=== PATIENT | female | born 1960 | race Caucasian/White ===

== ENCOUNTER 2019-08-08 16:06 | Outpatient (REF) | payer MEDICARE, MEDICAID, SELFPAY ==
[2019-08-08 21:41] LABS: HCT 39.1 % (36.0-46.0); HGB 12.3 g/dL (12.0-15.5); Mean Corp. HGB Concentration 31.5 g/dL (32.0-36.0); Mean Corpuscular Hemoglobin 29.5 pg (27.0-33.0); Mean Corpuscular Volume 93.8 fL (80-95); Mean Platelet Volume 10.4 fL (8.0-11.0); Platelet Count 353 x1000/uL (130-400); RBC 4.17 m/cumm (4.00-5.20); White Blood Cell Count 11.08 k/cumm (4.4-10.8)
[2019-08-08 21:57] LABS: Anion Gap 7.9 mmol/L (3-11); BUN 20 mg/dL (7-18); CO2 30.1 mmol/L (21.0-32.0); CREATININE 1.35 mg/dL (0.55-1.02); Calcium 8.9 mg/dL (8.5-10.1); Chloride 104 mmol/L (98-107); Estimated GFR 40.28 (mL/min/1.73m2); Glucose 93 mg/dL (70-100); Potassium 3.4 mmol/L (3.5-5.1); Sodium 142 mmol/L (136-145)
[2019-08-08 22:08] LABS: Hemoglobin A1C 5.6 % (4.5-6.2)
== END 2019-08-08 16:26 ==
LOC: NCHCN 16:06
PROVIDERS: PCP Nurse Practitioner; Visit Provider Nurse Practitioner Family
DX: R73.09 Other abnormal glucose (principal); E66.01 Morbid (severe) obesity due to excess calories; Z86.2 Personal history of diseases of the blood and blood-forming organs and certain disorders involving the immune mechanism
CPT/HCPCS: 80048; 85027; 83036

== ENCOUNTER 2019-09-11 10:37 | Outpatient (REF) | payer MEDICARE, MEDICAID, SELFPAY ==
[2019-09-11 21:30] LABS: Anion Gap 7.2 mmol/L (3-11); BUN 20 mg/dL (7-18); CO2 31.8 mmol/L (21.0-32.0); CREATININE 1.12 mg/dL (0.55-1.02); Calcium 8.9 mg/dL (8.5-10.1); Chloride 103 mmol/L (98-107); Estimated GFR 49.97 (mL/min/1.73m2); Glucose 105 mg/dL (70-100); Potassium 3.7 mmol/L (3.5-5.1); Sodium 142 mmol/L (136-145)
== END 2019-09-11 10:57 ==
LOC: NCHCN 10:37
PROVIDERS: PCP Nurse Practitioner; Visit Provider Nurse Practitioner Family
DX: I10 Essential (primary) hypertension (principal); Z86.39 Personal history of other endocrine, nutritional and metabolic disease
CPT/HCPCS: 80048

== ENCOUNTER 2019-11-22 13:01 | Outpatient (REF) | payer MEDICARE, MEDICAID, SELFPAY ==
[2019-11-22 22:32] LABS: Abs Immature Grans 0.09 k/cumm (0.0-0.09); Absolute Basophil Count 0.03 k/cumm (0.0-0.2); Absolute Eosinophil Count 0.24 k/cumm (0.0-0.7); Absolute Lymphocyte Count 1.89 k/cumm (1.2-3.4); Absolute Monocyte Count 0.92 k/cumm (0.11-0.7); Basophils % 0.3; Eosinophils % 2.2; HCT 39.8 % (36.0-46.0); HGB 12.5 g/dL (12.0-15.5); Immature Grans % 0.8 %; Lymphocytes % 17.2; Mean Corp. HGB Concentration 31.4 g/dL (32.0-36.0); Mean Corpuscular Hemoglobin 29.1 pg (27.0-33.0); Mean Corpuscular Volume 92.8 fL (80-95); Mean Platelet Volume 9.6 fL (8.0-11.0); Monocytes % 8.4; Neutrophils % 71.1; Platelet Count 371 x1000/uL (130-400); RBC 4.29 m/cumm (4.00-5.20); RBC Distribution Width 12.9 % (11.7-14.6); White Blood Cell Count 10.97 k/cumm (4.4-10.8)
[2019-11-22 23:16] LABS: Anion Gap 8.2 mmol/L (3-11); BUN 15 mg/dL (7-18); CO2 32.8 mmol/L (21.0-32.0); CREATININE 1.11 mg/dL (0.55-1.02); Calcium 8.9 mg/dL (8.5-10.1); Chloride 101 mmol/L (98-107); Estimated GFR 50.31 (mL/min/1.73m2); Glucose 105 mg/dL (74-106); Potassium 3.3 mmol/L (3.5-5.1); Sodium 142 mmol/L (136-145)
== END 2019-11-22 13:21 ==
LOC: NCHCN 13:01
PROVIDERS: PCP Nurse Practitioner; Visit Provider Registered Nurse
DX: N18.9 Chronic kidney disease, unspecified (principal); Z86.2 Personal history of diseases of the blood and blood-forming organs and certain disorders involving the immune mechanism
CPT/HCPCS: 80048; 85025

== ENCOUNTER 2019-12-29 11:56 | Outpatient (REF) | payer MEDICARE, MEDICAID, SELFPAY ==
[2019-12-29 20:43] LABS: Potassium 3.3 mmol/L (3.5-5.1)
== END 2019-12-29 12:16 ==
LOC: NCHCN 11:56
PROVIDERS: PCP Nurse Practitioner; Visit Provider Registered Nurse
DX: Z86.39 Personal history of other endocrine, nutritional and metabolic disease (principal)
CPT/HCPCS: 84132

== ENCOUNTER 2020-03-19 11:47 | Outpatient (REF) | payer OTHER, MEDICAID, SELFPAY ==
[2020-03-19 22:01] LABS: Anion Gap 5.2 mmol/L (3-11); BUN 15 mg/dL (7-18); CO2 32.8 mmol/L (21.0-32.0); CREATININE 1.28 mg/dL (0.55-1.02); Calcium 9.4 mg/dL (8.5-10.1); Chloride 101 mmol/L (98-107); Estimated GFR 42.68 (mL/min/1.73m2); Glucose 105 mg/dL (74-106); Potassium 4.3 mmol/L (3.5-5.1); Sodium 139 mmol/L (136-145)
[2020-03-19 22:32] LABS: Hemoglobin A1C 5.9 % (3.8-5.6)
== END 2020-03-19 12:07 ==
LOC: NCHCN 11:47
PROVIDERS: PCP Nurse Practitioner; Visit Provider Nurse Practitioner Family
DX: R73.03 Prediabetes (principal); N18.9 Chronic kidney disease, unspecified
CPT/HCPCS: 80048; 83036

== ENCOUNTER 2020-09-19 17:10 | Outpatient (REF) | payer OTHER, MEDICAID, SELFPAY ==
[2020-09-19 21:20] LABS: Abs Immature Grans 0.03 10^3/uL (0.0-0.06); Absolute Basophil Count 0.05 10^3/uL (0.0-0.2); Absolute Lymphocyte Count 2.63 10^3/uL (1.2-3.4); Absolute Monocyte Count 0.73 10^3/uL (0.1-0.8); Absolute Neutrophil Count 3.74 10^3/uL (1.2-6.7); Basophils % 0.7; Eosinophils % 2.7; HCT 41.4 % (36.0-46.0); HGB 12.9 g/dL (11.2-15.7); Immature Grans % 0.4; Lymphocytes % 35.6; MCH 28.7 pg (27.0-33.0); MCHC 31.2 % (32.0-36.0); MCV 92.2 fL (80-95); MPV 9.8 fL (8.0-11.0); Monocytes % 9.9; Neutrophils % 50.7; Nucleated RBC 0 %; Platelet Count 348 10^3/uL (130-400); RBC 4.49 10^6/uL (3.93-5.22); RDW 13.1 % (11.7-14.6); RDW-SD 44.2 fL; WBC 7.38 10^3/uL (4.4-10.8)
[2020-09-19 21:46] LABS: ALT 24 U/L (14-59); AST 14 U/L (15-37); Albumin 3.9 g/dL (3.4-5.0); Alkaline Phosphatase 101 U/L (46-116); BUN 19 mg/dL (7-18); Bilirubin, Total 0.2 mg/dL (0.2-1.0); CREATININE 1.18 mg/dL (0.55-1.02); Calcium 9.3 mg/dL (8.5-10.1); Chloride 102 mmol/L (98-107); Estimated GFR 46.88 (mL/min/1.73m2); Glucose 79 mg/dL (74-106); Potassium 4.2 mmol/L (3.5-5.1); Sodium 140 mmol/L (136-145); Total Protein 6.5 g/dL (6.4-8.2)
[2020-09-25 04:15] LABS: Patient Race White; SARS-CoV-2 RNA Undetected (Undetected); SARS-CoV-2 Specimen Source Nasal
== END 2020-09-19 17:30 ==
LOC: NCHCN 17:10
PROVIDERS: PCP Nurse Practitioner; Visit Provider Nurse Practitioner Family
DX: B34.9 Viral infection, unspecified (principal); Z11.59 Encounter for screening for other viral diseases; M54.89 Other dorsalgia
CPT/HCPCS: 80053; U0003; 85025

== ENCOUNTER 2021-08-25 16:30 | Outpatient (REF) | payer OTHER, MEDICAID, SELFPAY ==
[2021-08-25 22:28] LABS: Hemoglobin A1C 5.7 % (<5.7)
[2021-08-25 22:35] LABS: Microalb ug/mg Crea 4.2 ug/mg Cr
[2021-08-25 23:02] LABS: ALT 25 U/L (14-59); AST 14 U/L (15-37); Albumin 3.7 g/dL (3.4-5.0); Alkaline Phosphatase 115 U/L (46-116); Anion Gap 7.4 mmol/L (3-11); BUN 12 mg/dL (7-18); Bilirubin, Total 0.3 mg/dL (0.2-1.0); CO2 31.6 mmol/L (21.0-32.0); CREATININE 1.1 mg/dL (0.55-1.02); Calcium 9.4 mg/dL (8.5-10.1); Calculated LDL 136 mg/dL (<100); Chloride 104 mmol/L (98-107); Cholesterol 231 mg/dL (<200); Estimated GFR 50.67 (mL/min/1.73m2); Glucose 97 mg/dL (74-106); HDL Cholesterol 54 mg/dL (40-60); Magnesium 1.8 mg/dL (1.8-2.4); Potassium 4.2 mmol/L (3.5-5.1); Sodium 143 mmol/L (136-145); Total Protein 6.6 g/dL (6.4-8.2); Triglyceride 207 mg/dL (<150); Vitamin B12 400 pg/mL (193-986)
== END 2021-08-25 16:31 | disposition home or self-care (01) ==
LOC: NCHCN 16:30
PROVIDERS: PCP Nurse Practitioner; Visit Provider Nurse Practitioner Family
DX: I10 Essential (primary) hypertension (principal); R73.03 Prediabetes; K21.9 Gastro-esophageal reflux disease without esophagitis; M54.59 Other low back pain
CPT/HCPCS: 80053; 80061; 82043; 82570; 82607; 83036; 83735

== ENCOUNTER 2022-03-09 16:12 | Outpatient (REF) | payer MEDICARE, MEDICAID, SELFPAY ==
[2022-03-09 21:45] LABS: Abs Immature Grans 0.04 10^3/uL (0.0-0.06); Absolute Basophil Count 0.05 10^3/uL (0.0-0.2); Absolute Eosinophil Count 0.23 10^3/uL (0.0-0.7); Absolute Lymphocyte Count 2.01 10^3/uL (1.2-3.4); Absolute Monocyte Count 0.73 10^3/uL (0.1-0.8); Absolute Neutrophil Count 5.79 10^3/uL (1.2-6.7); Basophils % 0.6; Eosinophils % 2.6; HCT 41.4 % (36.0-46.0); HGB 12.9 g/dL (11.2-15.7); Immature Grans % 0.5; Lymphocytes % 22.7; MCH 29.3 pg (27.0-33.0); MCHC 31.2 % (32.0-36.0); MCV 94 fL (80-95); MPV 9.6 fL (8.0-11.0); Monocytes % 8.2; Neutrophils % 65.4; Platelet Count 327 10^3/uL (130-400); RBC 4.41 10^6/uL (3.93-5.22); RDW 12.5 % (11.7-14.6); RDW-SD 43.4 fL; WBC 8.85 10^3/uL (4.4-10.8)
== END 2022-03-09 16:13 | disposition home or self-care (01) ==
LOC: NCHCN 16:12
PROVIDERS: PCP Nurse Practitioner; Visit Provider Family Medicine
DX: R05.1 Acute cough (principal); J45.41 Moderate persistent asthma with (acute) exacerbation
CPT/HCPCS: 85025

== ENCOUNTER 2022-07-21 12:41 | Outpatient (REF) | payer MEDICARE, MEDICAID, SELFPAY ==
[2022-07-21 20:56] LABS: Abs Immature Grans 0.01 10^3/uL (0.0-0.06); Absolute Basophil Count 0.05 10^3/uL (0.0-0.2); Absolute Eosinophil Count 0.25 10^3/uL (0.0-0.7); Absolute Lymphocyte Count 2.02 10^3/uL (1.2-3.4); Absolute Monocyte Count 0.43 10^3/uL (0.1-0.8); Absolute Neutrophil Count 2.87 10^3/uL (1.2-6.7); Basophils % 0.9; Eosinophils % 4.4; HCT 41.7 % (36.0-46.0); HGB 13.2 g/dL (11.2-15.7); Immature Grans % 0.2; Lymphocytes % 35.9; MCH 29.6 pg (27.0-33.0); MCHC 31.7 % (32.0-36.0); MCV 94 fL (80-95); MPV 9.8 fL (8.0-11.0); Monocytes % 7.6; Platelet Count 325 10^3/uL (130-400); RBC 4.46 10^6/uL (3.93-5.22); RDW 12.7 % (11.7-14.6); RDW-SD 43.5 fL; WBC 5.63 10^3/uL (4.4-10.8)
[2022-07-21 21:15] LABS: ALT 23 U/L (14-59); AST 16 U/L (15-37); Albumin 3.8 g/dL (3.4-5.0); Alkaline Phosphatase 85 U/L (46-116); Anion Gap 5.9 mmol/L (3-11); BUN 18 mg/dL (7-18); Bilirubin, Total 0.3 mg/dL (0.2-1.0); CO2 32.1 mmol/L (21.0-32.0); CREATININE 1.2 mg/dL (0.55-1.02); Calcium 9.5 mg/dL (8.5-10.1); Chloride 102 mmol/L (98-107); Glucose 111 mg/dL (74-106); Lipase 54 U/L (73-393); Potassium 3.5 mmol/L (3.5-5.1); Sodium 140 mmol/L (136-145); TSH 1.14 uIU/mL (0.36-3.74); Total Protein 7.3 g/dL (6.4-8.2)
[2022-07-23 09:07] LABS: HIV-1/2 Ag & Ab Screen Negative (Negative)
[2022-07-23 09:20] LABS: Hepatitis C Ab w Rflx HCV PCR Negative (Negative)
== END 2022-07-21 12:42 | disposition home or self-care (01) ==
LOC: NCHCN 12:41
PROVIDERS: PCP Nurse Practitioner; Visit Provider Nurse Practitioner Family
DX: R10.9 Unspecified abdominal pain (principal); I12.9 Hypertensive chronic kidney disease with stage 1 through stage 4 chronic kidney disease, or unspecified chronic kidney disease; Z11.4 Encounter for screening for human immunodeficiency virus [HIV]; Z11.59 Encounter for screening for other viral diseases; N18.9 Chronic kidney disease, unspecified
CPT/HCPCS: 80053; 83690; 86803; 87389; 83036; 84443; 85025

== ENCOUNTER 2022-10-02 10:10 | Emergency (ER) | payer MEDICARE, MEDICAID, SELFPAY ==
[2022-10-02] VITALS (45 sets, daily range): BP systolic 98–139; BP diastolic 51–106; PULSE 68–122; RESP 11–25; TEMP 36.5; O2SAT 93–100
--- NOTE | 2022-10-02 10:00 | RT.EKG_ITS ---
APPROVED REPORT Exam: Resting ECG Reason for Exam: Chest pain Patient Location: E HR:68 bpm ECG Measurements Heart Rate 68 AXIS AZ 143 P 44 QRSd 93 QRS 49 QT 453 T 86 QTc 483 Conclusion Sinus rhythm...normal P axis, V-rate 60- 99
--- NOTE | 2022-10-02 10:29 | ED.GENADUL_ITS ---
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 Hydrate yourself well and rest this weekend. Medical Decision Making 61-year-old presents to the emergency room for left hematology oncology office status post atypical chest discomfort after receiving some antiemetics and steroids IV. Arrives with a normal EKG. Pain-free. Serial troponins were negative. Her electrolytes and CBC are baseline. Her chest pain does not appear to be cardiac in etiology. No respiratory symptoms. At this time the patient will discharge from a cardiopulmonary perspective. She is concerned that she has not been able to eat because she gets nauseous when she eats. At this time her electrolytes like acid are normal. I see no reason for admission. I have asked her to follow with her primary care doctor next week. Sign Out No HPI General Date/Time Provider Initiated Documentation: 10/02/22 10:29 . HPI Narrative: 61-year-old lady who developed some substernal chest pressure that lasted approximately 5 minutes and resolved spontaneously after receiving her antiemetic and her dexamethasone at the [facility] in preparation for her first chemotherapy round. The patient is being treated for a cancer of the head of the pancreas. No radiation of the pain. No nausea no vomiting. No back pain. This associated with some shortness of breath that resolved spontaneously. The patient believe that she may have had one of her panic attacks. She is sent from the cancer center to the emergency department for the above- mentioned complaints. She arrives to the emergency department good. Asymptomatic. General Stated Complaint: Chest Pain MARIAM: 2 Review of Systems Narrative: Constitutional is been negative for fever chills, negative for malaise, negative for fatigue. Eyes: No visual changes, no tearing ENT: No sore throat, no pain in the ears, no hearing change, no rhinorrhea Cardiovascular no shortness of breath with exertion, no palpitations, no lightheadedness Respiratory:seehpi,no cough GI: No abdominal pain, no diarrhea, no nausea, no vomiting, no dark stools : No dysuria, no frequency, no hematuria MSK: No myalgias, no arthralgias Skin: No rash Neurological: No headaches, no focal weakness, no paresthesias, no dizziness Psych: pos anxiety, no depression Endo: No weight gain no weight loss Hematology/lymph: No painful nodes, no easy bleeding, not on blood thinners PFSH All Active Problems (Updated 10/02/22 @ 14:47 by Tommy Hamilton MD) Atypical chest pain (Acute) Social History Smoking/Tobacco Use Status: Never Smoking risk assessment performed?: Yes Alcohol Intake: never Drug use: Never Substance use type: does not use Do you feel safe at home: Yes Do you feel safe in your relationship?: Yes Exam Narrative Exam Narrative: General: A,A Ox3, Calm, no apparent distress, well developed, pleasant and cooperative Head Size/Shape: normocephalic, atraumatic Eyes Pupils: PERRLA Extraocular Mobility: intact and symmetrical Conjunctiva: non-injected, anicteric, no discharge Ears, Nose, Throat Nares: patent bilaterally Oral Cavity: moist Neck: supple no jvd Respiratory Respiratory Effort: no dyspnea Auscultation: clear to auscultation bilaterally, normal breath sounds, no wheezing, no rales/crackles Cardiovascular Heart Auscultation: regular rate and rhythm, normal S1, normal S2, no murmurs, no rubs, no gallops, Pulse Quality: +2 equal bilaterally, location(s) radial Abdomen Inspection and Palpation: soft, non-tender, non-distended, no hepatosplenomegaly Musculoskeletal System Joints, Bones, and Muscles: no deformities Extremities: warm and well-perfused, no cyanosis, capillary refill <2 seconds Skin Skin Inspection: no rash, no lesions, no bruising Neurological Motor: normal tone, normal strength, moving all extremities equally Reflexes: deep tendon reflexes 2+ bilaterally, no clonus Psychiatric: good insight, good judgement, normal mood and affect Course Vital Signs Vital signs: Vital Signs Temperature 36.5 C 10/02/22 10:10 Pulse 72 10/02/22 10:10 Respiratory Rate 18 10/02/22 10:10 Blood Pressure 114/84 10/02/22 10:10 Pulse Oximetry 100 10/02/22 10:10 Temperature 36.5 C 10/02/22 10:10 Temperature Source Skin 10/02/22 10:10 Pulse 72 10/02/22 10:10 Respiratory Rate 18 10/02/22 10:10 Blood Pressure 114/84 10/02/22 10:10 Pulse Oximetry 100 10/02/22 10:10 Oxygen Delivery Method Room Air 10/02/22 10:10 Oxygen Flow Rate 0 10/02/22 10:10 Pain Level 0 10/02/22 10:10
[2022-10-02 11:08] LABS: Abs Immature Grans 0.04 10^3/uL (0.0-0.06); Absolute Basophil Count 0.04 10^3/uL (0.0-0.2); Absolute Eosinophil Count 0.15 10^3/uL (0.0-0.7); Absolute Lymphocyte Count 1.16 10^3/uL (1.2-3.4); Absolute Monocyte Count 0.69 10^3/uL (0.1-0.8); Absolute Neutrophil Count 7.68 10^3/uL (1.2-6.7); Basophils % 0.4; Eosinophils % 1.5; HGB 13.3 g/dL (11.2-15.7); Immature Grans % 0.4; Lymphocytes % 11.9; MCH 30.1 pg (27.0-33.0); MCHC 32.4 % (32.0-36.0); MCV 93 fL (80-95); MPV 9.5 fL (8.0-11.0); Monocytes % 7.1; Neutrophils % 78.7; Platelet Count 318 10^3/uL (130-400); RBC 4.42 10^6/uL (3.93-5.22); RDW 12.7 % (11.7-14.6); RDW-SD 43.3 fL; WBC 9.76 10^3/uL (4.4-10.8)
[2022-10-02 11:41] LABS: ALT 12 U/L (14-59); AST 11 U/L (15-37); Albumin 3.5 g/dL (3.4-5.0); Alkaline Phosphatase 95 U/L (46-116); Anion Gap 7.7 mmol/L (3-11); BUN 30 mg/dL (7-18); Bilirubin, Total 0.7 mg/dL (0.2-1.0); CO2 26.3 mmol/L (21.0-32.0); CREATININE 1.7 mg/dL (0.55-1.02); Calcium 9.1 mg/dL (8.5-10.1); Chloride 99 mmol/L (98-107); Estimated GFR 33.91 (mL/min/1.73m2); Glucose 109 mg/dL (74-106); Magnesium 1.8 mg/dL (1.8-2.4); Potassium 3.6 mmol/L (3.5-5.1); Sodium 133 mmol/L (136-145); Total Protein 6.7 g/dL (6.4-8.2); Troponin I < 50 ng/L (<or=60)
[2022-10-02 14:32] LABS: Troponin I < 50 ng/L (<or=60)
--- NOTE | 2022-10-02 14:37 | ED.GENADUL_ITS ---
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 Hydrate yourself well and rest this weekend. Medical Decision Making Patient arrived to the emergency department pain-free. Initial EKG was within normal limits. No signs of ischemia. She has her troponins that were negative. I believe the patient had a reaction to the steroids and antiemetics that she was given as premedication for chemotherapy. Do not believe that this is cardiac in etiology. Patient will be discharged with follow-up next week with her hematology oncologist. I discussion with the patient and her daughter. They were under the impression that she would be admitted over the weekend for hydration and to help her eat. I explained to her that nothing on her blood work wants admission. She states that she is not nauseous but she is unable to keep any of the food down because she gags. She has not lost any weight. At this time I see no reason for admission. Her labs are within her normal range. Sign Out No HPI General Date/Time Provider Initiated Documentation: 10/02/22 10:29 . HPI Narrative: 61-year-old presented to the emergency department for evaluation of chest discomfort. She was at the hematology oncology office getting ready to receive her first round of chemotherapy. She was given dexamethasone as well as an antiemetic. Shortly after receiving the medication she developed some anterior chest discomfort. Like a pressure. Pressure lasted approximately 45 minutes and resolve spontaneously. Associate with some mild shortness of breath. She believes that this was similar to panic attacks yesterday and the past but she was sent to the emergency room for further evaluation. She arrived to the [facility] room essentially symptom-free. No chest pain or shortness of breath. No anxiety. No nausea no vomiting. No headaches. No back pain abdominal pain. There was no radiation of the discomfort. It was described as mild. Transient resolved spontaneously General Stated Complaint: Chest Pain MARIAM: 2 Review of Systems Narrative: Constitutional is been negative for fever chills, negative for malaise, negative for fatigue. Eyes: No visual changes, no tearing ENT: No sore throat, no pain in the ears, no hearing change, no rhinorrhea Cardiovascularno shortness of breath with exertion, no palpitations, no lightheadedness Respiratory: No shortness of breath, no cough, GI: No abdominal pain, no diarrhea, no nausea, no vomiting, no dark stools : No dysuria, no frequency, no hematuria MSK: No myalgias, no arthralgias Skin: No rash Neurological: No headaches, no focal weakness, no paresthesias, no dizziness Psych: No anxiety, no depression Endo: No weight gain no weight loss Hematology/lymph: No painful nodes, no easy bleeding, not on blood thinners PFSH All Active Problems (Updated 10/02/22 @ 14:47 by Tommy Hamilton MD) Atypical chest pain (Acute) Social History Smoking/Tobacco Use Status: Never Smoking risk assessment performed?: Yes Alcohol Intake: never Drug use: Never Substance use type: does not use Do you feel safe at home: Yes Do you feel safe in your relationship?: Yes Exam Narrative Exam Narrative: General: A,A Ox3, Calm, no apparent distress, well developed, pleasant and cooperative Head Size/Shape: normocephalic, atraumatic Eyes Pupils: PERRLA Extraocular Mobility: intact and symmetrical Conjunctiva: non-injected, anicteric, no discharge Ears, Nose, Throat Nares: patent bilaterally Oral Cavity: moist Neck: supple no jvd Respiratory Respiratory Effort: no dyspnea Auscultation: clear to auscultation bilaterally, normal breath sounds, no wheezing, no rales/crackles / port in the left side of her chest Cardiovascular Heart Auscultation: regular rate and rhythm, normal S1, normal S2, no murmurs, no rubs, no gallops, Pulse Quality: +2 equal bilaterally, location(s) radiial Abdomen Inspection and Palpation: soft, non-tender, non-distended, no hepatosplenomegaly Musculoskeletal System Joints, Bones, and Muscles: no deformities Extremities: warm and well-perfused, no cyanosis, capillary refill <2 seconds Skin Skin Inspection: no rash, no lesions, no bruising Neurological Motor: normal tone, normal strength, moving all extremities equally Reflexes:no clonus Psychiatric: good insight, good judgement, normal mood and affect Course Vital Signs Vital signs: Vital Signs Temperature 36.5 C 10/02/22 10:10 Pulse 72 10/02/22 10:10 Respiratory Rate 18 10/02/22 10:10 Blood Pressure 114/84 10/02/22 10:10 Pulse Oximetry 100 10/02/22 10:10 Temperature 36.5 C 10/02/22 10:10 Temperature Source Skin 10/02/22 10:10 Pulse 72 10/02/22 10:10 Respiratory Rate 18 10/02/22 10:10 Respiratory Effort 10/02/22 11:02 Respiratory Depth Normal 10/02/22 11:02 Respiratory Pattern Normal 10/02/22 11:02 Blood Pressure 114/84 10/02/22 10:10 Pulse Oximetry 100 10/02/22 10:10 Oxygen Delivery Method Room Air 10/02/22 10:10 Oxygen Flow Rate 0 10/02/22 10:10 Pain Level 0 10/02/22 10:10 Lab/Test Results Lab/Test Results: Laboratory Tests Range/Units 10/02/22 10/02/22 10/02/22 11:00 11:00 13:30 WBC (4.4-10.8) 10^3/uL 9.76 RBC (3.93-5.22) 10^6/uL 4.42 Hgb (11.2-15.7) g/dL 13.3 Hct (36.0-46.0) % 41.0 MCV (80-95) fL 93 MCH (27.0-33.0) pg 30.1 MCHC (32.0-36.0) % 32.4 RDW (11.7-14.6) % 12.7 Plt Count (130-400) 10^3/uL 318 MPV (8.0-11.0) fL 9.5 Immature Gran % 0.4 Neutrophils % 78.7 Lymphocytes % 11.9 Monocytes % 7.1 Eosinophils % 1.5 Basophils % 0.4 Nucleated RBC % (0.0-0.3) % 0.0 Absolute Neutrophils (1.2-6.7) 10^3/uL 7.68 H Absolute Lymphocytes (1.2-3.4) 10^3/uL 1.16 L Absolute Monocytes (0.1-0.8) 10^3/uL 0.69 Absolute Eosinophils (0.0-0.7) 10^3/uL 0.15 Absolute Basophils (0.0-0.2) 10^3/uL 0.04 Sodium (136-145) mmol/L 133 L Potassium (3.5-5.1) mmol/L 3.6 Chloride (98-107) mmol/L 99 Carbon Dioxide (21.0-32.0) mmol/L 26.3 Anion Gap (3-11) mmol/L 7.7 BUN (7-18) mg/dL 30 H Creatinine (0.55-1.02) mg/dL 1.7 H Est GFR (CKD-EPI 2020) (mL/min/1.73m2) 33.91 Glucose (74-106) mg/dL 109 H Calcium (8.5-10.1) mg/dL 9.1 Magnesium (1.8-2.4) mg/dL 1.8 Total Bilirubin (0.2-1.0) mg/dL 0.7 AST (15-37) U/L 11 L ALT (14-59) U/L 12 L Alkaline Phosphatase (46-116) U/L 95 Troponin I (<or=60) ng/L < 50 < 50 Total Protein (6.4-8.2) g/dL 6.7 Albumin (3.4-5.0) g/dL 3.5
== END 2022-10-02 15:01 | disposition home or self-care (01) ==
PROVIDERS: Emergency Provider Emergency Medicine; PCP Nurse Practitioner
DX: R07.89 Other chest pain (principal); T38.0X5A Adverse effect of glucocorticoids and synthetic analogues, initial encounter
CPT/HCPCS: 80053; 93005; 99283; 83735; 84484; 85025; 93010; 99284

== ENCOUNTER 2022-10-05 02:38 | Outpatient (RCR) | payer MEDICARE, MEDICAID, SELFPAY ==
--- OUTSIDE RECORDS SUMMARY | 2022-09-18 01:06 | XMS_ITS | CCD ---
:1960 Author Care Team Providers Name Role Phone RAMANA HANKS MD Attending Physician Unavailable Vital Signs Unknown or Not Available. Allergies Allergy Code Allergy Type Reaction Status MEPERIDINE 6754 Drug allergy Active ERYTHROMYCIN 4053 Drug allergy Active ASPIRIN 1191 Drug allergy Active LATEX 0 Allergy to substance Active Procedures Procedure Code Procedure Type Date Arthrocentesis Aspir&/In[place]t/[place] [address] CPT 06/12/2021 History of Immunizations Immunization Code Date Influenza, seasonal, injectable, preservative free 140 01/17/2013 Problems Problem Code Start Date Resolved Date Status ACUTE ASTHMA EXACERBATION 52479 Ac tive HTN 58304969 Active Depression 32529321 Active Pancreatic cancer 036947102 Active Results Unknown or Not Available. Active Medications Medication Code Dose Units Frequency Route Modification Start Date/Time Advair Diskus 530203 1 EACH TWICE A DAY INHALATION 500/50 16:14 0.5MG-0.05MG/A ctuati Inhalation Disk Prescription Detail 1 EACH INHALATION TWICE A D AY Montelukast Sodium 10MG 592514 10 MILLIGRAMS DAILY ORAL 05/26/2018 16:14 Oral Tablet Prescription Detail TAKE 10 MILLIGRAMS ORAL DESHAWN Y Medications Administered During Visit Unknown or Not Available. Encounters Encounter Diagnosis Diagnosis Code Start Date Unilateral primary osteoarthritis, right knee M1711 06/12/2021 Social History Smoking Status Code Start Date End Date Never smoker [id number] Patient Decision Aids Unknown or Not Available. Discharge Instructions You were admitted to [facility] on 06/12/2021 08:46 with a principal diagnosis of Unilateral primary osteoart hritis, right knee You had the following procedures done: Arthrocentesis Aspir&/Inj Major Jt/Bursa w/o US You were discharged from [facility] on 06/12/2021 08:46 Should you have any questions prior to d ischarge, please contact a member of your healthcare team. If you have left the spital and have any questions, please contact your primary care physician. Chief Complaint and Reason For Visit Unknown or Not Available. Function Status Unknown or Not Available. Plan of Care Unknown or Not Available. Referral/Transition of Care Unknown or Not Available.
--- OUTSIDE RECORDS SUMMARY | 2022-09-18 01:06 | XMS_ITS | CCD ---
:1960 Author Care Team Providers Name Role Phone DELONTE BEAUCHAMP Attending Physician Unavailable Vital Signs Unknown or Not Available. Allergies Allergy Code Allergy Type Reaction Status MEPERIDINE 6754 Drug allergy Active ERYTHROMYCIN 4053 Drug allergy Active ASPIRIN 1191 Drug allergy Active LATEX 0 Allergy to substance Active Procedures Unknown or Not Available. History of Immunizations Immunization Code Date Influenza, seasonal, injectable, preservative free 140 01/17/2013 Problems Problem Code Start Date Resolved Date Status ACUTE ASTHMA EXACERBATION 11002 Ac tive HTN 50138231 Active Depression 06356465 Active Pancreatic cancer 277723630 Active Results Unknown or Not Available. Active Medications Medication Code Dose Units Frequency Route Modification Start Date/Time Advair Diskus 756514 1 EACH TWICE A DAY INHALATION 500/50 16:14 0.5MG-0.05MG/A ctuati Inhalation Disk Prescription Detail 1 EACH INHALATION TWICE A D AY Montelukast Sodium 10MG 083601 10 MILLIGRAMS DAILY ORAL 05/26/2018 16:14 Oral Tablet Prescription Detail TAKE 10 MILLIGRAMS ORAL DESHAWN Y Medications Administered During Visit Unknown or Not Available. Encounters Encounter Diagnosis Diagnosis Code Start Date Unspecified lump in the left breast, upper outer quadrant N6 321 07/16/2021 Social History Smoking Status Code Start Date End Date Never smoker [id number] Patient Decision Aids Unknown or Not Available. Discharge Instructions You were admitted to [facility] 01 on 07/16/2021 13:12 with a principal diagnosis of Unspecified lump in the lef t breast, upper outer quadrant You were discharged from [facility] on 07/16/2021 13:12 Should you have any questions prior to d ischarge, please contact a member of your healthcare team. If you have left the ho spital and have any questions, please contact your primary care physician. Chief Complaint and Reason For Visit Unknown or Not Available. Function Status Unknown or Not Available. Plan of Care Unknown or Not Available. Referral/Transition of Care Unknown or Not Available.
[2022-09-18] MEDS: Normal Saline Flush 10 ML SYR IVP (08:14)
[2022-09-18 08:51] LABS: Abs Immature Grans 0.04 10^3/uL (0.0-0.06); Absolute Basophil Count 0.05 10^3/uL (0.0-0.2); Absolute Eosinophil Count 0.45 10^3/uL (0.0-0.7); Absolute Lymphocyte Count 2.38 10^3/uL (1.2-3.4); Absolute Monocyte Count 0.77 10^3/uL (0.1-0.8); Absolute Neutrophil Count 4.43 10^3/uL (1.2-6.7); Basophils % 0.6; Eosinophils % 5.5; HCT 41.7 % (36.0-46.0); HGB 13.3 g/dL (11.2-15.7); Immature Grans % 0.5; Lymphocytes % 29.3; MCHC 31.9 % (32.0-36.0); MCV 94 fL (80-95); MPV 9.9 fL (8.0-11.0); Monocytes % 9.5; Neutrophils % 54.6; Platelet Count 309 10^3/uL (130-400); RBC 4.43 10^6/uL (3.93-5.22); RDW 12.7 % (11.7-14.6); RDW-SD 44.1 fL; WBC 8.12 10^3/uL (4.4-10.8)
[2022-09-18 09:08] LABS: ALT 18 U/L (14-59); AST 17 U/L (15-37); Albumin 3.7 g/dL (3.4-5.0); Alkaline Phosphatase 97 U/L (46-116); Anion Gap 7.8 mmol/L (3-11); BUN 22 mg/dL (7-18); Bilirubin, Total 0.3 mg/dL (0.2-1.0); CO2 30.2 mmol/L (21.0-32.0); CREATININE 1.2 mg/dL (0.55-1.02); Calcium 9.2 mg/dL (8.5-10.1); Chloride 101 mmol/L (98-107); Glucose 121 mg/dL (74-106); Potassium 3.3 mmol/L (3.5-5.1); Sodium 139 mmol/L (136-145); Total Protein 7.2 g/dL (6.4-8.2)
[2022-09-21 10:58] LABS: CA 19-9 53 U/mL (<35)
[2022-10-02 08:28] LABS: Abs Immature Grans 0.04 10^3/uL (0.0-0.06); Absolute Basophil Count 0.06 10^3/uL (0.0-0.2); Absolute Eosinophil Count 0.14 10^3/uL (0.0-0.7); Absolute Lymphocyte Count 2.35 10^3/uL (1.2-3.4); Absolute Monocyte Count 0.98 10^3/uL (0.1-0.8); Absolute Neutrophil Count 7.43 10^3/uL (1.2-6.7); Basophils % 0.5; Eosinophils % 1.3; HCT 42.9 % (36.0-46.0); HGB 13.8 g/dL (11.2-15.7); Immature Grans % 0.4; Lymphocytes % 21.4; MCH 30.3 pg (27.0-33.0); MCHC 32.2 % (32.0-36.0); MCV 94 fL (80-95); MPV 9.4 fL (8.0-11.0); Monocytes % 8.9; Neutrophils % 67.5; Platelet Count 368 10^3/uL (130-400); RBC 4.56 10^6/uL (3.93-5.22); RDW 12.5 % (11.7-14.6); RDW-SD 43.5 fL
[2022-10-02] MEDS: Normal Saline Flush 10 ML SYR IVP (08:42)
[2022-10-02 08:49] LABS: ALT 14 U/L (14-59); AST 13 U/L (15-37); Albumin 3.7 g/dL (3.4-5.0); Alkaline Phosphatase 102 U/L (46-116); BUN 27 mg/dL (7-18); Bilirubin, Total 0.5 mg/dL (0.2-1.0); CREATININE 1.7 mg/dL (0.55-1.02); Calcium 9.6 mg/dL (8.5-10.1); Chloride 95 mmol/L (98-107); Estimated GFR 33.91 (mL/min/1.73m2); Glucose 116 mg/dL (74-106); Potassium 3.7 mmol/L (3.5-5.1); Sodium 132 mmol/L (136-145); Total Protein 7.4 g/dL (6.4-8.2)
[2022-10-05] MEDS: Normal Saline Flush 10 ML SYR IVP (10:53)
[2022-10-05 10:59] LABS: CA 19-9 55 U/mL (<35)
[2022-10-05 11:21] LABS: ALT 18 U/L (14-59); AST 13 U/L (15-37); Albumin 3.7 g/dL (3.4-5.0); Alkaline Phosphatase 104 U/L (46-116); Anion Gap 8.1 mmol/L (3-11); BUN 13 mg/dL (7-18); Bilirubin, Total 0.4 mg/dL (0.2-1.0); CO2 32.9 mmol/L (21.0-32.0); Calcium 9.4 mg/dL (8.5-10.1); Chloride 93 mmol/L (98-107); Estimated GFR 64.09 (mL/min/1.73m2); Glucose 132 mg/dL (74-106); Sodium 134 mmol/L (136-145); Total Protein 7.5 g/dL (6.4-8.2)
[2022-10-05 11:32] LABS: Potassium 2.7 mmol/L (3.5-5.1)
== END 2022-10-07 23:59 | disposition home or self-care (01) ==
LOC: INF 02:38
PROVIDERS: PCP Nurse Practitioner; Visit Provider Internal Medicine Hematology & Oncology
DX: C25.0 Malignant neoplasm of head of pancreas (principal); Z45.2 Encounter for adjustment and management of vascular access device
CPT/HCPCS: 36591; 80053; 85025; 86301

== ENCOUNTER 2022-10-07 14:41 | Inpatient (IN) | payer MEDICARE, MEDICAID, SELFPAY ==
[2022-10-07] VITALS (21 sets, daily range): BP systolic 156–180; BP diastolic 97–105; PULSE 79–89; RESP 14–22; TEMP 37.2; O2SAT 100
--- NOTE | 2022-10-07 14:45 | RT.EKG_ITS ---
APPROVED REPORT Exam: Resting ECG Reason for Exam: syncope Patient Location: E HR:88 bpm ECG Measurements Heart Rate 88 AXIS MD 135 P 51 QRSd 95 QRS 30 QT 410 T 93 QTc 496 Conclusion Sinus rhythm.. Probable left atrial enlargement.. Nonspecific T abnrm, anterolateral leads
--- NOTE | 2022-10-07 15:00 | DI.CT_ITS ---
Exam(s) CT ABDOMEN PELVIS W EXAM: CT ABDOMEN PELVIS W CLINICAL HISTORY: pancreatic cancer, epigastric pain, vomiting. TECHNIQUE: Imaging Protocol: Axial computed tomography images with coronal and sagittal reformatted images were created and reviewed CONTRAST MATERIAL: Intravenous: Omnipaque 100cc Oral: None COMPARISON: No exams were available for comparison FINDINGS: VISUALIZED LUNG BASES: No nodules nor pleural effusions evident. ABDOMEN: There is no ascites. Small-moderate size hiatal hernia noted. LIVER: There are no focal hepatic lesions evident. No dilated intrahepatic ducts. GALLBLADDER/BILIARY: Mildly distended. No obvious gallstones nor gallbladder wall edema. No pericho lecystic fluid. CBD is not dilated. PANCREAS: There is a prominent 4 cm ominous hypodense mass in the pancreatic head and uncinate proce ss which is highly suspicious for adenocarcinoma. Mild surrounding streaking. Remainder of the panc reas is unremarkable and the pancreatic duct is not dilated. There are few slightly prominent lymph nodes in this region. There is a prominent lymph node between the abdominal aorta and the pre aortic left renal vein which measures 2 by 1.4 cm which is most probably metastatic. There is significant narrowing of the left renal vein at this level just before enters the subhepatic IVC . The common he patic artery and superior measures enteric artery skirt the external aspect of this mass. Same for t he superior mesenteric vein (which is patent). The portal vein confluence and splenic vein are paten t. This pancreatic mass also is intimately associated with the anterior wall of the distal aspect of the duodenum. SPLEEN: Spleen is not enlarged. No obvious intrasplenic lesions. Splenic and portal veins are paten t. ADRENALS: There are no significant adrenal masses. KIDNEYS:No cysts evident. No solid renal masses. No calculi nor hydronephrosis.. ABDOMINAL AORTA: Abdominal aorta is not enlarged. LYMPH NODES:Retroperitoneal adenopathy as described above. ABDOMINAL WALL: No evidence of significant anterior abdominal wall nor inguinal hernia. GI: There is no evidence of bowel obstruction, free air, nor abscess. PELVIS: GI: No evidence of appendicitis. No evidence of sigmoid diverticulitis. LYMPH NODES: There is no intrapelvic nor inguinal adenopathy. REPRODUCTIVE: Uterus is surgically absent. No abnormal adnexal masses. No free fluid in the pelvis. URINARY BLADDER: No calculi nor obvious masses evident OSSEOUS: L1 compression fracture, age indeterminate. 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 Chronic degenerative disc disease L4-5 and L5-S1. Mild degenerative anterolisthesis L4 upon L5. IMPRESSION: 1. Suspicious hypodense 4 cm mass in the pancreatic head which is concerning for adenocarcinoma. The pancreatic duct is not dilated. There is regional adenopathy, with the largest lymph node measuring 2 cm being portal caval location and with the pre aortic left renal vein splayed over this enlarged pathologic lymph node. The left renal vein does not appear thrombosed at this time. 2. No evidence of metastatic disease nor other findings in the liver. No ascites. 3. CBD is not dilated there is no dilatation of intrahepatic ducts. Gallbladder slightly distended b ut not edematous. 4. Superior endplate compression fracture of L1, difficult to determine acute or chronic. There is a benign intraosseous hemangioma evident in the T12 vertebral body. RADIATION DOSE DELIVERED: 1,587.86mGy.cm Total DLP DATA REPOSITORY: All CT scans at this facility are submitted to the National Radiology Data Registry (NRDR) Dose Index Registry (DIR) with the [employer] (A[employer]). RADIATION OPTIMIZATION: All CT scans at this facility use at least one of these dose optimization te chniques: automated exposure control; mA and/or kV adjustment per patient size (includes targeted exa ms where dose is matched to clinical indication); or iterative reconstruction.
--- NOTE | 2022-10-07 15:24 | ED.GENADUL_ITS ---
Discharge Plan Disposition Patient Disposition: Admit to [facility] Condition: Good Discharge Details Chief Complaint: GenMedical Clinical Impression: Acute hypokalemia, Hypomagnesemia, Vomiting Primary Care Provider: Cely Soni ED Provider: Desmond Murrell Home Meds and New Rx's Prescriptions: No Action losartan 50 mg Tablet 50 mg PO DAILY bupropion HCl 150 mg Tablet Sustained-Release 12 Hr 150 mg PO BID diphenoxylate-atropine 2.5-0.025 mg Tablet 1 - 2 tab PO DAILY PRN ondansetron 8 mg Tablet,Disintegrating 8 mg PO Q8H PRN fluticasone propion-salmeterol [Advair Diskus] 500-50 mcg/dose Blister With Device 1 inh INHALATION BID montelukast 10 mg Tablet 10 mg PO DAILY oxycodone 5 mg Tablet 5 - 10 mg PO Q6H PRN hydrochlorothiazide 12.5 mg Tablet 12.5 mg PO DAILY omeprazole 20 mg Tablet,Delayed Release (Dr/Ec) 20 mg PO BID venlafaxine 150 mg Tablet Extended Release 24hr 150 mg PO DAILY potassium chloride 20 mEq Tablet Extended Release 20 meq PO DAILY Medical Decision Making 61-year-old female with a past medical history of fibromyalgia, PTSD, anxiety, hypertension, reflux, pancreatic mass/cancer, who is currently receiving chemotherapy, who presents today for evaluation of vomiting nausea and inability to tolerate p.o. well. Patient states that over the last 3 to 4 days she has had persistent nausea and vomiting. She has been gagging every time she tries to drink something. She also admits to continued severe epigastric pain. It is achy and gnawing in sensation. She denies any hemoptysis, hematemesis, or bloody diarrhea or diarrhea. She denies any fever or chills. She did have her first attempt at chemotherapy 6 days ago, and at that time she did not tolerate the pretreatment medications of steroids and antiemetics. So she did not have the chemo. She then did get her full dose of chemo 3 days ago on Wednesday, and this was without significant problem aside for her symptoms notably escalating and worsening. She denies any other complaints at this time. No chest pain or shortness of breath. Exam demonstrates dry mucous membranes, notable epigastric tenderness, somewhat uncomfortable appearing female. Vital signs stable aside from mild hypertension. No tachycardia. I do suspect that the patient is having pain secondary to her mass, but differential does include obstruction versus other abdominal surgery. In addition to this she does appear dehydrated. We will rehydrate, treat her pain and nausea, get a CT scan, evaluate for less likely cardiac etiology, monitor closely and reassess. EKG shows inverted T waves in anterior leads, which appears relatively unchanged from prior EKG. No STEMI. 6:55 PM Laboratory work-up has returned, mild white count at 15, left shift is present. It is low 2.9, sodium 133, BUN/creatinine stable. Magnesium low at 1.6. Troponin normal, EKG stable. CT scan shows stability of the mass, no obstruction. Patient still has pain, notable nausea and dry heaving. Patient does not feel comfortable or safe going home. I did receive contact from the patient's primary care provider, and they have expressed that there is concern for potential narcotic medication diversion from family members. This has weighed on the patient's concerns as well. With the patient's dehydration, continued pain, and hypomagnesemia and hypokalemia, I do feel that admission for continued fluids, repletion of electrolytes, and monitoring is indicated for a short observation period. Discussed the case with the hospitalist Dr. Samuels, he agrees with the assessment and plan. I have extensively reviewed the treatment plan with the patient. I have addressed all patient concerns at this time. I have also discussed the plan with the admitting physician and they agree with the current assessment and plan and have agreed to assume responsibility for the patient. All parties demonstrate verbal understanding and agreement with our assessment and plan at this time. The documentation in this chart was dictated using [employer] dictation software. Please excuse any dictation errors. FINDINGS: Diaphragm: A small to moderate hiatal hernia is noted. Liver: Unremarkable liver. No mass identified. Gallbladder and bile ducts: The gallbladder is unremarkable. No calcified stones. No ductal dilation. Pancreas: There is an ill-defined lobulated hypoenhancing mass in the pancreatic head measuring approximately 4.1 x 2.8 x 3.8 cm (image 41, series 6), consistent with known pancreatic malignancy. There is peripancreatic fat stranding noted, suggestive of inflammation. Spleen: The spleen is unremarkable. No splenomegaly. Adrenal glands: The adrenal glands are unremarkable. No defined mass. Kidneys and ureters: A 1.2 cm fat containing lesion is seen in the kidney, which may represent a small angiomyolipoma versus fat interdigitation associated with prominent cortical defect. No hydronephrosis. Stomach and bowel: No obstruction. No mucosal thickening. Appendix: No evidence of appendicitis Intraperitoneal space: No free air. No significant fluid collection. Vasculature: There is no evidence of significant invasion or encasement of the superior mesenteric vein or superior mesenteric artery by the pancreatic lesion. There is narrowing of the distal left renal vein secondary to enlarged lymph node. No abdominal aortic aneurysm. Lymph nodes: An enlarged aortocaval lymph node is noted measuring approximately 1.7 cm in diameter. Urinary bladder: Unremarkable urinary bladder. Reproductive: Unremarkable as visualized. Bones/joints: No acute fracture. There is a superior endplate compression fracture involving the L1 vertebral body with mild retropulsion into the spinal canal. Soft tissues: There is a fat containing umbilical hernia noted. IMPRESSION: 1. 4.1 cm hypoenhancing mass in the pancreatic head, consistent with known malignancy. 2. Enlarged aortocaval lymph node causing narrowing of the left renal vein. This lymph node is also suggestive of metastatic disease. 3. No evidence of bowel obstruction. 4. Superior endplate compression fracture in the L1 vertebral body with mild retropulsion, which may be acute or chronic. Correlate with clinical history and with any point tenderness in this region. 5. Small to moderate hiatal hernia noted. Thank you for allowing us to participate in the care of your patient. Dictated and Authenticated by: Latoina Baker MD 10/07/2022 6:13 PM Eastern Time ([place] & [place]) Sign Out No HPI General Date/Time Provider Initiated Documentation: 10/07/22 14:54 . HPI Narrative: 61-year-old female with a past medical history of fibromyalgia, PTSD, anxiety, hypertension, reflux, pancreatic mass/cancer, who is currently receiving chemotherapy, who presents today for evaluation of vomiting nausea and inability to tolerate p.o. well. Patient states that over the last 3 to 4 days she has had persistent nausea and vomiting. She has been gagging every time she tries to drink something. She also admits to continued severe epigastric pain. It is achy and gnawing in sensation. She denies any hemoptysis, hematemesis, or bloody diarrhea or diarrhea. She denies any fever or chills. She did have her first attempt at chemotherapy 6 days ago, and at that time she did not tolerate the pretreatment medications of steroids and antiemetics. So she did not have the chemo. She then did get her full dose of chemo 3 days ago on Wednesday, and this was without significant problem aside for her symptoms notably escalating and worsening. She denies any other complaints at this time. No chest pain or shortness of breath. Related Data Home Medications Medication Instructions Recorded Confirmed bupropion HCl 150 mg tablet,12 hr 150 mg PO BID 10/07/22 10/07/22 sustained-release diphenoxylate-atropine 2.5 1 - 2 tab PO DAILY PRN 10/07/22 10/07/22 mg-0.025 mg tablet fluticasone 500 mcg-salmeterol 50 1 inh inhalation BID 10/07/22 10/07/22 mcg/dose blistr powdr for inhalation (Advair Diskus) hydrochlorothiazide 12.5 mg tablet 12.5 mg PO DAILY 10/07/22 10/07/22 losartan 50 mg tablet 50 mg PO DAILY 10/07/22 10/07/22 montelukast 10 mg tablet 10 mg PO DAILY 10/07/22 10/07/22 omeprazole 20 mg tablet,delayed 20 mg PO BID 10/07/22 10/07/22 release ondansetron 8 mg disintegrating 8 mg PO Q8H PRN 10/07/22 10/07/22 tablet oxycodone 5 mg tablet 5 - 10 mg PO Q6H PRN 10/07/22 10/07/22 potassium chloride 20 mEq 20 meq PO DAILY 10/07/22 10/07/22 tablet,extended release venlafaxine 150 mg tablet,extended 150 mg PO DAILY 10/07/22 10/07/22 release 24 hr Allergies Allergy/AdvReac Type Severity Reaction Status Date / Time aspirin Allergy Unverified 10/07/22 15:04 erythromycin base Allergy Unverified 10/07/22 15:04 Latex, Natural Rubber Allergy Unverified 10/07/22 15:04 meperidine [From Demerol] Allergy Unverified 10/07/22 15:04 General Stated Complaint: GenMedical MARIAM: 3 Review of Systems All systems reviewed & are unremarkable except as noted in HPI and below PFSH All Active Problems (Updated 10/07/22 @ 19:00 by Desmond Murrell DO) Atypical chest pain (Acute) Acute hypokalemia (Acute) Hypomagnesemia (Acute) Vomiting (Acute) Social History Smoking/Tobacco Use Status: Never Smoking risk assessment performed?: Yes Alcohol Intake: never Drug use: Never Substance use type: does not use Do you feel safe at home: Yes Do you feel safe in your relationship?: Yes Exam Narrative Exam Narrative: 1.Const: Well-nourished, Well-developed, appearing stated age 2.Eyes: PERRL, no conjunctival injection, and symmetrical lids. 3.ENT: Atraumatic external nose and ears. Dry MM. Neck: Symmetric, trachea midline, No thyromegaly. 4.CVS: +S1/S2, No murmurs or gallops. Peripheral pulses 2+ and equal in all extremities. Brisk capillary refill in all extremities. 5.RESP: Unlabored respiratory effort. Clear to auscultation bilaterally. No wheezes rales or rhonchi 6.GI: Soft, notably epigastric tenderness on palpation. Generalized achiness throughout on palpation. 7.MSK: Normocephalic/Atraumatic, Extremities w/o deformity or ttp No cyanosis or clubbing, Normal movement of all extremities 8.Skin: Warm, Dry. No rashes or lesions. 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 Sensation grossly intact, no focal neurologic deficits. 10.Psych: (AAO) x3. Appropriate mood and affect Course Vital Signs Vital signs: Vital Signs Temperature 37.2 C 10/07/22 14:57 Pulse 89 10/07/22 14:57 Respiratory Rate 22 10/07/22 14:57 Blood Pressure 158/105 H 10/07/22 14:57 Pulse Oximetry 100 10/07/22 14:57 Temperature 37.2 C 10/07/22 14:57 Temperature Source Oral 10/07/22 14:57 Pulse 89 10/07/22 14:57 Respiratory Rate 22 10/07/22 14:57 Respiratory Effort Non-Labored 10/07/22 15:01 Blood Pressure 158/105 H 10/07/22 14:57 Blood Pressure Position Sitting 10/07/22 14:57 Pulse Oximetry 100 11/30/22 14:57 Oxygen Delivery Method Room Air 10/07/22 14:57 Oxygen Flow Rate 0 10/07/22 14:57 Pain Level 10 10/07/22 14:57
[2022-10-07] MEDS: Normal Saline 1,000 ML 1000 ML IV (15:34)
[2022-10-07] MEDS: HYDROmorphone 2 MG/ML SYR 1 MG IM (15:36)
[2022-10-07 15:37] LABS: Abs Immature Grans 0.09 10^3/uL (0.0-0.06); Absolute Basophil Count 0.02 10^3/uL (0.0-0.2); Absolute Eosinophil Count 0.02 10^3/uL (0.0-0.7); Absolute Lymphocyte Count 0.68 10^3/uL (1.2-3.4); Absolute Monocyte Count 0.46 10^3/uL (0.1-0.8); Basophils % 0.1; Eosinophils % 0.1; HCT 40.5 % (36.0-46.0); HGB 13.4 g/dL (11.2-15.7); Immature Grans % 0.6; Lymphocytes % 4.3; MCH 30.5 pg (27.0-33.0); MCHC 33.1 % (32.0-36.0); MCV 92 fL (80-95); MPV 9.8 fL (8.0-11.0); Monocytes % 2.9; Platelet Count 309 10^3/uL (130-400); RBC 4.39 10^6/uL (3.93-5.22); RDW 12.2 % (11.7-14.6); RDW-SD 41.9 fL; WBC 15.78 10^3/uL (4.4-10.8)
[2022-10-07 15:39] LABS: Absolute Neutrophil Count 14.52 10^3/uL (1.2-6.7)
[2022-10-07 16:05] LABS: ALT 28 U/L (14-59); AST 19 U/L (15-37); Albumin 3.3 g/dL (3.4-5.0); Alkaline Phosphatase 100 U/L (46-116); Anion Gap 7.4 mmol/L (3-11); BUN 25 mg/dL (7-18); CO2 30.6 mmol/L (21.0-32.0); CREATININE 1.1 mg/dL (0.55-1.02); Calcium 8.9 mg/dL (8.5-10.1); Chloride 95 mmol/L (98-107); Estimated GFR 57.17 (mL/min/1.73m2); Glucose 140 mg/dL (74-106); Lipase 122 U/L (73-393); Sodium 133 mmol/L (136-145); Troponin I < 50 ng/L (<or=60)
[2022-10-07 16:17] LABS: Potassium 2.9 mmol/L (3.5-5.1)
[2022-10-07 16:50] LABS: Magnesium 1.6 mg/dL (1.8-2.4)
[2022-10-07] MEDS: Normal Saline - Diluent 50 ML VIAL IJ (17:03)
[2022-10-07] MEDS: POTASSIUM CHLORIDE 20 MEQ/100 ML BAG 50 MEQ IVPB ×2 (17:04→19:00)
[2022-10-07] MEDS: Omnipaque 350 MG/ML 100 ML BTL IJ (17:04)
[2022-10-07] MEDS: MAGNESIUM SULFATE 2 GM/50 ML BAG IVPB (17:05)
[2022-10-07] MEDS: Normal Saline Flush 10 ML SYR IVP (17:05)
--- NOTE | 2022-10-07 18:00 | RT.EKG_ITS ---
APPROVED REPORT Exam: Resting ECG Reason for Exam: recheck Patient Location: E HR:81 bpm ECG Measurements Heart Rate 81 AXIS IN 136 P 54 QRSd 96 QRS 31 QT 413 T 85 QTc 481 Conclusion Sinus rhythm...normal P axis, V-rate 60- 99 Probable left atrial enlargement...P >50mS, <-0.10mV V1 Physician: inverted t waves in V1-2 unchanged, no stemi, unchanged
--- NOTE | 2022-10-07 18:14 | DI.VRAD_ITS ---
PROCEDURE INFORMATION: Exam: CT Abdomen And Pelvis With Contrast Exam date and time: 10/07/2022 4:44 PM Age: 61 years old Clinical indication: Patient HX: Known pancreatic cancer, epigastric pain, vomitting TECHNIQUE: Imaging protocol: Computed tomography of the abdomen and pelvis with contrast. Radiation optimization: All CT scans at this facility use at least one of these dose optimization techniques: automated exposure control; mA and/or kV adjustment per patient size (includes targeted exams where dose is matched to clinical indication); or iterative reconstruction. Contrast material: OMNIPAQUE 350; Contrast volume: 100 ml; Contrast route: INTRAVENOUS (IV); COMPARISON: No relevant prior studies available. FINDINGS: Diaphragm: A small to moderate hiatal hernia is noted. Liver: Unremarkable liver. No mass identified. Gallbladder and bile ducts: The gallbladder is unremarkable. No calcified stones. No ductal dilation. Pancreas: There is an ill-defined lobulated hypoenhancing mass in the pancreatic head measuring approximately 4.1 x 2.8 x 3.8 cm (image 41, series 6), consistent with known pancreatic malignancy. There is peripancreatic fat stranding noted, suggestive of inflammation. Spleen: The spleen is unremarkable. No splenomegaly. Adrenal glands: The adrenal glands are unremarkable. No defined mass. Kidneys and ureters: A 1.2 cm fat containing lesion is seen in the kidney, which may represent a small angiomyolipoma versus fat interdigitation associated with prominent cortical defect. No hydronephrosis. Stomach and bowel: No obstruction. No mucosal thickening. Appendix: No evidence of appendicitis. Intraperitoneal space: No free air. No significant fluid collection. Vasculature: There is no evidence of significant invasion or encasement of the superior mesenteric vein or superior mesenteric artery by the pancreatic lesion. There is narrowing of the distal left renal vein secondary to enlarged lymph node. No abdominal aortic aneurysm. Lymph nodes: An enlarged aortocaval lymph node is noted measuring approximately 1.7 cm in diameter. Urinary bladder: Unremarkable urinary bladder. Reproductive: Unremarkable as visualized. Bones/joints: No acute fracture. There is a superior endplate compression fracture involving the L1 vertebral body with mild retropulsion into the spinal canal. Soft tissues: There is a fat containing umbilical hernia noted. IMPRESSION: 1. 4.1 cm hypoenhancing mass in the pancreatic head, consistent with known malignancy. 2. Enlarged aortocaval lymph node causing narrowing of the left renal vein. This lymph node is also suggestive of metastatic disease. 3. No evidence of bowel obstruction. 4. Superior endplate compression fracture in the L1 vertebral body with mild retropulsion, which may be acute or chronic. Correlate with clinical history and with any point tenderness in this region. 5. Small to moderate hiatal hernia noted. Dictated and Authenticated by: Latonia Roberts MD. Ordering:QASIM Logan MD
[2022-10-07 18:49] LABS: Troponin I < 50 ng/L (<or=60)
[2022-10-07] MEDS: Normal Saline 1,000 ML 150 ML IV (18:59)
[2022-10-07] MEDS: HYDROmorphone 2 MG/ML SYR 1 MG IVP (18:59)
[2022-10-07] MEDS: Ondansetron 4 MG/2 ML VIAL IVP (18:59)
[2022-10-07 19:03] LABS: Source Nasal/Nares
[2022-10-07 19:34] LABS: COVID-19 PCR Negative (Negative)
--- NOTE | 2022-10-07 19:52 | HPE_ITS ---
Date of service: 10/07/22 Time of Service: 19:53 Assessment and Plan Assessment and plan (1) Acute hypokalemia: Status: Acute Assessment and plan: Potassium has been administered and will be rechecked in the morning (2) Hypomagnesemia: Status: Acute Assessment and plan: she has received 2 gm IV of mag. The level will be rechecked tomorrow (3) Vomiting: Status: Acute Assessment and plan: she is receiving IVF and will be started on clear fluids as tolerated. (4) Pancreas cancer: Status: Acute Assessment and plan: Her pain likely to be from the pancreatic cancer and the fentanyl will be restarted. I tried calling the sister but did not receive an answer on the phone. I left a message for her to call, History of Present Illness History of Present Illness Chief Complaint: Nausea vomiting and abdominal pain Narrative: This 61-year-old female is here because of nausea and vomiting and abdominal pain. She was diagnosed with a pancreatic cancer about 2 months ago. She states that the current plan is to have chemotherapy and if the tumor responds and she may have surgery if it appears resectable at that time. She had her first round of chemotherapy 9 days ago. She says that she has been having nausea and vomiting abdominal pain since then. She was started on fentanyl patch but is not sure of the dose. She says she was put on bedtime but it was not there when she woke up. She states that her daughter is a recovering addict and is concerned that perhaps she may have taken it. She lives with her daughter, son-in-law and grandson. She says she looked all over for the patch but cannot find it. She states that her sister Jennifer Bartlett at [phone] has a rest of her patches and does not know what dose it is. She has a history of asthma, fibromyalgia. She states she has had her COVID vaccinations. No one else at home is ill. She presented to the emergency department and was found to have hypokalemia and hypomagnesemia. She was treated with intravenous fluids, intravenous potassium and magnesium. She still is nauseated and is having abdominal pain. Review of Systems Constitutional Constitutional: Denies chills, Denies fever(s) and Reports weakness Cardiovascular Cardiovascular: Denies chest pain, Denies rapid heart rate, Denies palpitations and Reports dyspnea on exertion (at times when her pain is worse.) Respiratory Respiratory: Denies cough, Reports dyspnea on exertion (at times when her pain is worse.) and Denies wheezing Gastrointestinal Gastrointestinal: Reports abdominal pain, Denies melena, Denies hematochezia, Denies constipation, Denies diarrhea, Reports nausea, Reports vomiting and Denies hematemesis Genitourinary Genitourinary: Denies hematuria, Denies difficulty voiding and Reports dysuria Neurologic Neurologic: Reports weakness Endocrine Endocrine: Denies palpitations Allergic/Immunologic Allergic/Immunologic: Denies wheezing PFSH All Active Problems (Updated 10/07/22 @ 20:07 by Monty Estevez MD) Pancreas cancer (Acute) Atypical chest pain (Acute) Acute hypokalemia (Acute) Hypomagnesemia (Acute) Vomiting (Acute) Social History Smoking/Tobacco Use Status: Never Smoking risk assessment performed?: Yes Alcohol Intake: never Drug use: Never Substance use type: does not use Do you feel safe at home: Yes Do you feel safe in your relationship?: Yes Meds Allergies and Home Medications Allergies Allergy/AdvReac Type Severity Reaction Status Date / Time aspirin Allergy Unverified 10/07/22 15:04 erythromycin base Allergy Unverified 10/07/22 15:04 Latex, Natural Rubber Allergy Unverified 10/07/22 15:04 meperidine [From Demerol] Allergy Unverified 10/07/22 15:04 Home Medications Medication Instructions Recorded Confirmed Type bupropion HCl 150 mg tablet,12 hr 150 mg PO BID 10/07/22 10/07/22 History sustained-release diphenoxylate-atropine 2.5 1 - 2 tab PO DAILY PRN 10/07/22 10/07/22 History mg-0.025 mg tablet fluticasone 500 mcg-salmeterol 50 1 inh inhalation BID 10/07/22 10/07/22 History mcg/dose blistr powdr for inhalation (Advair Diskus) hydrochlorothiazide 12.5 mg tablet 12.5 mg PO DAILY 10/07/22 10/07/22 History losartan 50 mg tablet 50 mg PO DAILY 10/07/22 10/07/22 History montelukast 10 mg tablet 10 mg PO DAILY 10/07/22 10/07/22 History omeprazole 20 mg tablet,delayed 20 mg PO BID 10/07/22 10/07/22 History release ondansetron 8 mg disintegrating 8 mg PO Q8H PRN 10/07/22 10/07/22 History tablet oxycodone 5 mg tablet 5 - 10 mg PO Q6H PRN 10/07/22 10/07/22 History potassium chloride 20 mEq 20 meq PO DAILY 10/07/22 10/07/22 History tablet,extended release venlafaxine 150 mg tablet,extended 150 mg PO DAILY 10/07/22 10/07/22 History release 24 hr Exam Const General: cooperative, no acute distress and disheveled Nutritional Appearance: obese HENMT Head: normal to inspection and normocephalic Throat: posterior oropharynx normal Other: mouth is dry. Eyes Sclera: sclerae normal Neck Neck: normal visual inspection, no lymphadenopathy and no JVD Resp Auscultation: clear to auscultation bilaterally Cardio Rate: regular rate Rhythm: regular rhythm Heart Sounds: S1 normal, S2 normal, no gallops and no murmurs GI Inspection: normal to inspection and non-distended Palpation: soft and no hepatosplenomegaly Other: diffuse abd tenderness but no guarding or rebound tenderness Skin Other: good turgor Extrem General: normal to inspection, no cyanosis and no edema Results Labs Result diagrams: 10/07/22 15:31 10/07/22 15:31 Labs: Laboratory Results - last 24 hr 10/07/22 10/07/22 10/07/22 15:15 15:15 15:31 WBC Cancelled 15.78 H RBC Cancelled 4.39 Hgb Cancelled 13.4 Hct Cancelled 40.5 MCV Cancelled 92 MCH Cancelled 30.5 MCHC Cancelled 33.1 RDW Cancelled 12.2 Plt Count Cancelled 309 MPV Cancelled 9.8 Immature Gran % Cancelled 0.6 Neutrophils % Cancelled 92.0 Band Neutrophils % Cancelled Lymphocytes % Cancelled 4.3 Atypical Lymphs % Cancelled Monocytes % Cancelled 2.9 Eosinophils % Cancelled 0.1 Basophils % Cancelled 0.1 Metamyelocytes % Cancelled Myelocytes % Cancelled Promyelocytes % Cancelled Other Cells % Cancelled Nucleated RBC % Cancelled 0.0 Absolute Neutrophils Cancelled 14.52 H Absolute Lymphocytes Cancelled 0.68 L Absolute Monocytes Cancelled 0.46 Absolute Eosinophils Cancelled 0.02 Absolute Basophils Cancelled 0.02 RBC Morphology Cancelled Polychromasia Cancelled Hypochromasia Cancelled Poikilocytosis Cancelled Basophilic Stippling Cancelled Anisocytosis Cancelled Microcytosis Cancelled Macrocytosis Cancelled Spherocytes Cancelled Tear Drop Cells Cancelled Ovalocytes Cancelled Stomatocytes Cancelled [place] Bodies Cancelled Nathalie Cells/Echinocytes Cancelled Acanthocytes (Sp[place]) Cancelled Schistocytes Cancelled Sodium Cancelled Potassium Cancelled Chloride Cancelled Carbon Dioxide Cancelled Anion Gap Cancelled BUN Cancelled Creatinine Cancelled Est GFR (CKD-EPI 2020) Cancelled Glucose Cancelled Calcium Cancelled Magnesium Total Bilirubin Cancelled AST Cancelled ALT Cancelled Alkaline Phosphatase Cancelled Troponin I Cancelled Total Protein Cancelled Albumin Cancelled Lipase Cancelled COVID-19 Source SARS-CoV-2 (PCR) 10/07/22 10/07/22 10/07/22 15:31 15:31 18:24 WBC RBC Hgb Hct MCV MCH MCHC RDW Plt Count MPV Immature Gran % Neutrophils % Band Neutrophils % Lymphocytes % Atypical Lymphs % Monocytes % Eosinophils % Basophils % Metamyelocytes % Myelocytes % Promyelocytes % Other Cells % Nucleated RBC % Absolute Neutrophils Absolute Lymphocytes Absolute Monocytes Absolute Eosinophils Absolute Basophils RBC Morphology Polychromasia Hypochromasia Poikilocytosis Basophilic Stippling Anisocytosis Microcytosis Macrocytosis Spherocytes Tear Drop Cells Ovalocytes Stomatocytes [place] Bodies [place] Cells/Echinocytes Acanthocytes ([place]ur) Schistocytes Sodium 133 L Potassium 2.9 L Chloride 95 L Carbon Dioxide 30.6 Anion Gap 7.4 BUN 25 H Creatinine 1.1 H Est GFR (CKD-EPI 2020) 57.17 Glucose 140 H Calcium 8.9 Magnesium 1.6 L Total Bilirubin 1.0 AST 19 ALT 28 Alkaline Phosphatase 100 Troponin I < 50 < 50 Total Protein 7.0 Albumin 3.3 L Lipase 122 COVID-19 Source SARS-CoV-2 (PCR) 10/07/22 18:50 WBC RBC Hgb Hct MCV MCH MCHC RDW Plt Count MPV Immature Gran % Neutrophils % Band Neutrophils % Lymphocytes % Atypical Lymphs % Monocytes % Eosinophils % Basophils % Metamyelocytes % Myelocytes % Promyelocytes % Other Cells % Nucleated RBC % Absolute Neutrophils Absolute Lymphocytes Absolute Monocytes Absolute Eosinophils Absolute Basophils RBC Morphology Polychromasia Hypochromasia Poikilocytosis Basophilic Stippling Anisocytosis Microcytosis Macrocytosis Spherocytes Tear Drop Cells Ovalocytes Stomatocytes [place] Bodies [place]ath[place]ie Cells/Echinocytes Acanthocytes (Spur) Schistocytes Sodium Potassium Chloride Carbon Dioxide Anion Gap BUN Creatinine Est GFR (CKD-EPI 2020) Glucose Calcium Magnesium Total Bilirubin AST ALT Alkaline Phosphatase Troponin I Total Protein Albumin Lipase COVID-19 Source Nasal/Nares SARS-CoV-2 (PCR) Negative Last Vital Signs Temp 37.2 C 10/07/22 14:57 Pulse 79 10/07/22 18:01 Resp 14 10/07/22 18:01 BP 160/100 H 10/07/22 18:01 Pulse Ox 100 10/07/22 14:57
[2022-10-07] MEDS: HYDROmorphone 2 MG/ML SYR 0.5 MG IVP (23:54)
[2022-10-08] VITALS (18 sets, daily range): BP systolic 147–205; BP diastolic 76–121; PULSE 69–90; RESP 16–18; TEMP 36.6–37; O2SAT 94–97
[2022-10-08] MEDS: HYDROmorphone 2 MG/ML SYR 0.5 MG IVP (03:17)
[2022-10-08] MEDS: fentaNYL 50 MCG PATCH TD (03:18)
[2022-10-08] MEDS: Ondansetron O.D.T. 4 MG TABEF 8 MG PO (06:02)
[2022-10-08] MEDS: HYDROmorphone 2 MG/ML SYR 1 MG IVP ×4 (06:07→21:06)
[2022-10-08 07:04] LABS: HCT 38.1 % (36.0-46.0); HGB 12.1 g/dL (11.2-15.7); MCH 29.6 pg (27.0-33.0); MCHC 31.8 % (32.0-36.0); MCV 93 fL (80-95); MPV 10.4 fL (8.0-11.0); Platelet Count 300 10^3/uL (130-400); RBC 4.09 10^6/uL (3.93-5.22); RDW 12.3 % (11.7-14.6); RDW-SD 42.5 fL; WBC 15.22 10^3/uL (4.4-10.8)
[2022-10-08 07:19] LABS: Anion Gap 9.6 mmol/L (3-11); BUN 20 mg/dL (7-18); CO2 28.4 mmol/L (21.0-32.0); CREATININE 0.8 mg/dL (0.55-1.02); Calcium 8.8 mg/dL (8.5-10.1); Chloride 96 mmol/L (98-107); Estimated GFR 83.78 (mL/min/1.73m2); Glucose 123 mg/dL (74-106); Magnesium 1.7 mg/dL (1.8-2.4); Sodium 134 mmol/L (136-145)
[2022-10-08 07:24] LABS: Potassium 2.6 mmol/L (3.5-5.1)
[2022-10-08] MEDS: Fluconazole 150 MG TAB PO ×2 (08:00)
[2022-10-08] MEDS: Venlafaxine 150 MG CAPCR PO (08:00)
[2022-10-08] MEDS: Omeprazole 20 MG CAPCR PO ×2 (08:00→21:08)
[2022-10-08] MEDS: Losartan 25 MG TAB 50 MG PO (08:00)
[2022-10-08] MEDS: MAGNESIUM SULFATE 2 GM/50 ML BAG IVPB (08:01)
[2022-10-08] MEDS: POTASSIUM CHLORIDE 20 MEQ/100 ML BAG 50 MEQ IVPB ×2 (08:01→10:35)
[2022-10-08] MEDS: Metoprolol 5 MG/5 ML VIAL 2.5 MG IVP (08:05)
[2022-10-08] MEDS: Normal Saline Flush 10 ML SYR IVP ×4 (08:06→16:28)
[2022-10-08 09:13] LABS: Bilirubin Negative (Negative); Blood Small (Negative); Clarity Clear (Clear); Glucose Negative (Negative); Ketones 15 mg/dL (Negative); Leukocyte Esterase Negative (Negative); Nitrite Negative (Negative); Specific Gravity 1.025 (1.005-1.025)
[2022-10-08 09:22] LABS: Bacteria Rare HPF (Negative); C & S Indicated? C&S Done As Ordered; Casts 0-2 Hyaline LPF (Negative); Crystals Negative HPF (Negative); Epithelial Cells Moderate HPF (Negative); Mucus Trace (Negative); WBC Negative HPF (0-5)
[2022-10-08] MEDS: Budesonide/Formoterol 160/4.5 6 GM 60 PUFF INH IH ×2 (10:07→19:12)
[2022-10-08] MEDS: hydrALAZINE 20 MG/ML VIAL 10 MG IVP ×3 (13:16→21:05)
[2022-10-08] MEDS: fentaNYL 25 MCG PATCH TD (13:16)
[2022-10-08] MEDS: Dexamethasone 4 MG/ML VIAL IVP (13:17)
[2022-10-08] MEDS: POTASSIUM CHLORIDE/D5-0.9%NACL 1,000 ML 125 MEQ IV ×2 (13:20→21:36)
--- NOTE | 2022-10-08 13:47 | PHACLINREV_ITS ---
Pharmacy Admission Review - Admission Clinical Review (Last Reviewed 10/07/22 @ 15:26 by Desmond Murrell DO) Pancreas cancer (Acute) Acute hypokalemia (Acute) Hypomagnesemia (Acute) Vomiting (Acute) aspirin Allergy (Unverified 10/07/22 15:04) erythromycin base Allergy (Unverified 10/07/22 15:04) Latex, Natural Rubber Allergy (Unverified 10/07/22 15:04) meperidine [From Demerol] Allergy (Unverified 10/07/22 15:04) Resuscitation Status Full Code Height 4 ft 11 in Weight 81.3 kg - Renal Dosing Renal Dosing: BUN 20 mg/dL (7-18) H 10/08/22 06:30 Creatinine 0.8 mg/dL (0.55-1.02) 10/08/22 06:30 Medications needing adjustments: Reviewed List of meds needing interventions: eCrCl 51 ml/min, all orders ok - Anticoagulation Anticoagulation: Hgb 12.1 g/dL (11.2-15.7) 10/08/22 06:30 Hct 38.1 % (36.0-46.0) 10/08/22 06:30 Plt Count 300 10^3/uL (130-400) 10/08/22 06:30 Creatinine 0.8 mg/dL (0.55-1.02) 10/08/22 06:30 DVT Prophylaxis: Reviewed Medications: Enoxaparin - Opiate Usage Evaluate Pain Scale/Pains Meds: Reviewed (fentanyl 25mcg patch + hydromorphone IV q4h prn btp) Scheduled Bowel Reg ordered if on Opiates?: No (will notify provider) - Relevant Labs Sodium 134 mmol/L (136-145) L 10/08/22 06:30 Potassium 2.6 mmol/L (3.5-5.1) L* 10/08/22 06:30 Chloride 96 mmol/L (98-107) L 10/08/22 06:30 Magnesium 1.7 mg/dL (1.8-2.4) L 10/08/22 06:30 Electrolytes, C-Reactive P, ESR: Reviewed (potassium and mag repleted this AM, fluids with potassium active) - DM Control DM Control: Glucose 123 mg/dL (74-106) H 10/08/22 06:30 DM Control: N/A - Cardiac Review Cardiac Review: Troponin I < 50 ng/L (<or=60) 10/07/22 18:24 BP, HR, EF%: Reviewed - Qtc Review QTc: Reviewed If Elevated, List meds needing intervention: 496 on admission -- is taking zofran (also a home med), will watch for any additional medications that may prolong QT - IV to PO Switch IV Medications: Reviewed (not tolerating anything PO currently) - Home Meds Home Med List reviewed: Intervened Relevent Home Meds Not ordered & why?: [place] [facility] [place] -- current pain regimen = fentanyl 25mcg patch q72h with hydromorphone 4-8mg q4h prn pain, added daily dexamethasone and notified provider Medication adherence barriers identified?: possible diversion by family member, recommend a medication lock box - Current meds Current Medication Order Review: Reviewed
--- NOTE | 2022-10-08 14:13 | PGE_ITS ---
Date of Service Date of service: 10/08/22 Time of Service: 14:13 Assessment and Plan Assessment and plan (1) Vomiting: Status: Acute Assessment and plan: improved with IV antiemetics continue IVF and clear fluids advanced as tolerated. (2) Pancreas cancer: Status: Acute Assessment and plan: Fentanyl 25 mcg patch as previously started, continue breakthrough dilaudid as needed. follow outpatient by oncology. (3) Acute hypokalemia: Status: Acute Assessment and plan: Potassium replacement and follow. (4) Hypomagnesemia: Status: Acute Assessment and plan: she will receive another 2 gm IV of mag. continue to follow. (5) Hypertension: Status: Chronic Assessment and plan: unable to tolerate her medications and blood pressures have been elevated will use hydralazine IVP qid monitor, treat pain and nausea, resume home medication when able to take po (6) No contraindication to deep vein thrombosis (DVT) prophylaxis: Status: Acute Assessment and plan: enoxaparin (7) Discharge planning issues: Status: Acute Assessment and plan: home with no services once symptoms managed and taking good oral intake discussed with DR Wadsworth Subjective Subjective Patient reports: feels better, pain is less, nausea and afebrile; denies shortness of breath Exam Const General: comfortable, no acute distress and ill appearing chronically Nutritional Appearance: overweight Orientation: alert, awake and oriented x3 [facility] Head: normal to inspection, normocephalic and atraumatic Mouth: moist mucous membranes abnormal (dry, no exudates) Chest Chest: normal inspection of the chest Resp Effort & Inspection: normal respiratory effort Cardio Rate: regular rate Rhythm: regular rhythm GI Inspection: normal to inspection Palpation: soft Auscultation: normal bowel sounds Skin General skin exam: no rashes or lesions noted Neuro General: patient alert, patient awake, patient oriented x3 and no focal motor deficits Cognition: normal cognition Speech: speech normal Motor: muscle tone normal throughout Extrem General: normal to inspection and full ROM Objective Last Vital Signs Temp 36.8 C 10/08/22 07:39 Pulse 76 10/08/22 13:14 Resp 16 10/08/22 07:39 BP 199/115 H 10/08/22 13:14 Pulse Ox 94 10/08/22 07:39 Laboratory Results - last 24 hr 11/30/22 11/30/22 11/30/22 15:15 15:15 15:31 WBC Cancelled 15.78 H RBC Cancelled 4.39 Hgb Cancelled 13.4 Hct Cancelled 40.5 MCV Cancelled 92 MCH Cancelled 30.5 MCHC Cancelled 33.1 RDW Cancelled 12.2 Plt Count Cancelled 309 MPV Cancelled 9.8 Immature Gran % Cancelled 0.6 Neutrophils % Cancelled 92.0 Band Neutrophils % Cancelled Lymphocytes % Cancelled 4.3 Atypical Lymphs % Cancelled Monocytes % Cancelled 2.9 Eosinophils % Cancelled 0.1 Basophils % Cancelled 0.1 Metamyelocytes % Cancelled Myelocytes % Cancelled Promyelocytes % Cancelled Other Cells % Cancelled Nucleated RBC % Cancelled 0.0 Absolute Neutrophils Cancelled 14.52 H Absolute Lymphocytes Cancelled 0.68 L Absolute Monocytes Cancelled 0.46 Absolute Eosinophils Cancelled 0.02 Absolute Basophils Cancelled 0.02 RBC Morphology Cancelled Polychromasia Cancelled Hypochromasia Cancelled Poikilocytosis Cancelled Basophilic Stippling Cancelled Anisocytosis Cancelled Microcytosis Cancelled Macrocytosis Cancelled Spherocytes Cancelled Tear Drop Cells Cancelled Ovalocytes Cancelled Stomatocytes Cancelled Corbin-Devers Bodies Cancelled Nathalie Cells/Echinocytes Cancelled Acanthocytes (Spur) Cancelled Schistocytes Cancelled Sodium Cancelled Potassium Cancelled Chloride Cancelled Carbon Dioxide Cancelled Anion Gap Cancelled BUN Cancelled Creatinine Cancelled Est GFR (CKD-EPI 2020) Cancelled Glucose Cancelled Calcium Cancelled Magnesium Total Bilirubin Cancelled AST Cancelled ALT Cancelled Alkaline Phosphatase Cancelled Troponin I Cancelled Total Protein Cancelled Albumin Cancelled Lipase Cancelled Urine Color Urine Clarity Urine pH Ur Specific [place] Urine Protein Urine Ketones Urine Blood Urine Nitrite Urine Bilirubin Urine Urobilinogen Ur Leukocyte Esterase Urine RBC Urine WBC Ur Epithelial Cells Urine Crystals Urine Bacteria Urine Casts Urine Mucus Ur Culture Indicated? Urine Glucose COVID-19 Source SARS-CoV-2 (PCR) 10/07/22 10/07/22 10/07/22 15:31 15:31 18:24 WBC RBC Hgb Hct MCV MCH MCHC RDW Plt Count MPV Immature Gran % Neutrophils % Band Neutrophils % Lymphocytes % Atypical Lymphs % Monocytes % Eosinophils % Basophils % Metamyelocytes % Myelocytes % Promyelocytes % Other Cells % Nucleated RBC % Absolute Neutrophils Absolute Lymphocytes Absolute Monocytes Absolute Eosinophils Absolute Basophils RBC Morphology Polychromasia Hypochromasia Poikilocytosis Basophilic Stippling Anisocytosis Microcytosis Macrocytosis Spherocytes Tear Drop Cells Ovalocytes Stomatocytes Corbin-Devers Bodies Nathalie Cells/Echinocytes Acanthocytes (Spur) Schistocytes Sodium 133 L Potassium 2.9 L Chloride 95 L Carbon Dioxide 30.6 Anion Gap 7.4 BUN 25 H Creatinine 1.1 H Est GFR (CKD-EPI 2020) 57.17 Glucose 140 H Calcium 8.9 Magnesium 1.6 L Total Bilirubin 1.0 AST 19 ALT 28 Alkaline Phosphatase 100 Troponin I < 50 < 50 Total Protein 7.0 Albumin 3.3 L Lipase 122 Urine Color Urine Clarity Urine pH Ur Specific [place] Urine Protein Urine Ketones Urine Blood Urine Nitrite Urine Bilirubin Urine Urobilinogen Ur Leukocyte Esterase Urine RBC Urine WBC Ur Epithelial Cells Urine Crystals Urine Bacteria Urine Casts Urine Mucus Ur Culture Indicated? Urine Glucose COVID-19 Source SARS-CoV-2 (PCR) 10/07/22 10/08/22 10/08/22 18:50 06:30 06:30 WBC 15.22 H RBC 4.09 Hgb 12.1 Hct 38.1 MCV 93 MCH 29.6 MCHC 31.8 L RDW 12.3 Plt Count 300 MPV 10.4 Immature Gran % Neutrophils % Band Neutrophils % Lymphocytes % Atypical Lymphs % Monocytes % Eosinophils % Basophils % Metamyelocytes % Myelocytes % Promyelocytes % Other Cells % Nucleated RBC % Absolute Neutrophils Absolute Lymphocytes Absolute Monocytes Absolute Eosinophils Absolute Basophils RBC Morphology Polychromasia Hypochromasia Poikilocytosis Basophilic Stippling Anisocytosis Microcytosis Macrocytosis Spherocytes Tear Drop Cells Ovalocytes Stomatocytes Corbin-Devers Bodies Plato Cells/Echinocytes Acanthocytes (Spur) Schistocytes Sodium 134 L Potassium 2.6 L* Chloride 96 L Carbon Dioxide 28.4 Anion Gap 9.6 BUN 20 H Creatinine 0.8 Est GFR (CKD-EPI 2020) 83.78 Glucose 123 H Calcium 8.8 Magnesium 1.7 L Total Bilirubin AST ALT Alkaline Phosphatase Troponin I Total Protein Albumin Lipase Urine Color Urine Clarity Urine pH Ur Specific [place] Urine Protein Urine Ketones Urine Blood Urine Nitrite Urine Bilirubin Urine Urobilinogen Ur Leukocyte Esterase Urine RBC Urine WBC Ur Epithelial Cells Urine Crystals Urine Bacteria Urine Casts Urine Mucus Ur Culture Indicated? Urine Glucose COVID-19 Source Nasal/Nares SARS-CoV-2 (PCR) Negative 10/08/22 08:20 WBC RBC Hgb Hct MCV MCH MCHC RDW Plt Count MPV Immature Gran % Neutrophils % Band Neutrophils % Lymphocytes % Atypical Lymphs % Monocytes % Eosinophils % Basophils % Metamyelocytes % Myelocytes % Promyelocytes % Other Cells % Nucleated RBC % Absolute Neutrophils Absolute Lymphocytes Absolute Monocytes Absolute Eosinophils Absolute Basophils RBC Morphology Polychromasia Hypochromasia Poikilocytosis Basophilic Stippling Anisocytosis Microcytosis Macrocytosis Spherocytes Tear Drop Cells Ovalocytes Stomatocytes Corbin-Devers Bodies Nathalie Cells/Echinocytes Acanthocytes (Spur) Schistocytes Sodium Potassium Chloride Carbon Dioxide Anion Gap BUN Creatinine Est GFR (CKD-EPI 2020) Glucose Calcium Magnesium Total Bilirubin AST ALT Alkaline Phosphatase Troponin I Total Protein Albumin Lipase Urine Color Yellow Urine Clarity Clear Urine pH 7.0 Ur Specific [place] 1.025 Urine Protein 30 H Urine Ketones 15 H Urine Blood Small H Urine Nitrite Negative Urine Bilirubin Negative Urine Urobilinogen 1.0 H Ur Leukocyte Esterase Negative Urine RBC 3-5 H Urine WBC Negative Ur Epithelial Cells Moderate Urine Crystals Negative Urine Bacteria Rare Urine Casts 0-2 Hyaline Urine Mucus Trace Ur Culture Indicated? C&S Done As Ordered Urine Glucose Negative COVID-19 Source SARS-CoV-2 (PCR)
[2022-10-08 16:53] LABS: Anion Gap 5.2 mmol/L (3-11); BUN 18 mg/dL (7-18); CO2 29.8 mmol/L (21.0-32.0); CREATININE 0.8 mg/dL (0.55-1.02); Calcium 8.9 mg/dL (8.5-10.1); Chloride 96 mmol/L (98-107); Estimated GFR 83.78 (mL/min/1.73m2); Glucose 169 mg/dL (74-106); Potassium 3.3 mmol/L (3.5-5.1); Sodium 131 mmol/L (136-145)
[2022-10-08] MEDS: Dexamethasone 4 MG/ML VIAL 2 MG IVP (17:07)
--- NOTE | 2022-10-08 17:25 | INITIAL_ITS ---
- If Service Date Differs Date of service: 10/08/22 Time of Service: 17:25 Care Management Initial Assess REASON FOR HOSPITALIZATION:: Hypokalemia, Vomiting PAST MEDICAL HISTORY/PAST SURGICAL HISTORY:: Pancreas cancer (Acute). Atypical chest pain (Acute). Acute hypokalemia (Acute). Hypomagnesemia (Acute). Vomiting (Acute). This 61-year-old female is here because of nausea and vomiting and abdominal pain. She was diagnosed with a pancreatic cancer about 2 months ago. She states that the current plan is to have chemotherapy and if the tumor responds and she may have surgery if it appears resectable at that time. She had her first round of chemotherapy 9 days ago. She says that she has been having nausea and vomiting abdominal pain since then. PREVIOUS FUNCTIONAL STATUS/SOCIAL/FAMILY SUPPORTS:: Sonali resides with her daughter, son-in-law and grandson. Her sister Jennifer Bartlett ([phone]) is a primary support as well. Jennifer was diagnosed with a pancreatic cancer about 2 months ago and started her first round of chemotherapy 9 days ago. CURRENT FUNCTIONAL STATUS:: Sonali is up independently per production support developer, she is standing and pivoting to commode at this time. She remains on antiemetics, IVF and clear liquids. Has patient been provided with info about the portal/API?: Yes Did the patient sign up for the portal?: No CODE STATUS:: Full Code INSURANCE COVERAGE / FINANCIAL ISSUES:: [facility] CURRENT HOME/COMMUNITY SERVICES/EQUIPMENT:: Chemotherapy PRIMARY CARE PHYSICIAN:: Cely Soni POTENTIAL DISCHARGE NEEDS:: Outpatient follow up. PATIENT/FAMILY EDUCATION NEEDS:: Review discharge instructions, discuss Ask Me Three. ANTICIPATED BARRIERS TO DISCHARGE:: None identified at this time. TRANSPORTATION:: Via private vehicle with family. PLAN:: Sonali continues to be closely monitored and treated. CM continues to follow.
[2022-10-08] MEDS: Enoxaparin 40 MG/0.4 ML SYR SC (21:06)
[2022-10-08] MEDS: Nystatin POWDER 15 GM JAR TP (21:12)
[2022-10-09] VITALS (8 sets, daily range): BP systolic 109–186; BP diastolic 70–89; PULSE 86–95; RESP 17–20; TEMP 35.9–37.1; O2SAT 94–99
[2022-10-09] MEDS: Ondansetron O.D.T. 4 MG TABEF 8 MG PO (00:07)
[2022-10-09] MEDS: HYDROmorphone 2 MG/ML SYR 1 MG IVP ×2 (00:37→04:18)
[2022-10-09] MEDS: Normal Saline Flush 10 ML SYR IVP ×4 (04:18→20:52)
[2022-10-09] MEDS: POTASSIUM CHLORIDE/D5-0.9%NACL 1,000 ML 125 MEQ IV ×3 (05:23→21:55)
[2022-10-09] MEDS: Venlafaxine 150 MG CAPCR PO (07:59)
[2022-10-09] MEDS: HYDROmorphone 2 MG/ML SYR IVP ×2 (07:59→13:29)
[2022-10-09] MEDS: Normal Saline 50 ML 200 ML IV ×2 (08:00→13:29)
[2022-10-09] MEDS: Omeprazole 20 MG CAPCR PO ×2 (08:00→20:51)
[2022-10-09] MEDS: Budesonide/Formoterol 160/4.5 6 GM 60 PUFF INH IH ×2 (08:05→20:51)
[2022-10-09] MEDS: hydrALAZINE 20 MG/ML VIAL 10 MG IVP ×4 (09:51→20:57)
[2022-10-09] MEDS: Dexamethasone 4 MG/ML VIAL IVP (09:52)
[2022-10-09 10:03] LABS: Abs Immature Grans 0.08 10^3/uL (0.0-0.06); Absolute Basophil Count 0.01 10^3/uL (0.0-0.2); Absolute Eosinophil Count 0.03 10^3/uL (0.0-0.7); Absolute Monocyte Count 0.28 10^3/uL (0.1-0.8); Basophils % 0.1; Eosinophils % 0.3; HCT 37.1 % (36.0-46.0); HGB 11.9 g/dL (11.2-15.7); Immature Grans % 0.7; Lymphocytes % 12.3; MCH 30.2 pg (27.0-33.0); MCHC 32.1 % (32.0-36.0); MCV 94 fL (80-95); Monocytes % 2.4; Neutrophils % 84.2; Platelet Count 309 10^3/uL (130-400); RBC 3.94 10^6/uL (3.93-5.22); RDW 12.5 % (11.7-14.6); RDW-SD 44.1 fL; WBC 11.59 10^3/uL (4.4-10.8)
[2022-10-09 10:04] LABS: Absolute Lymphocyte Count 1.43 10^3/uL (1.2-3.4); Absolute Neutrophil Count 9.76 10^3/uL (1.2-6.7)
[2022-10-09 10:15] LABS: Anion Gap 9.1 mmol/L (3-11); BUN 16 mg/dL (7-18); CO2 26.9 mmol/L (21.0-32.0); CREATININE 0.8 mg/dL (0.55-1.02); Calcium 8.7 mg/dL (8.5-10.1); Chloride 102 mmol/L (98-107); Estimated GFR 83.78 (mL/min/1.73m2); Glucose 155 mg/dL (74-106); Magnesium 1.7 mg/dL (1.8-2.4); Potassium 3.5 mmol/L (3.5-5.1); Sodium 138 mmol/L (136-145)
--- NOTE | 2022-10-09 13:40 | CHAPLAIN ---
Sonali was resting in bed when I visited. She had a friend visiting with her. After Sonali simply sat up, she became nauseated. She was damp from being sweaty, and said that's all I do is sweat. Sonali recently started chemo treatments for pancreatic cancer and came to the ED after not being able to eat or drink because of being nauseated from the chemo. I let Sonali know that staff nurse is available 31/05 and gave her a prayer shawl. I'll continue to visit.
[2022-10-09] MEDS: Dexamethasone 4 MG/ML VIAL 2 MG IVP (13:50)
--- NOTE | 2022-10-09 13:58 | CMPROGNOTE_ITS ---
- If Service Date Differs Date of service: 10/09/22 Time of Service: 13:58 Care Management Progress Note S/O: Sonali continues to be closely monitored and treated, she was unable to eat breakfast or lunch today and continues to have breakthrough pain 10/10 this afternoon, anticipate she will transition to full admission as her pain has not resolved and her diet has not advanced due to persistent nausea. 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 CM continues to follow. A: 61 year old female admitted to [facility] 10/07/22 for Hypokalemia, Vomiting P: Sonali continues to be closely monitored and treated, her pain and nausea have yet to resolve. Anticipate Palliative consult when Palliative becomes available. Code Status updated to DNR/DNI today per patient wishes. Anticipate she will return home with family support when ready and follow up with community providers.
[2022-10-09] MEDS: MAGNESIUM SULFATE 2 GM/50 ML BAG IVPB (14:21)
--- NOTE | 2022-10-09 17:46 | PGE_ITS ---
Date of Service Date of service: 10/09/22 Time of Service: 17:46 Assessment and Plan Assessment and plan (1) Pancreas cancer: Status: Acute Assessment and plan: Pain not controlled by boluses Dilaudid drip started follow outpatient by oncology. (2) Candidal skin infection: Status: Acute Assessment and plan: Candidal skin infection noted under her pannus - left greater than right - excoriated - wound care consult ordered (3) Vomiting: Status: Acute Assessment and plan: improved with IV antiemetics continue IVF and clear fluids advanced as tolerated. (4) Acute hypokalemia: Status: Acute Assessment and plan: Potassium replacement and follow. (5) Hypomagnesemia: Status: Acute Assessment and plan: she will receive another 2 gm IV of mag. continue to follow. (6) Hypertension: Status: Chronic Assessment and plan: unable to tolerate her medications and blood pressures have been elevated will use hydralazine IVP qid monitor, treat pain and nausea, resume home medication when able to take po (7) No contraindication to deep vein thrombosis (DVT) prophylaxis: Status: Acute Assessment and plan: enoxaparin (8) Discharge planning issues: Status: Acute Assessment and plan: home with no services once symptoms managed and taking good oral intake discussed with Dr Wadsworth Subjective Subjective Patient reports: still having pain (Pain is excruciating, requesting more medication), nausea (She continues to have nausea) and afebrile; denies tolerating liquids well, tolerating a regular diet, flatus, diarrhea, vomiting or shortness of breath Exam Narrative Exam Narrative: Sonali is laying flat in bed, moaning saying her abdomen hurts. She is sweating her vital signs are stable she has blood pressures in the 150s over 90s; heart rates in the 80s and has not fever this admission. Const General: ill appearing chronically Nutritional Appearance: overweight Orientation: alert, awake and oriented x3 [facility] Head: normal to inspection, normocephalic and atraumatic Mouth: moist mucous membranes abnormal (dry, no exudates) Chest Chest: normal inspection of the chest Resp Effort & Inspection: normal respiratory effort Cardio Rate: regular rate Rhythm: regular rhythm GI Inspection: normal to inspection Palpation: soft Auscultation: normal bowel sounds Skin General skin exam: no rashes or lesions noted Neuro General: patient alert, patient awake, patient oriented x3 and no focal motor deficits Cognition: normal cognition Speech: speech normal Motor: muscle tone normal throughout Extrem General: normal to inspection and full ROM Objective Last Vital Signs Temp 37.1 C 10/09/22 16:30 Pulse 92 H 10/09/22 17:21 Resp 17 10/09/22 16:30 BP 126/89 10/09/22 16:30 Pulse Ox 94 10/09/22 16:30 Laboratory Results - last 24 hr 10/09/22 10/09/22 09:45 09:45 WBC 11.59 H RBC 3.94 Hgb 11.9 Hct 37.1 MCV 94 MCH 30.2 MCHC 32.1 RDW 12.5 Plt Count 309 MPV 10.0 Immature Gran % 0.7 Neutrophils % 84.2 Lymphocytes % 12.3 Monocytes % 2.4 Eosinophils % 0.3 Basophils % 0.1 Nucleated RBC % 0.0 Absolute Neutrophils 9.76 H Absolute Lymphocytes 1.43 Absolute Monocytes 0.28 Absolute Eosinophils 0.03 Absolute Basophils 0.01 Sodium 138 Potassium 3.5 Chloride 102 Carbon Dioxide 26.9 Anion Gap 9.1 BUN 16 Creatinine 0.8 Est GFR (CKD-EPI 2020) 83.78 Glucose 155 H Calcium 8.7 Magnesium 1.7 L
--- NOTE | 2022-10-09 19:42 | WOUNDCONS_ITS ---
- If Service Date Differs Date of service: 10/09/22 Time of Service: 19:43 Wound Initial Evaluation Narrative: Patient is a 61 year old female who presents to this facility with hypokalemia and hypomagnesemia. Patient has a past medical history of pancreatic cancer. The patient was found to have a red rash under the pannus from mid pubis extending to the left lateral side. The area was malodorous, partially opened and oozing blood with clots present. The patient is a poor historian and is receiving pain medication via a pump hence the information was retrieved from the medical record. Reviewing the patient's laboratory values the WBC was 11.59 and the Mag was 1.7 and the potassium was WNLs. The patient's allergies were reviewed and noted. The patient had difficulty signing the consent form and verbal consent was given and witnessed by this ad copy writer and Ben Damon RN [facility] Body Four View: 1 - red rash with oozing and open areas - Wound Left abdominal fold Wound Type: Partial Thickness (Fungal rash), Other Wound General Appearance: Draining, Bleeding, Denuded Wound Bed Greatest Portion: Pale [place], Dusky Red Wound Surrounding Tissue Appearance: [place], Dark Red Percent of Wound Bed Granulated/Red: 0 Percent of Wound Bed Slough/Yellow: 0 Percent of Wound Bed Eschar/Black: 0 Wound Length: 16.5 cm Wound Width: 25 cm Wound Depth: 0.1 cm Wound Drainage Amount: Moderate Wound Drainage Odor: Foul Odor Wound Drainage Description: Bloody Wound Topical Solution/Irrigant: Other (soap and water) Wound Debridement Amount of Tissue Removed: None - Circulation, Sensation, Motion Skin Temperature: Warm Skin Color: Jaundiced - Pain Pain Level: 10 Pain Scale Used: Linares-De Souza Faces Pain Duration/Frequency: With Movement Additional Other Comments: Pain during treatment when lifting and rolling the pannus Patient possibly experiencing self-care deficits has developed a serious fungal rash of the abdominal folds treatment will involve BID cleaning of the area with soap and water, applying a topical medication and moisture management. - Photo Photo: - Treatment/Dressing Change Topicals/Ointments: Other (Ananth cream) Cleanse With: Other (Soap and water (ph balanced baby shampoo preferred)) Dressing Types: Other (Inter-Dry) - Nutrition Education Note: Patient education will be continuing and ongoing regarding nutrition. At this time patient was unable to participate in education. - Recomendation Recomendation:: Left Abdominal Fold. Wash with soap and water (preferably ph balanced baby shampoo) and soft wipes. Pat dry. Apply Ananth cream to the wound bed. Insert Inter-Dry between abdominal fold with 2 extending beyond pannus. Perform twice daily. Physcian/Nurse Practioner Notified: Yes (Sunshine Morelos NP) Referrals: Dietary Treatment Time - Time Total Time Spent with Patient: 35 minutes - Patient Will be Seen Weekly Treatment: bid
[2022-10-09] MEDS: Enoxaparin 40 MG/0.4 ML SYR SC (20:51)
[2022-10-10] VITALS (15 sets, daily range): BP systolic 97–170; BP diastolic 65–83; PULSE 80–100; RESP 14–20; TEMP 35.9–37.2; O2SAT 90–95
[2022-10-10] MEDS: POTASSIUM CHLORIDE/D5-0.9%NACL 1,000 ML 125 MEQ IV (06:10)
[2022-10-10 06:25] LABS: Abs Immature Grans 0.04 10^3/uL (0.0-0.06); Absolute Eosinophil Count 0.01 10^3/uL (0.0-0.7); Absolute Lymphocyte Count 1.76 10^3/uL (1.2-3.4); Absolute Neutrophil Count 6.68 10^3/uL (1.2-6.7); Eosinophils % 0.1; HCT 37.2 % (36.0-46.0); HGB 11.4 g/dL (11.2-15.7); Immature Grans % 0.5; MCH 30.6 pg (27.0-33.0); MCHC 30.6 % (32.0-36.0); MCV 100 fL (80-95); MPV 10.4 fL (8.0-11.0); Monocytes % 3.4; Platelet Count 336 10^3/uL (130-400); RBC 3.72 10^6/uL (3.93-5.22); RDW 13.2 % (11.7-14.6); RDW-SD 48.9 fL; WBC 8.79 10^3/uL (4.4-10.8)
[2022-10-10 06:44] LABS: Anion Gap 7.2 mmol/L (3-11); BUN 26 mg/dL (7-18); CO2 26.8 mmol/L (21.0-32.0); CREATININE 1.3 mg/dL (0.55-1.02); Calcium 8.8 mg/dL (8.5-10.1); Chloride 112 mmol/L (98-107); Estimated GFR 46.78 (mL/min/1.73m2); Glucose 127 mg/dL (74-106); Magnesium 2.2 mg/dL (1.8-2.4); Sodium 146 mmol/L (136-145)
[2022-10-10] MEDS: HYDROmorphone 2 MG/ML SYR IVP (06:44)
[2022-10-10 06:51] LABS: Potassium 5.3 mmol/L (3.5-5.1)
[2022-10-10] MEDS: SODIUM CHLORIDE 0.45% 1,000 ML 125 ML IV ×2 (07:44→21:52)
--- NOTE | 2022-10-10 09:33 | W.PM.PROGNOT ---
Date of Service Date of service: 10/10/22 Time of Service: 09:33 Assessment and Plan Assessment and plan (1) Pancreas cancer: Status: Acute Assessment and plan: Continue dilaudid drip, will lighten her up to wakefullness, but keep pain controlled. Lorazepam prn for anxiety. We will put a 50 mcg fentanyl patch on at 0300 and turn the drip off at 0800 follow outpatient by oncology. (2) Candidal skin infection: Status: Acute Assessment and plan: Candidal skin infection noted under her pannus - left greater than right - excoriated - wound care consult - recommend Ananth cream, this has been ordered. (3) Vomiting: Status: Acute Assessment and plan: improved with IV antiemetics continue IVF and clear fluids advanced as tolerated. (4) Acute hypokalemia: Status: Acute Assessment and plan: Potassium is 5.3 - monitor (5) Hypomagnesemia: Status: Acute Assessment and plan: Mag 2.2 - monitor (6) Hypertension: Status: Chronic Assessment and plan: unable to tolerate her medications and blood pressures have been elevated will use hydralazine IVP qid monitor, treat pain and nausea, resume home medication when able to take po (7) No contraindication to deep vein thrombosis (DVT) prophylaxis: Status: Acute Assessment and plan: enoxaparin (8) Discharge planning issues: Status: Acute Assessment and plan: home with no services once symptoms managed and taking good oral intake I had a discussion today with Sonali and asked her wishes to go home, go to rehab, go home on hospice - she responded she wanted to stay here. We will return to that conversation tomorrow when she is more alert. Discussed with Dr Crocker. Subjective Subjective Patient reports: no new complaints, still having pain, pain is less, tolerating liquids well, voiding w/o difficulty, no bowel movement and afebrile; denies tolerating a regular diet, diarrhea, nausea, vomiting or shortness of breath Interval history since last seen: Sonali is feeling less pain however is quite somnolent unable to answer questions. Her vital signs are stable. Exam Narrative Exam Narrative: oSnali is side lying, sleeping deeply, hard to arouse. Vital signs are stable. She is sweating. Blood pressures in the 150s over 90s; heart rates in the 80s and has not fever this admission. Const General: ill appearing chronically Nutritional Appearance: overweight Orientation: alert, awake and oriented x3 HENMT Head: normal to inspection, normocephalic and atraumatic Mouth: moist mucous membranes abnormal (dry, no exudates) Chest Chest: normal inspection of the chest Resp Effort & Inspection: normal respiratory effort Cardio Rate: regular rate Rhythm: regular rhythm GI Inspection: normal to inspection Palpation: soft Auscultation: normal bowel sounds Skin General skin exam: no rashes or lesions noted Neuro General: patient alert, patient awake, patient oriented x3 and no focal motor deficits Cognition: normal cognition Speech: speech normal Motor: muscle tone normal throughout Extrem General: normal to inspection and full ROM Objective Last Vital Signs Temp 36.5 C 10/10/22 07:34 Pulse 92 H 10/10/22 07:47 Resp 18 10/10/22 07:34 BP 97/65 L 10/10/22 07:34 Pulse Ox 95 10/10/22 08:10 Laboratory Results - last 24 hr 10/09/22 10/09/22 10/10/22 09:45 09:45 05:30 WBC 11.59 H RBC 3.94 Hgb 11.9 Hct 37.1 MCV 94 MCH 30.2 MCHC 32.1 RDW 12.5 Plt Count 309 MPV 10.0 Immature Gran % 0.7 Neutrophils % 84.2 Lymphocytes % 12.3 Monocytes % 2.4 Eosinophils % 0.3 Basophils % 0.1 Nucleated RBC % 0.0 Absolute Neutrophils 9.76 H Absolute Lymphocytes 1.43 Absolute Monocytes 0.28 Absolute Eosinophils 0.03 Absolute Basophils 0.01 Sodium 138 146 H Potassium 3.5 5.3 H D Chloride 102 112 H Carbon Dioxide 26.9 26.8 Anion Gap 9.1 7.2 BUN 16 26 H Creatinine 0.8 1.3 H Est GFR (CKD-EPI 2020) 83.78 46.78 Glucose 155 H 127 H Calcium 8.7 8.8 Magnesium 1.7 L 2.2 10/10/22 05:30 WBC 8.79 RBC 3.72 L Hgb 11.4 Hct 37.2 MCV 100 H D MCH 30.6 MCHC 30.6 L RDW 13.2 Plt Count 336 MPV 10.4 Immature Gran % 0.5 Neutrophils % 76.0 Lymphocytes % 20.0 Monocytes % 3.4 Eosinophils % 0.1 Basophils % 0.0 Nucleated RBC % 0.0 Absolute Neutrophils 6.68 Absolute Lymphocytes 1.76 Absolute Monocytes 0.30 Absolute Eosinophils 0.01 Absolute Basophils 0.00 Sodium Potassium Chloride Carbon Dioxide Anion Gap BUN Creatinine Est GFR (CKD-EPI 2020) Glucose Calcium Magnesium
[2022-10-10] MEDS: Dexamethasone 4 MG/ML VIAL IVP (09:48)
[2022-10-10] MEDS: Normal Saline Flush 10 ML SYR IVP ×3 (09:51→22:40)
[2022-10-10] MEDS: Dexamethasone 4 MG/ML VIAL 2 MG IVP (13:55)
[2022-10-10] MEDS: Lactated Ringers 500 ML IV (15:03)
[2022-10-10] MEDS: LORazepam 2 MG/ML VIAL 0.5 MG IVP ×2 (16:36→22:39)
[2022-10-10] MEDS: hydrALAZINE 20 MG/ML VIAL 10 MG IVP ×2 (16:37→20:28)
[2022-10-10] MEDS: diphenhydrAMINE 50 MG/ML VIAL IVP (20:15)
[2022-10-10] MEDS: Enoxaparin 40 MG/0.4 ML SYR SC (20:27)
[2022-10-10] MEDS: Budesonide/Formoterol 160/4.5 6 GM 60 PUFF INH IH (20:54)
[2022-10-11] VITALS (18 sets, daily range): BP systolic 124–171; BP diastolic 74–129; PULSE 53–97; RESP 8–20; TEMP 36.3–36.5; O2SAT 93–959
[2022-10-11] MEDS: fentaNYL 50 MCG PATCH TD (03:07)
[2022-10-11] MEDS: Normal Saline Flush 10 ML SYR IVP ×3 (05:35→13:44)
[2022-10-11 06:13] LABS: Abs Immature Grans 0.04 10^3/uL (0.0-0.06); Absolute Basophil Count 0.01 10^3/uL (0.0-0.2); Absolute Eosinophil Count 0.05 10^3/uL (0.0-0.7); Absolute Lymphocyte Count 2.27 10^3/uL (1.2-3.4); Absolute Monocyte Count 0.48 10^3/uL (0.1-0.8); Basophils % 0.1; Eosinophils % 0.6; Immature Grans % 0.5; Lymphocytes % 27.2; MCH 30.2 pg (27.0-33.0); MCHC 29.4 % (32.0-36.0); MCV 103 fL (80-95); MPV 10.1 fL (8.0-11.0); Monocytes % 5.7; Neutrophils % 65.9; Platelet Count 217 10^3/uL (130-400); RBC 3.31 10^6/uL (3.93-5.22); RDW 13.2 % (11.7-14.6); RDW-SD 49.1 fL; WBC 8.35 10^3/uL (4.4-10.8)
[2022-10-11 06:40] LABS: Magnesium 1.8 mg/dL (1.8-2.4)
[2022-10-11] MEDS: SODIUM CHLORIDE 0.45% 1,000 ML 125 ML IV ×3 (06:40→22:41)
[2022-10-11 06:44] LABS: ALT 64 U/L (14-59); AST 59 U/L (15-37); Albumin 2.9 g/dL (3.4-5.0); Alkaline Phosphatase 82 U/L (46-116); Anion Gap 6.6 mmol/L (3-11); BUN 37 mg/dL (7-18); Bilirubin, Total 0.9 mg/dL (0.2-1.0); CO2 25.4 mmol/L (21.0-32.0); CREATININE 1.3 mg/dL (0.55-1.02); Calcium 8.9 mg/dL (8.5-10.1); Chloride 109 mmol/L (98-107); Estimated GFR 46.78 (mL/min/1.73m2); Glucose 71 mg/dL (74-106); Potassium 4.5 mmol/L (3.5-5.1); Sodium 141 mmol/L (136-145); Total Protein 5.8 g/dL (6.4-8.2)
[2022-10-11] MEDS: Budesonide/Formoterol 160/4.5 6 GM 60 PUFF INH IH ×2 (09:05→19:17)
[2022-10-11] MEDS: Dexamethasone 4 MG/ML VIAL IVP (10:24)
[2022-10-11] MEDS: Normal Saline 500 ML 600 ML IV (10:31)
[2022-10-11] MEDS: levETIRAcetam 500 MG in Normal Saline 100 ML 400 MG IVPB ×2 (11:06→22:22)
[2022-10-11] MEDS: Dexamethasone 4 MG/ML VIAL 2 MG IVP (13:45)
[2022-10-11] MEDS: LORazepam 2 MG/ML VIAL 0.5 MG IVP (17:50)
[2022-10-11] MEDS: Normal Saline 500 ML IV ×2 (18:35→18:52)
[2022-10-11] MEDS: fentaNYL 100 MCG/2 ML VIAL 25 MCG IVP (19:11)
[2022-10-11] MEDS: hydrALAZINE 20 MG/ML VIAL 10 MG IVP (21:08)
[2022-10-11] MEDS: Enoxaparin 40 MG/0.4 ML SYR SC (21:08)
--- NOTE | 2022-10-11 22:11 | W.PM.PROGNOT ---
Date of Service Date of service: 10/11/22 Time of Service: 15:00 Assessment and Plan Assessment and plan (1) Pancreas cancer: Status: Acute Assessment and plan: Discontinued dilaudid drip. Lorazepam prn for anxiety. 50 mcg fentanyl patch follow outpatient by oncology. (2) Candidal skin infection: Status: Acute Assessment and plan: Candidal skin infection noted under her pannus - left greater than right - excoriated - wound care consult - recommend Ananth cream, this has been ordered. (3) Myoclonic jerking: Status: Acute Assessment and plan: Sonali began having myoclionic jerking today - after discussion with Dr Crocker, pharmacy and referenced uptodate - Keppra started. (4) Vomiting: Status: Resolved Assessment and plan: improved with IV antiemetics continue IVF and clear fluids advanced as tolerated. (5) Acute hypokalemia: Status: Acute Assessment and plan: Potassium normal - monitor (6) Hypomagnesemia: Status: Acute Assessment and plan: Mag normal - monitor (7) Hypertension: Status: Chronic Assessment and plan: unable to tolerate her medications and blood pressures have been elevated will use hydralazine IVP qid monitor, treat pain and nausea, resume home medication when able to take po (8) No contraindication to deep vein thrombosis (DVT) prophylaxis: Status: Acute Assessment and plan: enoxaparin (9) Discharge planning issues: Status: Acute Assessment and plan: home with services once symptoms managed and taking good oral intake Discussed with Dr Crocker. Subjective Subjective Patient reports: no new complaints, pain is less, tolerating liquids well, no bowel movement and afebrile; denies diarrhea, vomiting or shortness of breath Interval history since last seen: The dilaudid drip was turned off this morning. She has a 50 meq fentanyl patch on. She is asking to go home, however is still quite confused and does not get out of bed. Her sister visited. Her sister is willing to take her home and be her caregiver. She reported pain, however better than it was at admission. Exam Narrative Exam Narrative: Sonali is supine, sleeping deeply, hard to arouse. As the day progressed she woke up and was asking to go home. Vital signs are stable. She is sweating. Blood pressures in the 150s over 90s; heart rates in the 80s and has not fever this admission. Const General: ill appearing chronically Nutritional Appearance: overweight Orientation: alert, awake and oriented x3 HENMT Head: normal to inspection, normocephalic and atraumatic Mouth: moist mucous membranes abnormal (dry, no exudates) Chest Chest: normal inspection of the chest Resp Effort & Inspection: normal respiratory effort Cardio Rate: regular rate Rhythm: regular rhythm GI Inspection: normal to inspection Palpation: soft Auscultation: normal bowel sounds Skin General skin exam: no rashes or lesions noted Neuro General: patient alert, patient awake, patient oriented x3 and no focal motor deficits Cognition: normal cognition Speech: speech normal Motor: muscle tone normal throughout Other: She is having some myoclonic twitches Extrem General: normal to inspection and full ROM Objective Last Vital Signs Temp 36.3 C L 10/11/22 15:08 Pulse 86 10/11/22 15:08 Resp 8 L 10/11/22 15:08 BP 166/93 H 10/11/22 15:12 Pulse Ox 95 10/11/22 15:08 Laboratory Results - last 24 hr 10/11/22 10/11/22 10/11/22 05:35 05:35 05:35 WBC 8.35 RBC 3.31 L Hgb 10.0 L Hct 34.0 L MCV 103 H MCH 30.2 MCHC 29.4 L RDW 13.2 Plt Count 217 MPV 10.1 Immature Gran % 0.5 Neutrophils % 65.9 Lymphocytes % 27.2 Monocytes % 5.7 Eosinophils % 0.6 Basophils % 0.1 Nucleated RBC % 0.0 Absolute Neutrophils 5.50 Absolute Lymphocytes 2.27 Absolute Monocytes 0.48 Absolute Eosinophils 0.05 Absolute Basophils 0.01 Sodium Cancelled 141 Potassium Cancelled 4.5 Chloride Cancelled 109 H Carbon Dioxide Cancelled 25.4 Anion Gap Cancelled 6.6 BUN Cancelled 37 H Creatinine Cancelled 1.3 H Est GFR (CKD-EPI 2020) Cancelled 46.78 Glucose Cancelled 71 L Calcium Cancelled 8.9 Magnesium 1.8 Total Bilirubin 0.9 AST 59 H ALT 64 H Alkaline Phosphatase 82 Total Protein 5.8 L Albumin 2.9 L
[2022-10-12] VITALS (20 sets, daily range): BP systolic 112–178; BP diastolic 50–121; PULSE 63–103; RESP 11–28; TEMP 35.8–37.8; O2SAT 95–97
--- NOTE | 2022-10-12 | DI.CT_ITS ---
Exam(s) CT HEAD WO/W EXAM: CT HEAD WO/W CLINICAL HISTORY: Altered Mental Status. TECHNIQUE: Imaging Protocol: Axial computed tomography images with coronal and sagittal reformatted images were created and reviewed. CONTRAST MATERIAL: Intravenous: Omnipaque 350 Contrast volume:100 ml Contrast route:IV - COMPARISON: No exams were available for comparison FINDINGS: Exam is mildly limited by patient motion. Ventricles and Extra axial spaces: Normal in size and morphology for the patient's age. Hemorrhage: None. Cerebral parenchyma: Mild frontal atrophy. Enhancement: No suspicious enhancement. Midline shift: None. Brainstem/Cerebellum: Normal. Calvarium: Normal. Visualized Paranasal sinuses/Mastoids: Clear. IMPRESSION: No acute abnormality. RADIATION DOSE DELIVERED: 1,481.78mGy.cm Total DLP DATA REPOSITORY: All CT scans at this facility are submitted to the National Radiology Data Registry (NRDR) Dose Index Registry (DIR) with the [employer] ([employer]). RADIATION OPTIMIZATION: All CT scans at this facility use at least one of these dose optimization te chniques: automated exposure control; mA and/or kV adjustment per patient size (includes targeted exa ms where dose is matched to clinical indication); or iterative reconstruction.
[2022-10-12] MEDS: fentaNYL 100 MCG/2 ML VIAL 25 MCG IVP ×5 (00:08→12:24)
[2022-10-12] MEDS: LORazepam 2 MG/ML VIAL 0.5 MG IVP (01:07)
[2022-10-12] MEDS: Normal Saline Flush 10 ML SYR IVP ×4 (01:09→20:08)
[2022-10-12] MEDS: DEXTROSE 5%-0.45% SALINE 1,000 ML 125 ML IV ×2 (03:59→13:58)
[2022-10-12] MEDS: Haloperidol 5 MG/ML VIAL 4 MG IM (04:03)
[2022-10-12 08:58] LABS: Abs Immature Grans 0.05 10^3/uL (0.0-0.06); Absolute Basophil Count 0.01 10^3/uL (0.0-0.2); Absolute Eosinophil Count 0.08 10^3/uL (0.0-0.7); Absolute Lymphocyte Count 1.72 10^3/uL (1.2-3.4); Absolute Monocyte Count 0.42 10^3/uL (0.1-0.8); Absolute Neutrophil Count 6.48 10^3/uL (1.2-6.7); Basophils % 0.1; Eosinophils % 0.9; HCT 32.2 % (36.0-46.0); HGB 10.4 g/dL (11.2-15.7); Immature Grans % 0.6; Lymphocytes % 19.6; MCH 30.5 pg (27.0-33.0); MCHC 32.3 % (32.0-36.0); MCV 94 fL (80-95); MPV 9.8 fL (8.0-11.0); Monocytes % 4.8; Platelet Count 170 10^3/uL (130-400); RBC 3.41 10^6/uL (3.93-5.22); RDW 11.9 % (11.7-14.6); RDW-SD 41.1 fL; WBC 8.76 10^3/uL (4.4-10.8)
[2022-10-12 09:11] LABS: Anion Gap 10.2 mmol/L (3-11); BUN 19 mg/dL (7-18); CO2 26.8 mmol/L (21.0-32.0); CREATININE 0.8 mg/dL (0.55-1.02); Chloride 97 mmol/L (98-107); Estimated GFR 83.78 (mL/min/1.73m2); Glucose 128 mg/dL (74-106); Potassium 3.2 mmol/L (3.5-5.1); Sodium 134 mmol/L (136-145)
[2022-10-12] MEDS: Dexamethasone 4 MG/ML VIAL IVP (09:14)
--- NOTE | 2022-10-12 09:18 | PDOC.CMPRO ---
- If Service Date Differs Date of service: 10/12/22 Time of Service: 09:18 Care Management Progress Note S/O: Sonali continues to be closely monitored and treated, she was transferred to the ICU for closer monitoring, per MD medications continue to be adjusted. CM continues to follow. A: 61 year old female admitted to [facility] 10/07/22 for Hypokalemia, Vomiting P: Sonali continues to be closely monitored and treated, her pain and nausea have yet to resolve. Anticipate Palliative consult when Palliative becomes available. Code Status updated to DNR/DNI today per patient wishes. Anticipate she will return home with family support when ready and follow up with community providers.
[2022-10-12] MEDS: hydrALAZINE 20 MG/ML VIAL 10 MG IVP ×3 (09:57→20:21)
[2022-10-12] MEDS: LORazepam 2 MG/ML VIAL 1 MG IVP (09:59)
[2022-10-12] MEDS: Omnipaque 350 MG/ML 100 ML BTL IJ (10:34)
[2022-10-12] MEDS: levETIRAcetam 500 MG in Normal Saline 100 ML 400 MG IVPB ×2 (11:31→21:29)
[2022-10-12] MEDS: Normal Saline 500 ML 30 ML IV (11:56)
[2022-10-12] MEDS: MAGNESIUM SULFATE 4 GM/100 ML BAG IVPB (11:57)
[2022-10-12] MEDS: Dexamethasone 4 MG/ML VIAL 2 MG IVP (12:35)
[2022-10-12] MEDS: Pantoprazole 40 MG VIAL IVP ×2 (12:59→20:08)
[2022-10-12] MEDS: POTASSIUM CHLORIDE 20 MEQ/100 ML BAG 50 MEQ IVPB ×2 (16:49→18:28)
--- NOTE | 2022-10-12 18:24 | W.PM.PROGNOT ---
Date of Service Date of service: 10/12/22 Time of Service: 11:00 Assessment and Plan Assessment and plan (1) Pancreas cancer: Status: Acute Assessment and plan: Lorazepam prn for anxiety. 50 mcg fentanyl patch still on with available IV PRN doses follow outpatient by oncology. (2) Candidal skin infection: Status: Acute Assessment and plan: Candidal skin infection noted under her pannus - left greater than right - excoriated - wound care consult - recommend Ananth cream, this has been ordered and is minimally helping, will continue to assess and change treatment as needed (3) Myoclonic jerking: Status: Acute Assessment and plan: Improved since starting Keppra; will continue (4) Vomiting: Status: Resolved Assessment and plan: improved with IV antiemetics continue IVF and clear fluids advanced as tolerated. - not taking oral fluids s/t drowsiness, stomatitis, anorexia - consult paint tester (5) Acute hypokalemia: Status: Acute Assessment and plan: Potassium 3.2 repleted - monitor (6) Hypomagnesemia: Status: Acute Assessment and plan: Mag 1.0 - repleted - monitor (7) Hypertension: Status: Chronic Assessment and plan: unable to tolerate her medications and blood pressures have been elevated will use hydralazine IVP qid monitor, treat pain and nausea, resume home medication when able to take po (8) No contraindication to deep vein thrombosis (DVT) prophylaxis: Status: Acute Assessment and plan: enoxaparin (9) Discharge planning issues: Status: Acute Assessment and plan: home with services once symptoms managed and taking good oral intake; plan for pain mgt fentanyl patch. Discussed with Dr Crocker. (10) Stomatitis: Status: Acute Subjective Subjective Patient reports: no new complaints, pain is less, no bowel movement and afebrile; denies diarrhea, nausea, vomiting or shortness of breath Interval history since last seen: Sonali is hard to arouse and is not taking any nourishment orally. She continues to have on and off restlessness. Her sister was here to visit her. Exam Narrative Exam Narrative: Sonali is supine, sleeping deeply, continues to be hard to arouse. Blood pressures in the 150s over 90s; heart rates in the 80s and has not fever this admission. Const General: ill appearing chronically Nutritional Appearance: overweight Orientation: alert, awake and oriented x3 HENMT Head: normal to inspection, normocephalic and atraumatic Mouth: moist mucous membranes abnormal (dry, no exudates) Chest Chest: normal inspection of the chest Resp Effort & Inspection: normal respiratory effort Cardio Rate: regular rate Rhythm: regular rhythm GI Inspection: normal to inspection Palpation: soft Auscultation: normal bowel sounds Skin General skin exam: no rashes or lesions noted Neuro General: patient alert, patient awake, patient oriented x3 and no focal motor deficits Cognition: normal cognition Speech: speech normal Motor: muscle tone normal throughout Other: She is having some myoclonic twitches Extrem General: normal to inspection and full ROM Objective Last Vital Signs Temp 35.8 C L 10/12/22 16:16 Pulse 82 10/12/22 16:16 Resp 24 10/12/22 16:16 BP 133/77 10/12/22 16:16 Pulse Ox 95 10/12/22 16:16 Laboratory Results - last 24 hr 10/12/22 10/12/22 08:50 08:50 WBC 8.76 RBC 3.41 L Hgb 10.4 L Hct 32.2 L MCV 94 D MCH 30.5 MCHC 32.3 D RDW 11.9 Plt Count 170 MPV 9.8 Immature Gran % 0.6 Neutrophils % 74.0 Lymphocytes % 19.6 Monocytes % 4.8 Eosinophils % 0.9 Basophils % 0.1 Nucleated RBC % 0.0 Absolute Neutrophils 6.48 Absolute Lymphocytes 1.72 Absolute Monocytes 0.42 Absolute Eosinophils 0.08 Absolute Basophils 0.01 Sodium 134 L Potassium 3.2 L D Chloride 97 L Carbon Dioxide 26.8 Anion Gap 10.2 BUN 19 H Creatinine 0.8 Est GFR (CKD-EPI 2020) 83.78 Glucose 128 H Calcium 8.0 L Magnesium 1.0 L
[2022-10-12] MEDS: Methylnaltrexone 12 MG/0.6 ML VIAL 6 MG SC (18:26)
[2022-10-12] MEDS: Bisacodyl 10 MG SUPP PR (18:29)
--- NOTE | 2022-10-12 18:50 | PCNE_ITS ---
Date of service: 10/12/22 Time of Service: 15:45 History of Present Illness Narrative: Ms. Lyon is a 61 y/o F currently inpatient at [facility] / uncontrolled pain, N/V w/pancreatic cancer; PMHx sig for fibromyalgia, PTSD, anxiety, HTN, GERD; Hospital course: Sonali presented to the emergency department at [facility] on 10/07 with a chief complaint of nausea vomiting and decreased oral intake, and uncontrolled pain, epigastric. Work-up showed dehydration, labs with low potassium and magnesium. CT ruled out any obstruction, mass consistent with pancreatic cancer. Transition to inpatient for pain management, fluids and electrolyte replacement. She was transitioned to the ICU for increased monitoring, transition back to [facility] today. Based on report from hospital staff she presented with [address] patch in place, this was removed. Was started on Dilaudid drip on Wednesday PM (10/09), has been mostly somnolent or sleeping since that time; her current pain regimen is fentanyl transdermal patch 50 mcg, fentanyl 25 mcg IV push q1h PRN, the transition from Dilaudid to fentanyl occurred yesterday. Last IV push at 1224 today. Patient has remained asleep, unable to participate in visit. When is in pain we will cry out, grimace and curl up into a ball. full time staff interpreter report pain with repositioning and wound care. Cancer History: Sonali was diagnosed with pancreatic cancer around 2 months ago, per review of [facility] note pancreas is borderline resectable , no evidence of metastasis, plan to do neoadjuvant therapy with chemotherapy every 4 month followed by radiation therapy followed by potential surgery based on treatment. Based on chart review reported that Sonali was scheduled to start chemotherapy 6 days prior to ED presentation, however this was not started due to unable to tolerate pre-meds; first and only chemotherapy occurred 3 days prior to ED presentation; next infusion scheduled for 10/16/22 okay Prior to starting of Dilaudid drip patient was able to participate in conversation with hospitalist regarding CODE STATUS, per hospitalist this was reviewed and completed with verbal consent, it was not signed. Patient is DNR/I. There has been no identified healthcare agent, it is unclear at this time. HIPAA form completed by patient includes daughter Francisca and Sister Jennifer. Staff report that Jennifer has been engaged and responsible for distributing Sonali's pain medications prior to ED presentation. Family not available at time of visit. she has stated that her plan is to continue with plan of care with chemotherapy earlier in hospitalization, and would like to return home Found to have fungal infection under pannus of abdomen, wound care consulted and following; last BM unknown. Remains n.p.o.; had images this morning rule out concerns of metastasis to brain. Comment lives with daughter, son-in-law and grandson, reported that was previo usly independent with ADLs. Some concerns have been raised related to controlled substance diversion, unclear at this time. Assessment and Plan Assessment and plan (1) Pancreas cancer: Status: Acute Assessment and plan: f/b [facility], received 1st scheduled chemo therapy; next infusion scheduled 10/16/22 last communicated plan w/Sonali included continuing chemotherapy to align w/POC of chemo q4w f/b RT f/b surgery IF cancer responds to prior therapies (2) Uncontrolled pain: Status: Acute Assessment and plan: continue current pain regimen fentanyl 50mcg TD patch q72h fentanyl 25mcg IV push q1h PRN recommend trial of spacing intervals of fentanyl IV to q4h to q8h as tolerated for improved alertness consider reduction of fentanyl patch to 25mcg if no response w/in 24 hours of above continue to hold all other opioid therapies consider lorazepam 0.5-1mg PRN for acute agitation w/reduced opioid dosing (3) DNR (do not resuscitate): Status: Acute Assessment and plan: per hospitalist report Sonali completed [facility]ST form w/verbal consent DNR/I (4) Advance care planning: Status: Acute Assessment and plan: no family available today based on Sonali's latest spoken word preference to continue chemotherapy and oncology POC, to return home need to continue assessing, plan to f/u with family and Sonali tomorrow (5) Decreased oral intake: Status: Acute Assessment and plan: remains NPO unclear of N status (6) Myoclonic jerking: Status: Acute (7) Candidal skin infection: Status: Acute Assessment and plan: wound care consulted; continue POC and monitoring (8) Discharge planning issues: Status: Acute Assessment and plan: unclear at this time (9) Palliative care encounter: Status: Acute Assessment and plan: PC to continue to follow through hospitalization to f/u tomorrow, goal of family meeting w/patient as able, around 1pm Review of Systems Narrative: Lm not able to participate in visit today, remain sleeping with physical and audible stimuli PFSH All Active Problems (Updated 10/12/22 @ 19:34 by Danna Lopez NP) Palliative care encounter (Acute) Decreased oral intake (Acute) Advance care planning (Acute) DNR (do not resuscitate) (Acute) Uncontrolled pain (Acute) Stomatitis (Acute) Myoclonic jerking (Acute) Candidal skin infection (Acute) Discharge planning issues (Acute) No contraindication to deep vein thrombosis (DVT) prophylaxis (Acute) Hypertension (Chronic) Pancreas cancer (Acute) Atypical chest pain (Acute) Acute hypokalemia (Acute) Hypomagnesemia (Acute) Social History Smoking/Tobacco Use Status: Never Smoking risk assessment performed?: Yes Alcohol Intake: never Drug use: Never Substance use type: does not use Do you feel safe at home: Yes Do you feel safe in your relationship?: Yes Exam Narrative Exam Narrative: asleep, unarousable w/physical and audible stimuli, intermittent snores; no grimace/groan w/wound care inspection Const General: ill appearing and lethargic Nutritional Appearance: obese (large pannus) HENMT Mouth: mucous membranes dry Resp Effort & Inspection: normal respiratory effort (intermittent snore) Skin Other: abdomen under pannus w/large area consistent w/fungal infection L worse than R, no bleeding Neuro Other: intermittent myoclonic twitches Results Last Vital Signs Temp 96.4 F L 10/12/22 16:16 Pulse 82 10/12/22 16:16 Resp 24 10/12/22 16:16 BP 133/77 10/12/22 16:16 Pulse Ox 95 10/12/22 16:16 Labs Result diagrams: 10/12/22 08:50 10/12/22 08:50 Labs: Laboratory Results - last 24 hr 10/12/22 10/12/22 08:50 08:50 WBC 8.76 RBC 3.41 L Hgb 10.4 L Hct 32.2 L MCV 94 D MCH 30.5 MCHC 32.3 D RDW 11.9 Plt Count 170 MPV 9.8 Immature Gran % 0.6 Neutrophils % 74.0 Lymphocytes % 19.6 Monocytes % 4.8 Eosinophils % 0.9 Basophils % 0.1 Nucleated RBC % 0.0 Absolute Neutrophils 6.48 Absolute Lymphocytes 1.72 Absolute Monocytes 0.42 Absolute Eosinophils 0.08 Absolute Basophils 0.01 Sodium 134 L Potassium 3.2 L D Chloride 97 L Carbon Dioxide 26.8 Anion Gap 10.2 BUN 19 H Creatinine 0.8 Est GFR (CKD-EPI 2020) 83.78 Glucose 128 H Calcium 8.0 L Magnesium 1.0 L
[2022-10-12] MEDS: DEXTROSE 5%-0.9% SALINE 1,000 ML 125 ML IV (19:04)
[2022-10-12] MEDS: Budesonide/Formoterol 160/4.5 6 GM 60 PUFF INH IH (19:18)
[2022-10-12] MEDS: Enoxaparin 40 MG/0.4 ML SYR SC (21:30)
[2022-10-13] VITALS (10 sets, daily range): BP systolic 120–152; BP diastolic 72–100; PULSE 72–121; RESP 16–22; TEMP 36.3–37.6; O2SAT 95–100
[2022-10-13] MEDS: fentaNYL 100 MCG/2 ML VIAL 25 MCG IVP ×3 (01:02→09:20)
[2022-10-13] MEDS: DEXTROSE 5%-0.9% SALINE 1,000 ML 125 ML IV ×2 (02:55→11:51)
[2022-10-13] MEDS: LORazepam 2 MG/ML VIAL 0.5 MG IVP ×2 (03:18→09:20)
[2022-10-13] MEDS: Normal Saline Flush 10 ML SYR IVP ×6 (03:18→21:01)
[2022-10-13 06:44] LABS: Abs Immature Grans 0.06 10^3/uL (0.0-0.06); Absolute Basophil Count 0.02 10^3/uL (0.0-0.2); Absolute Monocyte Count 0.66 10^3/uL (0.1-0.8); Basophils % 0.2; Eosinophils % 0.5; HCT 34.9 % (36.0-46.0); HGB 11.3 g/dL (11.2-15.7); Immature Grans % 0.5; Lymphocytes % 18.8; MCH 30.4 pg (27.0-33.0); MCHC 32.4 % (32.0-36.0); MCV 94 fL (80-95); MPV 10.5 fL (8.0-11.0); Platelet Count 236 10^3/uL (130-400); RBC 3.72 10^6/uL (3.93-5.22); RDW 12.1 % (11.7-14.6); RDW-SD 41.8 fL; WBC 10.93 10^3/uL (4.4-10.8)
[2022-10-13 06:54] LABS: Absolute Eosinophil Count 0.05 10^3/uL (0.0-0.7); Absolute Lymphocyte Count 2.05 10^3/uL (1.2-3.4); Absolute Neutrophil Count 8.09 10^3/uL (1.2-6.7)
[2022-10-13 07:00] LABS: Anion Gap 8.5 mmol/L (3-11); BUN 9 mg/dL (7-18); CO2 26.5 mmol/L (21.0-32.0); CREATININE 0.8 mg/dL (0.55-1.02); Chloride 101 mmol/L (98-107); Estimated GFR 83.78 (mL/min/1.73m2); Glucose 160 mg/dL (74-106); Magnesium 1.7 mg/dL (1.8-2.4); Sodium 136 mmol/L (136-145)
[2022-10-13 07:03] LABS: Potassium 2.8 mmol/L (3.5-5.1)
[2022-10-13] MEDS: Budesonide/Formoterol 160/4.5 6 GM 60 PUFF INH IH ×2 (07:54→19:24)
[2022-10-13] MEDS: Pantoprazole 40 MG VIAL IVP ×2 (08:56→21:00)
[2022-10-13] MEDS: Dexamethasone 4 MG/ML VIAL IVP (08:59)
[2022-10-13] MEDS: Magic Mouthwash 119 ML BTL 10 ML PO ×2 (09:00→21:21)
[2022-10-13] MEDS: POTASSIUM CHLORIDE 20 MEQ/100 ML BAG 50 MEQ IVPB ×2 (09:49→11:52)
[2022-10-13] MEDS: Normal Saline 500 ML 30 ML IV (09:49)
[2022-10-13] MEDS: levETIRAcetam 500 MG in Normal Saline 100 ML 400 MG IVPB ×2 (10:14→21:20)
--- NOTE | 2022-10-13 11:14 | PDOC.CMPRO ---
- If Service Date Differs Date of service: 10/13/22 Time of Service: 11:14 Care Management Progress Note S/O: Sonali continues to be closely monitored and treated, she was sitting up in her chair for a few hours this morning and more alert. She is hoping to return home soon, per MD maybe as soon as tomorrow. Palliative consult initiated yesterday. CM continues to follow. A: 61 year old female admitted to [facility] 10/07/22 for Hypokalemia, Vomiting P: At this time, plan remains for Sonali will return home with new orders for VNA RN and family support when ready and follow up with community providers including PCP and Palliative Care. She will transport via private vehicle with family.
--- NOTE | 2022-10-13 11:39 | W.NUTCONSULT ---
Date of service: 10/13/22 Time of Service: 11:40 Nutritional Consult ASSESSMENT: Sonali admitted with n/v and pain. History of poor intake at home. PMH: pancreatic cancer- to start chemo/radiation, possible resection. BMI indicates class 2 obesity. Ordered clear liquid diet with very little intake. Receiving IV fluids. Attempted to meet today, asleep. At high nutritional risk in view of cancer dx and and poor nutritional status prior to admission Estimated Needs: [id number] kcal (based on adjusted weight of 54 kg), 64-70 g protein NUTRITIONAL DIAGNOSIS: Inadequate intake of macronutrients INTERVENTION: Clear Liquid diet ensure clears TID MONITORING AND EVALUATION: weight, po intake, labs Time Spent in Nutritional Counseling and Treatment: 0
[2022-10-13] MEDS: hydrALAZINE 20 MG/ML VIAL 10 MG IVP ×2 (11:51→21:00)
[2022-10-13] MEDS: Dexamethasone 4 MG/ML VIAL 2 MG IVP (14:33)
--- NOTE | 2022-10-13 14:56 | W.PALLCONSUL ---
Date of service: 10/13/22 Time of Service: 13:00 History of Present Illness Narrative: Ms. Lyon is a 61 y/o F currently inpatient at [facility] 2/2 uncontrolled pain, N/V w/pancreatic cancer; PMHx sig for fibromyalgia, PTSD, anxiety, HTN, GERD; staff report: Sonali was out of bed and awake for 3 hours this morning, she was able to tolerate sipping clear liquids, trial of pudding she did not like. She received BM prophylaxis last night and has had 1 medium and 1 large bowel movement today, the first w/mixed incontinence and was continent for the second. She remains a total care assist, with 2 person max assist. Remains confused, not oriented. Reported to RNs that she did not know why she was hospitalized. received fentanyl 75mcg overnight, last dose 25mcg administered at 9:45, Ativan 0.5mg. plan for discharge home w/new services; COLST which was previous completed w/verbal consent report states that Sonali was under the impression that the COLST would be started at time of terminal illness, not at this time. spoke to sister Jennifer: Sonali called her this morning and wanted to know why she was in the hospital. Sonali has had significant decline since 09/28/22 w/sign decreased oral intake, pain, unable to tolerate liquids d/t dysphasia, weight loss of 50 lbs since that time. Sonali lives w/her daughter Kaylin and son IGNACIO Palomo, grandson, cat and dog; she has lived in this apartment for 30 years. Jennifer lives 30 minutes away. Dewey has been good and assisting w/all instrumental ADLs. Kaylin has been stepping up her role as a caregiver and Jennifer feels she will be able to participate in ADLs on discharge. Sonali tends to be a worry wart, is scared, and likes to be organized. Reports that they lost their sister in 2012 to lung cancer and bc of this feels that Sonali has been hesitant to engage in palliative care, but would be interested now. Jennifer monitors/manages her opioids d/t some concerns over Sonali taking medications not as prescribed, there has been issues w/fentanyl patches staying on. Has all other opioids from previous Rx's of opioids, will safely dispose of them. Jennifer states a preference for no more Diluadid. would be interested in family meeting, to include neighbor Emely involved as the patient trusts her. Of note Emely is on HIPPA form. Jennifer believes that Sonali completed an Advanced Directive a long time ago, the copy would be at PCP, Cely Soni. Jennifer feels that if chemo were to continue would want to delay for a few days to help the Sonali, has spoke to oncologist Dr. Harrington who is aware patient is in hospital. Spoke to PCP office: no AD on file, no HCA on file; PCP aware of Sonali's current condition [facility] chart review: first chemo cycle 10/02, chemo on , oncology on for deactivation, was sent to ED Assessment and Plan Assessment and plan (1) Palliative care encounter: Status: Acute Assessment and plan: recommend when patient is awake repeat COLST form to update patient's current wishes, even if only the first page recommend when patient is awake complete Health Care Agent form coordinate w/[facility] for appropriate POC palliative to continue to follow during inpatient stay, plan for tomorrow morning visit w/sister Jennifer present (2) Pancreas cancer: Status: Acute Assessment and plan: scheduled for chemo infusion on 10/16/22, Jennifer in communication w/Dr. Harrington last communicated plan w/Sonali included continuing chemotherapy to align w/POC of chemo q4w f/b RT f/b surgery IF cancer responds to prior therapies (3) DNR (do not resuscitate): Status: Acute (4) Decreased oral intake: Status: Acute Assessment and plan: continue to encourage intake consider BOILER PLANT OPERATOR consult if dysphagia presents w/increased oral intake (5) Advance care planning: Status: Acute Assessment and plan: continue to address family meeting to review care plan, to include Jennifer Lyon Tonya, Andy, Jen as possible (6) Uncontrolled pain: Status: Acute Assessment and plan: recommend transition to from IV fentanyl to IV morphine with goals of transition to liquid morphine PO for discharge continue fentanyl 50mcg patch continue lorazepam 0.5-1mg PRN for acute agitation w/reduced opioid dosing (7) Myoclonic jerking: Status: Acute Assessment and plan: continue Keppra (8) Candidal skin infection: Status: Acute Assessment and plan: continue wound care per consult (9) Discharge planning issues: Status: Acute Assessment and plan: recommend not discharged until pain appropriately controlled w/PO and TD formularies and can tolerate oral intake appropriately need for PT eval need for HH PT, RN on discharge Review of Systems Narrative: Sonali was not able to participate in visit today PFSH All Active Problems Palliative care encounter (Acute) Decreased oral intake (Acute) Advance care planning (Acute) DNR (do not resuscitate) (Acute) Uncontrolled pain (Acute) Stomatitis (Acute) Myoclonic jerking (Acute) Candidal skin infection (Acute) Discharge planning issues (Acute) No contraindication to deep vein thrombosis (DVT) prophylaxis (Acute) Hypertension (Chronic) Pancreas cancer (Acute) Atypical chest pain (Acute) Acute hypokalemia (Acute) Hypomagnesemia (Acute) Social History Smoking/Tobacco Use Status: Never Smoking risk assessment performed?: Yes Alcohol Intake: never Drug use: Never Substance use type: does not use Do you feel safe at home: Yes Do you feel safe in your relationship?: Yes Exam Narrative Exam Narrative: asleep, wakes intermittently in beginning of visit, one word answers, sleeps w/ intermittent snores; no grimace/groaning noted Const General: ill appearing and lethargic Nutritional Appearance: obese (large pannus) HENMT Mouth: mucous membranes dry Resp Effort & Inspection: normal respiratory effort (intermittent snore) Neuro Other: intermittent myoclonic twitches Extrem General: no pedal edema (no calf tenderness w/light palpation) Results Last Vital Signs Temp 99.0 F 10/13/22 12:01 Pulse 72 10/13/22 12:01 Resp 16 10/13/22 12:01 BP 152/89 H 10/13/22 12:01 Pulse Ox 98 10/13/22 12:01 Labs Result diagrams: 10/13/22 06:00 10/13/22 06:00 Labs: Laboratory Results - last 24 hr 10/13/22 10/13/22 06:00 06:00 WBC 10.93 H RBC 3.72 L Hgb 11.3 Hct 34.9 L MCV 94 MCH 30.4 MCHC 32.4 RDW 12.1 Plt Count 236 MPV 10.5 Immature Gran % 0.5 Neutrophils % 74.0 Lymphocytes % 18.8 Monocytes % 6.0 Eosinophils % 0.5 Basophils % 0.2 Nucleated RBC % 0.0 Absolute Neutrophils 8.09 H Absolute Lymphocytes 2.05 Absolute Monocytes 0.66 Absolute Eosinophils 0.05 Absolute Basophils 0.02 Sodium 136 Potassium 2.8 L* Chloride 101 Carbon Dioxide 26.5 Anion Gap 8.5 BUN 9 Creatinine 0.8 Est GFR (CKD-EPI 2020) 83.78 Glucose 160 H Calcium 8.0 L Magnesium 1.7 L
--- NOTE | 2022-10-13 14:57 | PGE_ITS ---
Date of Service Date of service: 10/13/22 Time of Service: 14:57 Assessment and Plan Assessment and plan (1) Pancreas cancer: Status: Acute Assessment and plan: Lorazepam prn for anxiety. 50 mcg fentanyl patch still on with available Morphine IV PRN doses - changed from fentanyl IV per recommendation of Palliative Care in anticipation of transitioning to oral meds for discharge followed by out pt oncology - Palliative care spoke with onc provider and her chemo for this Wednesday is cancelled. (2) Candidal skin infection: Status: Acute Assessment and plan: Candidal skin infection noted under her pannus - left greater than right - excoriated - wound care consult - recommend Ananth cream, this has been ordered and is beginning to help, the wound does look better (3) Myoclonic jerking: Status: Acute Assessment and plan: No Myoclonic jerking for >24h - will hold (4) Vomiting: Status: Resolved Assessment and plan: improved with IV antiemetics continue IVF and clear fluids advanced as tolerated. - anorexia - consult yarn conditioner (5) Acute hypokalemia: Status: Acute Assessment and plan: Potassium 2.8 repleted - monitor (6) Hypomagnesemia: Status: Acute Assessment and plan: Mag 1.7 - repleted - monitor (7) Hypertension: Status: Chronic Assessment and plan: unable to tolerate her medications and blood pressures have been elevated monitor, treat pain and nausea (8) No contraindication to deep vein thrombosis (DVT) prophylaxis: Status: Acute Assessment and plan: enoxaparin (9) Discharge planning issues: Status: Acute Assessment and plan: home with services once symptoms managed and taking good oral intake; plan for pain mgt fentanyl patch and liquid morphine Discussed with Dr Crocker. (10) Stomatitis: Status: Acute Subjective Subjective Patient reports: no new complaints, feels better, pain is less, tolerating liquids well and bowel movement (x2); denies diarrhea, vomiting or shortness of breath Interval history since last seen: Sonali is still drowsy, wakes to loud voice. She voices she wants to go home when she is awake. She knows where she is and that it is winter. Discussion with her sister, patients relationship with daughter has significantly improved and Sonali will go home to her daughters home where she has been living and her son-in-law is the primary caregiver. Exam Narrative Exam Narrative: asleep, wakes intermittently to listen/answer questions Const General: ill appearing and lethargic Nutritional Appearance: obese (large pannus) HENMT Mouth: mucous membranes dry Resp Effort & Inspection: normal respiratory effort (intermittent snore) Neuro Other: intermittent myoclonic twitches Extrem General: no pedal edema (no calf tenderness w/light palpation) Objective Last Vital Signs Temp 37.2 C 10/13/22 12:01 Pulse 72 10/13/22 12:01 Resp 16 10/13/22 12:01 BP 152/89 H 10/13/22 12:01 Pulse Ox 98 10/13/22 12:01 Laboratory Results - last 24 hr 10/13/22 10/13/22 06:00 06:00 WBC 10.93 H RBC 3.72 L Hgb 11.3 Hct 34.9 L MCV 94 MCH 30.4 MCHC 32.4 RDW 12.1 Plt Count 236 MPV 10.5 Immature Gran % 0.5 Neutrophils % 74.0 Lymphocytes % 18.8 Monocytes % 6.0 Eosinophils % 0.5 Basophils % 0.2 Nucleated RBC % 0.0 Absolute Neutrophils 8.09 H Absolute Lymphocytes 2.05 Absolute Monocytes 0.66 Absolute Eosinophils 0.05 Absolute Basophils 0.02 Sodium 136 Potassium 2.8 L* Chloride 101 Carbon Dioxide 26.5 Anion Gap 8.5 BUN 9 Creatinine 0.8 Est GFR (CKD-EPI 2020) 83.78 Glucose 160 H Calcium 8.0 L Magnesium 1.7 L
[2022-10-13] MEDS: Ondansetron O.D.T. 4 MG TABEF 8 MG PO (19:35)
[2022-10-13] MEDS: Enoxaparin 40 MG/0.4 ML SYR SC (20:31)
[2022-10-14] VITALS (44 sets, daily range): BP systolic 118–160; BP diastolic 72–102; PULSE 71–105; RESP 16–22; TEMP 36.3–39.5; O2SAT 85–99
[2022-10-14] MEDS: Normal Saline Flush 10 ML SYR IVP ×6 (00:23→20:17)
[2022-10-14] MEDS: MORPHine 2 MG/ML SYR IVP ×6 (00:23→16:42)
[2022-10-14] MEDS: DEXTROSE 5%-0.9% SALINE 1,000 ML 125 ML IV ×2 (00:40→16:45)
[2022-10-14] MEDS: LORazepam 2 MG/ML VIAL IVP (02:10)
[2022-10-14 07:07] LABS: Abs Immature Grans 0.03 10^3/uL (0.0-0.06); Absolute Basophil Count 0.01 10^3/uL (0.0-0.2); Absolute Eosinophil Count 0.06 10^3/uL (0.0-0.7); Absolute Lymphocyte Count 2.38 10^3/uL (1.2-3.4); Absolute Monocyte Count 0.75 10^3/uL (0.1-0.8); Absolute Neutrophil Count 4.51 10^3/uL (1.2-6.7); Basophils % 0.1; Eosinophils % 0.8; HGB 10.4 g/dL (11.2-15.7); Immature Grans % 0.4; Lymphocytes % 30.7; MCH 30.1 pg (27.0-33.0); MCHC 31.5 % (32.0-36.0); MCV 95 fL (80-95); Monocytes % 9.7; Neutrophils % 58.3; Platelet Count 231 10^3/uL (130-400); RBC 3.46 10^6/uL (3.93-5.22); RDW 12.4 % (11.7-14.6); RDW-SD 43.7 fL; WBC 7.74 10^3/uL (4.4-10.8)
[2022-10-14 07:17] LABS: Anion Gap 8.6 mmol/L (3-11); BUN 9 mg/dL (7-18); CO2 27.4 mmol/L (21.0-32.0); CREATININE 0.8 mg/dL (0.55-1.02); Calcium 7.9 mg/dL (8.5-10.1); Chloride 104 mmol/L (98-107); Estimated GFR 83.78 (mL/min/1.73m2); Glucose 106 mg/dL (74-106); Magnesium 1.4 mg/dL (1.8-2.4); Sodium 140 mmol/L (136-145)
[2022-10-14] MEDS: Budesonide/Formoterol 160/4.5 6 GM 60 PUFF INH IH ×2 (07:44→20:13)
[2022-10-14] MEDS: Pantoprazole 40 MG VIAL IVP (07:49)
[2022-10-14] MEDS: Dexamethasone 4 MG/ML VIAL IVP (07:50)
[2022-10-14] MEDS: hydrALAZINE 20 MG/ML VIAL 10 MG IVP ×2 (07:50→12:39)
[2022-10-14] MEDS: Magic Mouthwash 119 ML BTL 10 ML PO (08:24)
[2022-10-14] MEDS: levETIRAcetam 500 MG in Normal Saline 100 ML 400 MG IVPB (09:28)
[2022-10-14] MEDS: MAGNESIUM SULFATE 2 GM/50 ML BAG IVPB (10:05)
--- NOTE | 2022-10-14 10:07 | PT.INIE ---
Date of service: 10/14/22 Time of Service: 10:07 PT Notes Visit Reasons: Hypokalemia,Vomiting,Pancreatic Cancer Physical Therapy Inpatient Initial Evaluation Date: 10/14/2022 Referring Doctor: Sunshine Morelos PT Orders: PT CONSULT: D/C Non-PT Dependent Precautions: Fall. Standard. Activity as tolerated. Patient Profile/Admitting Diagnosis: Sonali is a 61-year-old female who presented to the ED on 10/07/2022 due to nausea, vomiting, and inability to tolerate oral intake with report of severe abdominal pain. Patient is diagnosed with pancreatic cancer, candidal skin infection, myoclonic jerking, acute hypokalemia, hypomagnesemia, hypertension, and stomatitis. PMHX: All Active Problems?(Updated 10/07/22 @ 20:07 by Monty Estevez MD) Pancreas cancer (Acute) Atypical chest pain (Acute) Acute hypokalemia (Acute) Hypomagnesemia (Acute) Vomiting (Acute) Social History/Home Situation: Lives with son and son's family in a private home with 13 step to enter. Unknown at this time if patient will return to her home or her sister's home. Independent with all mobility ADls prior to admission. Sister Jennifer who lives half an hour away has been a good support. Equipment Owned/DME: None Subjective: Reports being so sleepy, needed constant reminder to keep eyes open throughout session. Reports 4/10 pain in abdominal area with weight bearing. Patient verbalized wanting to continue with chemotherapy. Per Nurse Cronin, jack has been given a dose of Morphine about two hours ago. Objective: General Observation: Seated on chair. Has trouble keeping eyes open, able to open them on command. No myoclonic movements observed. Sister Jennifer present throughout session and has been helpful with encouraging participation in patient. Telemtry monitoring in place. Blackmon catheter on. Mental Status: Alert and oriented as to person, place, time, and purpose. Able to pay attention, focus, and respond appropriately. Pain: 4/10 in abdominal area with WB Vital Signs: WNL as cloelsy mnitored via tele ROM: Right Upper Extremity: Shoulder Flexion WFL. Shoulder abduction WFL. Elbow flexion WFL. Wrist flexion WFL. Functional opening and closing of hand WFL. Left Upper Extremity: Shoulder Flexion WFL. Shoulder abduction WFL. Elbow flexion WFL. Wrist flexion WFL. Functional opening and closing of hand WFL. Right Lower Extremity: Hip flexion WFL. Hip abduction WFL. Knee flexion WFL. Ankle dorsiflexion WFL. Ankle plantarflexion WFL. Left Lower Extremity: Hip flexion WFL. Hip abduction WFL. Knee flexion WFL. Ankle dorsiflexion WFL. Ankle plantarflexion WFL. Strength: Right Upper Extremity: Grossly 4-/5 Left Upper Extremity: Grossly 4-/5 Right Lower Extremity: Grossly 4-/5 Left Lower Extremity: Grossly 4-/5 Bed Mobility/Transfers: Sit to stand with contact guard assist, use of B hands needed for increased independence Stand to sit with contact guard assist, use of B hands needed for increased independence Reclining chair to bed contact guard assist, use of B hands needed for increased independence Gait: Instructed patient with level surface ambulation of 40 feet requiring contact guard assist and IV pole amangement of Pt, sister Jennifer providing wheelchair follow for safet. Elke decreased. Step height decreased. Step length decreased. Balance: Static Sitting: Normal Dynamic Sitting: Good Static Standing: Fair Dynamic Standing: Fair Special Tests: Mobility Limitations Standardized Measure [facility] AM-PAC 6 clicks Basic Mobility Inpatient Short Form: Raw Score: 18 CMS Score: 47% deficit Informed Consent/Education: Patient was instructed in purpose of PT consult and plan of care. Agreeable to proceed with established PT POC to achieve personal goals. Assessment: Patient presents with clinical signs and symptoms consistent with current/admitting diagnoses that have resulted to mobility limitations, gait instability, generalized weakness, and overall ADL decline as demonstrated by the following impairment level findings: 1. Decreased strength to B UE/LE major muscle groups 2. Impaired sitting/standing balance 3. Impaired activity tolerance 4. Lethargic Impairments are contributing to the following functional limitations: 1. Decline in bed mobility skills 2. Decline in transfer skills 3. Difficulty with ambulation without assistive device and physical assistance 4. Increased completion time for mobility ADL performance 5. Increased risk for falls 6. Difficulty with managing steps alone safely Patient is assessed as a 79211 moderate complexity based on the following: History: 61-year-old female with past medical history as indicated above Examination: Demonstrable impairment in strength, balance, and mobility level with underlying impairments and functional limitations as exhibited above as well as deficit score of 47% utilizing the [facility] Mobility Inpatient Short Form Presentation: Evolving Decision Makin moderate complexity Goals: Goals X1 week 1. Supine-Sit independent 2. Sit-Supine independent 3. Sit-Stand independent 4. Stand-Sit independent with no AD 5. Bed-Chair independent with no AD 6. Chair-Bed independent with no AD 7. Independent gait on level surface with use of SPC for at least 300 feet without report of pain nor dyspnea 8. Independent stair negotiation while holding onto B rails for at least 13 steps without report of pain nor dyspnea 9. Independent with home exercise program 10. Good static and dynamic standing balance/tolerance Plan of Care/Treatment Plan: 1-2x/day, 7 days/week x 1 week. Plan of care has been reviewed with the DATABASE MANAGEMENT SPECIALIST providing the service under Physical Therapy direction. Initiate Physical Therapy intervention for pain management as needed, strengthening, bed mobility, transfers, gait, stairs, balance training, and use of assistive device. DISCHARGE RECOMMENDATIONS: [] Home with no services [] [X] Home with services. Home when medically cleared by hospitalist. Patient will benefit from home health PT services in order to progress mobility level using least restrictive assistive ambulatory device, assess home safety, identify additional equipment needs, and establish a functional maintenance program that will increase ability of patient to remain at home. [] Home with outpatient PT [] [] SNF for continued rehabilitation [] [] Area Representative Care [] [] SNF versus LTC based on ability to participate and progress [] TREATMENT CODE/TIME: 44499 x 20 minutes, 21315 x 13 minutes beginning at 10:07 AM. Thank you for the opportunity to participate in the care of this patient. Chica Phipps PT, DPT, CLT [facility] [place], [place]
--- NOTE | 2022-10-14 10:07 | W.PM.PROGNOT ---
Date of Service Date of service: 10/14/22 Time of Service: 10:07 Assessment and Plan Assessment and plan (1) Pancreas cancer: Status: Acute Assessment and plan: Dr. Harrington aware of pt's hospitalization cancel the 10/16 appointment - Has an appt on the 10/30, Dr Harrington will see if sooner apt on 10/23 can be scheduled POC chemo x4 mos, f/b RT, f/b potential resection (2) Uncontrolled pain: Status: Acute Assessment and plan: improved continue fentanyl TD 50mcg Q72H continue morphine IV PRN we will monitor 24H MME and increase fentanyl patch as appropriate at next change reviewed goals w/sister Jennifer to titrate LA opioid therapies to cover most of Sonali's pain Palliative Care following (3) Decreased oral intake: Status: Acute Assessment and plan: improved today, progressed to Jello nutrition following resumed PO meds (4) Advance care planning: Status: Acute Assessment and plan: need for ongoing discussions regarding Sonali's goals of care (5) DNR (do not resuscitate): Status: Acute (6) Candidal skin infection: Status: Acute Assessment and plan: continue wound care recommend pre-medicate w/morphine IV 2mg (7) Discharge planning issues: Status: Acute Assessment and plan: continue to follow, CM to work w/Jennifer and Sonali to determine location of discharge for appropriate referrals for HH Discussed with Dr Crocker Subjective Subjective Patient reports: no new complaints, pain is less, tolerating liquids well and bowel movement; denies diarrhea, vomiting, shortness of breath or fever Interval history since last seen: Sonali has been up and walking with PT and doing well. She continues to have pain, but states it is less that it has been, she is eating small amounts and doing well with liquids. Exam Narrative Exam Narrative: Sonali is supine, sleeping deeply, hard to arouse. As the day progressed she woke up and was asking to go home. Vital signs are stable. She is sweating. Blood pressures in the 150s over 90s; heart rates in the 80s and has not fever this admission. Const General: ill appearing chronically Nutritional Appearance: overweight Orientation: alert, awake and oriented x3 HENMT Head: normal to inspection, normocephalic and atraumatic Mouth: moist mucous membranes abnormal (dry, no exudates) Chest Chest: normal inspection of the chest Resp Effort & Inspection: normal respiratory effort Cardio Rate: regular rate Rhythm: regular rhythm GI Inspection: normal to inspection Palpation: soft Auscultation: normal bowel sounds Skin General skin exam: no rashes or lesions noted Neuro General: patient alert, patient awake, patient oriented x3 and no focal motor deficits Cognition: normal cognition Speech: speech normal Motor: muscle tone normal throughout Other: She is having some myoclonic twitches Extrem General: normal to inspection and full ROM Objective Last Vital Signs Temp 36.6 C 10/14/22 09:39 Pulse 74 10/14/22 09:39 Resp 16 10/14/22 09:39 BP 145/84 H 10/14/22 09:39 Pulse Ox 98 10/14/22 09:39 Laboratory Results - last 24 hr 10/14/22 10/14/22 06:35 06:35 WBC 7.74 RBC 3.46 L Hgb 10.4 L Hct 33.0 L MCV 95 MCH 30.1 MCHC 31.5 L RDW 12.4 Plt Count 231 MPV 10.0 Immature Gran % 0.4 Neutrophils % 58.3 Lymphocytes % 30.7 Monocytes % 9.7 Eosinophils % 0.8 Basophils % 0.1 Nucleated RBC % 0.0 Absolute Neutrophils 4.51 Absolute Lymphocytes 2.38 Absolute Monocytes 0.75 Absolute Eosinophils 0.06 Absolute Basophils 0.01 Sodium 140 Potassium 3.0 L Chloride 104 Carbon Dioxide 27.4 Anion Gap 8.6 BUN 9 Creatinine 0.8 Est GFR (CKD-EPI 2020) 83.78 Glucose 106 Calcium 7.9 L Magnesium 1.4 L
[2022-10-14] MEDS: POTASSIUM CHLORIDE 20 MEQ/100 ML BAG 50 MEQ IVPB ×2 (12:43→13:57)
[2022-10-14] MEDS: Dexamethasone 4 MG/ML VIAL 2 MG IVP (12:57)
--- NOTE | 2022-10-14 12:57 | W.PALLCONSUL ---
Date of service: 10/14/22 Time of Service: 11:00 History of Present Illness Narrative: Ms. Lyon is a 61 y/o F currently inpatient at [facility] 2/2 uncontrolled pain, N/V w/pancreatic cancer; PMHx sig for fibromyalgia, PTSD, anxiety, HTN, GERD; staff report: Sonali has been out of bed 2 times today, has been more awake and more verbal, has participated in physical therapy, recommendations that she is able to be discharged home with PT. she has increased her sips of clear liquids, drink 240 mL of Pepsi. Continues to complain of pain, worse with wound care, also complaining of pain in upper abdomen, pain appropriately treated with morphine 2 mg IV. Last dose of morphine 810 this morning. last dose of Ativan at 130 this morning. Has remained a two-person max assist. Magnesium and potassium levels dropped again, will replace today spoke to sister Jennifre: Sonali's apartment requires 13 stairs to get into home, Jennifer's home with 4 stairs and Sonali would have her own bedroom and bathroom. Jennifer feels it is safer for Sonali to be discharged home to Jennifer's house compared to at home, and believes that Sonali would feel this way as well. Today Jennifer states that the patient's weight loss of 50 pounds started in July 2022, with a 20 pound weight loss from September 28 to now. The rapid decrease from September is related to a significant decrease in oral intake, patient was unable to tolerate sips or food related to dysphagia, coughing, nausea, vomiting and pain. States that today is the best oral intake she has seen in weeks. Jennifer is aware that patient will need significant caregiver assistance, and feels with home health and herself this will be possible as long as she continues to improve. Reports her normal bowel patterns are every other to every third day. Jennifer states that Sonali told her today she does plan on continuing chemotherapy at this time. Her favorite foods are watermelon, pancakes, scrambled eggs, Jell-O and smoothies. Concerns with discharge home, would like to see plans for 1. Pain control 2. Increase in oral intake 3. Increased ambulatory abilities, including stairs and walking 50 feet. 4. Ensure she can urinate appropriately once Blackmon removed 5. an appropriate bowel regimen spoke to [facility]/Dr. Harrington: Confirmed patient's first chemotherapy was 10/05-, they recommended she present to the emergency room on the . She was scheduled for chemotherapy on Wednesday, agree to postpone this, will already was scheduled for the , Dr. Hoang will work with his team to see if they can schedule her an appointment for October 23. Sonali reports: Her pain is slightly improved, reports a 7 out of 10 pain currently. Is happy she has been out of bed, is tolerating Jell-O, water and Pepsi appropriately. Would want Jennifer to be listed as her healthcare agent. Continues to feel fatigued, was tired after walking with PT however this felt good. She would like a repair popsicle Sonali's goals are to get out of the hospital and get walking more Assessment and Plan Assessment and plan (1) Palliative care encounter: Status: Acute Assessment and plan: PC to continue to follow priority 1:repeat COLST form, previously completed form indicates DNR/I; need to address ORACLE TECHNICAL DEVELOPER vs cancer treatments, artificial hydration/nutrition as priorities 2: discharge location home vs Jennifer's home 3: exploring desires for oncology treatments vs ORACLE TECHNICAL DEVELOPER (2) Pancreas cancer: Status: Acute Assessment and plan: Dr. Harrington aware of pt's current state, will consider reduced dosing pending f/u plan cancel the 10/16 appointment - communicated w/Jennifer and Dr. Harrington has an appt on the , Dr Harrington will see if sooner apt on 10/23 can be scheduled POC chemo x4 mos, f/b RT, f/b potential resection (3) Uncontrolled pain: Status: Acute Assessment and plan: improved continue fentanyl TD 50mcg Q72H continue morphine IV PRN recommend monitor 24H MME and increase fentanyl patch as appropriate at next change reviewed goals w/Jennifer to titrate LA opioid therapies to cover most of Sonali's pain, will need a breathru, short acting medication, d/t swallowing concerns will consider liquid morphine on discharge need to ensure pt is able to tolerate all PO meds, including liquid morphine prior to discharge (4) Decreased oral intake: Status: Acute Assessment and plan: improved today, progressed to Jello nutrition following favorite foods: jello, watermelon, rootbeer Popsicle, scrambled eggs, smoothies, pancakes, coulter to re-start PO meds (5) Advance care planning: Status: Acute Assessment and plan: need for ongoing discussions regarding Sonali's goals of care (6) DNR (do not resuscitate): Status: Acute (7) Candidal skin infection: Status: Acute Assessment and plan: continue wound care recommend pre-medicate w/morphine IV 2mg (8) Discharge planning issues: Status: Acute Assessment and plan: continue to follow, to work w/Jennifer and Sonali to determine location of discharge for appropriate referrals for HH Review of Systems Narrative: as per HPI PFSH All Active Problems Palliative care encounter (Acute) Decreased oral intake (Acute) Advance care planning (Acute) DNR (do not resuscitate) (Acute) Uncontrolled pain (Acute) Stomatitis (Acute) Myoclonic jerking (Acute) Candidal skin infection (Acute) Discharge planning issues (Acute) No contraindication to deep vein thrombosis (DVT) prophylaxis (Acute) Hypertension (Chronic) Pancreas cancer (Acute) Atypical chest pain (Acute) Acute hypokalemia (Acute) Hypomagnesemia (Acute) Social History Smoking/Tobacco Use Status: Never Smoking risk assessment performed?: Yes Alcohol Intake: never Drug use: Never Substance use type: does not use Do you feel safe at home: Yes Do you feel safe in your relationship?: Yes Exam Narrative Exam Narrative: 1st visit: pt sleeping in bed, normal resp effort, NAD 2nd visit: pt sitting upright, awake and alert, eating jello, requests need for transfer to toilet for BM, fatigue 3rd visit: pt sitting w/HOB elevated, awake and alert, eyes intermittently close, NAD; lethargic no grimace or groaning Const General: cooperative, no acute distress, ill appearing and lethargic Nutritional Appearance: obese Orientation: alert and awake [facility] Head: normal to inspection, atraumatic and no acral cyanosis Ears: hearing grossly normal bilaterally Resp Effort & Inspection: normal respiratory effort Cardio Pulses: radial pulses present on the left 2+ Skin Other: LUE bruise did not conduct full skin exam Neuro Other: intermittent myoclonic twitches Extrem General: no pedal edema (no calf tenderness w/light palpation) Results Last Vital Signs Temp 98.8 F 10/14/22 11:21 Pulse 94 H 10/14/22 11:21 Resp 16 10/14/22 11:21 BP 131/77 10/14/22 11:21 Pulse Ox 96 10/14/22 11:21 Labs Result diagrams: 10/14/22 06:35 10/14/22 06:35 Labs: Laboratory Results - last 24 hr 10/14/22 10/14/22 06:35 06:35 WBC 7.74 RBC 3.46 L Hgb 10.4 L Hct 33.0 L MCV 95 MCH 30.1 MCHC 31.5 L RDW 12.4 Plt Count 231 MPV 10.0 Immature Gran % 0.4 Neutrophils % 58.3 Lymphocytes % 30.7 Monocytes % 9.7 Eosinophils % 0.8 Basophils % 0.1 Nucleated RBC % 0.0 Absolute Neutrophils 4.51 Absolute Lymphocytes 2.38 Absolute Monocytes 0.75 Absolute Eosinophils 0.06 Absolute Basophils 0.01 Sodium 140 Potassium 3.0 L Chloride 104 Carbon Dioxide 27.4 Anion Gap 8.6 BUN 9 Creatinine 0.8 Est GFR (CKD-EPI 2020) 83.78 Glucose 106 Calcium 7.9 L Magnesium 1.4 L
[2022-10-14] MEDS: Docusate Sodium 100 MG/10 ML CUP PO ×2 (13:59→20:13)
[2022-10-14] MEDS: fentaNYL 50 MCG PATCH TD (14:08)
[2022-10-14] MEDS: Ondansetron O.D.T. 4 MG TABEF 8 MG PO (14:10)
[2022-10-14] MEDS: Patch Removal 1 EACH TP (14:14)
--- NOTE | 2022-10-14 14:52 | PT.INTREAT ---
Date of service: 10/14/22 Time of Service: 14:34 PT Notes Visit Reasons: Hypokalemia,Vomiting,Pancreatic Cancer Inpatient Physical Therapy Treatment Note [facility] Date: 10/14/2022 PRECAUTIONS: Fall, Activity as tolerated SUBJECTIVE: Sonali is pleasant and agreeable to participating in PT. She reports that she is very cold and that she feels nauseous. She is apologetic that she cannot participate more this afternoon, but is not feeling well. OBJECTIVE: Complaints relayed to nursing, they are aware. Nursing advises not to attempt too much, as patient was recently medicated with Morphine for pain, which has caused decreased alertness. PAIN: Patient c/o pain in B LE with [id number] transfer BED MOBILITY/TRANSFERS Supine-sit: Min A Sit-supine: Mod A Sit-stand: CGA Stand-sit: CGA GAIT Assistive Device: FWW Weight bearing: Full Assist: CGA Distance: 5' x2 Deviation: Unable to keep eyes open, requested to hold further gait training due to not feeling well THEREX: Held due to decreased alertness and nausea ASSESSMENT: Patient tolerated session with complaint of increased fatigue and reports of not feeling well. PLAN: Continue with transfer training and gait training for improved mobility, as appropriate and tolerated. TREATMENT CODE/TIME: 16 minutes; 80876 (14:34)
--- NOTE | 2022-10-14 14:52 | PDOC.CMPRO ---
- If Service Date Differs Date of service: 10/14/22 Time of Service: 14:52 Care Management Progress Note S/O: Sonali continues to be closely monitored and treated, she continues to make gains with pain management and alertness, per provider. Palliative met with Sonali again today; completing health care agent form. CM continues to follow. A: 61 year old female admitted to [facility] 10/07/22 for Hypokalemia, Vomiting P: At this time, plan remains for Sonali will return home with new orders for VNA RN/PT/OT/PAPER AND PULP MILL WORKER and family support when ready and follow up with community providers including PCP and Palliative Care. She will transport via private vehicle with family. Undetermined if she will return to [place] with her family or to her sister's in [facility] where there are only four steps to enter.
[2022-10-14] MEDS: Dexamethasone 1 MG TAB 2 MG PO (16:07)
--- NOTE | 2022-10-14 17:07 | CHAPLAIN ---
Sonali was sitting on the edge of her bed crying when I visited this evening. (This morning she was eating jello and broth when I visited.) She was repeating don't take the babies, don't take the babies. Her nurse and I tried to reassure her that she was in the hospital and safe, and any babies here were safe. I rubbed her back for a while to calm her. She agreed to a sip of Pepsi and stopped crying to drink that. She alternately said, don't take the babies why is this happening to me I hurt, I hurt (then said her tummy hurt) I want to go home I want my mother. After her nurse gave a some pain medication she calmed down some, and seemed to be sleeping when I left. Nothing the nurse or I said seemed to calm her. She appeared to be tired, but continued to talk and shake nonstop.
[2022-10-14] MEDS: Pantoprazole 40 MG TABCR PO (20:13)
[2022-10-14] MEDS: Polyethylene Glycol 3350 17 GM PACKET PO (20:14)
[2022-10-14] MEDS: Enoxaparin 40 MG/0.4 ML SYR SC (20:14)
[2022-10-14] MEDS: Acetaminophen 325 MG TAB 650 MG PO (20:15)
[2022-10-15] VITALS (74 sets, daily range): BP systolic 107–147; BP diastolic 65–86; PULSE 69–99; RESP 9–21; TEMP 36.4–39.7; O2SAT 93–100
--- NOTE | 2022-10-15 | DI.RAD_ITS ---
Exam(s) XR PORTABLE CHEST AP EXAM: XR PORTABLE CHEST AP CLINICAL HISTORY: Fever TECHNIQUE: 2D digital imaging was performed of the chest. One image was obtained. An AP view was ob tained. COMPARISON: No exams were available for comparison FINDINGS: MEDIASTINUM: Normal. HEART: Normal. PULMONARY VASCULATURE: Normal. LUNGS: Clear. PLEURAL SPACE: No pleural effusion or pneumothorax. BONE:Within normal limits for the patient's age. OTHER FINDINGS:There is elevation of the right hemidiaphragm. There is a an indwelling central venou s catheter. The tip is in good position near the junction of the superior vena cava and right atrium . IMPRESSION: No acute pulmonary findings. DATA REPOSITORY: RADIATION DOSE DELIVERED:
--- NOTE | 2022-10-15 | DI.CT_ITS ---
Exam(s) CT ABDOMEN PELVIS W EXAM: CT ABDOMEN PELVIS W CLINICAL HISTORY: abdominal pain, pancreatic mass, fever TECHNIQUE: Imaging Protocol: Axial computed tomography images with coronal and sagittal reformatted images were created and reviewed CONTRAST MATERIAL: Intravenous: Omnipaque 350 Contrast volume:100 mL COMPARISON: CT CT ABDOMEN PELVIS W from 10/07/2022 FINDINGS: ABDOMEN: Lung Bases: Coronary artery calcifications are present. Liver: Normal density. No measurable mass. Portal, Superior Mesenteric, and Splenic Veins: Unremarkable. Gallbladder and Biliary Tract: No radiodense calculus or dilation. Pancreas: There is again seen a hypodense area in the head of the pancreas most suspicious for neopla sm. There is infiltration in the surrounding soft tissues. No focal fluid collection is seen. The body and tail of the pancreas are unremarkable. Spleen: Normal. Adrenals: No masses seen. Kidneys: Normal size, contour and axis. No radiodense stones or obstructive uropathy. No suspicious m asses are present. Nonspecific edema is seen around the kidneys. Abdominal Aorta: Abdominal portion non-dilated. There is atherosclerosis present. Bowel: No obstruction or bowel wall thickening. No evidence of appendicitis. Peritoneal Cavity: No ascites, collection or mesenteric inflammatory response. No free air. Lymph Nodes: Within normal limits. Bones: Within normal limits for the patient's age. The L1 compression fracture deformity is stable. Hemangiomas are seen in the T8 and T12 vertebral bodies. Soft Tissues: There is a fat containing umbilical hernia. PELVIS: Bladder: There is a Blackmon catheter is seen in a nondistended urinary bladder. Reproductive Organs: The patient is status post hysterectomy. Lymph Nodes: Within normal limits. Bones: Within normal limits for the patient's age. IMPRESSION: 1. No acute abdominal pelvic process. 2. Stable pancreatic head mass. No biliary ductal dilatation. 3. Nonspecific inflammation around the kidneys bilaterally. This can be seen with infection. Please correlate clinically. RADIATION DOSE DELIVERED: 1,413.15mGy.cm Total DLP DATA REPOSITORY: All CT scans at this facility are submitted to the National Radiology Data Registry (NRDR) Dose Index Registry (DIR) with the [employer] (ACR). RADIATION OPTIMIZATION: All CT scans at this facility use at least one of these dose optimization te chniques: automated exposure control; mA and/or kV adjustment per patient size (includes targeted exa ms where dose is matched to clinical indication); or iterative reconstruction.
[2022-10-15] MEDS: LORazepam 0.5 MG TAB PO ×2 (00:36→10:23)
[2022-10-15] MEDS: DEXTROSE 5%-0.9% SALINE 1,000 ML 125 ML IV ×2 (00:49→09:06)
[2022-10-15] MEDS: Acetaminophen 325 MG TAB 650 MG PO (01:19)
[2022-10-15] MEDS: Ketorolac 15 MG/ML VIAL IVP (03:49)
[2022-10-15] MEDS: Normal Saline 500 ML IV (03:54)
[2022-10-15] MEDS: Normal Saline Flush 10 ML SYR IVP ×4 (06:45→16:42)
[2022-10-15 07:08] LABS: Abs Immature Grans 0.04 10^3/uL (0.0-0.06); Absolute Basophil Count 0.01 10^3/uL (0.0-0.2); Absolute Eosinophil Count 0.02 10^3/uL (0.0-0.7); Absolute Lymphocyte Count 0.23 10^3/uL (1.2-3.4); Absolute Monocyte Count 0.31 10^3/uL (0.1-0.8); Basophils % 0.1; Eosinophils % 0.2; HCT 28.5 % (36.0-46.0); Immature Grans % 0.5; Lymphocytes % 2.7; MCH 30.7 pg (27.0-33.0); MCHC 31.6 % (32.0-36.0); MCV 97 fL (80-95); MPV 9.6 fL (8.0-11.0); Monocytes % 3.6; Neutrophils % 92.9; Platelet Count 125 10^3/uL (130-400); RBC 2.93 10^6/uL (3.93-5.22); RDW 12.7 % (11.7-14.6); RDW-SD 45.4 fL; WBC 8.61 10^3/uL (4.4-10.8)
[2022-10-15 07:23] LABS: Anion Gap 8.6 mmol/L (3-11); BUN 14 mg/dL (7-18); CO2 24.4 mmol/L (21.0-32.0); Calcium 7.5 mg/dL (8.5-10.1); Chloride 105 mmol/L (98-107); Estimated GFR 64.09 (mL/min/1.73m2); Glucose 137 mg/dL (74-106); Magnesium 1.6 mg/dL (1.8-2.4); Potassium 3.3 mmol/L (3.5-5.1); Sodium 138 mmol/L (136-145)
[2022-10-15] MEDS: Budesonide/Formoterol 160/4.5 6 GM 60 PUFF INH IH ×2 (07:34→19:26)
[2022-10-15] MEDS: Polyethylene Glycol 3350 17 GM PACKET PO ×2 (09:07→19:26)
[2022-10-15] MEDS: Losartan 25 MG TAB 50 MG PO (09:07)
[2022-10-15] MEDS: Dexamethasone 4 MG TAB PO (09:07)
[2022-10-15] MEDS: Pantoprazole 40 MG TABCR PO ×2 (09:07→19:25)
[2022-10-15] MEDS: Potassium Chloride 10 MEQ CAPCR 40 MEQ PO (09:07)
[2022-10-15] MEDS: Venlafaxine 150 MG CAPCR PO (09:07)
[2022-10-15] MEDS: Magnesium Oxide 400 MG TAB 800 MG PO ×2 (09:07→19:26)
[2022-10-15] MEDS: MAGNESIUM SULFATE 4 GM/100 ML BAG IVPB (09:08)
[2022-10-15] MEDS: MORPHine 2 MG/ML SYR IVP ×2 (10:20→12:42)
[2022-10-15] MEDS: Docusate Sodium 100 MG CAP PO ×3 (10:23→19:25)
[2022-10-15] MEDS: POTASSIUM CHLORIDE 20 MEQ/100 ML BAG 50 MEQ IVPB ×2 (10:23→14:13)
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
--- NOTE | 2022-10-15 10:43 | PT.INTREAT ---
Date of service: 10/15/22 Time of Service: 10:43 PT Notes Visit Reasons: Hypokalemia,Vomiting,Pancreatic Cancer Inpatient Physical Therapy Treatment Note [facility] Date: 10/15/2022 PRECAUTIONS: Fall. Standard. Activity as tolerated. ? SUBJECTIVE: Sonali appears mildly delirious but is able to follow simple commands and to respond appropriately. She requested assistance with transferring from bed to the commode to void urine even though this provider has explained to her several times already that she may go at anytime and need not hold her urine as she has a catheter on. Reported pain in the upper belly portion at 10/10 even at rest. Nurse Olga was updated and said that patient has just been given Morphine 20 minutes earlier prior to PT visit. Wanted so much to see her sister and started crying but was able to be pacified and redirected by this PT. OBJECTIVE: Mildly delirious but is redirectible. Febrile per PARK Restrepo's temp measurement. ? PAIN: Epigastric pain that limits patient's concentration to task on hand. ? BED MOBILITY/TRANSFERS? Supine-sit: minimal assist? Sit-supine: minimla assist ? Sit-stand: minimla assist? Stand-sit: contact guard assist ? GAIT? Assistive Device: FWW ? Weight bearing: Full Assist: minimal assist ? Distance:? 3 small steps and 3 sidesteps + 3 small steps and 3 sidesteps to transfer to and from bedside commode ? Deviation: Unable to manage FWW well ASSESSMENT:? Mental status change and febrile status increasing risk for falls at this time. Today's treatment focused on ensuring safety of transfer as well as positioning to and from bedside commode to void urine and to defecate. Stayed with patient to prevent falling off from sitting on bedside commode as her pain level remains high. Deferred any further intervention due to safety issues. PLAN: Progress sterngth, balance, and mobility level once pain is better managed. Pre-medicate for pain. TREATMENT CODE/TIME: 31487 x 40 minutes beginning at 10:43 AM.
--- NOTE | 2022-10-15 11:08 | PDOC.CMPRO ---
- If Service Date Differs Date of service: 10/15/22 Time of Service: 11:09 Care Management Progress Note S/O: Sonali continues to be closely monitored and treated, Palliative met with Sonali again yesterday; completing health care agent form, former COLST was comfort treatment only; Sonali has advocated for further treatment; currently on IV ABX, IVF, per provider. She has not had consistent periods of alertness to engage fully to determine consise goals of treatment; though has verbalized wanting to get better and continue chemo treatments managed by her oncologist; Dr. Harrington. CM continues to follow. A: 61 year old female admitted to [facility] 10/07/22 for Hypokalemia, Vomiting P: At this time, plan remains for Sonali will return home with new orders for VNA RN/PT/OT/MEDICAL ASSISTANT OB GYN and family support when ready and follow up with community providers including PCP and Palliative Care. She will transport via private vehicle with family. Undetermined if she will return to [place] with her family or to her sister's in [facility] where there are only four steps to enter. Sonali has not been alert for long enough periods to engage in comprehensive discharge planning. CM continues to follow.
[2022-10-15 11:28] LABS: Lab Add On Test DONE
[2022-10-15 11:40] LABS: Creatine Kinase 52 U/L (26-192)
[2022-10-15] MEDS: Normal Saline 500 ML 1000 ML IV (12:05)
--- NOTE | 2022-10-15 12:15 | DI.RAD_ITS ---
Exam(s) XR ABDOMEN FLAT UPRIGHT EXAM: 2D digital imaging was performed. CLINICAL HISTORY: abdominal pain. COMPARISON: No exams were available for comparison TECHNIQUE: Supine and upright views of the abdomen was performed. Three images were obtained. FINDINGS: LUNG BASES: Clear. BOWEL GAS PATTERN: Nondistended. FREE AIR: None. CALCIFICATIONS: No radiopaque calcifications. OSSEOUS STRUCTURES: Normal for age. OTHER FINDINGS: None. IMPRESSION: No evidence of an acute abdomen. DATA REPOSITORY: RADIATION DOSE DELIVERED:
[2022-10-15] MEDS: ACETAMINOPHEN 1,000 MG/100 ML BTL 400 MG IVPB ×2 (12:18→19:25)
[2022-10-15] MEDS: Dexamethasone 1 MG TAB 2 MG PO (12:18)
--- NOTE | 2022-10-15 12:32 | W.PALPGNOTE ---
Date of service: 10/15/22 Time of Service: 11:00 Objective Last Vital Signs Temp 39.7 C H 10/15/22 11:22 Pulse 99 H 10/15/22 11:22 Resp 18 10/15/22 11:22 BP 130/84 10/15/22 11:22 Pulse Ox 100 10/15/22 11:22 Laboratory Results - last 24 hr 10/15/22 10/15/22 10/15/22 06:50 06:50 06:50 WBC 8.61 RBC 2.93 L Hgb 9.0 L Hct 28.5 L MCV 97 H MCH 30.7 MCHC 31.6 L RDW 12.7 Plt Count 125 L MPV 9.6 Immature Gran % 0.5 Neutrophils % 92.9 Lymphocytes % 2.7 Monocytes % 3.6 Eosinophils % 0.2 Basophils % 0.1 Nucleated RBC % 0.0 Absolute Neutrophils 8.00 H Absolute Lymphocytes 0.23 L Absolute Monocytes 0.31 Absolute Eosinophils 0.02 Absolute Basophils 0.01 Sodium 138 Potassium 3.3 L Chloride 105 Carbon Dioxide 24.4 Anion Gap 8.6 BUN 14 Creatinine 1.0 Est GFR (CKD-EPI 2020) 64.09 Glucose 137 H Calcium 7.5 L Magnesium 1.6 L Creatine Kinase Add-On Test Request DONE 10/15/22 06:50 WBC RBC Hgb Hct MCV MCH MCHC RDW Plt Count MPV Immature Gran % Neutrophils % Lymphocytes % Monocytes % Eosinophils % Basophils % Nucleated RBC % Absolute Neutrophils Absolute Lymphocytes Absolute Monocytes Absolute Eosinophils Absolute Basophils Sodium Potassium Chloride Carbon Dioxide Anion Gap BUN Creatinine Est GFR (CKD-EPI 2020) Glucose Calcium Magnesium Creatine Kinase 52 Add-On Test Request
[2022-10-15] MEDS: Normal Saline 1,000 ML 1000 ML IV (12:46)
[2022-10-15 12:53] LABS: Lab Add On Test DONE
--- NOTE | 2022-10-15 13:29 | DI.US_ITS ---
Exam(s) US ABDOMEN EXAM: US ABDOMEN CLINICAL HISTORY: abdominal pain, fever, pancreatic mass TECHNIQUE: Ultrasound abdomen performed using standard protocol. COMPARISON: CT CT ABDOMEN PELVIS W from 10/07/2022 FINDINGS: ABDOMINAL AORTA AND IVC: Visualized portions normal caliber. PANCREAS: There is a 4.1 x 4.2 x 4.3 cm hypoechoic mass in the head of the pancreas corresponding to the mass seen on the CT scan from 10/07/2022. The findings are suspicious for pancreatic carcinoma. LIVER: There is increased echogenicity of the liver suggesting fatty infiltration. The liver measure s 14.5 cm in length. Hepatopedal flow in the Portal Vein. GALLBLADDER:No evidence of cholelithiasis. No evidence of wall thickening. No pericholecystic fluid i dentified. BILIARY SYSTEM: Common bile duct measures < 7 mm. No intrahepatic biliary ductal dilation. BARRETT'S SIGN: Negative. KIDNEYS: Kidneys are symmetric in size. No evidence of renal calculi. No evidence of hydronephrosis. No renal mass or cyst identified. SPLEEN: Not enlarged. ASCITES: None seen. IMPRESSION: 1. Persistent 4.3 cm hypoechoic solid lesion in the pancreatic head suspicious for pancreatic neoplas m. 2. No biliary ductal dilatation. 3. Hepatic steatosis. DATA REPOSITORY:
[2022-10-15 14:27] LABS: Lab Add On Test DONE
[2022-10-15 14:39] LABS: ALT 59 U/L (14-59); AST 29 U/L (15-37); Alkaline Phosphatase 70 U/L (46-116); Bilirubin, Direct 0.3 mg/dL (0.0-0.2); Bilirubin, Total 0.4 mg/dL (0.2-1.0); Total Protein 4.6 g/dL (6.4-8.2)
--- NOTE | 2022-10-15 14:47 | CHAPLAIN ---
Sonali was in bed, with her eyes closed, but continuing moan some, when I visited this morning. She was resting more compared to last evening when she was very distraught and anxious. She distraught and worried today, but is less verbal. I will continue to visit.
--- NOTE | 2022-10-15 15:25 | NUR.NOTE ---
Nursing Note: pt to be transfered to ICU, report given to Martha Holder RN.
--- NOTE | 2022-10-15 15:29 | PT.INNT ---
Date of service: 10/15/22 Time of Service: 13:00 PT Notes Visit Reasons: Hypokalemia,Vomiting,Pancreatic Cancer 10/15/2022 Nursing requested to hold PT today, patient febrile with delirium. Not appropriate at this time.
--- NOTE | 2022-10-15 15:29 | W.SURGCON ---
Date of service: 10/15/22 Time of Service: 15:29 Assessment and Plan Assessment and plan (1) Abdominal pain: Status: Acute Assessment and plan: I don't see and pathology that would be amenable to surgery at this point. It may be that her pain is a result of her large pancreatic head mass. Although pancreatic ancer is not typcially painful, certainly the location and nature of her pain seem consistent with pancreatic discomfort. This is an unfortunate situation, but prioritizing the treatment of pain and anxiety might be most aligned with her apparent goals of therapy. History of Present Illness History of Present Illness Chief Complaint: Abdominal pain Narrative: Sonali is a 61-year-old woman who carries a diagnosis of pancreatic cancer. She was recently started on chemotherapy. She came to the emergency department several days ago with ongoing abdominal pain, nausea, and vomiting. She underwent a CAT scan of the abdomen and pelvis at that time that demonstrated pancreatic head mass. Otherwise, the CAT scan was unremarkable. Over the past 24 hours, she has become increasingly oliguric. She is febrile today, and by report has increasing abdominal pain. At the time that I saw her, she was sleeping, but easily arousable. She tells me that she has pain in the midepigastrium and her back. She thinks it is a little worse today, but she notes that it has been present for several days. She is nauseous at this time, but she does not recall any vomiting this afternoon. Consults Consult date: 10/15/22 Requesting physician: Sunhsine Morelos Review of Systems Narrative: The review of systems is limited a little bit by her attention to detail. However, she does answer most questions appropriately. Constitutional Constitutional: Reports body ache(s), Reports fatigue, Reports fever(s), Reports lethargy, Reports poor appetite, Reports weakness and Denies weight loss Eyes Eyes: Reports system reviewed and no additional complaints, except as documented ENT Ears, Nose, Mouth, and Throat: Reports system reviewed and no additional complaints, except as documented and Denies odynophagia Cardiovascular Cardiovascular: Denies chest pain and Reports dyspnea on exertion Respiratory Respiratory: Denies chest congestion, Denies cough and Reports dyspnea on exertion Gastrointestinal Gastrointestinal: Reports abdominal pain, Denies melena, Reports bloating, Denies hematochezia, Denies diarrhea, Reports nausea, Denies odynophagia and Reports vomiting Genitourinary Genitourinary: Reports system reviewed and no additional complaints, except as documented Musculoskeletal Musculoskeletal: Reports muscle weakness Neurologic Neurologic: Reports radicular pain, Reports restless legs and Reports weakness Psychiatric Psychiatric: Reports anhedonia Endocrine Endocrine: Reports fatigue Hematologic/Lymphatic Hematologic/Lymphatic: Denies easy bleeding and Denies easy bruising PFSH All Active Problems (Updated 10/15/22 @ 20:20 by Bora Bartlett MD) Abdominal pain (Acute) Type of kidney inflammation (Acute) Delirium (Acute) Palliative care encounter (Acute) Decreased oral intake (Acute) Advance care planning (Acute) DNR (do not resuscitate) (Acute) Uncontrolled pain (Acute) Stomatitis (Acute) Myoclonic jerking (Acute) Candidal skin infection (Acute) Discharge planning issues (Acute) No contraindication to deep vein thrombosis (DVT) prophylaxis (Acute) Hypertension (Chronic) Pancreas cancer (Acute) Atypical chest pain (Acute) Acute hypokalemia (Acute) Hypomagnesemia (Acute) Social History Smoking/Tobacco Use Status: Never Smoking risk assessment performed?: Yes Alcohol Intake: never Drug use: Never Substance use type: does not use Do you feel safe at home: Yes Do you feel safe in your relationship?: Yes Exam Const General: cooperative and ill appearing Nutritional Appearance: obese Orientation: alert and awake Eyes General: appearance normal, both eyes and all related structures Conjunctivae: conjunctivae normal Sclera: sclerae normal Neck Neck: normal visual inspection Other: Her thyroid feels a little enlarged to me. Chest Chest: normal inspection of the chest Resp Effort & Inspection: normal respiratory effort and able to speak in complete sentences Cardio Jugular venous pressure: no JVD Rate: regular rate Rhythm: regular rhythm Heart Sounds: S1 normal and S2 normal GI Inspection: non-distended Palpation: soft, guarding (Midepigastrium), no hernias and tender Percussion: other (Body habitus prevents percussion) Auscultation: normal bowel sounds Skin General skin exam: normal turgor Neuro General: patient alert, patient awake and patient oriented x3 Cognition: normal cognition Extrem Right lower extremity: no edema Left lower extremity: no edema Results Last Vital Signs Temp 101.5 F H 10/15/22 12:34 Pulse 87 10/15/22 12:34 Resp 16 10/15/22 12:34 BP 147/85 H 10/15/22 12:34 Pulse Ox 94 10/15/22 12:34 Labs Result diagrams: 10/15/22 16:38 10/15/22 16:19 Labs: Laboratory Results - last 24 hr 10/15/22 10/15/22 10/15/22 06:50 06:50 06:50 WBC 8.61 RBC 2.93 L Hgb 9.0 L Hct 28.5 L MCV 97 H MCH 30.7 MCHC 31.6 L RDW 12.7 Plt Count 125 L MPV 9.6 Immature Gran % 0.5 Neutrophils % 92.9 Lymphocytes % 2.7 Monocytes % 3.6 Eosinophils % 0.2 Basophils % 0.1 Nucleated RBC % 0.0 Absolute Neutrophils 8.00 H Absolute Lymphocytes 0.23 L Absolute Monocytes 0.31 Absolute Eosinophils 0.02 Absolute Basophils 0.01 Sodium 138 Potassium 3.3 L Chloride 105 Carbon Dioxide 24.4 Anion Gap 8.6 BUN 14 Creatinine 1.0 Est GFR (CKD-EPI 2020) 64.09 Glucose 137 H Calcium 7.5 L Magnesium 1.6 L Total Bilirubin Conjugated Bilirubin AST ALT Alkaline Phosphatase Creatine Kinase Total Protein Albumin Procalcitonin Add-On Test Request DONE 10/15/22 10/15/22 10/15/22 06:50 06:50 06:50 WBC RBC Hgb Hct MCV MCH MCHC RDW Plt Count MPV Immature Gran % Neutrophils % Lymphocytes % Monocytes % Eosinophils % Basophils % Nucleated RBC % Absolute Neutrophils Absolute Lymphocytes Absolute Monocytes Absolute Eosinophils Absolute Basophils Sodium Potassium Chloride Carbon Dioxide Anion Gap BUN Creatinine Est GFR (CKD-EPI 2020) Glucose Calcium Magnesium Total Bilirubin Conjugated Bilirubin AST ALT Alkaline Phosphatase Creatine Kinase 52 Total Protein Albumin Procalcitonin 19.0 Add-On Test Request DONE 10/15/22 10/15/22 06:50 06:50 WBC RBC Hgb Hct MCV MCH MCHC RDW Plt Count MPV Immature Gran % Neutrophils % Lymphocytes % Monocytes % Eosinophils % Basophils % Nucleated RBC % Absolute Neutrophils Absolute Lymphocytes Absolute Monocytes Absolute Eosinophils Absolute Basophils Sodium Potassium Chloride Carbon Dioxide Anion Gap BUN Creatinine Est GFR (CKD-EPI 2020) Glucose Calcium Magnesium Total Bilirubin 0.4 Conjugated Bilirubin 0.3 H AST 29 ALT 59 Alkaline Phosphatase 70 Creatine Kinase Total Protein 4.6 L Albumin 2.0 L Procalcitonin Add-On Test Request DONE Imaging Chest x-ray: report reviewed and image reviewed Abdominal x-ray: report reviewed CT scan - pelvis: report reviewed and image reviewed Abdominal ultrasound report/results: report reviewed and image reviewed
[2022-10-15] MEDS: Omnipaque 350 MG/ML 100 ML BTL IJ (15:33)
[2022-10-15] MEDS: Normal Saline - Diluent 50 ML VIAL IJ (15:34)
[2022-10-15 15:38] LABS: Bilirubin Small (Negative); Blood Large (Negative); Clarity Cloudy (Clear); Glucose Negative (Negative); Ketones Negative (Negative); Leukocyte Esterase Trace (Negative); Nitrite Positive (Negative); Specific Gravity >= 1.030 (1.005-1.025)
[2022-10-15 15:46] LABS: RBC >50 HPF (0-2); WBC >50 HPF (0-5)
[2022-10-15 15:47] LABS: Bacteria Many HPF (Negative); C & S Indicated? Yes; Casts 0-2 Fine Granular LPF (Negative); Crystals Negative HPF (Negative); Epithelial Cells Negative HPF (Negative); Mucus Negative (Negative)
[2022-10-15 16:35] LABS: Lactate 1.2 mmol/L (0.9-1.7)
[2022-10-15 16:46] LABS: Abs Immature Grans 0.04 10^3/uL (0.0-0.06); Absolute Lymphocyte Count 0.08 10^3/uL (1.2-3.4); Absolute Monocyte Count 0.24 10^3/uL (0.1-0.8); Absolute Neutrophil Count 6.18 10^3/uL (1.2-6.7); HCT 29.5 % (36.0-46.0); HGB 9.2 g/dL (11.2-15.7); Immature Grans % 0.6; Lymphocytes % 1.2; MCHC 31.2 % (32.0-36.0); MCV 99 fL (80-95); MPV 9.8 fL (8.0-11.0); Monocytes % 3.7; Neutrophils % 94.5; Platelet Count 128 10^3/uL (130-400); RBC 2.97 10^6/uL (3.93-5.22); RDW 12.8 % (11.7-14.6); RDW-SD 46.2 fL; WBC 6.54 10^3/uL (4.4-10.8)
[2022-10-15 16:48] LABS: Anion Gap 7.4 mmol/L (3-11); BUN 15 mg/dL (7-18); CO2 22.6 mmol/L (21.0-32.0); CREATININE 0.9 mg/dL (0.55-1.02); Calcium 7.4 mg/dL (8.5-10.1); Chloride 105 mmol/L (98-107); Estimated GFR 72.73 (mL/min/1.73m2); Glucose 157 mg/dL (74-106); Potassium 4.2 mmol/L (3.5-5.1); Sodium 135 mmol/L (136-145)
[2022-10-15] MEDS: PIPERACILLIN/TAZO 4.5 GM in Normal Saline 100 ML IVPB (17:24)
--- NOTE | 2022-10-15 17:44 | CHAPLAIN ---
I visited with Sonali this evening after she was transferred to the ICU. She was more relaxed and didn't seem as anxious or distraught as she was this morning on Med/Surg. Sonali kept her eyes closed most of the time, but would open them a bit to respond to questions. She slowly took sips of chicken broth and joked that maybe she could have rice in the broth tomorrow. Sonali said she spoke with her sister on the phone a couple of times today. Her sister, Jennifer, lives in [place].
--- NOTE | 2022-10-15 17:51 | W.PM.PROGNOT ---
Date of Service Date of service: 10/15/22 Time of Service: 17:52 Assessment and Plan Assessment and plan (1) Pancreas cancer: Status: Acute Assessment and plan: Extremely tender abdomen, yells and withdraws with a light touch. She dev a fever today 39.5, Lactate 1.2, Procal 19, Potassium up from 3.3 to 4.2; glucose 157 ; wbc 6.54; H&H 9.2/29.5; urine collected + Leukocyte esterase, urine RBC, urine WBC, urine bacteria many; - u-cx pending - zosyn 4.5 gmevery 6h IV; normal saline 125/h - she did receive 2 l of normal saline today in addition to the 125/h. Monitor labs Surgery consulted - nothing to do at this time, Palliative following (2) Type of kidney inflammation: Status: Acute Assessment and plan: Bilat kidney inflammation per CT read Febrile today, decreased urine output - 2l Normal Saline bolused, continued 125ml/h Ct/US/ urine and BC pending Tylenol for fever Lactate 1.2 and procalcitonin 19 - monitor (3) Vomiting: Status: Resolved Assessment and plan: Seems to have resolved at this time. (4) Delirium: Status: Acute (5) Uncontrolled pain: Status: Acute Assessment and plan: improved continue fentanyl TD 50mcg Q72H continue morphine IV PRN (6) Decreased oral intake: Status: Acute Assessment and plan: nutrition following resumed PO meds yesterday, not much intake today s/t somnolence and fever (7) Advance care planning: Status: Acute Assessment and plan: need for ongoing discussions regarding Sonali's goals of care (8) DNR (do not resuscitate): Status: Acute (9) Candidal skin infection: Status: Acute Assessment and plan: continue wound care recommend pre-medicate w/morphine IV 2mg (10) Discharge planning issues: Status: Acute Assessment and plan: continue to follow, JOÃO to work w/Iqra (sister) to determine location of discharge for appropriate referrals for HH Discussed with Dr Urban Subjective Subjective Patient reports: fever (Tmax - 39.5 ); denies shortness of breath Exam Narrative Exam Narrative: Febrile, dark urine, confused - somnolent Const General: cooperative, diaphoretic, ill appearing and lethargic Nutritional Appearance: obese Limitations: altered mental status Eyes General: appearance normal, both eyes and all related structures Conjunctivae: conjunctivae normal Sclera: sclerae normal Neck Neck: normal visual inspection Other: Her thyroid feels a little enlarged to me. Chest Chest: normal inspection of the chest Other: med port right side (accessed) Resp Effort & Inspection: normal respiratory effort Cardio Jugular venous pressure: no JVD Rate: tachycardic Rhythm: regular rhythm Heart Sounds: S1 normal and S2 normal GI Inspection: non-distended Palpation: soft, guarding (Midepigastrium), no hernias and tender (very tender) Percussion: other (Body habitus prevents percussion) Auscultation: hypoactive bowel sounds Other: Dark urine, scant amount Indwelling urinary catheter Skin General skin exam: normal turgor Other: Continues to have excoriation under her panus, although it has improved. Neuro General: moves all extremities Extrem General: normal to inspection, capillary refill normal, no clubbing, cyanosis or edema and no pedal edema Right lower extremity: no edema Left lower extremity: no edema Objective Last Vital Signs Temp 36.4 C L 10/15/22 16:31 Pulse 73 10/15/22 16:31 Resp 14 10/15/22 16:33 BP 121/72 10/15/22 16:31 Pulse Ox 97 10/15/22 16:33 Laboratory Results - last 24 hr 10/15/22 10/15/22 10/15/22 06:50 06:50 06:50 WBC 8.61 RBC 2.93 L Hgb 9.0 L Hct 28.5 L MCV 97 H MCH 30.7 MCHC 31.6 L RDW 12.7 Plt Count 125 L MPV 9.6 Immature Gran % 0.5 Neutrophils % 92.9 Band Neutrophils % Lymphocytes % 2.7 Atypical Lymphs % Monocytes % 3.6 Eosinophils % 0.2 Basophils % 0.1 Metamyelocytes % Myelocytes % Promyelocytes % Other Cells % Nucleated RBC % 0.0 Absolute Neutrophils 8.00 H Absolute Lymphocytes 0.23 L Absolute Monocytes 0.31 Absolute Eosinophils 0.02 Absolute Basophils 0.01 RBC Morphology Polychromasia Hypochromasia Poikilocytosis Basophilic Stippling Anisocytosis Microcytosis Macrocytosis Spherocytes Tear Drop Cells Ovalocytes Stomatocytes [place] Bodies Fall Branch Cells/Echinocytes Acanthocytes (Spur) Schistocytes VBG Lactate Sodium 138 Potassium 3.3 L Chloride 105 Carbon Dioxide 24.4 Anion Gap 8.6 BUN 14 Creatinine 1.0 Est GFR (CKD-EPI 2020) 64.09 Glucose 137 H Calcium 7.5 L Magnesium 1.6 L Total Bilirubin Conjugated Bilirubin AST ALT Alkaline Phosphatase Creatine Kinase Total Protein Albumin Procalcitonin Urine Color Urine Clarity Urine pH Ur Specific [place] Urine Protein Urine Ketones Urine Blood Urine Nitrite Urine Bilirubin Urine Urobilinogen Ur Leukocyte Esterase Urine RBC Urine WBC Ur Epithelial Cells Urine Crystals Urine Bacteria Urine Casts Urine Mucus Ur Culture Indicated? Urine Glucose Add-On Test Request DONE 10/15/22 10/15/22 10/15/22 06:50 06:50 06:50 WBC RBC Hgb Hct MCV MCH MCHC RDW Plt Count MPV Immature Gran % Neutrophils % Band Neutrophils % Lymphocytes % Atypical Lymphs % Monocytes % Eosinophils % Basophils % Metamyelocytes % Myelocytes % Promyelocytes % Other Cells % Nucleated RBC % Absolute Neutrophils Absolute Lymphocytes Absolute Monocytes Absolute Eosinophils Absolute Basophils RBC Morphology Polychromasia Hypochromasia Poikilocytosis Basophilic Stippling Anisocytosis Microcytosis Macrocytosis Spherocytes Tear Drop Cells Ovalocytes Stomatocytes [place] Bodies Fall Branch Cells/Echinocytes Acanthocytes (Spur) Schistocytes VBG Lactate Sodium Potassium Chloride Carbon Dioxide Anion Gap BUN Creatinine Est GFR (CKD-EPI 2020) Glucose Calcium Magnesium Total Bilirubin Conjugated Bilirubin AST ALT Alkaline Phosphatase Creatine Kinase 52 Total Protein Albumin Procalcitonin 19.0 Urine Color Urine Clarity Urine pH Ur Specific [place] Urine Protein Urine Ketones Urine Blood Urine Nitrite Urine Bilirubin Urine Urobilinogen Ur Leukocyte Esterase Urine RBC Urine WBC Ur Epithelial Cells Urine Crystals Urine Bacteria Urine Casts Urine Mucus Ur Culture Indicated? Urine Glucose Add-On Test Request DONE 10/15/22 10/15/22 10/15/22 06:50 06:50 15:10 WBC RBC Hgb Hct MCV MCH MCHC RDW Plt Count MPV Immature Gran % Neutrophils % Band Neutrophils % Lymphocytes % Atypical Lymphs % Monocytes % Eosinophils % Basophils % Metamyelocytes % Myelocytes % Promyelocytes % Other Cells % Nucleated RBC % Absolute Neutrophils Absolute Lymphocytes Absolute Monocytes Absolute Eosinophils Absolute Basophils RBC Morphology Polychromasia Hypochromasia Poikilocytosis Basophilic Stippling Anisocytosis Microcytosis Macrocytosis Spherocytes Tear Drop Cells Ovalocytes Stomatocytes [place] Bodies Fall Branch Cells/Echinocytes Acanthocytes (Spur) Schistocytes VBG Lactate Sodium Potassium Chloride Carbon Dioxide Anion Gap BUN Creatinine Est GFR (CKD-EPI 2020) Glucose Calcium Magnesium Total Bilirubin 0.4 Conjugated Bilirubin 0.3 H AST 29 ALT 59 Alkaline Phosphatase 70 Creatine Kinase Total Protein 4.6 L Albumin 2.0 L Procalcitonin Urine Color Brown Urine Clarity Cloudy Urine pH 6.0 Ur Specific [place] >= 1.030 H Urine Protein 100 H Urine Ketones Negative Urine Blood Large H Urine Nitrite Positive H Urine Bilirubin Small H Urine Urobilinogen 2.0 H Ur Leukocyte Esterase Trace H Urine RBC >50 H Urine WBC >50 H Ur Epithelial Cells Negative Urine Crystals Negative Urine Bacteria Many Urine Casts 0-2 Fine Granular Urine Mucus Negative Ur Culture Indicated? Yes Urine Glucose Negative Add-On Test Request DONE 10/15/22 10/15/22 10/15/22 16:19 16:19 16:19 WBC Cancelled RBC Cancelled Hgb Cancelled Hct Cancelled MCV Cancelled MCH Cancelled MCHC Cancelled RDW Cancelled Plt Count Cancelled MPV Cancelled Immature Gran % Cancelled Neutrophils % Cancelled Band Neutrophils % Cancelled Lymphocytes % Cancelled Atypical Lymphs % Cancelled Monocytes % Cancelled Eosinophils % Cancelled Basophils % Cancelled Metamyelocytes % Cancelled Myelocytes % Cancelled Promyelocytes % Cancelled Other Cells % Cancelled Nucleated RBC % Cancelled Absolute Neutrophils Cancelled Absolute Lymphocytes Cancelled Absolute Monocytes Cancelled Absolute Eosinophils Cancelled Absolute Basophils Cancelled RBC Morphology Cancelled Polychromasia Cancelled Hypochromasia Cancelled Poikilocytosis Cancelled Basophilic Stippling Cancelled Anisocytosis Cancelled Microcytosis Cancelled Macrocytosis Cancelled Spherocytes Cancelled Tear Drop Cells Cancelled Ovalocytes Cancelled Stomatocytes Cancelled [place] Bodies Cancelled [place] Cells/Echinocytes Cancelled Acanthocytes (Spur) Cancelled Schistocytes Cancelled VBG Lactate 1.2 Sodium 135 L Potassium 4.2 Chloride 105 Carbon Dioxide 22.6 Anion Gap 7.4 BUN 15 Creatinine 0.9 Est GFR (CKD-EPI 2020) 72.73 Glucose 157 H Calcium 7.4 L Magnesium Total Bilirubin Conjugated Bilirubin AST ALT Alkaline Phosphatase Creatine Kinase Total Protein Albumin Procalcitonin Urine Color Urine Clarity Urine pH Ur Specific [place] Urine Protein Urine Ketones Urine Blood Urine Nitrite Urine Bilirubin Urine Urobilinogen Ur Leukocyte Esterase Urine RBC Urine WBC Ur Epithelial Cells Urine Crystals Urine Bacteria Urine Casts Urine Mucus Ur Culture Indicated? Urine Glucose Add-On Test Request 10/15/22 16:38 WBC 6.54 RBC 2.97 L Hgb 9.2 L Hct 29.5 L MCV 99 H MCH 31.0 MCHC 31.2 L RDW 12.8 Plt Count 128 L MPV 9.8 Immature Gran % 0.6 Neutrophils % 94.5 Band Neutrophils % Lymphocytes % 1.2 Atypical Lymphs % Monocytes % 3.7 Eosinophils % 0.0 Basophils % 0.0 Metamyelocytes % Myelocytes % Promyelocytes % Other Cells % Nucleated RBC % 0.0 Absolute Neutrophils 6.18 Absolute Lymphocytes 0.08 L Absolute Monocytes 0.24 Absolute Eosinophils 0.00 Absolute Basophils 0.00 RBC Morphology Polychromasia Hypochromasia Poikilocytosis Basophilic Stippling Anisocytosis Microcytosis Macrocytosis Spherocytes Tear Drop Cells Ovalocytes Stomatocytes [place] Bodies [place] Cells/Echinocytes Acanthocytes (Spur) Schistocytes VBG Lactate Sodium Potassium Chloride Carbon Dioxide Anion Gap BUN Creatinine Est GFR (CKD-EPI 2020) Glucose Calcium Magnesium Total Bilirubin Conjugated Bilirubin AST ALT Alkaline Phosphatase Creatine Kinase Total Protein Albumin Procalcitonin Urine Color Urine Clarity Urine pH Ur Specific [place] Urine Protein Urine Ketones Urine Blood Urine Nitrite Urine Bilirubin Urine Urobilinogen Ur Leukocyte Esterase Urine RBC Urine WBC Ur Epithelial Cells Urine Crystals Urine Bacteria Urine Casts Urine Mucus Ur Culture Indicated? Urine Glucose Add-On Test Request Reviewed Pertinent PMH: Yes Objective Narrative Objective Narrative: Abd US 1. Persistent 4.3 cm hypoechoic solid lesion in the pancreatic head suspicious for pancreatic neoplasm. 2. No biliary ductal dilatation. 3. Hepatic steatosis. Abd pelvic CT 1. No acute abdominal pelvic process. 2. Stable pancreatic head mass.? No biliary ductal dilatation. 3. Nonspecific inflammation around the kidneys bilaterally.? This can be seen with infection.? Please correlate clinically.? ?
[2022-10-15] MEDS: Enoxaparin 40 MG/0.4 ML SYR SC (19:26)
[2022-10-16] VITALS (24 sets, daily range): BP systolic 121–161; BP diastolic 68–103; PULSE 60–76; RESP 11–23; TEMP 36.2–36.8; O2SAT 95–99; BMI 40.1
[2022-10-16] MEDS: PIPERACILLIN/TAZO 4.5 GM in Normal Saline 100 ML IVPB ×4 (00:09→17:36)
[2022-10-16] MEDS: DEXTROSE 5%-0.9% SALINE 1,000 ML 125 ML IV (01:34)
[2022-10-16] MEDS: ACETAMINOPHEN 1,000 MG/100 ML BTL 400 MG IVPB ×3 (03:29→21:40)
[2022-10-16 06:24] LABS: Abs Immature Grans 0.04 10^3/uL (0.0-0.06); Absolute Eosinophil Count 0.01 10^3/uL (0.0-0.7); Absolute Lymphocyte Count 0.18 10^3/uL (1.2-3.4); Absolute Neutrophil Count 4.21 10^3/uL (1.2-6.7); Eosinophils % 0.2; HCT 26.6 % (36.0-46.0); HGB 8.1 g/dL (11.2-15.7); Immature Grans % 0.8; Lymphocytes % 3.8; MCH 29.8 pg (27.0-33.0); MCHC 30.5 % (32.0-36.0); MCV 98 fL (80-95); MPV 10.2 fL (8.0-11.0); Monocytes % 6.3; Neutrophils % 88.9; Platelet Count 111 10^3/uL (130-400); RBC 2.72 10^6/uL (3.93-5.22); RDW 12.8 % (11.7-14.6); RDW-SD 45.4 fL; WBC 4.74 10^3/uL (4.4-10.8)
[2022-10-16 06:41] LABS: BUN 13 mg/dL (7-18); C-Reactive Protein 14.81 mg/dL (0.0-0.3); CREATININE 0.9 mg/dL (0.55-1.02); Calcium 7.7 mg/dL (8.5-10.1); Chloride 104 mmol/L (98-107); Estimated GFR 72.73 (mL/min/1.73m2); Glucose 133 mg/dL (74-106); Potassium 3.7 mmol/L (3.5-5.1); Sodium 134 mmol/L (136-145)
[2022-10-16] MEDS: Budesonide/Formoterol 160/4.5 6 GM 60 PUFF INH IH ×2 (07:33→20:36)
[2022-10-16] MEDS: Normal Saline Flush 10 ML SYR IVP ×3 (07:41→22:19)
[2022-10-16] MEDS: LORazepam 0.5 MG TAB PO (07:41)
[2022-10-16] MEDS: Dexamethasone 4 MG TAB PO (07:42)
[2022-10-16] MEDS: Docusate Sodium 100 MG CAP PO ×3 (07:42→21:37)
[2022-10-16] MEDS: Venlafaxine 150 MG CAPCR PO (07:42)
[2022-10-16] MEDS: Pantoprazole 40 MG TABCR PO ×2 (07:43→21:37)
[2022-10-16] MEDS: Polyethylene Glycol 3350 17 GM PACKET PO ×2 (07:43→21:40)
[2022-10-16] MEDS: Magnesium Oxide 400 MG TAB 800 MG PO ×2 (07:44→21:37)
[2022-10-16] MEDS: Losartan 25 MG TAB 50 MG PO (07:52)
--- NOTE | 2022-10-16 08:28 | W.PM.PROGNOT ---
Date of Service Date of service: 10/16/22 Time of Service: 08:29 Assessment and Plan Assessment and plan (1) Gram-positive bacteremia: Status: Acute Assessment and plan: unclear source. She has no open wounds. Her mediport does not appear to be inflammed. However, her mediport will have to be removed in the setting of probable Staph bacteremia. The final id and sensitivity is pending. I have started her on vancomycin Professional time spent interviewing and examining patient, discussion of goals of care with hospital team (care management, nursing and consulting professionals) was 30 minutes. (2) Pancreas cancer: Status: Acute Assessment and plan: CT of her abdomen did not show source of infection. No abscess and no evidence for acute biliary obstruction. Her blood culture is positive for GPC. I have spoken w/ her oncologist, Dr. Harrington about this. Her mediport will have to be removed and she will need midline for iv infusions. As for her pain control she still has the fentanyl patch and prn iv morphine. I will order prn oral morphine IR. Some of her abdominal pains was probably d/t constipation. She had a good BM this mornig of light brown stool. She is on stool softener and laxatives to prevent obstipation. (3) Type of kidney inflammation: Status: Acute Assessment and plan: Her CT demonstrated nonspecific inflammation/edema around her kidneys w/ no hydronephrosis or stones. She has E. coli in her urine culture. She is currently on Zosyn and responding to this, sensitivities is pending. (4) E. coli UTI: Status: Acute Assessment and plan: as above (5) Vomiting: Status: Resolved Assessment and plan: Seems to have resolved at this time. patient now tolerating po; I will stop iv fluids (6) Delirium: Status: Resolved Assessment and plan: probably metabolic encephalopathy secondary to her bacteremia. this seems to have cleared and she is back to her baseline cognitive function (7) Uncontrolled pain: Status: Acute Assessment and plan: improved continue fentanyl TD 50mcg Q72H continue morphine IV PRN I have added oral morphine prn for breakthrough pain control. but some of her abdominal pain probably was d/t her obstipation. (8) Advance care planning: Status: Acute Assessment and plan: Palliative care has been consulted and is following and having ongoing discussions regarding goals of care (9) DNR (do not resuscitate): Status: Acute (10) Candidal skin infection: Status: Acute Assessment and plan: continue wound care recommend pre-medicate w/morphine IV 2mg (11) Discharge planning issues: Status: Acute Assessment and plan: continue to follow, CM to work w/Sonali and Jennifer (sister) to determine location of discharge for appropriate referrals for HH. Subjective Subjective Interval history since last seen: Patient states that she is feeling better this morning. She had a good bowel movement. Abdominal pain is improved. Her blood cultures positive for GPC and urine culture has E. coli. Sensitivities are pending on each. She is afebrile, Tmax was 38.6 yesterday at noon. She is currently on Zosyn and I have added Vancomycin. I will check echocardiogram. She was moved to the ICU per nursing request. She has been hemodynamically stable. She does not require ICU care. Exam Narrative Exam Narrative: alert and oriented x 3, in no acute distress Lungs: clear Heart: RRR, no murmur or rub or gallops Chest wall: she has mediport in the right infraclavicular space; no induration or redness. Abdomen: normal bowel sounds, soft, no guarding; mild tenderness w/ deep palpation Extremities: some bruising over her arms but no sites of redness or induration; legs/feet no open sores, edema or cyanosis Objective Last Vital Signs Temp 36.3 C L 10/16/22 05:45 Pulse 66 10/16/22 01:01 Resp 12 10/16/22 01:01 BP 126/86 10/16/22 01:01 Pulse Ox 97 10/16/22 01:01 Laboratory Results - last 24 hr 10/15/22 10/15/22 10/15/22 06:50 06:50 06:50 WBC RBC Hgb Hct MCV MCH MCHC RDW Plt Count MPV Immature Gran % Neutrophils % Band Neutrophils % Lymphocytes % Atypical Lymphs % Monocytes % Eosinophils % Basophils % Metamyelocytes % Myelocytes % Promyelocytes % Other Cells % Nucleated RBC % Absolute Neutrophils Absolute Lymphocytes Absolute Monocytes Absolute Eosinophils Absolute Basophils RBC Morphology Polychromasia Hypochromasia Poikilocytosis Basophilic Stippling Anisocytosis Microcytosis Macrocytosis Spherocytes Tear Drop Cells Ovalocytes Stomatocytes [place] Bodies [place] Cells/Echinocytes Acanthocytes (Spur) Schistocytes VBG Lactate Sodium Potassium Chloride Carbon Dioxide Anion Gap BUN Creatinine Est GFR (CKD-EPI 2020) Glucose Calcium Magnesium Total Bilirubin Conjugated Bilirubin AST ALT Alkaline Phosphatase Creatine Kinase 52 C-Reactive Protein Total Protein Albumin Procalcitonin Urine Color Urine Clarity Urine pH Ur Specific [place] Urine Protein Urine Ketones Urine Blood Urine Nitrite Urine Bilirubin Urine Urobilinogen Ur Leukocyte Esterase Urine RBC Urine WBC Ur Epithelial Cells Urine Crystals Urine Bacteria Urine Casts Urine Mucus Ur Culture Indicated? Urine Glucose Add-On Test Request DONE DONE 10/15/22 10/15/22 10/15/22 06:50 06:50 06:50 WBC RBC Hgb Hct MCV MCH MCHC RDW Plt Count MPV Immature Gran % Neutrophils % Band Neutrophils % Lymphocytes % Atypical Lymphs % Monocytes % Eosinophils % Basophils % Metamyelocytes % Myelocytes % Promyelocytes % Other Cells % Nucleated RBC % Absolute Neutrophils Absolute Lymphocytes Absolute Monocytes Absolute Eosinophils Absolute Basophils RBC Morphology Polychromasia Hypochromasia Poikilocytosis Basophilic Stippling Anisocytosis Microcytosis Macrocytosis Spherocytes Tear Drop Cells Ovalocytes Stomatocytes [place] Bodies [place] Cells/Echinocytes Acanthocytes (Spur) Schistocytes VBG Lactate Sodium Potassium Chloride Carbon Dioxide Anion Gap BUN Creatinine Est GFR (CKD-EPI 2020) Glucose Calcium Magnesium Total Bilirubin 0.4 Conjugated Bilirubin 0.3 H AST 29 ALT 59 Alkaline Phosphatase 70 Creatine Kinase C-Reactive Protein Total Protein 4.6 L Albumin 2.0 L Procalcitonin 19.0 Urine Color Urine Clarity Urine pH Ur Specific [place] Urine Protein Urine Ketones Urine Blood Urine Nitrite Urine Bilirubin Urine Urobilinogen Ur Leukocyte Esterase Urine RBC Urine WBC Ur Epithelial Cells Urine Crystals Urine Bacteria Urine Casts Urine Mucus Ur Culture Indicated? Urine Glucose Add-On Test Request DONE 10/15/22 10/15/22 10/15/22 15:10 16:19 16:19 WBC Cancelled RBC Cancelled Hgb Cancelled Hct Cancelled MCV Cancelled MCH Cancelled MCHC Cancelled RDW Cancelled Plt Count Cancelled MPV Cancelled Immature Gran % Cancelled Neutrophils % Cancelled Band Neutrophils % Cancelled Lymphocytes % Cancelled Atypical Lymphs % Cancelled Monocytes % Cancelled Eosinophils % Cancelled Basophils % Cancelled Metamyelocytes % Cancelled Myelocytes % Cancelled Promyelocytes % Cancelled Other Cells % Cancelled Nucleated RBC % Cancelled Absolute Neutrophils Cancelled Absolute Lymphocytes Cancelled Absolute Monocytes Cancelled Absolute Eosinophils Cancelled Absolute Basophils Cancelled RBC Morphology Cancelled Polychromasia Cancelled Hypochromasia Cancelled Poikilocytosis Cancelled Basophilic Stippling Cancelled Anisocytosis Cancelled Microcytosis Cancelled Macrocytosis Cancelled Spherocytes Cancelled Tear Drop Cells Cancelled Ovalocytes Cancelled Stomatocytes Cancelled [place] Bodies Cancelled [place] Cells/Echinocytes Cancelled Acanthocytes (Spur) Cancelled Schistocytes Cancelled VBG Lactate 1.2 Sodium Potassium Chloride Carbon Dioxide Anion Gap BUN Creatinine Est GFR (CKD-EPI 2020) Glucose Calcium Magnesium Total Bilirubin Conjugated Bilirubin AST ALT Alkaline Phosphatase Creatine Kinase C-Reactive Protein Total Protein Albumin Procalcitonin Urine Color Brown Urine Clarity Cloudy Urine pH 6.0 Ur Specific [place] >= 1.030 H Urine Protein 100 H Urine Ketones Negative Urine Blood Large H Urine Nitrite Positive H Urine Bilirubin Small H Urine Urobilinogen 2.0 H Ur Leukocyte Esterase Trace H Urine RBC >50 H Urine WBC >50 H Ur Epithelial Cells Negative Urine Crystals Negative Urine Bacteria Many Urine Casts 0-2 Fine Granular Urine Mucus Negative Ur Culture Indicated? Yes Urine Glucose Negative Add-On Test Request 10/15/22 10/15/22 10/16/22 16:19 16:38 05:57 WBC 6.54 RBC 2.97 L Hgb 9.2 L Hct 29.5 L MCV 99 H MCH 31.0 MCHC 31.2 L RDW 12.8 Plt Count 128 L MPV 9.8 Immature Gran % 0.6 Neutrophils % 94.5 Band Neutrophils % Lymphocytes % 1.2 Atypical Lymphs % Monocytes % 3.7 Eosinophils % 0.0 Basophils % 0.0 Metamyelocytes % Myelocytes % Promyelocytes % Other Cells % Nucleated RBC % 0.0 Absolute Neutrophils 6.18 Absolute Lymphocytes 0.08 L Absolute Monocytes 0.24 Absolute Eosinophils 0.00 Absolute Basophils 0.00 RBC Morphology Polychromasia Hypochromasia Poikilocytosis Basophilic Stippling Anisocytosis Microcytosis Macrocytosis Spherocytes Tear Drop Cells Ovalocytes Stomatocytes [place] Bodies [place] Cells/Echinocytes Acanthocytes (Spur) Schistocytes VBG Lactate Sodium 135 L 134 L Potassium 4.2 3.7 Chloride 105 104 Carbon Dioxide 22.6 24.0 Anion Gap 7.4 6.0 BUN 15 13 Creatinine 0.9 0.9 Est GFR (CKD-EPI 2020) 72.73 72.73 Glucose 157 H 133 H Calcium 7.4 L 7.7 L Magnesium 2.0 Total Bilirubin Conjugated Bilirubin AST ALT Alkaline Phosphatase Creatine Kinase C-Reactive Protein 14.81 H Total Protein Albumin Procalcitonin Urine Color Urine Clarity Urine pH Ur Specific [place] Urine Protein Urine Ketones Urine Blood Urine Nitrite Urine Bilirubin Urine Urobilinogen Ur Leukocyte Esterase Urine RBC Urine WBC Ur Epithelial Cells Urine Crystals Urine Bacteria Urine Casts Urine Mucus Ur Culture Indicated? Urine Glucose Add-On Test Request 10/16/22 05:57 WBC 4.74 RBC 2.72 L Hgb 8.1 L Hct 26.6 L MCV 98 H MCH 29.8 MCHC 30.5 L RDW 12.8 Plt Count 111 L MPV 10.2 Immature Gran % 0.8 Neutrophils % 88.9 Band Neutrophils % Lymphocytes % 3.8 Atypical Lymphs % Monocytes % 6.3 Eosinophils % 0.2 Basophils % 0.0 Metamyelocytes % Myelocytes % Promyelocytes % Other Cells % Nucleated RBC % 0.0 Absolute Neutrophils 4.21 Absolute Lymphocytes 0.18 L Absolute Monocytes 0.30 Absolute Eosinophils 0.01 Absolute Basophils 0.00 RBC Morphology Polychromasia Hypochromasia Poikilocytosis Basophilic Stippling Anisocytosis Microcytosis Macrocytosis Spherocytes Tear Drop Cells Ovalocytes Stomatocytes [place] Bodies [place] Cells/Echinocytes Acanthocytes (Spur) Schistocytes VBG Lactate Sodium Potassium Chloride Carbon Dioxide Anion Gap BUN Creatinine Est GFR (CKD-EPI 2020) Glucose Calcium Magnesium Total Bilirubin Conjugated Bilirubin AST ALT Alkaline Phosphatase Creatine Kinase C-Reactive Protein Total Protein Albumin Procalcitonin Urine Color Urine Clarity Urine pH Ur Specific [place] Urine Protein Urine Ketones Urine Blood Urine Nitrite Urine Bilirubin Urine Urobilinogen Ur Leukocyte Esterase Urine RBC Urine WBC Ur Epithelial Cells Urine Crystals Urine Bacteria Urine Casts Urine Mucus Ur Culture Indicated? Urine Glucose Add-On Test Request
[2022-10-16] MEDS: Bisacodyl 10 MG SUPP PR (09:05)
[2022-10-16] MEDS: VANCOMYCIN/WATER (PEG) 1.5 GM/300 ML BAG IVPB (10:09)
--- NOTE | 2022-10-16 10:28 | PDOC.CMPRO ---
- If Service Date Differs Date of service: 10/16/22 Time of Service: 10:28 Care Management Progress Note S/O: Sonali continues to be closely monitored and treated, Palliative following closely. She has not had consistent periods of alertness to engage fully; has verbalized wanting to get better and continue chemo treatments managed by her oncologist; Dr. Harrington. CM continues to follow. A: 61 year old female admitted to [facility] 10/07/22 for Hypokalemia, Vomiting P: At this time, plan remains for Sonali will return home with new orders for [facility] RN/PT/OT/[employer] and family support when ready and follow up with community providers including PCP and Palliative Care. She will transport via private vehicle with family. Undetermined if she will return to [place] with her family or to her sister's in [facility] where there are only four steps to enter. Sonali has not been alert for long enough periods to engage in comprehensive discharge planning. CM continues to follow.
--- NOTE | 2022-10-16 12:47 | PGE_ITS ---
Date of Service Date of service: 10/16/22 Time of Service: 12:47 Assessment and Plan Assessment and plan (1) Gram-positive bacteremia: Status: Acute Assessment and plan: I agree that it is reasonable to remove the Port-A-Cath given the presence of gram-positive bacteremia. We will make arrangements for this emergently today. Subjective Subjective Interval history since last seen: Blood cultures are positive for gram-positive cocci. Given the presence of her subcutaneous port, I was asked to give consideration for excision and removal of the port Exam Skin Other: The port site is clean, and not very erythematous. Is not particularly tender. Objective Last Vital Signs Temp 97.3 F L 10/16/22 07:40 Pulse 61 10/16/22 07:48 Resp 12 10/16/22 12:00 BP 129/68 10/16/22 07:48 Pulse Ox 98 10/16/22 12:00 Laboratory Results - last 24 hr 10/15/22 10/15/22 10/15/22 06:50 06:50 06:50 WBC RBC Hgb Hct MCV MCH MCHC RDW Plt Count MPV Immature Gran % Neutrophils % Band Neutrophils % Lymphocytes % Atypical Lymphs % Monocytes % Eosinophils % Basophils % Metamyelocytes % Myelocytes % Promyelocytes % Other Cells % Nucleated RBC % Absolute Neutrophils Absolute Lymphocytes Absolute Monocytes Absolute Eosinophils Absolute Basophils RBC Morphology Polychromasia Hypochromasia Poikilocytosis Basophilic Stippling Anisocytosis Microcytosis Macrocytosis Spherocytes Tear Drop Cells Ovalocytes Stomatocytes [place] Bodies [place] Cells/Echinocytes Acanthocytes (Spur) Schistocytes VBG Lactate Sodium Potassium Chloride Carbon Dioxide Anion Gap BUN Creatinine Est GFR (CKD-EPI 2020) Glucose Calcium Magnesium Total Bilirubin Conjugated Bilirubin AST ALT Alkaline Phosphatase C-Reactive Protein Total Protein Albumin Procalcitonin 19.0 Urine Color Urine Clarity Urine pH Ur Specific [place] Urine Protein Urine Ketones Urine Blood Urine Nitrite Urine Bilirubin Urine Urobilinogen Ur Leukocyte Esterase Urine RBC Urine WBC Ur Epithelial Cells Urine Crystals Urine Bacteria Urine Casts Urine Mucus Ur Culture Indicated? Urine Glucose Add-On Test Request DONE DONE 10/15/22 10/15/22 10/15/22 06:50 15:10 16:19 WBC Cancelled RBC Cancelled Hgb Cancelled Hct Cancelled MCV Cancelled MCH Cancelled MCHC Cancelled RDW Cancelled Plt Count Cancelled MPV Cancelled Immature Gran % Cancelled Neutrophils % Cancelled Band Neutrophils % Cancelled Lymphocytes % Cancelled Atypical Lymphs % Cancelled Monocytes % Cancelled Eosinophils % Cancelled Basophils % Cancelled Metamyelocytes % Cancelled Myelocytes % Cancelled Promyelocytes % Cancelled Other Cells % Cancelled Nucleated RBC % Cancelled Absolute Neutrophils Cancelled Absolute Lymphocytes Cancelled Absolute Monocytes Cancelled Absolute Eosinophils Cancelled Absolute Basophils Cancelled RBC Morphology Cancelled Polychromasia Cancelled Hypochromasia Cancelled Poikilocytosis Cancelled Basophilic Stippling Cancelled Anisocytosis Cancelled Microcytosis Cancelled Macrocytosis Cancelled Spherocytes Cancelled Tear Drop Cells Cancelled Ovalocytes Cancelled Stomatocytes Cancelled [place] Bodies Cancelled [place] Cells/Echinocytes Cancelled Acanthocytes (Spur) Cancelled Schistocytes Cancelled VBG Lactate Sodium Potassium Chloride Carbon Dioxide Anion Gap BUN Creatinine Est GFR (CKD-EPI 2020) Glucose Calcium Magnesium Total Bilirubin 0.4 Conjugated Bilirubin 0.3 H AST 29 ALT 59 Alkaline Phosphatase 70 C-Reactive Protein Total Protein 4.6 L Albumin 2.0 L Procalcitonin Urine Color Brown Urine Clarity Cloudy Urine pH 6.0 Ur Specific [place] >= 1.030 H Urine Protein 100 H Urine Ketones Negative Urine Blood Large H Urine Nitrite Positive H Urine Bilirubin Small H Urine Urobilinogen 2.0 H Ur Leukocyte Esterase Trace H Urine RBC >50 H Urine WBC >50 H Ur Epithelial Cells Negative Urine Crystals Negative Urine Bacteria Many Urine Casts 0-2 Fine Granular Urine Mucus Negative Ur Culture Indicated? Yes Urine Glucose Negative Add-On Test Request 10/15/22 10/15/22 10/15/22 16:19 16:19 16:38 WBC 6.54 RBC 2.97 L Hgb 9.2 L Hct 29.5 L MCV 99 H MCH 31.0 MCHC 31.2 L RDW 12.8 Plt Count 128 L MPV 9.8 Immature Gran % 0.6 Neutrophils % 94.5 Band Neutrophils % Lymphocytes % 1.2 Atypical Lymphs % Monocytes % 3.7 Eosinophils % 0.0 Basophils % 0.0 Metamyelocytes % Myelocytes % Promyelocytes % Other Cells % Nucleated RBC % 0.0 Absolute Neutrophils 6.18 Absolute Lymphocytes 0.08 L Absolute Monocytes 0.24 Absolute Eosinophils 0.00 Absolute Basophils 0.00 RBC Morphology Polychromasia Hypochromasia Poikilocytosis Basophilic Stippling Anisocytosis Microcytosis Macrocytosis Spherocytes Tear Drop Cells Ovalocytes Stomatocytes [place] Bodies [place] Cells/Echinocytes Acanthocytes (Spur) Schistocytes VBG Lactate 1.2 Sodium 135 L Potassium 4.2 Chloride 105 Carbon Dioxide 22.6 Anion Gap 7.4 BUN 15 Creatinine 0.9 Est GFR (CKD-EPI 2020) 72.73 Glucose 157 H Calcium 7.4 L Magnesium Total Bilirubin Conjugated Bilirubin AST ALT Alkaline Phosphatase C-Reactive Protein Total Protein Albumin Procalcitonin Urine Color Urine Clarity Urine pH Ur Specific [place] Urine Protein Urine Ketones Urine Blood Urine Nitrite Urine Bilirubin Urine Urobilinogen Ur Leukocyte Esterase Urine RBC Urine WBC Ur Epithelial Cells Urine Crystals Urine Bacteria Urine Casts Urine Mucus Ur Culture Indicated? Urine Glucose Add-On Test Request 10/16/22 10/16/22 05:57 05:57 WBC 4.74 RBC 2.72 L Hgb 8.1 L Hct 26.6 L MCV 98 H MCH 29.8 MCHC 30.5 L RDW 12.8 Plt Count 111 L MPV 10.2 Immature Gran % 0.8 Neutrophils % 88.9 Band Neutrophils % Lymphocytes % 3.8 Atypical Lymphs % Monocytes % 6.3 Eosinophils % 0.2 Basophils % 0.0 Metamyelocytes % Myelocytes % Promyelocytes % Other Cells % Nucleated RBC % 0.0 Absolute Neutrophils 4.21 Absolute Lymphocytes 0.18 L Absolute Monocytes 0.30 Absolute Eosinophils 0.01 Absolute Basophils 0.00 RBC Morphology Polychromasia Hypochromasia Poikilocytosis Basophilic Stippling Anisocytosis Microcytosis Macrocytosis Spherocytes Tear Drop Cells Ovalocytes Stomatocytes [place] Bodies [place] Cells/Echinocytes Acanthocytes (Spur) Schistocytes VBG Lactate Sodium 134 L Potassium 3.7 Chloride 104 Carbon Dioxide 24.0 Anion Gap 6.0 BUN 13 Creatinine 0.9 Est GFR (CKD-EPI 2020) 72.73 Glucose 133 H Calcium 7.7 L Magnesium 2.0 Total Bilirubin Conjugated Bilirubin AST ALT Alkaline Phosphatase C-Reactive Protein 14.81 H Total Protein Albumin Procalcitonin Urine Color Urine Clarity Urine pH Ur Specific [place] Urine Protein Urine Ketones Urine Blood Urine Nitrite Urine Bilirubin Urine Urobilinogen Ur Leukocyte Esterase Urine RBC Urine WBC Ur Epithelial Cells Urine Crystals Urine Bacteria Urine Casts Urine Mucus Ur Culture Indicated? Urine Glucose Add-On Test Request
[2022-10-16] MEDS: Dexamethasone 1 MG TAB 2 MG PO (12:57)
[2022-10-16] MEDS: Methylnaltrexone 12 MG/0.6 ML VIAL 8 MG SC (13:23)
--- NOTE | 2022-10-16 13:59 | ANES.PREOP_ITS ---
General Info Date of Service Date Performed: 10/16/22 Height: 4 ft 11 in Weight: 90.1 kg Body Mass Index (BMI): 40.1 Surgical Procedure: Operation Date: 10/16/22 13:10 Proposed Procedure Side Surgeon p Mediport Removal Right Bora Bartlett MD Meds Allergies and Home Medications Allergies Allergy/AdvReac Type Severity Reaction Status Date / Time aspirin Allergy Unverified 10/07/22 15:04 erythromycin base Allergy Unverified 10/07/22 15:04 Latex, Natural Rubber Allergy Unverified 10/07/22 15:04 meperidine [From Demerol] Allergy Unverified 10/07/22 15:04 Home Medication Medication Instructions Recorded bupropion HCl 150 mg tablet,12 hr 150 mg PO BID 10/07/22 sustained-release diphenoxylate-atropine 2.5 1 - 2 tab PO DAILY PRN 10/07/22 mg-0.025 mg tablet fluticasone 500 mcg-salmeterol 50 1 inh inhalation BID 10/07/22 mcg/dose blistr powdr for inhalation (Advair Diskus) hydrochlorothiazide 12.5 mg tablet 12.5 mg PO DAILY 10/07/22 losartan 50 mg tablet 50 mg PO DAILY 10/07/22 montelukast 10 mg tablet 10 mg PO DAILY 10/07/22 omeprazole 20 mg tablet,delayed 20 mg PO BID 10/07/22 release ondansetron 8 mg disintegrating 8 mg PO Q8H PRN 10/07/22 tablet potassium chloride 20 mEq 20 meq PO BID 10/07/22 tablet,extended release venlafaxine 150 mg tablet,extended 150 mg PO DAILY 10/07/22 release 24 hr calcium carbonate 500 mg calcium 500 mg PO DAILY 10/08/22 (1,250 mg) chewable tablet dexamethasone 2 mg tablet See Rx Instructions .Route .COMPLEX 10/08/22 fentanyl 25 mcg/hr transdermal 25 mcg topical Q72H 10/08/22 patch hydromorphone 4 mg tablet 4 - 8 mg PO Q4H PRN PRN Pain 10/08/22 nystatin 100,000 unit/gram topical 2 pwd topical TID PRN PRN 10/08/22 powder Current Visit Medications: Current Medications Generic Name Dose Route Start Last Admin Trade Name Freq PRN Reason Stop Dose Admin Acetaminophen 650 mg 10/14/22 18:48 10/15/22 01:19 Acetaminophen 325 Mg Tab PO 650 mg Q6H PRN PRN Administration Bisacodyl 10 mg 10/16/22 08:29 Bisacodyl 10 Mg Supp MT DAILY PRN PRN Budesonide/Formoterol Fumarate 0 puff 10/08/22 08:30 10/16/22 07:33 Budesonide/Formoterol 160/4.5 6 Gm 60 Puff Inh IH 2 puff BID ALONSO Administration Clotrimazole 40 gm/ Zinc Oxide 0 gm 10/10/22 12:00 10/16/22 12:35 40 gm/ Vitamin A/Vitamin D 40 TP 1 applicatio gm QID ALONSO Administration Dexamethasone 4 mg 10/15/22 08:30 10/16/22 07:42 Dexamethasone 4 Mg Tab PO 4 mg DAILY ALONSO Administration Dexamethasone 2 mg 10/14/22 16:00 10/16/22 12:57 Dexamethasone 1 Mg Tab PO 2 mg DAILY@1300 ALONSO Administration Dimethicone/Zinc Oxide 0 gm 10/07/22 19:42 Velvet Protect Cream 142 Gm Tube TP PRN PRN Docusate Sodium 100 mg 10/15/22 10:00 10/16/22 13:23 Docusate Sodium 100 Mg Cap PO 100 mg TID ALONSO Administration Enoxaparin Sodium 40 mg 10/07/22 20:00 10/15/22 19:26 Enoxaparin 40 Mg/0.4 Ml Syr SC 40 mg Q24H ALONSO Administration Fentanyl 50 mcg 10/14/22 15:00 10/14/22 14:08 Fentanyl 50 Mcg Patch TD 50 mcg Q72H ALONSO Administration Sodium Chloride 500 mls @ 0 mls/hr 10/07/22 18:45 10/15/22 03:50 Saline 500ml Bag IV Infused PRN PRN Infusion As Directed Sodium Chloride 50 mls @ 0 mls/hr 10/08/22 07:54 10/09/22 13:45 Saline 50ml Bag IV Infused PRN PRN Infusion As Directed Acetaminophen 1,000 mg in 100 mls @ 400 mls/hr 10/15/22 20:00 10/16/22 12:30 Ofirmev IVPB 400 mls/hr Q8H ALONSO Administration Piperacillin Sod/Tazobactam 100 mls @ 200 mls/hr 10/15/22 18:00 10/16/22 12:30 Sod 4.5 gm/ Sodium Chloride IVPB 200 mls/hr Q6H ALONSO Administration Protocol Vancomycin/PEG/NADA/Lysine/Water 1 gm in 200 mls @ 200 mls/hr 10/16/22 22:00 Vancocin Injection IVPB Q12H ALONSO Protocol Per Protocol IV Miscellaneous Supplies 1 each 10/07/22 18:45 Iv Access IV DIRECTED ALONSO Iohexol 100 ml 10/15/22 15:45 10/15/22 15:33 Omnipaque 350 Mg/Ml 100 Ml Btl IJ 11/14/22 23:59 100 ml DIRECTED ALONSO Administration Lorazepam 0.5 mg 10/14/22 12:54 10/16/22 07:41 Lorazepam 0.5 Mg Tab PO 0.5 mg QID PRN PRN Administration Losartan Potassium 50 mg 10/15/22 08:30 10/16/22 07:52 Losartan 25 Mg Tab PO 50 mg DAILY ALONSO Administration Magnesium Oxide 800 mg 10/15/22 20:00 10/16/22 07:44 Magnesium Oxide 400 Mg Tab PO 800 mg BID ALONSO Administration Metoprolol Tartrate 2.5 mg 10/08/22 07:45 10/08/22 08:05 Metoprolol 5 Mg/5 Ml Vial IVP 2.5 mg Q6H PRN PRN Administration Miconazole Nitrate 0 gm 10/08/22 22:00 10/15/22 19:26 Miconazole 2% Vag 45 Gm Tube VG 1 applic HS ALONSO Administration Miscellaneous 1 each 10/14/22 15:00 10/14/22 14:14 Patch Removal TP 1 each Q72H ALONSO Administration Morphine Sulfate 2 - 4 mg 10/13/22 18:28 10/15/22 12:42 Morphine 2 Mg/Ml Syr IVP 4 mg Q2H PRN PRN Administration Morphine Sulfate 15 mg 10/16/22 12:03 Morphine 15 Mg Tab PO Q4H PRN PRN Ondansetron HCl 8 mg 10/08/22 01:54 10/14/22 14:10 Ondansetron O.D.T. 4 Mg Tabef PO 8 mg Q8H PRN PRN Administration Pantoprazole Sodium 40 mg 10/14/22 20:00 10/16/22 07:43 Pantoprazole 40 Mg Tabcr PO 40 mg BID@0730,1999 ALONSO Administration Polyethylene Glycol 17 gm 10/14/22 20:00 10/16/22 07:43 Polyethylene Glycol 3350 17 Gm Packet PO 17 gm BID ALONSO Administration Sennosides 1 tab 10/16/22 22:00 Senna Tab PO HS ALONSO Sodium Chloride 0 ml 10/07/22 18:45 10/16/22 07:41 Normal Saline Flush 10 Ml Syr IVP 10 ml PRN PRN Administration Sodium Chloride 50 ml 10/15/22 15:45 10/15/22 15:34 Normal Saline - Diluent 50 Ml Vial IJ 50 ml .FOR DI USE ALONSO Administration Venlafaxine HCl 150 mg 10/08/22 08:30 10/16/22 07:42 Venlafaxine 150 Mg Capcr PO 150 mg DAILY ALONSO Administration PFSH Active Problems Active Problems: Problem Status Onset Code E. coli UTI N39.0, B96.20 Gram-positive bacteremia R78.81 Abdominal pain R10.9 Type of kidney inflammation N05.9 Palliative care encounter Z51.5 Decreased oral intake R63.8 Advance care planning Z71.89 DNR (do not resuscitate) Z66 Uncontrolled pain R52 Stomatitis K12.1 Myoclonic jerking G25.3 Candidal skin infection B37.2 Discharge planning issues Z02.9 No contraindication to deep vein thrombosis (DVT) prophylaxis Z78.9 Hypertension I10 Pancreas cancer C25.9 Atypical chest pain R07.89 Acute hypokalemia E87.6 Hypomagnesemia E83.42 Vomiting R11.10 Tobacco Smoking/Tobacco Use Status: Never Alcohol Alcohol Intake: never Substance Use Substance use: Never Substance use type: does not use Vital Signs and Lab Results Vital Signs Most Recent Vital Signs in EMR: Most Recent Vital Signs Temp Pulse Resp BP Pulse Ox 36.5 C 62 18 147/77 H 98 10/16/22 13:17 10/16/22 13:17 10/16/22 13:17 10/16/22 13:17 10/16/22 13:17 Point of Care Results Point of Care Results: Finger Stick Blood Glucose 111 10/15/22 00:34 Lab Results Result Diagrams: 10/16/22 05:57 10/16/22 05:57 Blood Type / Crossmatch: No Data to Display Complete Blood Count: White Blood Count 4.74 10^3/uL (4.4-10.8) 10/16/22 05:57 Red Blood Count 2.72 10^6/uL (3.93-5.22) L 10/16/22 05:57 Hemoglobin 8.1 g/dL (11.2-15.7) L 10/16/22 05:57 Hematocrit 26.6 % (36.0-46.0) L 10/16/22 05:57 Platelet Count 111 10^3/uL (130-400) L 10/16/22 05:57 Venous Blood Lactate 1.2 mmol/L (0.9-1.7) 10/15/22 16:19 Complete Metabolic Panel: Sodium 134 mmol/L (136-145) L 10/16/22 05:57 Potassium 3.7 mmol/L (3.5-5.1) 10/16/22 05:57 Chloride 104 mmol/L (98-107) 10/16/22 05:57 Carbon Dioxide 24.0 mmol/L (21.0-32.0) 10/16/22 05:57 BUN 13 mg/dL (7-18) 10/16/22 05:57 Creatinine 0.9 mg/dL (0.55-1.02) 10/16/22 05:57 Est GFR (CKD-EPI 2020) 72.73 (mL/min/1.73m2) 10/16/22 05:57 Magnesium 2.0 mg/dL (1.8-2.4) 10/16/22 05:57 Calcium 7.7 mg/dL (8.5-10.1) L 10/16/22 05:57 Albumin 2.0 g/dL (3.4-5.0) L 10/15/22 06:50 Glucose 133 mg/dL (74-106) H 10/16/22 05:57 C-Reactive Protein 14.81 mg/dL (0.0-0.3) H 10/16/22 05:57 Liver Function Panel: Alanine Aminotransferase (ALT/SGPT) 59 U/L (14-59) 10/15/22 06: 50 Aspartate Amino Transf (AST/SGOT) 29 U/L (15-37) 10/15/22 06:50 Coagulation Panel: No Data to Display Cardiac Panel: Troponin I < 50 ng/L (<or=60) 10/07/22 Creatine Kinase 52 U/L (26-192) 10/15/22 Arterial Blood Gas: No Data to Display Venous Blood Gas: No Data to Display Pancreas Panel: Lipase 122 U/L (73-393) 10/07/22 15:31 Thyroid Panel: No Data to Display Infectious Disease: Coronavirus (COVID-19)(PCR) Negative (Negative) 10/07/22 18:50 Coronavirus 2019 Source Nasal/Nares 10/07/22 18:50 Blood Cultures: No Data to Display Toxicology Panel: No Data to Display Imaging and Studies Imaging and Studies Study information below may be from another EMR and interpreted by another provider. Please see original notes in EMR for more complete details. EKG Summary: 09/29: Sinus rhythm. Anesthesia Assessment and Plan Anesthesia History Personal History: No History of Anesthesia Complications Family History: No Family History of Anesthesia Complications Exercise Tolerance Exercise Tolerance: Metabolic Equivalents<4 Cardiac & Pulmonary Exam Cardiac Exam: Normal S1/S2 Heart Sounds Pulmonary Exam: Clear Bilateral Breath Sounds Implantable Cardiac Device Does patient have a Pacemaker or an ICD?: No Airway Exam Known Difficult Airway: No Mallampati Class: 3 Mouth Opening: Narrow (< 3cm) Thyromental Distance: Less than 3 cm Neck Range of Motion: Limited ROM Neck Circumference: Normal Teeth Condition: Generalized Poor Dentition and Removable Dentures/Plates Upper ASA Classification ASA Score: ASA 4 Emergency Case?: Yes NPO Status NPO Status: NPO Clears >2 hours, Solids >8 hours Anesthesia Plan Resuscitation Status: Full Code Anesthesia Technique: MAC Anesthesia Airway Planned: Natural Airway Monitors Used: Standard Monitors Preoperative Comments:: 61 yo female with pancreatic CA and positive blood cultures to OR for removal of mediport (? source of infection). Sig PMHx: PTSD, HTN, anxiety, GERD, HTN, vomiting (resolved, tolerating PO). Discussed with Sonali the plan of light to moderate sedation. she is in agreement. DNR will be supended for the procedural period. She is in agreement with this.
[2022-10-16] MEDS: Lactated Ringers 1,000 ML 30 ML IV (14:33)
[2022-10-16] MEDS: Lidocaine 1% Pres-Free W/EPI 1/200,000 10 ML VIAL (14:43)
--- NOTE | 2022-10-16 15:07 | W.ANESPOSTOP ---
Postoperative Evaluation Date, Time and Location Date Performed: 10/16/22 Time Performed: 15:07 Patient Location: Med/Surg Vital Signs Most Recent Imported Vital Signs: Most Recent Vital Signs Temp Pulse Resp BP Pulse Ox 36.5 C 62 18 147/77 H 98 10/16/22 13:17 10/16/22 13:17 10/16/22 13:17 10/16/22 13:17 10/16/22 13:17 Pain Score Most Recent Pain Score: Most Recent Pain Score Pain Level [Abdomen] 8 10/15/22 16:30 Pain Level 6 10/16/22 13:17 Assessment Mental Status: Awake (Alert & Oriented to Patient Baseline) Airway and Respiratory Function: Patent airway with normal (patient baseline) respiratory exam Cardiovascular Function: Hemodynamically Stable Hydration Status: Adequately Hydrated Nausea & Vomiting: No Nausea or Vomiting Pain: Pain is tolerable per patient Peripheral Nerve Block: Patient did not receive a nerve block Postoperative Comments:: Tolerated procedure very well, VSS, report to RN.
--- NOTE | 2022-10-16 15:12 | ROE_ITS ---
Date of service: 10/16/22 Time of Service: 15:13 Operative Note Operative Note DATE OF PROCEDURE: 10/16/22 PRE-OP DIAGNOSIS: Bacteremia POST-OP DIAGNOSIS: same PROCEDURE: Removal of Port-A-Cath SURGEON: Bora Bartlett ENTRY LEVEL RECEPTIONIST: Kalpana Lugo Refer to Anesthesia Record ESTIMATED BLOOD LOSS: 10 PATHOLOGY: none sent COMPLICATIONS: None Patient was transported to: floor Patient's condition: stable Indications: Sonali is a 61-year-old woman with a Port-A-Cath for chemotherapy because of advanced pancreatic Malignancy. Unfortunately, she is developed signs of sepsis, and has positive blood cultures with gram-positive cocci. We talked about the risks and benefits of Port-A-Cath removal, and she provided informed consent. Procedure Description: After the initiation of monitored anesthetic care, I prepped and draped the right anterior chest wall in the usual fashion. I made an incision over the underlying Port-A-Cath. I dissected down to the catheter and dissected the capsule free. I cut the affixing sutures, and pulled out the catheter. I held pressure on the subclavian area for approximately 7 minutes. I irrigated the Port-A-Cath site. Using interrupted Vicryl stitches to close the pocket, and I approximated the skin with interrupted Monocryl sutures. Bandages were applied, the patient was brought back up to the intensive care unit bed.
--- NOTE | 2022-10-16 16:26 | CHAPLAIN ---
Sonali was moved out of the ICU to Med/Surg today. She seemed much more alert and clear today and was talking with her sister, Jennifer, when I visited. Sonali explained that she's going to the OR at 5 p.m. today to have her port removed. She had the port for her chemo treatments for pancreatic cancer, but she has an infection now that might be caused by the port, she said, so the port will be removed. She said she's not looking forward to the procedure but knows it needs to be done. Jennifer is very supportive Sonali.
[2022-10-16] MEDS: MORPHine 2 MG/ML SYR IVP ×2 (17:36→22:17)
[2022-10-16] MEDS: Senna TAB 1 TAB PO (21:36)
[2022-10-16] MEDS: Enoxaparin 40 MG/0.4 ML SYR SC (22:21)
[2022-10-16] MEDS: VANCOMYCIN/WATER (PEG) 1 GM/200 ML BAG IVPB (22:26)
[2022-10-17] VITALS (7 sets, daily range): BP systolic 153–200; BP diastolic 84–110; PULSE 63–74; RESP 17–19; TEMP 36–37.1; O2SAT 95–98
[2022-10-17] MEDS: PIPERACILLIN/TAZO 4.5 GM in Normal Saline 100 ML IVPB ×4 (00:18→17:28)
[2022-10-17] MEDS: MORPHine 2 MG/ML SYR IVP ×3 (05:00→22:50)
[2022-10-17] MEDS: ACETAMINOPHEN 1,000 MG/100 ML BTL 400 MG IVPB ×2 (05:03→14:22)
[2022-10-17 07:13] LABS: Abs Immature Grans 0.02 10^3/uL (0.0-0.06); Absolute Eosinophil Count 0.04 10^3/uL (0.0-0.7); Absolute Lymphocyte Count 0.68 10^3/uL (1.2-3.4); Absolute Monocyte Count 0.24 10^3/uL (0.1-0.8); Absolute Neutrophil Count 2.32 10^3/uL (1.2-6.7); Eosinophils % 1.2; HCT 29.3 % (36.0-46.0); HGB 9.3 g/dL (11.2-15.7); Immature Grans % 0.6; Lymphocytes % 20.6; MCH 30.5 pg (27.0-33.0); MCHC 31.7 % (32.0-36.0); MCV 96 fL (80-95); MPV 11.3 fL (8.0-11.0); Monocytes % 7.3; Neutrophils % 70.3; Platelet Count 114 10^3/uL (130-400); RBC 3.05 10^6/uL (3.93-5.22); RDW 12.7 % (11.7-14.6); RDW-SD 44.1 fL
[2022-10-17 07:49] LABS: ALT 52 U/L (14-59); AST 18 U/L (15-37); Albumin 2.2 g/dL (3.4-5.0); Alkaline Phosphatase 72 U/L (46-116); BUN 13 mg/dL (7-18); Bilirubin, Total 0.4 mg/dL (0.2-1.0); C-Reactive Protein 8.33 mg/dL (0.0-0.3); Calcium 8.3 mg/dL (8.5-10.1); Chloride 103 mmol/L (98-107); Estimated GFR 64.09 (mL/min/1.73m2); Glucose 103 mg/dL (74-106); Magnesium 1.8 mg/dL (1.8-2.4); Potassium 3.2 mmol/L (3.5-5.1); Sodium 135 mmol/L (136-145); Total Protein 5.3 g/dL (6.4-8.2)
[2022-10-17] MEDS: Pantoprazole 40 MG TABCR PO ×2 (08:59→21:08)
[2022-10-17] MEDS: Dexamethasone 4 MG TAB PO (08:59)
[2022-10-17] MEDS: Potassium Chloride 10 MEQ CAPCR 40 MEQ PO (08:59)
[2022-10-17] MEDS: Docusate Sodium 100 MG CAP PO ×2 (09:00→14:22)
[2022-10-17] MEDS: Losartan 25 MG TAB 50 MG PO (09:00)
[2022-10-17] MEDS: Magnesium Oxide 400 MG TAB 800 MG PO ×2 (09:00→21:08)
[2022-10-17] MEDS: Venlafaxine 150 MG CAPCR PO (09:00)
[2022-10-17] MEDS: Budesonide/Formoterol 160/4.5 6 GM 60 PUFF INH IH ×2 (10:18→21:20)
--- NOTE | 2022-10-17 10:35 | W.PM.PROGNOT ---
Date of Service Date of service: 10/17/22 Time of Service: 10:40 Assessment and Plan Assessment and plan (1) Gram-positive bacteremia: Status: Acute Assessment and plan: 61 yo woman with infected port that was removed yesterday. No issues since removal. Dressing can be removed tomorrow and left open to air. She can have a new port put in early this upcoming week. Subjective Subjective Interval history since last seen: No issues. No complaints. No fevers. Exam Narrative Exam Narrative: Gen: Nontoxic and interactive Neuro: AxOx3 Psych: Appropriate mood and affect, good insight R Chest wall: Dressing CDI, nontender. No obvious erythema Objective Last Vital Signs Temp 96.8 F L 10/17/22 06:28 Pulse 70 10/17/22 06:28 Resp 18 10/17/22 06:28 BP 153/88 H 10/17/22 06:28 Pulse Ox 97 10/17/22 06:28 Laboratory Results - last 24 hr 10/17/22 10/17/22 10/17/22 06:45 06:45 06:45 WBC 3.30 L RBC 3.05 L Hgb 9.3 L Hct 29.3 L MCV 96 H MCH 30.5 MCHC 31.7 L RDW 12.7 Plt Count 114 L MPV 11.3 H Immature Gran % 0.6 Neutrophils % 70.3 Lymphocytes % 20.6 Monocytes % 7.3 Eosinophils % 1.2 Basophils % 0.0 Nucleated RBC % 0.0 Absolute Neutrophils 2.32 Absolute Lymphocytes 0.68 L Absolute Monocytes 0.24 Absolute Eosinophils 0.04 Absolute Basophils 0.00 Sodium 135 L Potassium 3.2 L Chloride 103 Carbon Dioxide 22.0 Anion Gap 10.0 BUN 13 Creatinine 1.0 Est GFR (CKD-EPI 2020) 64.09 Glucose 103 Calcium 8.3 L Magnesium Cancelled 1.8 Total Bilirubin 0.4 AST 18 ALT 52 Alkaline Phosphatase 72 C-Reactive Protein Cancelled 8.33 H Total Protein 5.3 L Albumin 2.2 L
--- NOTE | 2022-10-17 10:39 | WOUNDCONS ---
- If Service Date Differs Date of service: 10/17/22 Time of Service: 10:39 Wound Initial Evaluation Narrative: Follow up to the wound consult that was performed last Wednesday. is still painful to direct palpation Overall , patient 's condition has improved. The area of the wound is still painful to direct palpation. However, is not as painful as it was prior to the start of the treatment. The treatment has been performed as ordered, and the patient feels overall as it is improving. She allows for the follow up work to be performed. Body Four View: 1 - fungal rash - Wound left lower abdomen Wound Type: Other Wound General Appearance: Well Approximated, Open to air, Reddened, Bleeding, Healing Well Wound Bed Greatest Portion: Red (Granulation) Wound Surrounding Tissue Appearance: [place] Percent of Wound Bed Granulated/Red: 100 Wound Length: 12.5 cm Wound Width: 23.5 cm Wound Depth: 0.1 cm (less than) Wound Drainage Amount: Minimal Wound Drainage Odor: Other (present but diminishing) Wound Drainage Description: Bloody Wound Topical Solution/Irrigant: Other (soap and water) Wound Debridement Method: Gauze Wound Debridement Result: Healthy Tissue Revealed Wound Debridement Amount of Tissue Removed: Minimal - Circulation, Sensation, Motion Skin Temperature: Warm Skin Color: Normal - Pain Pain Level: 7 Pain Scale Used: Visual Analog Scale 0-10 Pain Duration/Frequency: With Palpation Wound has shown improvement. Most open areas have closed over. The area that is certainly sensitive to touch, has improved during the course of treatment. Patient is both feeling better and relieved with the course of treatment. - Photo Photo: - Treatment/Dressing Change Topicals/Ointments: None Cleanse With: Other (soap and water) Dressing Types: Other Dressing Comment: none - Nutrition Education Reviewed Nutrition Education: Yes Note: Patient was reminded to decrease her sugar intake and increase her protein intake to help heal and maintain a healed environment - Recomendation Recomendation:: Continue cleaning and Ananth cream twice daily as previously ordered Physcian/Nurse Practioner Notified: Yes (Dr. Urban) Treatment Time - Time Total Time Spent with Patient: 30 minutes - Patient Will be Seen Weekly Treatment: bid - For: For:: 1 week
[2022-10-17] MEDS: VANCOMYCIN/WATER (PEG) 1 GM/200 ML BAG IVPB ×2 (10:45→22:54)
[2022-10-17] MEDS: Normal Saline Flush 10 ML SYR IVP ×2 (10:45→12:40)
[2022-10-17] MEDS: fentaNYL 50 MCG PATCH TD (14:22)
[2022-10-17] MEDS: Dexamethasone 1 MG TAB 2 MG PO (14:22)
[2022-10-17] MEDS: Patch Removal 1 EACH TP (14:42)
--- NOTE | 2022-10-17 15:38 | W.PM.PROGNOT ---
Date of Service Date of service: 10/17/22 Time of Service: 15:38 Assessment and Plan Assessment and plan (1) Gram-positive bacteremia: Status: Acute Assessment and plan: blood cultures grew Staphylococcus aureus in two sets of cultures from 10/15. Her mediport was removed yesterday by Dr. Bartlett. She is now on Vancomycin. I have repeated her blood cultures today. Once her blood cultures have cleared then she can have a PICC line that can be placed both for her chemotherapy as well as her 6 weeks of Vancomycin she will need. I will check echocardiogram on Wednesday to rule out vegetations. Professional time spent interviewing and examining patient, discussion of goals of care with hospital team (care management, nursing and consulting professionals) was 15 minutes. (2) Pancreas cancer: Status: Acute Assessment and plan: I told that patient that she will have to defer her next chemotherapy until her bacteremia has cleared. Once her bacteremia has cleared then she can have a PICC line for chemo treatments and her antibiotics (3) Type of kidney inflammation: Status: Acute Assessment and plan: Her CT demonstrated nonspecific inflammation/edema around her kidneys w/ no hydronephrosis or stones. She has E. coli in her urine culture. She is currently on Zosyn and responding to this, sensitivities is pending. (4) E. coli UTI: Status: Acute Assessment and plan: as above (5) Uncontrolled pain: Status: Acute Assessment and plan: improved continue fentanyl TD 50mcg Q72H continue morphine IV PRN I have added oral morphine prn for breakthrough pain control. but some of her abdominal pain probably was d/t her obstipation. (6) Advance care planning: Status: Acute Assessment and plan: Palliative care has been consulted and is following and having ongoing discussions regarding goals of care (7) DNR (do not resuscitate): Status: Acute (8) Candidal skin infection: Status: Acute Assessment and plan: continue wound care recommend pre-medicate w/morphine IV 2mg (9) Discharge planning issues: Status: Acute Assessment and plan: continue to follow, CM to work w/Sonali and Jennifer (sister) to determine location of discharge for appropriate referrals for HH. Subjective Subjective Interval history since last seen: Sonali feels better today. Eating well. No pain. No dyspnea. BP is running higher today. She currently is on losartan 50 mg daily along w/ HCTZ. Her HCTZ was stopped during this admission d/t azotemia and she was not eating and drinking well. I will give her a dose of norvasc now to acutely bring down her BP then increase her daily dose of losartan. Exam Narrative Exam Narrative: Adrian is lying in bed. She was napping when I walked into her room this afternoon. She awakens easily and denies any acute complaints. Lungs are clear Heart is regular, no ectopic beats and no murmur Abdomen: soft, nontender, normal bowel sounds Chest wall: right infraclavicular space w/out redness or induration. She is s/p removal of her mediport d/t Staph bacteremia Objective Last Vital Signs Temp 36.0 C L 10/17/22 06:28 Pulse 70 10/17/22 06:28 Resp 18 10/17/22 06:28 BP 153/88 H 10/17/22 06:28 Pulse Ox 97 10/17/22 06:28 Laboratory Results - last 24 hr 10/17/22 10/17/22 10/17/22 06:45 06:45 06:45 WBC 3.30 L RBC 3.05 L Hgb 9.3 L Hct 29.3 L MCV 96 H MCH 30.5 MCHC 31.7 L RDW 12.7 Plt Count 114 L MPV 11.3 H Immature Gran % 0.6 Neutrophils % 70.3 Lymphocytes % 20.6 Monocytes % 7.3 Eosinophils % 1.2 Basophils % 0.0 Nucleated RBC % 0.0 Absolute Neutrophils 2.32 Absolute Lymphocytes 0.68 L Absolute Monocytes 0.24 Absolute Eosinophils 0.04 Absolute Basophils 0.00 Sodium 135 L Potassium 3.2 L Chloride 103 Carbon Dioxide 22.0 Anion Gap 10.0 BUN 13 Creatinine 1.0 Est GFR (CKD-EPI 2020) 64.09 Glucose 103 Calcium 8.3 L Magnesium Cancelled 1.8 Total Bilirubin 0.4 AST 18 ALT 52 Alkaline Phosphatase 72 C-Reactive Protein Cancelled 8.33 H Total Protein 5.3 L Albumin 2.2 L
[2022-10-17] MEDS: Potassium Chloride 10 MEQ CAPCR 20 MEQ PO ×2 (17:28→21:06)
[2022-10-17] MEDS: amLODIPine 5 MG TAB PO (18:37)
[2022-10-17] MEDS: Enoxaparin 40 MG/0.4 ML SYR SC (21:09)
[2022-10-18] VITALS (12 sets, daily range): BP systolic 112–193; BP diastolic 72–124; PULSE 68–97; RESP 16–18; TEMP 36–37.1; O2SAT 96–98
[2022-10-18] MEDS: Ondansetron O.D.T. 4 MG TABEF 8 MG PO ×2 (00:05→21:50)
[2022-10-18] MEDS: Metoprolol 5 MG/5 ML VIAL 2.5 MG IVP (00:42)
[2022-10-18] MEDS: PIPERACILLIN/TAZO 4.5 GM in Normal Saline 100 ML IVPB ×2 (00:52→06:00)
[2022-10-18] MEDS: MORPHine 2 MG/ML SYR IVP (02:03)
[2022-10-18] MEDS: Normal Saline Flush 10 ML SYR IVP ×2 (02:05→10:32)
[2022-10-18] MEDS: ACETAMINOPHEN 1,000 MG/100 ML BTL 400 MG IVPB ×2 (03:32→12:14)
[2022-10-18 06:50] LABS: Abs Immature Grans 0.04 10^3/uL (0.0-0.06); Absolute Basophil Count 0.01 10^3/uL (0.0-0.2); Absolute Eosinophil Count 0.04 10^3/uL (0.0-0.7); Absolute Lymphocyte Count 1.07 10^3/uL (1.2-3.4); Absolute Neutrophil Count 1.94 10^3/uL (1.2-6.7); Basophils % 0.3; Eosinophils % 1.1; HCT 30.3 % (36.0-46.0); HGB 9.4 g/dL (11.2-15.7); Immature Grans % 1.1; Lymphocytes % 28.9; MCH 29.7 pg (27.0-33.0); MCV 96 fL (80-95); MPV 10.7 fL (8.0-11.0); Monocytes % 16.2; Neutrophils % 52.4; Platelet Count 159 10^3/uL (130-400); RBC 3.17 10^6/uL (3.93-5.22); RDW 12.3 % (11.7-14.6); RDW-SD 43.6 fL
[2022-10-18 07:08] LABS: BUN 9 mg/dL (7-18); C-Reactive Protein 5.09 mg/dL (0.0-0.3); CREATININE 0.7 mg/dL (0.55-1.02); Calcium 8.3 mg/dL (8.5-10.1); Chloride 101 mmol/L (98-107); Estimated GFR 98.34 (mL/min/1.73m2); Glucose 93 mg/dL (74-106); Potassium 3.8 mmol/L (3.5-5.1); Sodium 134 mmol/L (136-145)
[2022-10-18] MEDS: Budesonide/Formoterol 160/4.5 6 GM 60 PUFF INH IH ×2 (07:29→21:51)
[2022-10-18 07:38] LABS: Procalcitonin 2.3 ng/mL
[2022-10-18] MEDS: Dexamethasone 4 MG TAB PO (07:41)
[2022-10-18] MEDS: Magnesium Oxide 400 MG TAB 800 MG PO ×2 (07:41→21:49)
[2022-10-18] MEDS: Losartan 25 MG TAB 100 MG PO (07:41)
[2022-10-18] MEDS: Pantoprazole 40 MG TABCR PO ×2 (07:41→21:49)
[2022-10-18] MEDS: Venlafaxine 150 MG CAPCR PO (07:42)
[2022-10-18] MEDS: Fosfomycin Tromethamine 3 GM PACKET PO (08:38)
[2022-10-18 09:34] LABS: Vancomycin, Trough 16.1 ug/mL (10.0-20.0)
[2022-10-18] MEDS: VANCOMYCIN/WATER (PEG) 1 GM/200 ML BAG IVPB ×2 (10:32→21:51)
--- NOTE | 2022-10-18 10:50 | W.PM.PROGNOT ---
Date of Service Date of service: 10/18/22 Time of Service: 10:50 Assessment and Plan Assessment and plan (1) Gram-positive bacteremia: Status: Acute Assessment and plan: 61 yo woman who had medi-port removal for positive blood cultures. HD stable. No issues at extraction site. Wound does NOT need to be covered. Needs planning for a replacement port. Please coordinated with her oncology team to find out when she is due for her next round of therapy. A new port can probably be placed the day before that to maximize duration of time on Abx to clear the bloodstream. Surgery signing off for now. Call us back either inpatient or outpatient to coordinate when she is medically cleared and her followup infusion therapy plan is in place so we can schedule her new port placement. Thanks! Subjective Subjective Interval history since last seen: No issues overnight. No complaints about surgical site. Exam Narrative Exam Narrative: I removed the dressing. Wound is clean and dry. No erythema. No discharge. Not tender. Objective Last Vital Signs Temp 98.1 F 10/18/22 06:47 Pulse 71 10/18/22 06:47 Resp 18 10/18/22 06:47 BP 163/90 H 10/18/22 06:47 Pulse Ox 97 10/18/22 06:47 Laboratory Results - last 24 hr 10/18/22 10/18/22 10/18/22 05:52 05:52 05:52 WBC 3.70 L RBC 3.17 L Hgb 9.4 L Hct 30.3 L MCV 96 H MCH 29.7 MCHC 31.0 L RDW 12.3 Plt Count 159 MPV 10.7 Immature Gran % 1.1 Neutrophils % 52.4 Lymphocytes % 28.9 Monocytes % 16.2 Eosinophils % 1.1 Basophils % 0.3 Nucleated RBC % 0.0 Absolute Neutrophils 1.94 Absolute Lymphocytes 1.07 L Absolute Monocytes 0.60 Absolute Eosinophils 0.04 Absolute Basophils 0.01 Sodium 134 L Potassium 3.8 Chloride 101 Carbon Dioxide 26.0 Anion Gap 7.0 BUN 9 Creatinine 0.7 Est GFR (CKD-EPI 2020) 98.34 Glucose 93 Calcium 8.3 L C-Reactive Protein 5.09 H Procalcitonin 2.3 Vancomycin Trough 10/18/22 09:03 WBC RBC Hgb Hct MCV MCH MCHC RDW Plt Count MPV Immature Gran % Neutrophils % Lymphocytes % Monocytes % Eosinophils % Basophils % Nucleated RBC % Absolute Neutrophils Absolute Lymphocytes Absolute Monocytes Absolute Eosinophils Absolute Basophils Sodium Potassium Chloride Carbon Dioxide Anion Gap BUN Creatinine Est GFR (CKD-EPI 2020) Glucose Calcium C-Reactive Protein Procalcitonin Vancomycin Trough 16.1
[2022-10-18] MEDS: Dexamethasone 1 MG TAB 2 MG PO (12:14)
--- NOTE | 2022-10-18 14:18 | W.PM.PROGNOT ---
Date of Service Date of service: 10/18/22 Time of Service: 14:18 Assessment and Plan Assessment and plan (1) Methicillin susceptible Staphylococcus aureus infection: Status: Acute Assessment and plan: patient is on Vancomycin for GPC bacteremia, her mediport was removed on Wednesday. Repeat cultures are pending. I think that her antibiotics can be changed to Rocephin 2 gm daily; however, I will consult w/ I.D. to discuss her case. She had an identifiable source, i.e. the mediport although I am not sure that the surgeon sent the mediport for culture. If her bacteremia has cleared then she could have a PICC line placed for both antibiotics and chemotherapy. Professional time spent interviewing and examining patient, discussion of goals of care with hospital team (care management, nursing and consulting professionals) was 20 minutes. (2) Pancreas cancer: Status: Acute Assessment and plan: I told that patient that she will have to defer her next chemotherapy until her bacteremia has cleared. Once her bacteremia has cleared then she can have a PICC line for chemo treatments and her antibiotics (3) E. coli UTI: Status: Acute Assessment and plan: patient was on Zosyn which I have stopped and gave her one time dose of Fosfomycin which should have cleared her E. coli. UTI, she did not have any obstruction on her CT scan (4) Advance care planning: Status: Acute Assessment and plan: Palliative care has been consulted and is following and having ongoing discussions regarding goals of care (5) DNR (do not resuscitate): Status: Acute (6) Discharge planning issues: Status: Acute Assessment and plan: If she can get home health and be put on Ceftriaxone then this could be given at home via a PICC line. She will need probably at least 4 weeks of antibiotics but I will confer w/ I.D.. Subjective Subjective Interval history since last seen: Patient continues w/ diarrhea, watery. No abdominal pain or nausea or vomiting. she is eating well. Exam Narrative Exam Narrative: Alert and oriented x 3 Lungs: clear Heart: RRR Chest wall s/p mediport removal Abdomen: obese, soft, nontender, normal bowel sounds Objective Last Vital Signs Temp 36.0 C L 10/18/22 12:13 Pulse 73 10/18/22 12:13 Resp 16 10/18/22 12:13 BP 152/99 H 10/18/22 12:13 Pulse Ox 98 10/18/22 12:13 Laboratory Results - last 24 hr 10/18/22 10/18/22 10/18/22 05:52 05:52 05:52 WBC 3.70 L RBC 3.17 L Hgb 9.4 L Hct 30.3 L MCV 96 H MCH 29.7 MCHC 31.0 L RDW 12.3 Plt Count 159 MPV 10.7 Immature Gran % 1.1 Neutrophils % 52.4 Lymphocytes % 28.9 Monocytes % 16.2 Eosinophils % 1.1 Basophils % 0.3 Nucleated RBC % 0.0 Absolute Neutrophils 1.94 Absolute Lymphocytes 1.07 L Absolute Monocytes 0.60 Absolute Eosinophils 0.04 Absolute Basophils 0.01 Sodium 134 L Potassium 3.8 Chloride 101 Carbon Dioxide 26.0 Anion Gap 7.0 BUN 9 Creatinine 0.7 Est GFR (CKD-EPI 2020) 98.34 Glucose 93 Calcium 8.3 L C-Reactive Protein 5.09 H Procalcitonin 2.3 Vancomycin Trough 10/18/22 09:03 WBC RBC Hgb Hct MCV MCH MCHC RDW Plt Count MPV Immature Gran % Neutrophils % Lymphocytes % Monocytes % Eosinophils % Basophils % Nucleated RBC % Absolute Neutrophils Absolute Lymphocytes Absolute Monocytes Absolute Eosinophils Absolute Basophils Sodium Potassium Chloride Carbon Dioxide Anion Gap BUN Creatinine Est GFR (CKD-EPI 2020) Glucose Calcium C-Reactive Protein Procalcitonin Vancomycin Trough 16.1
[2022-10-18] MEDS: Acetaminophen 325 MG TAB 650 MG PO (17:42)
[2022-10-18] MEDS: Enoxaparin 40 MG/0.4 ML SYR SC (21:48)
[2022-10-18 23:08] LABS: C Diff PCR Negative (Negative)
[2022-10-19] MEDS: MORPHine 2 MG/ML SYR IVP ×3 (02:43→10:56)
[2022-10-19] MEDS: Normal Saline Flush 10 ML SYR IVP ×2 (02:43→19:58)
[2022-10-19] MEDS: ACETAMINOPHEN 1,000 MG/100 ML BTL 400 MG IVPB ×3 (04:31→19:47)
[2022-10-19 07:42] VITALS: BP 131/89; PULSE 90; RESP 16; TEMP 36.7; O2SAT 97
[2022-10-19] MEDS: Budesonide/Formoterol 160/4.5 6 GM 60 PUFF INH IH ×2 (07:50→20:05)
--- NOTE | 2022-10-19 08:45 | DI.US_ITS ---
APPROVED REPORT EXAM: Comprehensive 2D, Doppler, and color-flow Echocardiogram Patient Location: In-Patient Room/Bed: [address] Tour Guide: Allie Salinas RDCS (AE) Indications: GPC bacteremia, r/o endocarditis Other Information Study Quality: Adequate Conclusion Normal left ventricular wall thickness and chamber size. Estimated ejection fraction is 60%. Wall m otion is normal Normal right ventricular size and systolic function Both atria are normal in size There is no structural or hemodynamically significant valvular disease No valvular vegetations were noted Mildly dilated ascending aorta Wall motion Left Ventricle The left ventricle is normal size. The left ventricular systolic function is normal. The left ventric ular ejection fraction is within the normal range. There is normal left ventricular wall thickness. T here is normal LV segmental wall motion.. There is no ventricular septal defect visualized. LVEF is 6 0%. Right Ventricle Right ventricle is grossly normal in size. Right ventricular systolic function is grossly normal. Atria The left atrium size is normal. The right atrium size is normal. The interatrial septum is intact wit h no evidence for an atrial septal defect. Aortic Valve The aortic valve is normal in structure. Aortic valve is trileaflet. There is no aortic valvular sten osis. No aortic regurgitation is present. Mitral Valve The mitral valve is normal in structure. No evidence of mitral valve stenosis. Trace mitral regurgita tion. Tricuspid Valve The tricuspid valve is normal in structure. There is no tricuspid valve stenosis. Trace tricuspid reg urgitation. Unable to assess PA pressure. Pulmonic Valve The pulmonary valve is normal in structure. There is no pulmonic valvular stenosis. Trace pulmonic re gurgitation. Great Vessels The aortic root is normal in size. The ascending aorta is mildly dilated. Aortic arch is normal in c aliber. IVC is normal in size and collapses >50% with inspiration. Pericardium There is no pericardial effusion. 2D Dimensions IVSD d PLAX 1.04 cm F: 0.6-1.0 LV Vol A2C d MOD 89.2 mL LVPW d PLAX 1.05 cm F: 0.6 - 1.0 LV Vol A4C d MOD 100.5 mL LVID d PLAX 3.99 cm F: 3.8 - 5.2 LA Area A4C s MOD 13.86 cm2 LVDs 2.95 cm F: 2.2 - 3.5 LA Area A2C s MOD 14.72 cm2 Ao Root d 3.02 cm F: 2.7 - 3.3 LV EF A4C MOD 50.5 % RA Area A4C 9.99 cm2 LV EF A2C MOD 50.7 % Ao Asc Diam d 3.22 cm F: 2.3 - 3.1 LV EF Biplane MOD 49.1 % LV EF Teichholz 50.5 % SV 46.83 mL LVEF (Chen's) 49.14 % F: 54 - 74 LV Volume 95.31 mL F: 46 - 106 LV Volume Index 50.96 mL/m2 F: 29 - 61 LV Vol Biplane MOD 95.3 mL FS 25.25 % M-Mode TAPSE 1.98 cm (M/F) >1.7 LV Diastology MV E' medial 0.077 (>0.07 m/s) E/A Ratio 0.7 LV E/e MED 8.55 (<14) MV E Vmax 0.66 (0.4-1.3 m/s) MV E' lateral 0.088 (>0.1 m/s) MV A Vmax 0.90 (0.4-1.3 m/s) LV E/e LAT 7.45 (<14) MV E/A Ratio 0.71 MV E/E' medial 8.56 MV E/E' lateral 7.45 Aortic Valve LVOT Area 3.03 cm2 AoV Area Vmax 2.11 cm2 LVOT Vmax 1.03 m/s LESLIE Mean Neel. 2.04 cm2 LVOT Mean Neel. 0.68 m/s LVOT Peak Grad 4.2 mmHg LVOT Mean Grad 2.1 mmHg LVOT VTI 0.199 m LVOT Diam s 1.95 cm AoV Vmax 1.48 m/s Velocity Ratio 0.70 AoV Mean Neel. 1.01 m/s AoV Peak Grad 8.8 mmHg LVOT SV 60.45 mL AoV Mean Grad 4.7 mmHg AoV VTI 0.254 m AoV Area VTI 2.38 cm2 Mitral Valve MV DT 251 (160-240 msec) MV PHT 73 msec MV Area PHT 3.02 cm2 MV VTI 0.255 m MV Area VTI 2.37 (4.0-6.0 cm2) Pulmonary Valve PV Vmax 1.30 (0.5-1.5 m/s) RVOT Peak Gr. 4.43 mmHg PV Peak Grad 6.8 mmHg RVOT Mean Gr. 1.70 mmHg PV Mean Grad 2.9 mmHg RVOT VTI 0.187 m PV VTI 0.203 m RVOT Vmax 1.05 m/s
[2022-10-19] MEDS: Losartan 25 MG TAB 100 MG PO (09:37)
[2022-10-19] MEDS: Pantoprazole 40 MG TABCR PO ×2 (09:38→19:48)
[2022-10-19] MEDS: Docusate Sodium 100 MG CAP PO ×2 (09:38→19:48)
[2022-10-19] MEDS: Venlafaxine 150 MG CAPCR PO (09:38)
[2022-10-19] MEDS: Magnesium Oxide 400 MG TAB 800 MG PO ×2 (09:38→19:48)
[2022-10-19] MEDS: Dexamethasone 4 MG TAB PO (09:39)
[2022-10-19] MEDS: Polyethylene Glycol 3350 17 GM PACKET PO ×2 (09:41→19:45)
--- NOTE | 2022-10-19 10:57 | W.PALLCONSUL ---
Date of service: 10/19/22 Time of Service: 09:00 History of Present Illness Narrative: Ms. Lyon is a 61 y/o F currently inpatient at [facility] 2/2 uncontrolled pain, N/V w/pancreatic cancer; PMHx sig for fibromyalgia, PTSD, anxiety, HTN, GERD; Sonali has continued to improved. She states she is feeling better, however yesterday was a bad day, r/t uncontrolled pain. She states she did receive some morphine which worked well, but did not always get it when asked. She feels her pain is the best it has been controlled now compared to the previous month. Her current pain is 4/10 in the upper abdomen wrapping to back, consistent w/previous pain complaints. She is tolerating fluids well w/no issues. She has been trying all foods presented to her, continues to have food aversion related to smell and not wanting food in mouth, denies nausea or dysphagia. So far no foods have been appetizing, but she will continue to try. Her mehta was removed and she has no issues w/urinating. Yesterday she had some diarrheal episodes, denies today. She is walking more and feeling stronger, she is looking forward to getting cleaned up this morning Sonali agrees w/previous history provided from sister Jennifer: decline starting in Jul, severe decline around a week prior to chemo w/increased pain, N/V, decreased oral intake, w/chemotherapy occurring after and potentially contributing to exacerbation of pain and weakness. Sonali reports she is scared about not knowing if the oncology treatment plan is going to work. She would like her next chemo to occur [facility], on 10/23 if able, she does not want a lot of time to pass before she receives chemo again. She is aware she currently has an infection requiring abx and that she will not be eligible for chemo until this has cleared, she is aware her Mediport was removed and will need a PICC placed prior to resumption of chemo. She would like this done as soon as possible. Her biggest goal is to be discharge ready from hospital. She would love to return to her home, however agrees that Jennifer's house may be the safer option for now while she gets her feet underneath her again. Staff report she has had increased alertness and periods of being awake over the weekend. Has been up and walking more. Tolerating d/c of mehta appropriately. C. Diff was r/o'd. From 10/18 at 2am to now she has received a total of morphine IV 8mg and morphine PO 15mg. Assessment and Plan Assessment and plan (1) Methicillin susceptible Staphylococcus aureus infection: Status: Acute Assessment and plan: on vancomycin, cultures pending; hospitalist to consult I.D. to consider transition to Rocephin mediport removed wednesday; continue w/plan for PICC placement s/p bacteremia cleared (2) Pancreas cancer: Status: Acute Assessment and plan: f/b [facility], Dr. Harrington reviewed w/Sonali that most likely scenario will be deferred chemo until 10/30/22 given current infection and no PICC line Sonali would like to continue current treatment plan, w/hopes for full eradication of pancreatic cancer; suspect some of most recent decline worsened w/chemo however confirmed w/pt and sister that most symptoms pre-dated first chemo (3) Abdominal pain: Status: Acute Assessment and plan: improved w/current pain, persistent (4) Uncontrolled pain: Status: Acute Assessment and plan: continue fentanyl 50mcg TD patch continue morphine 2-4mg IV PRN and morphine 15mg PO w/goal of transition to morphine PO for appropriate discharge plan last 24h (10/18/22 at 9am to 10/19/22 at 9a): fentanyl 50mcg (120MME), morphine IV 6mg and PO 15mg (21MME) = total MME 141 per pt report pain not fully controlled, encouraged patient to report pain to staff weapons officer for appropriate management; continue to track daily usage, if total MME exceeds 180 consider increase in fentanyl to 75mcg/hr TD for appropriate titration (5) Palliative care encounter: Status: Acute Assessment and plan: PC to continue to follow as needed during this hospitalization, continue to follow through discharge (6) Decreased oral intake: Status: Acute Assessment and plan: improving denies nausea (7) Advance care planning: Status: Acute Assessment and plan: reviewed GOC, pt preference to continue all oncology treatments at this time plan for discharge home to [place] for safer environment, consider transition home pending how she does there need for referral to [facility] (8) DNR (do not resuscitate): Status: Acute Assessment and plan: reviewed and updated COLST DNR/I, no FT, trial IVF and abx (9) Candidal skin infection: Status: Acute Assessment and plan: continue wound care, wound care following (10) Discharge planning issues: Status: Acute Review of Systems Narrative: see HPI PFSH All Active Problems Methicillin susceptible Staphylococcus aureus infection (Acute) E. coli UTI (Acute) Gram-positive bacteremia (Acute) Abdominal pain (Acute) Type of kidney inflammation (Acute) Palliative care encounter (Acute) Decreased oral intake (Acute) Advance care planning (Acute) DNR (do not resuscitate) (Acute) Uncontrolled pain (Acute) Stomatitis (Acute) Myoclonic jerking (Acute) Candidal skin infection (Acute) Discharge planning issues (Acute) No contraindication to deep vein thrombosis (DVT) prophylaxis (Acute) Hypertension (Chronic) Pancreas cancer (Acute) Atypical chest pain (Acute) Acute hypokalemia (Acute) Hypomagnesemia (Acute) Social History Smoking/Tobacco Use Status: Never Smoking risk assessment performed?: Yes Alcohol Intake: never Drug use: Never Substance use type: does not use Do you feel safe at home: Yes Do you feel safe in your relationship?: Yes Exam Narrative Exam Narrative: Sonali is sitting upright in bed throughout visit several fluids at bedside, crackers/cookies at bedside Const General: cooperative, comfortable, no acute distress and ill appearing Nutritional Appearance: overweight Orientation: alert, awake and oriented x3 HENMT Head: normal to inspection, normocephalic and atraumatic Ears: hearing grossly normal bilaterally Resp Effort & Inspection: normal respiratory effort, able to speak in complete sentences, no audible wheezes and no cough Skin Other: scattered bruising BUE Psych Appearance: grossly normal Mental Status: mental status grossly normal Speech and Movement: speech clear Mood: congruent mood Affect: normal affect Attitude: cooperative Thought Process: loose association (symptoms cause and timeline) Insight: fair Judgment: fair Results Last Vital Signs Temp 98.1 F 10/19/22 07:42 Pulse 90 10/19/22 07:42 Resp 16 10/19/22 07:42 BP 131/89 10/19/22 07:42 Pulse Ox 97 10/19/22 07:42 Labs Result diagrams: 10/18/22 05:52 10/18/22 05:52 Labs: Laboratory Results - last 24 hr 10/18/22 22:12 Stl C.difficile Tox PCR Negative
[2022-10-19] MEDS: VANCOMYCIN/WATER (PEG) 1 GM/200 ML BAG IVPB (11:00)
[2022-10-19] MEDS: Dexamethasone 1 MG TAB 2 MG PO (12:54)
--- NOTE | 2022-10-19 14:44 | W.PM.PROGNOT ---
Date of Service Date of service: 10/19/22 Time of Service: 14:45 Assessment and Plan Assessment and plan (1) Methicillin susceptible Staphylococcus aureus infection: Status: Acute Assessment and plan: awaiting phone consult from I.D. at [facility]. However, I think that her vancomycin can be discontinued and she can go on Rocephin 2 gm daily. The main question is for how long to treat, i.e. two weeks of parenteral antibiotics or full 4 to 6 wks. As her blood cultures cleared quickly w/ removal of her mediport and her echo does not show any vegetations or valvular abnormalites, I think that 2 weeks would be sufficient but I will defer to I.D. recommendations Professional time spent interviewing and examining patient, discussion of goals of care with hospital team (care management, nursing and consulting professionals) was 20 minutes. (2) Pancreas cancer: Status: Acute Assessment and plan: pain seems to be controlled w/ her fentanyl patch along w/ prn oral morphine IR for breakthrough pain although patient has had total of 6 mg IV morphine and 15 mg oral. Palliative care recommends that if her total MME exceeds 180 mg then her fentanyl should be raised to 75 mcg from her current dose of 50 mcg. (3) Advance care planning: Status: Acute Assessment and plan: Palliative care has been consulted and is following and having ongoing discussions regarding goals of care. (4) DNR (do not resuscitate): Status: Acute (5) Discharge planning issues: Status: Acute Assessment and plan: If she can get home health and be put on Ceftriaxone then this could be given at home via a PICC line. Length of antibiotic treatment will be determined after consultation w/ I.D. Subjective Subjective Interval history since last seen: Patient has no new complaints. No fevers. Her pain is controlled. Her repeat blood cultures have shown no growth for 48hr. I will consult anesthesia for placement of midline. Unfortunately we have no one to place PICC line. Exam Narrative Exam Narrative: Adrian is alert and oriented x 3, no discomfort Chest wall healing well at site of former mediport in the infraclavicular space Abdomen: soft, nontender Objective Last Vital Signs Temp 36.7 C 10/19/22 07:42 Pulse 90 10/19/22 07:42 Resp 16 10/19/22 07:42 BP 131/89 10/19/22 07:42 Pulse Ox 97 10/19/22 07:42 Laboratory Results - last 24 hr 10/18/22 22:12 Stl C.difficile Tox PCR Negative
[2022-10-19] MEDS: cefTRIAXone 2 GM/50 ML BAG IV (15:24)
[2022-10-19 15:38] VITALS: BP 145/88; PULSE 74; RESP 16; TEMP 36.4; O2SAT 97
--- NOTE | 2022-10-19 17:39 | PDOC.CMPRO ---
- If Service Date Differs Date of service: 10/19/22 Time of Service: 17:40 Care Management Progress Note S/O: Sonali was sitting up in her chair, alert and oriented. She identified wanting to discharge to her sister, Jennifer's home in [place] with home health services. She shared that her and Jennifer are looking at additional options for oncology follow up due to transportation concerns; CM reviewed role and offered support. CM continues to follow. A: 61 year old female admitted to [facility] 10/07/22 for Hypokalemia, Vomiting P: Sonali will return home with new orders for VNA RN/PT/OT/MACHINING MANAGER and family support when ready and follow up with community providers including Oncology, PCP and Palliative Care. She will transport via private vehicle with family to her sister's in [facility] where there are only four steps to enter. CM continues to follow.
[2022-10-19] MEDS: Enoxaparin 40 MG/0.4 ML SYR SC (20:01)
[2022-10-19 22:35] VITALS: BP 138/89; PULSE 87; RESP 14; TEMP 36.8; O2SAT 95
[2022-10-20] MEDS: LORazepam 0.5 MG TAB PO ×2 (00:14→23:07)
[2022-10-20] MEDS: ACETAMINOPHEN 1,000 MG/100 ML BTL 400 MG IVPB ×3 (03:42→21:12)
[2022-10-20] MEDS: MORPHine 2 MG/ML SYR IVP (03:59)
[2022-10-20 07:26] VITALS: BP 151/90; PULSE 79; RESP 18; TEMP 36.9; O2SAT 93
[2022-10-20] MEDS: Venlafaxine 150 MG CAPCR PO (07:50)
[2022-10-20] MEDS: Losartan 25 MG TAB 100 MG PO (07:51)
[2022-10-20] MEDS: Dexamethasone 4 MG TAB PO (07:51)
[2022-10-20] MEDS: Magnesium Oxide 400 MG TAB 800 MG PO ×2 (07:51→21:11)
[2022-10-20] MEDS: Pantoprazole 40 MG TABCR PO ×2 (07:51→21:11)
[2022-10-20 08:58] LABS: Bilirubin Negative (Negative); Blood Small (Negative); Clarity Clear (Clear); Glucose Negative (Negative); Ketones Negative (Negative); Leukocyte Esterase Negative (Negative); Nitrite Negative (Negative); Urobilinogen 0.2 EU/dL (Up TO 0.2); pH 7.5 (5-8)
[2022-10-20 09:08] LABS: Bacteria Rare HPF (Negative); C & S Indicated? No/Sq. Contamination; Casts Negative LPF (Negative); Crystals Negative HPF (Negative); Epithelial Cells Many HPF (Negative); Mucus Negative (Negative)
[2022-10-20] MEDS: Normal Saline Flush 10 ML SYR IVP ×2 (09:32→15:15)
[2022-10-20] MEDS: ceFAZolin 2 GM/50 ML BAG IV ×2 (09:32→15:16)
[2022-10-20 09:44] LABS: C Diff PCR Negative (Negative)
[2022-10-20 10:11] LABS: Abs Immature Grans 0.25 10^3/uL (0.0-0.06); Absolute Basophil Count 0.02 10^3/uL (0.0-0.2); Absolute Eosinophil Count 0.03 10^3/uL (0.0-0.7); Absolute Lymphocyte Count 1.65 10^3/uL (1.2-3.4); Absolute Monocyte Count 0.69 10^3/uL (0.1-0.8); Absolute Neutrophil Count 1.85 10^3/uL (1.2-6.7); Basophils % 0.4; Eosinophils % 0.7; HCT 33.3 % (36.0-46.0); HGB 10.7 g/dL (11.2-15.7); Immature Grans % 5.6; Lymphocytes % 36.7; MCH 30.2 pg (27.0-33.0); MCHC 32.1 % (32.0-36.0); MCV 94 fL (80-95); MPV 9.4 fL (8.0-11.0); Monocytes % 15.4; Neutrophils % 41.2; Platelet Count 212 10^3/uL (130-400); RBC 3.54 10^6/uL (3.93-5.22); RDW 12.7 % (11.7-14.6); RDW-SD 43.4 fL; WBC 4.49 10^3/uL (4.4-10.8)
[2022-10-20 10:30] LABS: Anion Gap 5.3 mmol/L (3-11); BUN 8 mg/dL (7-18); C-Reactive Protein 3.38 mg/dL (0.0-0.3); CO2 32.7 mmol/L (21.0-32.0); CREATININE 0.6 mg/dL (0.55-1.02); Calcium 8.3 mg/dL (8.5-10.1); Chloride 97 mmol/L (98-107); Estimated GFR 102.06 (mL/min/1.73m2); Glucose 124 mg/dL (74-106); Magnesium 1.8 mg/dL (1.8-2.4); Sodium 135 mmol/L (136-145)
[2022-10-20 10:34] LABS: Potassium 2.8 mmol/L (3.5-5.1)
[2022-10-20 10:37] LABS: Diff Comment Agrees w/ Instrument; RBC Morphology Normal
[2022-10-20] MEDS: Potassium Chloride 20 MEQ TABCR 40 MEQ PO (11:03)
--- NOTE | 2022-10-20 11:10 | NUR.NOTE ---
Nursing Note: RN TO RN REPORT GIVEN TO DOROTHY MCNEIL FROM IR AT [facility]
[2022-10-20] MEDS: POTASSIUM CHLORIDE 20 MEQ/100 ML BAG 50 MEQ IVPB ×2 (11:17→13:16)
--- NOTE | 2022-10-20 12:27 | W.PM.PROGNOT ---
Date of Service Date of service: 10/20/22 Time of Service: 12:28 Assessment and Plan Assessment and plan (1) Methicillin susceptible Staphylococcus aureus infection: Status: Acute Assessment and plan: Repeat blood cultures negative x 48 hrs. Post infusaport removal on 10/16/22. Discussed with Dr Urban who spoke with ID at [facility] yesterday. Recommended antibiotics (cefazolin vs oxacillin) x 4 weeks. I have discussed the need for a midline and the fact that the infusaport would not be getting inserted while still on antibiotics for bacteremia. The patient is calling her sister. Anesthesia participated in this discussion. (2) Pancreas cancer: Status: Acute Assessment and plan: Continue fentanyl patch, morphine IR prn. I added IS. Followed by palliative care. S/p removal of infusaport. Chemotherapy on hold in light of acute infection. (3) Hypokalemia: Status: Acute Assessment and plan: replete, recheck in am (4) Epigastric pain: Status: Acute Assessment and plan: As above, Additionally, continue protonix BID. (5) Advance care planning: Status: Acute Assessment and plan: Palliative care has been consulted and is following and having ongoing discussions regarding goals of care. (6) Discharge planning issues: Status: Acute Assessment and plan: DNR/DNI Anticipate 4 week so fo IV cefazolin. Will discuss with care managers. (7) DVT prophylaxis: Status: Acute Assessment and plan: SC enoxaparin Subjective Subjective Interval history since last seen: Ms Trinidad reports epigastric pain which makes inspiration painful. She is anxious about getting a midline and would like to talk to her sister and for her to be present for emotional support. No other complaints this am other than needing to use the restroom right then. Exam Narrative Exam Narrative: General: Anxious middle-aged female, A&Ox3, NAD HEENT: EOMI, MMM Heart: RRR, no m/r/g Lungs: CTAB Abdomen: soft, exquisitely tender in epigastrium Extremities: trace edema BLEs Objective Last Vital Signs Temp 36.9 C 10/20/22 07:26 Pulse 79 10/20/22 07:26 Resp 18 10/20/22 07:26 BP 151/90 H 10/20/22 07:26 Pulse Ox 93 10/20/22 07:26 Laboratory Results - last 24 hr 10/20/22 10/20/22 10/20/22 08:33 08:33 10:00 WBC RBC Hgb Hct MCV MCH MCHC RDW Plt Count MPV Immature Gran % Neutrophils % Lymphocytes % Monocytes % Eosinophils % Basophils % Nucleated RBC % Absolute Neutrophils Absolute Lymphocytes Absolute Monocytes Absolute Eosinophils Absolute Basophils RBC Morphology Sodium 135 L Potassium 2.8 L* D Chloride 97 L Carbon Dioxide 32.7 H Anion Gap 5.3 BUN 8 Creatinine 0.6 Est GFR (CKD-EPI 2020) 102.06 Glucose 124 H Calcium 8.3 L Magnesium 1.8 C-Reactive Protein 3.38 H Urine Color Yellow Urine Clarity Clear Urine pH 7.5 Ur Specific Villalba 1.020 Urine Protein Negative Urine Ketones Negative Urine Blood Small H Urine Nitrite Negative Urine Bilirubin Negative Urine Urobilinogen 0.2 Ur Leukocyte Esterase Negative Urine RBC 3-5 H Urine WBC 3-5 Ur Epithelial Cells Many Urine Crystals Negative Urine Bacteria Rare Urine Casts Negative Urine Mucus Negative Ur Culture Indicated? No/Sq. Contamination Urine Glucose Negative Stl C.difficile Tox PCR Negative 10/20/22 10:00 WBC 4.49 RBC 3.54 L Hgb 10.7 L Hct 33.3 L MCV 94 MCH 30.2 MCHC 32.1 RDW 12.7 Plt Count 212 MPV 9.4 Immature Gran % 5.6 Neutrophils % 41.2 Lymphocytes % 36.7 Monocytes % 15.4 Eosinophils % 0.7 Basophils % 0.4 Nucleated RBC % 0.0 Absolute Neutrophils 1.85 Absolute Lymphocytes 1.65 Absolute Monocytes 0.69 Absolute Eosinophils 0.03 Absolute Basophils 0.02 RBC Morphology Normal Sodium Potassium Chloride Carbon Dioxide Anion Gap BUN Creatinine Est GFR (CKD-EPI 2020) Glucose Calcium Magnesium C-Reactive Protein Urine Color Urine Clarity Urine pH Ur Specific Villalba Urine Protein Urine Ketones Urine Blood Urine Nitrite Urine Bilirubin Urine Urobilinogen Ur Leukocyte Esterase Urine RBC Urine WBC Ur Epithelial Cells Urine Crystals Urine Bacteria Urine Casts Urine Mucus Ur Culture Indicated? Urine Glucose Stl C.difficile Tox PCR
--- NOTE | 2022-10-20 13:12 | W.ANESVAS ---
Midline Placement Date Performed: 10/20/22 Procedure Time: 12:45 Requesting Provider: Pj Urban Requesting Provider (not listed above): Also discussed and reaffirmed with Dr. Alverto Wadsworth Procedure Location: Med/Surg (229) Sedation Given (Indicate Dose Given): Versed IV Dose:: 2 mg Patient Mental Status: Sedate with meaningful communication Sterility: Hand Hygiene, Surgical Cap, Surgical Mask, Sterile Gloves, Sterile Drape/Sheet and Chlorhexidine Laterality: Left Insertion Site: Basilic Midline Device: PowerGlide Pro 20G Catheter Length: 8 cm Midline Procedure Procedure: 1% Lidocaine to skin and subcutaneous tissue with 25g needle, Vessel accessed with catheter over needle, Guidewire placed with ease, Catheter placed without resistance and Guidewire removed Dressing: Tegaderm Applied, Chlorhexidine Dressing and Statlock Applied Blood Return: Absent Flushes: Easily (Observed flush under Ultrasound, no extravasion from the vessel, no palpable mass at catheter tip, not painful at catheter tip) Ultrasound: Sterile probe cover and gel used Ultrasound Image Saved?: Yes Number of Attempts (See previous attempts in note section): 1 Procedure Tolerated: No Complications and Patient tolerated well Procedure Outcome: Successful Procedure Comment:: Patient unaware of midline placement plan, brought Dr. Wadsworth to bedside and had long conversation related to reasoning behind midline versus port placement. Patient questions answered and patient agreed to placement of midline today, but only with sedation. Midline placed easily, slight extravasion at site of entry of needle into vessel, appreciated placement of needle and guidewire beyond extravasion and midline in lumen. Catheter placed easily and visualized flush within lumen.. Performed By: Jimmy Auguste
[2022-10-20] MEDS: Dexamethasone 1 MG TAB 2 MG PO (13:17)
[2022-10-20] MEDS: Loperamide 2 MG CAP PO ×2 (15:15→17:11)
[2022-10-20] MEDS: fentaNYL 50 MCG PATCH TD (15:15)
[2022-10-20] MEDS: Patch Removal 1 EACH TP (15:16)
[2022-10-20 15:41] VITALS: BP 161/91; PULSE 66; RESP 19; TEMP 36.3; O2SAT 99
[2022-10-20] MEDS: Budesonide/Formoterol 160/4.5 6 GM 60 PUFF INH IH (20:56)
[2022-10-20] MEDS: Enoxaparin 40 MG/0.4 ML SYR SC (21:11)
[2022-10-20 22:54] VITALS: BP 190/90; PULSE 74; RESP 19; TEMP 36.4; O2SAT 96
[2022-10-21] MEDS: ceFAZolin 2 GM/50 ML BAG IV ×4 (00:03→23:39)
[2022-10-21] MEDS: Normal Saline Flush 10 ML SYR IVP ×3 (00:03→08:38)
[2022-10-21] MEDS: ACETAMINOPHEN 1,000 MG/100 ML BTL 400 MG IVPB ×3 (04:09→20:17)
[2022-10-21 06:44] VITALS: BP 139/88; PULSE 79; RESP 16; TEMP 36.4; O2SAT 95
[2022-10-21 07:04] LABS: Absolute Basophil Count 0.02 10^3/uL (0.0-0.2); Absolute Eosinophil Count 0.03 10^3/uL (0.0-0.7); Absolute Lymphocyte Count 2.26 10^3/uL (1.2-3.4); Absolute Monocyte Count 0.97 10^3/uL (0.1-0.8); Absolute Neutrophil Count 2.41 10^3/uL (1.2-6.7); Basophils % 0.3; Eosinophils % 0.5; HCT 33.8 % (36.0-46.0); HGB 10.4 g/dL (11.2-15.7); Lymphocytes % 37.7; MCH 29.5 pg (27.0-33.0); MCHC 30.8 % (32.0-36.0); MCV 96 fL (80-95); MPV 9.5 fL (8.0-11.0); Monocytes % 16.2; Neutrophils % 40.3; Platelet Count 237 10^3/uL (130-400); RBC 3.53 10^6/uL (3.93-5.22); RDW 12.8 % (11.7-14.6); RDW-SD 43.5 fL; WBC 5.99 10^3/uL (4.4-10.8)
[2022-10-21 07:16] LABS: Anion Gap 3.2 mmol/L (3-11); BUN 9 mg/dL (7-18); CO2 33.8 mmol/L (21.0-32.0); CREATININE 0.6 mg/dL (0.55-1.02); Calcium 8.4 mg/dL (8.5-10.1); Chloride 98 mmol/L (98-107); Estimated GFR 102.06 (mL/min/1.73m2); Glucose 110 mg/dL (74-106); Magnesium 1.7 mg/dL (1.8-2.4); Potassium 3.3 mmol/L (3.5-5.1); Sodium 135 mmol/L (136-145)
[2022-10-21 07:26] LABS: C-Reactive Protein 2.65 mg/dL (0.0-0.3)
[2022-10-21 07:42] VITALS: BP 128/86; PULSE 84; RESP 17; TEMP 36.1; O2SAT 97
[2022-10-21] MEDS: Budesonide/Formoterol 160/4.5 6 GM 60 PUFF INH IH ×2 (07:48→19:53)
[2022-10-21] MEDS: Losartan 25 MG TAB 100 MG PO (07:48)
[2022-10-21] MEDS: Pantoprazole 40 MG TABCR PO ×2 (07:49→20:19)
[2022-10-21] MEDS: Magnesium Oxide 400 MG TAB 800 MG PO ×2 (07:49→20:18)
[2022-10-21] MEDS: Dexamethasone 4 MG TAB PO (07:50)
[2022-10-21] MEDS: Venlafaxine 150 MG CAPCR PO (07:50)
[2022-10-21] MEDS: MAGNESIUM SULFATE 2 GM/50 ML BAG IVPB (08:38)
[2022-10-21] MEDS: POTASSIUM CHLORIDE 20 MEQ/100 ML BAG 50 MEQ IVPB ×2 (08:38→11:10)
--- NOTE | 2022-10-21 09:38 | PDOC.CMPRO ---
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 She will transport via private vehicle with family to her sister's in [facility] where there are only four steps to enter. CM continues to follow.
[2022-10-21] MEDS: Dexamethasone 1 MG TAB 2 MG PO (12:37)
[2022-10-21 15:32] VITALS: BP 144/88; PULSE 68; RESP 17; TEMP 36; O2SAT 97
--- NOTE | 2022-10-21 16:24 | CMPROGNOTE_ITS ---
- If Service Date Differs Date of service: 10/21/22 Time of Service: 16:24 Care Management Progress Note S/O: Sonali remains inpatient, per MD midline placed and SWB1 being considered, undetermined if home orders will be completed or if Sonali will transition to SWB1. CM continues to follow. A: 61 year old female admitted to [facility] 10/07/22 for Hypokalemia, Vomiting P: SWB1 for 4 weeks (Last dose 11/13/22)-vs-Home IV ABX; undetermined plan at this time. Sonali will return home with new orders for VNA RN/PT/OT/MAGNETOMETER OPERATOR and family support when ready and follow up with community providers including Oncology, PCP and Palliative Care. She will transport via private vehicle with family to her [facility] in [facility] where there are only four steps to enter. CM continues to follow.
--- NOTE | 2022-10-21 16:38 | CHAPLAIN ---
Sonali was sitting up in bed when I visited. She was more interactive and lively than I've seen her. She told me about her plans for chemo and radiation, once her current infections is cleared up. We talked about what's giving her the inner strength to deal the these hurdles that are coming on early in all this. We also talked about the boy, Sanjiv, from [place] whose suicide led the community to hang a large daigle in the town for people to ring to celebrate special occasions. Sonali knew Sanjiv, and the story behind the daigle.
--- NOTE | 2022-10-21 17:56 | W.PM.PROGNOT ---
Date of Service Date of service: 10/21/22 Time of Service: 17:56 Assessment and Plan Assessment and plan (1) Methicillin susceptible Staphylococcus aureus infection: Status: Acute Assessment and plan: Bacteremia with source felt to be the infusaport, removed on 10/16/22. Repeat blood cultures negative x 72 hrs. Continue cefazolin. End date for abx is planned to be 11/13/21 (4 weeks from 1st negative blood culture). Has a midline. The patient is deciding whether she would like to complete her abx in the hospital (swing bed) or go home with home health. She will talk to her sister about it. (2) Pancreas cancer: Status: Acute Assessment and plan: Continue fentanyl patch, morphine IR prn. I added IS. Followed by palliative care. S/p removal of infusaport. Chemotherapy on hold in light of acute infection. (3) Hypokalemia: Status: Acute Assessment and plan: replete, recheck in am replete magnesium. (4) Epigastric pain: Status: Acute Assessment and plan: As above, Additionally, continue protonix BID. (5) Advance care planning: Status: Acute Assessment and plan: Palliative care has been consulted and is following and having ongoing discussions regarding goals of care. (6) Discharge planning issues: Status: Acute Assessment and plan: DNR/DNI Anticipate 4 week so fo IV cefazolin. End date 11/13/21. Will discuss with care managers. (7) DVT prophylaxis: Status: Acute Assessment and plan: SC enoxaparin Subjective Subjective Interval history since last seen: Complains of several bouts of light brown diarrhea. Denies dizziness, chest pain, states sometimes taking a deep breath hurts, denies n/v. Does report epigastric abdominal pain radiating around her L side to the back. Exam Narrative Exam Narrative: General: middle-aged female, A&Ox3, NAD HEENT: EOMI, MMM Heart: RRR, no m/r/g Lungs: CTAB Abdomen: soft, exquisitely tender in epigastrium Extremities: trace edema BLEs Objective Last Vital Signs Temp 36.0 C L 10/21/22 15:32 Pulse 68 10/21/22 15:32 Resp 17 10/21/22 15:32 BP 144/88 H 10/21/22 15:32 Pulse Ox 97 10/21/22 15:32 Laboratory Results - last 24 hr 10/21/22 10/21/22 06:45 06:45 WBC 5.99 RBC 3.53 L Hgb 10.4 L Hct 33.8 L MCV 96 H MCH 29.5 MCHC 30.8 L RDW 12.8 Plt Count 237 MPV 9.5 Immature Gran % 5.0 Neutrophils % 40.3 Lymphocytes % 37.7 Monocytes % 16.2 Eosinophils % 0.5 Basophils % 0.3 Nucleated RBC % 0.0 Absolute Neutrophils 2.41 Absolute Lymphocytes 2.26 Absolute Monocytes 0.97 H Absolute Eosinophils 0.03 Absolute Basophils 0.02 Sodium 135 L Potassium 3.3 L Chloride 98 Carbon Dioxide 33.8 H Anion Gap 3.2 BUN 9 Creatinine 0.6 Est GFR (CKD-EPI 2020) 102.06 Glucose 110 H Calcium 8.4 L Magnesium 1.7 L C-Reactive Protein 2.65 H
[2022-10-21] MEDS: Cholestyramine/Aspartame PKT 1 EACH PO (18:10)
[2022-10-21] MEDS: Enoxaparin 40 MG/0.4 ML SYR SC (20:18)
[2022-10-21] MEDS: MORPHine 2 MG/ML SYR IVP (20:19)
[2022-10-21 23:25] VITALS: BP 161/100; PULSE 79; RESP 18; TEMP 36.5; O2SAT 96
[2022-10-22] MEDS: MORPHine 2 MG/ML SYR IVP ×3 (01:10→18:00)
[2022-10-22] MEDS: Normal Saline Flush 10 ML SYR IVP ×6 (01:11→19:52)
[2022-10-22] MEDS: ACETAMINOPHEN 1,000 MG/100 ML BTL 400 MG IVPB ×3 (04:02→19:51)
[2022-10-22 06:00] VITALS: BP 170/100; PULSE 84; RESP 18; TEMP 36.8; O2SAT 99
[2022-10-22 07:06] LABS: Abs Immature Grans 0.22 10^3/uL (0.0-0.06); Absolute Basophil Count 0.03 10^3/uL (0.0-0.2); Absolute Eosinophil Count 0.02 10^3/uL (0.0-0.7); Absolute Lymphocyte Count 1.86 10^3/uL (1.2-3.4); Absolute Monocyte Count 0.71 10^3/uL (0.1-0.8); Absolute Neutrophil Count 3.36 10^3/uL (1.2-6.7); Basophils % 0.5; Eosinophils % 0.3; HCT 34.6 % (36.0-46.0); Immature Grans % 3.5; MCH 30.3 pg (27.0-33.0); MCHC 31.8 % (32.0-36.0); MCV 95 fL (80-95); MPV 9.5 fL (8.0-11.0); Monocytes % 11.5; Neutrophils % 54.2; Platelet Count 280 10^3/uL (130-400); RBC 3.63 10^6/uL (3.93-5.22); RDW 13.2 % (11.7-14.6); RDW-SD 44.7 fL
[2022-10-22 07:29] LABS: BUN 9 mg/dL (7-18); C-Reactive Protein 2.58 mg/dL (0.0-0.3); CREATININE 0.7 mg/dL (0.55-1.02); Calcium 8.5 mg/dL (8.5-10.1); Chloride 96 mmol/L (98-107); Estimated GFR 98.34 (mL/min/1.73m2); Glucose 105 mg/dL (74-106); Magnesium 1.9 mg/dL (1.8-2.4); Potassium 3.5 mmol/L (3.5-5.1); Sodium 133 mmol/L (136-145)
[2022-10-22] MEDS: Budesonide/Formoterol 160/4.5 6 GM 60 PUFF INH IH ×2 (07:33→19:44)
[2022-10-22] MEDS: ceFAZolin 2 GM/50 ML BAG IV ×2 (08:58→16:24)
[2022-10-22] MEDS: Pantoprazole 40 MG TABCR PO ×2 (08:59→19:52)
[2022-10-22] MEDS: Dexamethasone 4 MG TAB PO (08:59)
[2022-10-22] MEDS: Docusate Sodium 100 MG CAP PO (08:59)
[2022-10-22] MEDS: Losartan 25 MG TAB 100 MG PO (08:59)
[2022-10-22] MEDS: Magnesium Oxide 400 MG TAB 800 MG PO ×2 (08:59→19:51)
[2022-10-22] MEDS: Venlafaxine 150 MG CAPCR PO (09:00)
[2022-10-22] MEDS: Cholestyramine/Aspartame PKT 1 EACH PO ×2 (10:36→18:20)
[2022-10-22] MEDS: Dexamethasone 1 MG TAB 2 MG PO (13:47)
[2022-10-22 15:29] VITALS: BP 124/85; PULSE 84; RESP 19; TEMP 36.2; O2SAT 100
--- NOTE | 2022-10-22 17:20 | CMPROGNOTE_ITS ---
- If Service Date Differs Date of service: 10/22/22 Time of Service: 17:20 Care Management Progress Note SWB1 for 4 weeks (Last dose 11/13/22) Anticipate Sonali will return home with new orders for VNA RN/PT/OT/SOAPING DEPARTMENT SUPERVISOR and family support when ready and follow up with community providers including O ncology, PCP and Palliative Care. She will transport via private vehicle with family to her sister's in [facility] where there are only four steps to enter. CM continues to follow. For now, Sonali will enter SWB1 for PT and IV ABX course, CM will continue to follow.
--- NOTE | 2022-10-22 17:34 | W.PM.PROGNOT ---
Date of Service Date of service: 10/22/22 Time of Service: 17:34 Assessment and Plan Assessment and plan (1) Methicillin susceptible Staphylococcus aureus infection: Status: Acute Assessment and plan: Bacteremia with source felt to be the infusaport, removed on 10/16/22. Repeat blood cultures negative x 72 hrs. Continue cefazolin. End date for abx is planned to be 11/13/21 (4 weeks from 1st negative blood culture). Has a midline. The patient would like to complete her abx in the hospital (swing bed); care mgt is working on pre-auth (2) Pancreas cancer: Status: Acute Assessment and plan: Continue fentanyl patch, morphine IR prn. IS. Followed by palliative care. S/p removal of infusaport s/t bacteremia Chemotherapy on hold in light of acute infection. (3) Hypokalemia: Status: Acute Assessment and plan: Potassium 3.5 replete, recheck in am magnesium 1.9. (4) Epigastric pain: Status: Acute Assessment and plan: As above, Additionally, continue protonix BID. (5) Advance care planning: Status: Acute Assessment and plan: Palliative care has been consulted and is following and having ongoing discussions regarding goals of care. (6) Discharge planning issues: Status: Acute Assessment and plan: DNR/DNI Anticipate 4 week so fo IV cefazolin. End date 11/13/21. care managers working on preauth. (7) DVT prophylaxis: Status: Acute Assessment and plan: SC enoxaparin Discussed with Dr Wadsworth Subjective Subjective Patient reports: no new complaints, feels better, tolerating a regular diet, voiding w/o difficulty, bowel movement and afebrile; denies flatus, diarrhea, nausea or vomiting Exam Narrative Exam Narrative: Caremen is alert and oriented x 3, no discomfort Chest wall healing well at site of former mediport in the infraclavicular space Abdomen: soft, nontender Objective Last Vital Signs Temp 36.2 C L 10/22/22 15:29 Pulse 84 10/22/22 15:29 Resp 19 10/22/22 15:29 BP 124/85 10/22/22 15:29 Pulse Ox 100 10/22/22 15:29 Laboratory Results - last 24 hr 10/22/22 10/22/22 06:35 06:35 WBC 6.20 RBC 3.63 L Hgb 11.0 L Hct 34.6 L MCV 95 MCH 30.3 MCHC 31.8 L RDW 13.2 Plt Count 280 MPV 9.5 Immature Gran % 3.5 Neutrophils % 54.2 Lymphocytes % 30.0 Monocytes % 11.5 Eosinophils % 0.3 Basophils % 0.5 Nucleated RBC % 0.0 Absolute Neutrophils 3.36 Absolute Lymphocytes 1.86 Absolute Monocytes 0.71 Absolute Eosinophils 0.02 Absolute Basophils 0.03 Sodium 133 L Potassium 3.5 Chloride 96 L Carbon Dioxide 31.0 Anion Gap 6.0 BUN 9 Creatinine 0.7 Est GFR (CKD-EPI 2020) 98.34 Glucose 105 Calcium 8.5 Magnesium 1.9 C-Reactive Protein 2.58 H
[2022-10-22] MEDS: Enoxaparin 40 MG/0.4 ML SYR SC (19:51)
[2022-10-22] MEDS: Normal Saline 500 ML 30 ML IV (19:52)
[2022-10-23] MEDS: ceFAZolin 2 GM/50 ML BAG IV ×2 (00:44→09:32)
[2022-10-23] MEDS: Normal Saline Flush 10 ML SYR IVP ×3 (01:03→09:29)
[2022-10-23] MEDS: MORPHine 2 MG/ML SYR IVP ×3 (01:03→09:31)
[2022-10-23 02:16] VITALS: BP 150/84; PULSE 81; RESP 18; TEMP 36.6; O2SAT 96
[2022-10-23] MEDS: ACETAMINOPHEN 1,000 MG/100 ML BTL 400 MG IVPB ×2 (03:34→11:57)
[2022-10-23 06:33] LABS: Absolute Basophil Count 0.04 10^3/uL (0.0-0.2); Absolute Eosinophil Count 0.01 10^3/uL (0.0-0.7); Absolute Lymphocyte Count 2.25 10^3/uL (1.2-3.4); Absolute Monocyte Count 0.81 10^3/uL (0.1-0.8); Absolute Neutrophil Count 6.69 10^3/uL (1.2-6.7); Basophils % 0.4; Eosinophils % 0.1; HCT 36.4 % (36.0-46.0); HGB 11.6 g/dL (11.2-15.7); Lymphocytes % 22.5; MCH 30.4 pg (27.0-33.0); MCHC 31.9 % (32.0-36.0); MCV 95 fL (80-95); MPV 9.1 fL (8.0-11.0); Monocytes % 8.1; Neutrophils % 66.9; Platelet Count 286 10^3/uL (130-400); RBC 3.82 10^6/uL (3.93-5.22); RDW 13.2 % (11.7-14.6); RDW-SD 44.4 fL
[2022-10-23 06:48] LABS: Anion Gap 5.1 mmol/L (3-11); BUN 9 mg/dL (7-18); C-Reactive Protein 2.36 mg/dL (0.0-0.3); CO2 29.9 mmol/L (21.0-32.0); CREATININE 0.6 mg/dL (0.55-1.02); Calcium 8.7 mg/dL (8.5-10.1); Chloride 97 mmol/L (98-107); Estimated GFR 102.06 (mL/min/1.73m2); Glucose 114 mg/dL (74-106); Magnesium 1.8 mg/dL (1.8-2.4); Sodium 132 mmol/L (136-145)
[2022-10-23 06:53] LABS: Potassium 2.9 mmol/L (3.5-5.1)
[2022-10-23 07:20] VITALS: BP 163/95; PULSE 82; RESP 16; TEMP 36.8; O2SAT 96
[2022-10-23] MEDS: Budesonide/Formoterol 160/4.5 6 GM 60 PUFF INH IH (07:58)
[2022-10-23] MEDS: Losartan 25 MG TAB 100 MG PO (09:31)
[2022-10-23] MEDS: Magnesium Oxide 400 MG TAB 800 MG PO (09:31)
[2022-10-23] MEDS: Venlafaxine 150 MG CAPCR PO (09:31)
[2022-10-23] MEDS: Potassium Chloride 20 MEQ TABCR 40 MEQ PO (09:32)
[2022-10-23] MEDS: Pantoprazole 40 MG TABCR PO (09:32)
[2022-10-23] MEDS: Dexamethasone 4 MG TAB PO (09:32)
[2022-10-23] MEDS: POTASSIUM CHLORIDE 20 MEQ/100 ML BAG 50 MEQ IVPB ×2 (09:33→11:57)
[2022-10-23] MEDS: Cholestyramine/Aspartame PKT 1 EACH PO (09:33)
[2022-10-23] MEDS: Normal Saline 500 ML 50 ML IV (09:34)
--- NOTE | 2022-10-23 12:48 | WOUNDCONS ---
- If Service Date Differs Date of service: 10/23/22 Time of Service: 12:48 Wound Initial Evaluation Narrative: Patient is quite uncomfortable today, and was not willing to have pictures taken this afternoon. Wound has continued to resolve, with jus a very small area left that is open, and odor has decreased. Recommend to continue current treatment for 1 more week.
[2022-10-23] MEDS: Dexamethasone 1 MG TAB 2 MG PO (13:07)
--- NOTE | 2022-10-23 13:37 | W.PM.DS.N ---
Date of service: 10/23/22 Time of Service: 13:37 DS: Diagnosis Discharge Diagnosis (1) Methicillin susceptible Staphylococcus aureus infection: Status: Acute (2) Pancreas cancer: Status: Acute (3) Hypokalemia: Status: Acute (4) Epigastric pain: Status: Acute (5) Advance care planning: Status: Deleted Discharge Plan Disposition Patient Disposition: Care Home Facility(SNF) Condition: Stable Discharge Details Reason For Visit: Hypokalemia,Vomiting,Pancreatic Cancer Admit Date/Time: 10/09/22 11:40 Admit Provider: Monty Estevez Attending Provider: Monty Estevez Primary Care Provider: Cely Soni Hospital Course Hospital Course: This is a 62-year-old female patient with a history of pancreatic cancer under the care of [facility] oncology who did develop MSSA bacteremia. Her Mediport has been removed. She is scheduled to receive cefazolin to complete a 4-week course. Plan will be for her to remain here under [facility] level care to receive her IV antibiotics. She will be discharged with a midline in place on November 13 to attend a chemo appointment. Her oncologist Dr. Harrington has been following her case closely and is planning on her receiving her chemo on November [address] Mediport outpatient. She has been eating and drinking afebrile pain managed with current regimen. She is being discharged to swing bed 1 for IV therapy. discharge is discussed with Dr. Wadsworth Thompson Meds and New Rx's Prescriptions: No Action losartan 50 mg Tablet 50 mg PO DAILY bupropion HCl 150 mg Tablet Sustained-Release 12 Hr 150 mg PO BID diphenoxylate-atropine 2.5-0.025 mg Tablet 1 - 2 tab PO DAILY PRN ondansetron 8 mg Tablet,Disintegrating 8 mg PO Q8H PRN fluticasone propion-salmeterol [Advair Diskus] 500-50 mcg/dose Blister With Device 1 inh INHALATION BID montelukast [Singulair] 10 mg Tablet 10 mg PO DAILY hydrochlorothiazide 12.5 mg Tablet 12.5 mg PO DAILY omeprazole 20 mg Tablet,Delayed Release (Dr/Ec) 20 mg PO BID venlafaxine 150 mg Tablet Extended Release 24hr 150 mg PO DAILY potassium chloride 20 mEq Tablet Extended Release 20 meq PO BID hydromorphone 4 mg tablet 4 - 8 mg PO Q4H PRN PRN (Reason: Pain) fentanyl 25 mcg/hr patch 72 hour 100 patch transdermal Q3-4D Label Comments: Apply 1 patch to skin every three days apply to area of upper arm, change every 3 days, use dilauded for breakthru pain dexamethasone 2 mg tablet See Rx Instructions .ROUTE .COMPLEX Label Comments: TAKE 2 TABLETS BY MOUTH EVERY MORNING AND 1 TAB IN EARLY AFTERNOON, TAKE WITH FOOD Rx Instructions: TAKE 2 TABLETS (4mg) BY MOUTH EVERY MORNING AND 1 TAB (2mg) IN EARLY AFTERNOON, TAKE WITH FOOD nystatin 100,000 unit/gram powder 2 pwd TOPICAL TID PRN PRN calcium carbonate [Tums 500] 500 mg calcium (1,250 mg) Tablet,Chewable 500 mg PO DAILY Discharge Instructions Activity:: Activity as Tolerated Equipment/Supplies:: No Equipment Needed Diet:: As Tolerated Discharge Orders Discharge Orders: Discharge Order (Routine); Ordered 10/23/22 Ordered By: Yvonne Condon Discharge Data Discharge Date/Time-TO BE ENTERED AT DEPARTURE: 10/23/22 14:45 DS: Summary Time Spent with Patient providing and/or coordinating discharge services: Less than 30 minutes Status at Discharge Functional status at discharge: independent ambulation Overall status at discharge: patient is not back to baseline Mental Status: mental status grossly normal Speech and Movement: speech clear Mood: congruent mood Affect: normal affect Exam Const General: cooperative Orientation: alert, oriented to person and oriented to place Eyes General: appearance normal, both eyes and all related structures Sclera: sclerae normal Resp Effort & Inspection: normal respiratory effort Auscultation: clear to auscultation bilaterally Cardio Rate: regular rate Rhythm: regular rhythm GI Inspection: non-distended Palpation: soft and nontender Neuro General: no focal motor deficits Cranial Nerves: facial strength normal Speech: speech normal Extrem General: no calf tenderness Psych Mental Status: mental status grossly normal Speech and Movement: speech clear Mood: congruent mood Affect: normal affect Attitude: cooperative DS: Data Vitals/I&O Vitals and I&O: Vital Signs Temperature 36.8 C 10/23/22 07:20 Temperature Source Tympanic 10/23/22 07:20 Pulse 82 10/23/22 07:20 Pulse Rhythm Regular 10/23/22 03:46 Pulse 74 10/16/22 12:48 Respiratory Rate 16 10/23/22 07:20 Respiratory Effort Non-Labored 10/23/22 10:51 Respiratory Depth Normal 10/23/22 10:51 Respiratory Pattern Normal 10/23/22 10:51 Blood Pressure 163/95 H 10/23/22 07:20 Blood Pressure Mean 89 10/16/22 12:48 Blood Pressure Position Sitting 10/16/22 07:40 Pulse Oximetry 96 10/23/22 07:20 Oxygen Delivery Method Room Air 10/23/22 07:20 Oxygen Flow Rate 0 10/23/22 07:20 Pain Level 10 10/23/22 09:31 Comment 10/17/22 23:13 Intake & Output 10/22/22 10/23/22 10/23/22 23:59 11:59 23:59 Intake Total 250 / 710 546.5 / 546.5 Output Total 800 / 1600 550 / 550 Balance -550 / -890 -3.5 / -3.5 Weight 79.6 kg Intake: IV 250 / 470 546.5 / 546.5 Output: Urine 400 / 1200 550 / 550 Stool 400 / 400 Other: Urine Color Yellow Yellow Urine Appearance Clear Clear Urine Odor None Comment Patient up standby with walker to bathroom. voided in the toilet Stool Size Large Small Stool Characteristics Soft Soft Liquid Brown Voiding Methods Toilet Toilet Data Completed and Pending Labs on day of discharge: Labs from last 24 hours 10/23/22 10/23/22 06:10 06:10 WBC 10.00 RBC 3.82 L Hgb 11.6 Hct 36.4 MCV 95 MCH 30.4 MCHC 31.9 L RDW 13.2 Plt Count 286 MPV 9.1 Immature Gran % 2.0 Neutrophils % 66.9 Lymphocytes % 22.5 Monocytes % 8.1 Eosinophils % 0.1 Basophils % 0.4 Nucleated RBC % 0.0 Absolute Neutrophils 6.69 Absolute Lymphocytes 2.25 Absolute Monocytes 0.81 H Absolute Eosinophils 0.01 Absolute Basophils 0.04 Sodium 132 L Potassium 2.9 L Chloride 97 L Carbon Dioxide 29.9 Anion Gap 5.1 BUN 9 Creatinine 0.6 Est GFR (CKD-EPI 2020) 102.06 Glucose 114 H Calcium 8.7 Magnesium 1.8 C-Reactive Protein 2.36 H PFSH All Active Problems (Updated 11/02/22 @ 19:19 by Sunshine Morelos NP) Yeast UTI (Acute) Epigastric pain (Acute) Hypokalemia (Acute) Methicillin susceptible Staphylococcus aureus infection (Acute) E. coli UTI (Acute) Gram-positive bacteremia (Acute) Abdominal pain (Acute) Type of kidney inflammation (Acute) Palliative care encounter (Acute) Decreased oral intake (Acute) DNR (do not resuscitate) (Acute) Uncontrolled pain (Acute) Stomatitis (Acute) Candidal skin infection (Acute) No contraindication to deep vein thrombosis (DVT) prophylaxis (Acute) Hypertension (Chronic) Pancreas cancer (Acute) Acute hypokalemia (Acute) Hypomagnesemia (Acute) Social History Smoking/Tobacco Use Status: Never Smoking risk assessment performed?: Yes Alcohol Intake: never Drug use: Never Substance use type: does not use Do you feel safe at home: Yes Do you feel safe in your relationship?: Yes
[2022-10-23] MEDS: MAGNESIUM SULFATE 2 GM/50 ML BAG IVPB (14:21)
[2022-10-23] MEDS: fentaNYL 50 MCG PATCH TD (14:21)
[2022-10-23] MEDS: Patch Removal 1 EACH TP (14:22)
== END 2022-10-23 14:45 | disposition skilled nursing facility (03) | DRG 948 ==
LOC: ER 10-08 00:45 → MS 10-08 01:50 → ICU 10-11 20:02 → MS 10-12 16:04 → ICU 10-15 15:46 → MS 10-16 13:04
PROVIDERS: Family Medicine; Internal Medicine; Nurse Practitioner Family; Surgery; Admitting Provider Family Medicine; Emergency Provider Student in an Organized Health Care Education/Training Program; PCP Nurse Practitioner Family; Visit Provider Family Medicine
PROC: 0JPT0WZ Removal of Totally Implantable Vascular Access Device from Trunk Subcutaneous Tissue and Fascia, Open Approach (ICD-10-PCS; CPT 36590; principal; 2022-10-16 13:00)
DX: G89.3 Neoplasm related pain (acute) (chronic) (principal); N39.0 Urinary tract infection, site not specified; F05 Delirium due to known physiological condition; C25.0 Malignant neoplasm of head of pancreas; T82.7XXA Infection and inflammatory reaction due to other cardiac and vascular devices, implants and grafts, initial encounter; E83.42 Hypomagnesemia; R78.81 Bacteremia; E87.6 Hypokalemia; I10 Essential (primary) hypertension; B37.2 Candidiasis of skin and nail; Z66 Do not resuscitate; G25.3 Myoclonus; R11.2 Nausea with vomiting, unspecified; J45.909 Unspecified asthma, uncomplicated; N05.9 Unspecified nephritic syndrome with unspecified morphologic changes; B96.20 Unspecified Escherichia coli [E. coli] as the cause of diseases classified elsewhere; B95.61 Methicillin susceptible Staphylococcus aureus infection as the cause of diseases classified elsewhere; E86.0 Dehydration
CPT/HCPCS: 36590; 36410; 36415; 76942; 80048; 80053; 80076; 82550; 83690; 84145; 85027; 87040; 87077; 87081; 87493; 87635; 93005; 93306; 94640; 96361; 96365; 96366; 96368; 96375; 96376; 97162; 97530; 99284; 99285; J1650; 70470; 71045; 74019; 74177; 76700; 80202; 81003; 81015; 83605; 83735; 84484; 85025; 86140; 87086; 87186; 93010; 99219; 99225; 99231; 99232; 99238; G0378; J0131; J0360; J0690; J1100; J1170; J1200; J1630; J1885; J1953; J2060; J2270; J2405; J2543; J2704; J3010; J3475; J3480; J3490; J7042; J8540

== ENCOUNTER 2022-10-23 13:31 | Inpatient (IN) | payer MEDICARE, MEDICAID, SELFPAY ==
--- NOTE | 2022-10-23 14:02 | IN_ITS ---
PT Notes Physical Therapy Inpatient Initial Evaluation Date: 10/23/2022 Referring Doctor: Sunshine Morelos PT Orders: PT CONSULT: limited ability to ambulate Precautions: Fall. Standard. Activity as tolerated. Patient Profile/Admitting Diagnosis: Sonali is a 61-year-old female who presented to the ED on 10/07/2022 due to nausea, vomiting, and inability to tolerate oral intake with report of severe abdominal pain. Patient is diagnosed with pancreatic cancer, candidal skin infection, myoclonic jerking, acute hypokalemia, hypomagnesemia, hypertension, and stomatitis. Participated in skilled PT intervention during acute care stay, but was unable to continue due to pain levels. Now transitioning to Swing Bed level of care, with new orders received. PMHX: All Active Problems?(Updated 10/07/22 @ 20:07 by Monty Estevez MD) Pancreas cancer (Acute) Atypical chest pain (Acute) Acute hypokalemia (Acute) Hypomagnesemia (Acute) Vomiting (Acute) Social History/Home Situation: Lives with son and son's family in a private home with 13 step to enter. Plans to return home with some limited family support once medically stable. Independent with all mobility ADls prior to admission. Sister Jennifer who lives half an hour away has been a good support. Equipment Owned/DME: None Subjective: Sonali states that her pain has been very poorly managed. She is feeling down. She states that she's been walking as far as the bathroom and back, but has increased pain resulting. Objective: General Observation: Resting in bed with IV in RUE. Eyes closed initially, but easily arousable. Mental Status: Alert and oriented as to person, place, time, and purpose. Able to pay attention, focus, and respond appropriately. Pain: fluctuating pain in abdominal area with WB ROM: Right Upper Extremity: Shoulder Flexion WFL. Shoulder abduction WFL. Elbow flexion WFL. Wrist flexion WFL. Functional opening and closing of hand WFL. Left Upper Extremity: Shoulder Flexion WFL. Shoulder abduction WFL. Elbow flexion WFL. Wrist flexion WFL. Functional opening and closing of hand WFL. Right Lower Extremity: Hip flexion WFL. Hip abduction WFL. Knee flexion WFL. Ankle dorsiflexion WFL. Ankle plantarflexion WFL. Left Lower Extremity: Hip flexion WFL. Hip abduction WFL. Knee flexion WFL. Ankle dorsiflexion WFL. Ankle plantarflexion WFL. Strength: Right Upper Extremity: Grossly 4-/5 Left Upper Extremity: Grossly 4-/5 Right Lower Extremity: 4/5 hip flexion; 4+/5 knee extension Left Lower Extremity: 4/5 hip flexion; 4+/5 knee extension Bed Mobility/Transfers: supine - sit: independent sit-stand: supervision stand-sit: supervision Gait: Ambulate 35' with FWW and CGA to supervision. Requires intermittent rest periods due to pain. No losses of balance or safety deficits. Balance: Static Sitting: Normal Dynamic Sitting: Good Static Standing: Fair Dynamic Standing: Fair Special Tests: Mobility Limitations Standardized Measure [employer] AM-PAC 6 clicks Basic Mobility Inpatient Short Form: Raw Score: 20 CMS Score: 36% deficit Informed Consent/Education: Patient was instructed in purpose of PT consult and plan of care. Agreeable to proceed with established PT POC to achieve personal goals. Assessment: Patient presents with clinical signs and symptoms consistent with current/admitting diagnoses that have resulted to mobility limitations, gait instability, generalized weakness, and overall ADL decline as demonstrated by the following impairment level findings: 1. Decreased strength to B UE/LE major muscle groups 2. Impaired sitting/standing balance 3. Impaired activity tolerance 4. poorly managed pain Impairments are contributing to the following functional limitations: 1. unable to ambulate community distances 2. Decline in transfer skills 3. Difficulty with ambulation without assistive device and physical assistance 4. Increased completion time for mobility ADL performance 5. Increased risk for falls 6. Difficulty with managing steps alone safely She requires skilled PT intervention to maximize mobility and activity tolerance to allow for safe transition to community living once she's completed Swing Bed stay for prolonged course of antibiotics. Patient is assessed as a 97760 moderate complexity based on the following: History: 61-year-old female with past medical history as indicated above Examination: Demonstrable impairment in strength, balance, and mobility level with underlying impairments and functional limitations as exhibited above as well as deficit score of 36% utilizing the [facility] Mobility Inpatient Short Form Presentation: Evolving Decision Makin moderate complexity Goals: Goals X1 week 1. Supine-Sit independent 2. Sit-Supine independent 3. Sit-Stand independent 4. Stand-Sit independent with no AD 5. Bed-Chair independent with no AD 6. Chair-Bed independent with no AD 7. Independent gait on level surface with use of SPC for at least 300 feet without report of pain nor dyspnea 8. Independent stair negotiation while holding onto B rails for at least 13 steps without report of pain nor dyspnea 9. Independent with home exercise program 10. Good static and dynamic standing balance/tolerance Plan of Care/Treatment Plan: 1-2x/day, 7 days/week x 1 week. Plan of care has been reviewed with the PRODUCTION TEAM MANAGER providing the service under Physical Therapy direction. Initiate Physical Therapy intervention for pain management as needed, strengthening, bed mobility, transfers, gait, stairs, balance training, and use of assistive device. DISCHARGE RECOMMENDATIONS: [] Home with no services [] [X] Home with services. Home when medically cleared by hospitalist. Patient will benefit from home health PT services in order to progress mobility level using least restrictive assistive ambulatory device, assess home safety, identify additional equipment needs, and establish a functional maintenance program that will increase ability of patient to remain at home. [] Home with outpatient PT [] [] SNF for continued rehabilitation [] [] Penitentiary Care [] [] SNF versus LTC based on ability to participate and progress [] TREATMENT CODE/TIME: 69997 x 30 minutes 1:30 - 2:00 Thank you for the opportunity to participate in the care of this patient. Misty Stack, PT, DPT [facility]
--- NOTE | 2022-10-23 16:25 | INITIAL_ITS ---
- If Service Date Differs Date of service: 10/23/22 Time of Service: 16:51 Care Management Initial Assess REASON FOR HOSPITALIZATION:: Infection, pain managment, progress mobility PAST MEDICAL HISTORY/PAST SURGICAL HISTORY:: Pancreas cancer (Acute). Atypical chest pain (Acute). Acute hypokalemia (Acute). Hypomagnesemia (Acute). Vomiting (Acute). This 61-year-old female is here because of nausea and vomiting and abdominal pain. She was diagnosed with a pancreatic cancer about 2 months ago. She states that the current plan is to have chemotherapy and if the tumor responds and she may have surgery if it appears resectable at that time. She had her first round of chemotherapy 9 days ago. She says that she has been having nausea and vomiting abdominal pain since then. PREVIOUS FUNCTIONAL STATUS/SOCIAL/FAMILY SUPPORTS:: Sonali resides with her daughter, son-in-law and grandson in [place], her family is very supportive. Her sister Jennifer Bartlett ([phone]) is a primary support as well. Jennifer was diagnosed with a pancreatic cancer about 2 months ago and started her first round of chemotherapy 9 days ago. CURRENT FUNCTIONAL STATUS:: Sonali struggles with processing information and reports struggling with anxiety. She requests her sister, Jennifer to be informed of all treatment planning and involved in all decision-making. ADVANCE DIRECTIVES:: Jennifer
--- NOTE | 2022-10-23 16:26 | CM.SWINGPC ---
- If Service Date Differs Date of service: 10/23/22 Time of Service: 16:51 Swingbed Plan of Care Plan of care: SWING BED PROGRAM ACTIVITIES/DISCHARGE PLAN OF CARE ACTIVITIES PLAN Date: 10/23/22 Identified Need: Life enrichment during extended hospitalization Intervention/Plan: Activity Cart, visitors, patient tablet, etc. Initials: ROSENDO DISCHARGE PLAN Date: 10/23/22 Identified Need: Methicillin susceptible Staphylococcus aureus infection, pain management, increased mobility. Intervention/Plan: IV ABX, PT: SWB1 until 11/13/21 anticipated at this time Initials: ROSENDO
--- NOTE | 2022-10-23 16:50 | NUR.NOTE ---
patient is now swb 1 level of care.Nursing Note:
--- NOTE | 2022-10-23 16:56 | CM.SBPSYCH ---
- If Service Date Differs Date of service: 10/23/22 Time of Service: 16:57 SB Psychosocial/Act.Assessment - Hospital Admission Admission Date: 10/23/22 Admission From:: [facility] Inpatient Diagnosis:: Methicillin susceptible Staphylococcus aureus infection, pain managment, progress mobility - Swing Bed Admission Swing Bed Admit Date:: 10/23/22 Swing Bed Level of Care: Level 1/SNF - Social Supports PREVIOUS FUNCTIONAL STATUS/SOCIAL/FAMILY SUPPORTS:: Sonali resides with her daughter, son-in-law and grandson in [place], her family is very supportive. Her sister Jennifer Bartlett ([phone]) is a primary support as well. Jennifer was diagnosed with a pancreatic cancer about 2 months ago and started her first round of chemotherapy 9 days ago. - Prior to Admission Living Arrangements/Environment Prior to Admission:: Sonali resides with her daughter, son-in-law and grandson in [place], her family is very supportive. Her sister Jennifer Bartlett ([phone]) is a primary support as well. eJnnifer was diagnosed with a pancreatic cancer about 2 months ago and started her first round of chemotherapy 9 days ago. - Medical History PAST MEDICAL HISTORY/PAST SURGICAL HISTORY:: Pancreas cancer (Acute). Atypical chest pain (Acute). Acute hypokalemia (Acute). Hypomagnesemia (Acute). Vomiting (Acute). This 61-year-old female is here because of nausea and vomiting and abdominal pain. She was diagnosed with a pancreatic cancer about 2 months ago. She states that the current plan is to have chemotherapy and if the tumor responds and she may have surgery if it appears resectable at that time. She had her first round of chemotherapy 9 days ago. She says that she has been having nausea and vomiting abdominal pain since then. Other:: Sonali struggles with processing information and reports struggling with anxiety. She requests her sister, Jennifer to be informed of all treatment planning and involved in all decision-making. - Admission Data Reason for Swing Bed Admission:: IV ABX, PT Discharge Plan:: Home to Jennifer sandoval's with new home health and oncology follow up. Assessment: SB1 for IV ABX, PT Print Line Feeder: Candice Matson Date Assessment was completed:: 10/23/22
[2022-10-23] MEDS: fentaNYL 25 MCG PATCH TD (17:01)
[2022-10-23] MEDS: ceFAZolin 2 GM/50 ML BAG IV (17:01)
--- NOTE | 2022-10-23 18:00 | NUR.NOTE ---
Nursing Note: Patient had a 50 mcg fentanyl patch that was administered before she swung this afternoon which was applied to the right shoulder. Provider increased the dose to 75 mcg. Pharmacy put a one time order for a 25 mcg patch on her swing account, this was applied to the right shoulder as well. Tegaderms were applied to both patches for protection
[2022-10-23] MEDS: Acetaminophen 500 MG TAB 1000 MG PO (22:52)
[2022-10-23] MEDS: Magnesium Oxide 400 MG TAB 800 MG PO (22:53)
[2022-10-23] MEDS: Enoxaparin 40 MG/0.4 ML SYR SC (22:53)
[2022-10-23] MEDS: Pantoprazole 40 MG TABCR PO (22:54)
[2022-10-23] MEDS: Budesonide/Formoterol 160/4.5 6 GM 60 PUFF INH IH (22:59)
[2022-10-23] MEDS: LORazepam 0.5 MG TAB PO (23:12)
[2022-10-23 23:25] VITALS: BP 158/111; PULSE 88; RESP 22; TEMP 36.8; O2SAT 100
[2022-10-24] MEDS: MORPHine 2 MG/ML SYR IVP ×2 (01:14→21:27)
[2022-10-24] MEDS: Normal Saline Flush 10 ML SYR IVP ×3 (01:17→21:28)
[2022-10-24] MEDS: Acetaminophen 500 MG TAB 1000 MG PO ×3 (05:47→21:22)
[2022-10-24 06:53] LABS: Abs Immature Grans 0.14 10^3/uL (0.0-0.06); Absolute Basophil Count 0.03 10^3/uL (0.0-0.2); Absolute Monocyte Count 1.04 10^3/uL (0.1-0.8); Absolute Neutrophil Count 10.97 10^3/uL (1.2-6.7); Basophils % 0.2; HCT 37.8 % (36.0-46.0); HGB 12.2 g/dL (11.2-15.7); Lymphocytes % 13.1; MCH 30.5 pg (27.0-33.0); MCHC 32.3 % (32.0-36.0); MCV 95 fL (80-95); MPV 9.2 fL (8.0-11.0); Monocytes % 7.4; Neutrophils % 78.3; Platelet Count 305 10^3/uL (130-400); RDW 13.5 % (11.7-14.6); RDW-SD 45.7 fL; WBC 14.01 10^3/uL (4.4-10.8)
[2022-10-24 06:55] LABS: Absolute Lymphocyte Count 1.84 10^3/uL (1.2-3.4)
[2022-10-24 07:15] LABS: Anion Gap 9.9 mmol/L (3-11); BUN 12 mg/dL (7-18); CO2 28.1 mmol/L (21.0-32.0); CREATININE 0.7 mg/dL (0.55-1.02); Calcium 9.1 mg/dL (8.5-10.1); Chloride 98 mmol/L (98-107); Estimated GFR 98.34 (mL/min/1.73m2); Glucose 105 mg/dL (74-106); Potassium 3.6 mmol/L (3.5-5.1); Sodium 136 mmol/L (136-145)
[2022-10-24 07:24] VITALS: BP 156/86; PULSE 86; RESP 16; TEMP 36.8; O2SAT 94
[2022-10-24] MEDS: Budesonide/Formoterol 160/4.5 6 GM 60 PUFF INH IH ×2 (08:53→21:21)
[2022-10-24] MEDS: ceFAZolin 2 GM/50 ML BAG IV ×3 (09:29→16:47)
[2022-10-24] MEDS: Venlafaxine 150 MG CAPCR PO (09:30)
[2022-10-24] MEDS: Dexamethasone 4 MG TAB PO (09:30)
[2022-10-24] MEDS: Losartan 50 MG TAB 100 MG PO (09:30)
[2022-10-24] MEDS: Pantoprazole 40 MG TABCR PO ×2 (09:30→21:22)
[2022-10-24] MEDS: Magnesium Oxide 400 MG TAB 800 MG PO ×2 (09:30→21:22)
[2022-10-24] MEDS: Cholestyramine/Aspartame PKT 1 EACH PO (09:31)
--- NOTE | 2022-10-24 10:48 | W.PM.HP.N ---
Date of service: 10/23/22 Time of Service: 11:00 Assessment and Plan Assessment and plan (1) Methicillin susceptible Staphylococcus aureus infection: Status: Acute Assessment and plan: Bacteremia with source felt to be the infusaport, removed on 10/16/22. Repeat blood cultures negative x 72 hrs. Continue cefazolin. End date for abx is planned to be 11/13/21 (4 weeks from 1st negative blood culture). Has a midline. The patient would like to complete her abx in the hospital (now in swing bed) (2) Pancreas cancer: Status: Acute Assessment and plan: Continue fentanyl patch increasing to 75 mcg based on prn usage, morphine IR prn. IS. Followed by palliative care. S/p removal of infusaport s/t bacteremia Chemotherapy on hold in light of acute infection. case discussed with her oncologist, DR Harrington, who has been updated on hospital course and plan for antibiotics til Nov 13. His plan is to infusion her chemo on Nov 13 through midline after we discharge her, then arrange for outpatient infusaport placement after. will notify him of any changes in patient condition or plan. She will be discharged from here with her midline intact. (3) Hypokalemia: Status: Acute Assessment and plan: Potassium 2.9, will continue to replete, recheck in am magnesium 1.9. (4) Epigastric pain: Status: Acute Assessment and plan: As above, Additionally, continue protonix BID. (5) Advance care planning: Status: Acute Assessment and plan: Palliative care has been consulted and is following and having ongoing discussions regarding goals of care. (6) DVT prophylaxis: Status: Acute Assessment and plan: SC enoxaparin (7) Discharge planning issues: Status: Acute Assessment and plan: DNR/DNI Anticipate 4 week so fo IV cefazolin. End date 11/13/21. she will remain here on halfway level of care for remainder of course. Discussed with Dr Wadsworth History of Present Illness History of Present Illness Chief Complaint: abdominal pain PFSH All Active Problems (Updated 10/24/22 @ 10:52 by Yvonne Condon NP) Discharge planning issues (Acute) DVT prophylaxis (Acute) Epigastric pain (Acute) Hypokalemia (Acute) Methicillin susceptible Staphylococcus aureus infection (Acute) E. coli UTI (Acute) Gram-positive bacteremia (Acute) Abdominal pain (Acute) Type of kidney inflammation (Acute) Palliative care encounter (Acute) Decreased oral intake (Acute) Advance care planning (Acute) DNR (do not resuscitate) (Acute) Uncontrolled pain (Acute) Stomatitis (Acute) Myoclonic jerking (Acute) Candidal skin infection (Acute) No contraindication to deep vein thrombosis (DVT) prophylaxis (Acute) Hypertension (Chronic) Pancreas cancer (Acute) Atypical chest pain (Acute) Acute hypokalemia (Acute) Hypomagnesemia (Acute) Social History Smoking/Tobacco Use Status: Never Smoking risk assessment performed?: Yes Alcohol Intake: never Drug use: Never Substance use type: does not use Do you feel safe at home: Yes Do you feel safe in your relationship?: Yes Meds Allergies and Home Medications Allergies Allergy/AdvReac Type Severity Reaction Status Date / Time aspirin Allergy Unverified 10/07/22 15:04 erythromycin base Allergy Unverified 10/07/22 15:04 Latex, Natural Rubber Allergy Unverified 10/07/22 15:04 meperidine [From Demerol] Allergy Unverified 10/07/22 15:04 Home Medications Medication Instructions Recorded Confirmed Type bupropion HCl 150 mg tablet,12 hr 150 mg PO BID 10/07/22 10/23/22 History sustained-release diphenoxylate-atropine 2.5 1 - 2 tab PO DAILY PRN 10/07/22 10/23/22 History mg-0.025 mg tablet fluticasone 500 mcg-salmeterol 50 1 inh inhalation BID 10/07/22 10/23/22 History mcg/dose blistr powdr for inhalation (Advair Diskus) hydrochlorothiazide 12.5 mg tablet 12.5 mg PO DAILY 10/07/22 10/23/22 History losartan 50 mg tablet 50 mg PO DAILY 10/07/22 10/23/22 History montelukast 10 mg tablet 10 mg PO DAILY 10/07/22 10/23/22 History omeprazole 20 mg tablet,delayed 20 mg PO BID 10/07/22 10/23/22 History release ondansetron 8 mg disintegrating 8 mg PO Q8H PRN 10/07/22 10/23/22 History tablet potassium chloride 20 mEq 20 meq PO BID 10/07/22 10/23/22 History tablet,extended release venlafaxine 150 mg tablet,extended 150 mg PO DAILY 10/07/22 10/23/22 History release 24 hr calcium carbonate 500 mg calcium 500 mg PO DAILY 10/08/22 10/23/22 History (1,250 mg) chewable tablet dexamethasone 2 mg tablet See Rx Instructions .Route .COMPLEX 10/08/22 10/23/22 History fentanyl 25 mcg/hr transdermal 25 mcg topical Q72H 10/08/22 10/23/22 History patch hydromorphone 4 mg tablet 4 - 8 mg PO Q4H PRN PRN Pain 10/08/22 10/23/22 History nystatin 100,000 unit/gram topical 2 pwd topical TID PRN PRN 10/08/22 10/23/22 History powder Exam Const General: cooperative, comfortable and no acute distress Nutritional Appearance: overweight Orientation: alert, awake and oriented x3 HENMT Head: normal to inspection, normocephalic and atraumatic Mouth: oral mucosae normal Resp Effort & Inspection: normal respiratory effort Cardio Rate: regular rate Rhythm: regular rhythm GI Inspection: normal to inspection Palpation: soft and tender Neuro General: patient alert, patient awake, patient oriented x3 and no focal motor deficits Results Labs Result diagrams: 10/24/22 06:12 10/24/22 06:12 Labs: Laboratory Results - last 24 hr 10/24/22 10/24/22 06:12 06:12 WBC 14.01 H RBC 4.00 Hgb 12.2 Hct 37.8 MCV 95 MCH 30.5 MCHC 32.3 RDW 13.5 Plt Count 305 MPV 9.2 Immature Gran % 1.0 Neutrophils % 78.3 Lymphocytes % 13.1 Monocytes % 7.4 Eosinophils % 0.0 Basophils % 0.2 Nucleated RBC % 0.0 Absolute Neutrophils 10.97 H Absolute Lymphocytes 1.84 Absolute Monocytes 1.04 H Absolute Eosinophils 0.00 Absolute Basophils 0.03 Sodium 136 Potassium 3.6 Chloride 98 Carbon Dioxide 28.1 Anion Gap 9.9 BUN 12 Creatinine 0.7 Est GFR (CKD-EPI 2020) 98.34 Glucose 105 Calcium 9.1 Last Vital Signs Temp 36.8 C 10/24/22 07:24 Pulse 86 10/24/22 07:24 Resp 16 10/24/22 07:24 BP 156/86 H 10/24/22 07:24 Pulse Ox 94 10/24/22 07:24
[2022-10-24] MEDS: Dexamethasone 1 MG TAB 2 MG PO (13:01)
--- NOTE | 2022-10-24 13:43 | PT.INTREAT ---
PT Notes Visit Reasons: MSSA Bacteremia Inpatient Physical Therapy Treatment Note [facility] Date: 10/24/22 SUBJECTIVE: Sonali states that she is not getting good pain management at night. She reports not sleeping well due to the pain, and ends up sleeping all day when dayshift comes on and manages pain. OBJECTIVE: [] BED MOBILITY/TRANSFERS Supine-sit: SBA Sit-supine: SBA Sit-stand: SBA Stand-sit: SBA GAIT Assistive Device:FWW Weight bearing: FWB Assist: CGA Distance: 165' Toileted with min assistance ASSESSMENT: tolerated session well. Offers no complaints. Wanted to increase wlaking distance vs yesterday and was able to achieve that goal. Did have some mild fatigue at end of walk. PLAN: will continue to progress her endurance TREATMENT CODE/TIME: 20min [id number]
[2022-10-24] MEDS: Enoxaparin 40 MG/0.4 ML SYR SC (21:22)
[2022-10-25] MEDS: ceFAZolin 2 GM/50 ML BAG IV ×4 (00:20→23:49)
[2022-10-25] MEDS: Normal Saline 500 ML 30 ML IV (00:22)
[2022-10-25] MEDS: MORPHine 2 MG/ML SYR IVP ×3 (06:09→23:58)
[2022-10-25] MEDS: Acetaminophen 500 MG TAB 1000 MG PO ×3 (06:19→21:15)
[2022-10-25 07:44] VITALS: BP 169/98; PULSE 82; RESP 16; TEMP 36.7; O2SAT 95
[2022-10-25] MEDS: LORazepam 0.5 MG TAB PO (07:52)
[2022-10-25] MEDS: Losartan 50 MG TAB 100 MG PO (07:53)
[2022-10-25] MEDS: Pantoprazole 40 MG TABCR PO ×2 (07:53→21:14)
[2022-10-25] MEDS: Venlafaxine 150 MG CAPCR PO (07:53)
[2022-10-25] MEDS: Dexamethasone 4 MG TAB PO (07:53)
[2022-10-25] MEDS: Normal Saline Flush 10 ML SYR IVP ×4 (07:53→23:50)
[2022-10-25] MEDS: Magnesium Oxide 400 MG TAB 800 MG PO ×2 (07:53→21:14)
[2022-10-25] MEDS: Budesonide/Formoterol 160/4.5 6 GM 60 PUFF INH IH ×2 (08:24→19:40)
--- NOTE | 2022-10-25 10:48 | PT.INNT ---
PT Notes Visit Reasons: MSSA Bacteremia Attempted PT x 2 today. Patient initially reports fatigue and poorly controlled pain after a difficult night. On second attempt, she was only able to open eyes briefly, with faint responses. Hold PT for today, and resume tomorrow am.
[2022-10-25] MEDS: Dexamethasone 1 MG TAB 2 MG PO (12:55)
[2022-10-25 20:40] VITALS: BP 151/90; PULSE 70; RESP 18; TEMP 36.2; O2SAT 93
[2022-10-25] MEDS: Enoxaparin 40 MG/0.4 ML SYR SC (21:14)
[2022-10-26] MEDS: Acetaminophen 500 MG TAB 1000 MG PO ×3 (05:16→21:09)
[2022-10-26] MEDS: MORPHine 2 MG/ML SYR IVP ×3 (05:16→23:52)
[2022-10-26] MEDS: Normal Saline Flush 10 ML SYR IVP ×3 (05:17→23:53)
[2022-10-26] MEDS: Pantoprazole 40 MG TABCR PO ×2 (06:46→21:09)
[2022-10-26 07:29] VITALS: BP 166/92; PULSE 81; RESP 17; TEMP 36.5; O2SAT 98
[2022-10-26] MEDS: Budesonide/Formoterol 160/4.5 6 GM 60 PUFF INH IH ×2 (07:33→19:30)
[2022-10-26] MEDS: Losartan 50 MG TAB 100 MG PO (07:39)
[2022-10-26] MEDS: Magnesium Oxide 400 MG TAB 800 MG PO ×2 (07:39→21:09)
[2022-10-26] MEDS: Venlafaxine 150 MG CAPCR PO (07:39)
[2022-10-26] MEDS: Dexamethasone 4 MG TAB PO (07:39)
[2022-10-26] MEDS: ceFAZolin 2 GM/50 ML BAG IV ×3 (07:40→23:52)
[2022-10-26] MEDS: Dexamethasone 1 MG TAB 2 MG PO (12:34)
--- NOTE | 2022-10-26 13:08 | W.NUTCONSULT ---
Date of service: 10/26/22 Time of Service: 13:08 Nutritional Consult ASSESSMENT: Sonali was admitted 10/09/22 secondary to abdominal pain, n/v following first session of chemotherapy for pancreatic cancer. BMI of 35 indicates obesity. Following regular meal plan with frequent meal refusals and averaging < 25% of meals. At high nutritional risk. Lack of appetite secondary to pancreatic cancer/chemo. Appears to have lost 5 lbs in last 2 weeks NUTRITIONAL DIAGNOSIS: Moderate malnutrition in view of inadequate macronutrient intake in last 14 days INTERVENTION: consider appetite stimulant such as marinol, may need Creon to aid in digestion MONITORING AND EVALUATION: weight, po intake, labs. Time Spent in Nutritional Counseling and Treatment: 0
[2022-10-26] MEDS: fentaNYL 75 MCG PATCH TD (13:59)
--- NOTE | 2022-10-26 16:01 | PT.INTREAT ---
Date of service: 10/26/22 Time of Service: 14:17 PT Notes Visit Reasons: MSSA Bacteremia Inpatient Physical Therapy Treatment Note [facility] Date: 10/26/2022 PRECAUTIONS: Activity as tolerated, Fall SUBJECTIVE: Sonali is pleasant and agreeable to participating in PT. She states that she just received pain meds, however, she is still having pain. OBJECTIVE: PAIN: Patient c/o pain with gait training BED MOBILITY/TRANSFERS Supine-sit: I Sit-supine: I Sit-stand: SBA Stand-sit: SBA GAIT Assistive Device: FWW Weight bearing: Full Assist: SBA Distance: 200' Deviation: Gait unremarkable TOILETING: Patient toileted with SBA for transfers STAIRS: Up/down 3x4 and 2x6 using B rails and a step-to pattern with supervision ASSESSMENT: Patient tolerated session with complaint of pain and increased fatigue. She demonstrates unremarkable gait mechanics, and may be able to tolerate gait training without assistive device. PLAN: Continue with general conditioning and global strengthening for improved mobility and activity tolerance. TREATMENT CODE/TIME: Session 1: Patient declined, just came back from the shower Session 2: 23 minutes; [id number] x2 (14:17)
[2022-10-26] MEDS: Enoxaparin 40 MG/0.4 ML SYR SC (21:09)
[2022-10-27] MEDS: Acetaminophen 500 MG TAB 1000 MG PO (05:26)
[2022-10-27] MEDS: MORPHine 2 MG/ML SYR IVP (05:27)
[2022-10-27] MEDS: Normal Saline Flush 10 ML SYR IVP ×3 (05:29→12:05)
[2022-10-27 08:28] VITALS: BP 113/73; PULSE 95; RESP 16; TEMP 35.7; O2SAT 95
[2022-10-27 08:30] VITALS: BP 120/80
[2022-10-27] MEDS: Dexamethasone 4 MG TAB PO (09:04)
[2022-10-27] MEDS: Magnesium Oxide 400 MG TAB 800 MG PO (09:04)
[2022-10-27] MEDS: Venlafaxine 150 MG CAPCR PO (09:04)
[2022-10-27] MEDS: Pantoprazole 40 MG TABCR PO (09:04)
[2022-10-27] MEDS: Losartan 50 MG TAB 100 MG PO (09:04)
[2022-10-27] MEDS: ceFAZolin 2 GM/50 ML BAG IV (09:06)
[2022-10-27 09:42] VITALS: BP 101/67; PULSE 93; RESP 16; TEMP 35.6; O2SAT 88
[2022-10-27 09:52] VITALS: BP 103/69; O2SAT 97
[2022-10-27] MEDS: Normal Saline 500 ML 30 ML IV (09:58)
[2022-10-27] MEDS: Ondansetron O.D.T. 4 MG TABEF 8 MG PO (10:35)
[2022-10-27 11:48] VITALS: BP 92/61; PULSE 76; RESP 18; TEMP 35.4; O2SAT 98
[2022-10-27 11:50] VITALS: BP 93/61
[2022-10-27 12:00] LABS: Abs Immature Grans 0.17 10^3/uL (0.0-0.06); Absolute Basophil Count 0.05 10^3/uL (0.0-0.2); Absolute Lymphocyte Count 2.07 10^3/uL (1.2-3.4); Basophils % 0.4; Eosinophils % 0.7; HCT 40.2 % (36.0-46.0); HGB 12.2 g/dL (11.2-15.7); Immature Grans % 1.4; Lactate 4.4 mmol/L (0.6-1.4); Lymphocytes % 17.2; MCHC 30.3 % (32.0-36.0); MCV 99 fL (80-95); MPV 9.3 fL (8.0-11.0); Monocytes % 8.3; Platelet Count 323 10^3/uL (130-400); RBC 4.06 10^6/uL (3.93-5.22); RDW 13.6 % (11.7-14.6); RDW-SD 49.2 fL; WBC 12.05 10^3/uL (4.4-10.8)
[2022-10-27 12:03] LABS: Absolute Eosinophil Count 0.08 10^3/uL (0.0-0.7); Absolute Neutrophil Count 8.68 10^3/uL (1.2-6.7); ESR 42 mm/hr (0-30)
[2022-10-27 12:19] LABS: ALT 24 U/L (14-59); AST 74 U/L (15-37); Albumin 2.9 g/dL (3.4-5.0); Alkaline Phosphatase 109 U/L (46-116); Anion Gap 8.5 mmol/L (3-11); BUN 27 mg/dL (7-18); Bilirubin, Total 0.2 mg/dL (0.2-1.0); C-Reactive Protein 9.87 mg/dL (0.0-0.3); CO2 29.5 mmol/L (21.0-32.0); CREATININE 2.5 mg/dL (0.55-1.02); Calcium 9.9 mg/dL (8.5-10.1); Chloride 100 mmol/L (98-107); Estimated GFR 21.21 (mL/min/1.73m2); Glucose 118 mg/dL (74-106); Potassium 4.7 mmol/L (3.5-5.1); Sodium 138 mmol/L (136-145); Total Protein 6.9 g/dL (6.4-8.2)
[2022-10-27] MEDS: Normal Saline 1,000 ML 1000 ML IV (12:25)
--- NOTE | 2022-10-27 12:30 | W.PM.DS.N ---
Date of service: 10/27/22 Time of Service: 14:00 DS: Diagnosis Discharge Diagnosis (1) Methicillin susceptible Staphylococcus aureus infection: Status: Acute (2) Pancreas cancer: Status: Acute (3) Hypokalemia: Status: Acute (4) Epigastric pain: Status: Acute (5) Advance care planning: Status: Acute (6) DVT prophylaxis: Status: Acute (7) Discharge planning issues: Status: Acute Discharge Plan Disposition Patient Disposition: Transfer-Acute Inpatient Care Condition: Deteriorating Discharge Details Reason For Visit: MSSA Bacteremia Admit Date/Time: 10/23/22 13:31 Admit Provider: Cathy Wadsworth Attending Provider: Cathy Wadsworth Primary Care Provider: Cely Soni Hospital Course Hospital Course: Sonali is here for antibiotics for MSSA bacteremia; she developed a fever, confusion, increased lactate and beginning to have signs of sepsis. She is discharged from her swing bed status, admitted back to in patient and transferred to the ICU. Home Meds and New Rx's Prescriptions: No Action losartan 50 mg Tablet 50 mg PO DAILY bupropion HCl 150 mg Tablet Sustained-Release 12 Hr 150 mg PO BID diphenoxylate-atropine 2.5-0.025 mg Tablet 1 - 2 tab PO DAILY PRN ondansetron 8 mg Tablet,Disintegrating 8 mg PO Q8H PRN fluticasone propion-salmeterol [Advair Diskus] 500-50 mcg/dose Blister With Device 1 inh INHALATION BID montelukast [Singulair] 10 mg Tablet 10 mg PO DAILY hydrochlorothiazide 12.5 mg Tablet 12.5 mg PO DAILY omeprazole 20 mg Tablet,Delayed Release (Dr/Ec) 20 mg PO BID venlafaxine 150 mg Tablet Extended Release 24hr 150 mg PO DAILY potassium chloride 20 mEq Tablet Extended Release 20 meq PO BID hydromorphone 4 mg tablet 4 - 8 mg PO Q4H PRN PRN (Reason: Pain) fentanyl 25 mcg/hr patch 72 hour See Rx Instructions .ROUTE .COMPLEX Label Comments: Apply 1 patch to skin every three days apply to area of upper arm, change every 3 days, use dilauded for breakthru pain Rx Instructions: patient is now on 75mcg dexamethasone 2 mg tablet See Rx Instructions .ROUTE .COMPLEX Label Comments: TAKE 2 TABLETS BY MOUTH EVERY MORNING AND 1 TAB IN EARLY AFTERNOON, TAKE WITH FOOD Rx Instructions: TAKE 2 TABLETS (4mg) BY MOUTH EVERY MORNING AND 1 TAB (2mg) IN EARLY AFTERNOON, TAKE WITH FOOD nystatin 100,000 unit/gram powder 2 pwd TOPICAL TID PRN PRN calcium carbonate [Tums 500] 500 mg calcium (1,250 mg) Tablet,Chewable 500 mg PO DAILY Discharge Instructions Activity:: Activity as Tolerated Equipment/Supplies:: No Equipment Needed Diet:: As Tolerated Discharge Orders Discharge Orders: Discharge Order (Routine); Ordered 10/27/22 Ordered By: Sunshine Morelos Discharge Data Discharge Date/Time-TO BE ENTERED AT DEPARTURE: 10/27/22 13:16 DS: Summary Time Spent with Patient providing and/or coordinating discharge services: Greater than 30 minutes Status at Discharge Functional status at discharge: bed bound Overall status at discharge: patient is not back to baseline Mental Status: mental status grossly normal Speech and Movement: speech and movement normal Mood: congruent mood Affect: normal affect Exam Psych Mental Status: mental status grossly normal Speech and Movement: speech and movement normal Mood: congruent mood Affect: normal affect DS: Data Vitals/I&O Vitals and I&O: Vital Signs Temperature 35.4 C L 10/27/22 11:48 Temperature Source Skin 10/27/22 11:48 Pulse 76 10/27/22 11:48 Pulse Rhythm Regular 10/27/22 11:54 Respiratory Rate 18 10/27/22 11:48 Respiratory Effort Non-Labored 10/27/22 11:54 Respiratory Depth Normal 10/27/22 04:26 Respiratory Pattern Normal 10/27/22 04:26 Blood Pressure 93/61 L 10/27/22 11:50 Pulse Oximetry 98 10/27/22 11:48 Oxygen Delivery Method Nasal Cannula 10/27/22 11:48 Oxygen Flow Rate 2 10/27/22 11:48 Pain Level 0 10/27/22 11:48 Comment 10/27/22 11:50 Intake & Output 10/26/22 10/27/22 10/27/22 23:59 11:59 23:59 Intake Total 370 / 690 624.500 / 624.500 0 / 624.500 Output Total 450 / 450 Balance 370 / 490 174.500 / 174.500 0 / 174.500 Intake: IV 70 / 190 624.500 / 624.500 0 / 624.500 Oral 300 / 500 Output: Urine 300 / 300 Emesis 150 / 150 Other: Urine Color Yellow Urine Appearance Clear Clear Urine Odor Normal Comment mixed with stool Stool Size Moderate Stool Characteristics Liquid Brown Emesis Description Bile Voiding Methods Bedside Commode Data Completed and Pending Labs on day of discharge: Labs from last 24 hours 10/27/22 10/27/22 10/27/22 Unknown 11:50 11:50 WBC RBC Hgb Hct MCV MCH MCHC RDW Plt Count MPV Immature Gran % Neutrophils % Lymphocytes % Monocytes % Eosinophils % Basophils % Nucleated RBC % Absolute Neutrophils Absolute Lymphocytes Absolute Monocytes Absolute Eosinophils Absolute Basophils ESR 42 H VBG Lactate 4.4 H* Sodium Potassium Chloride Carbon Dioxide Anion Gap BUN Creatinine Est GFR (CKD-EPI 2020) Glucose Calcium Total Bilirubin AST ALT Alkaline Phosphatase C-Reactive Protein Total Protein Albumin Add-On Test Request Pending 10/27/22 10/27/22 11:50 11:50 WBC 12.05 H RBC 4.06 Hgb 12.2 Hct 40.2 MCV 99 H D MCH 30.0 MCHC 30.3 L RDW 13.6 Plt Count 323 MPV 9.3 Immature Gran % 1.4 Neutrophils % 72.0 Lymphocytes % 17.2 Monocytes % 8.3 Eosinophils % 0.7 Basophils % 0.4 Nucleated RBC % 0.0 Absolute Neutrophils 8.68 H Absolute Lymphocytes 2.07 Absolute Monocytes 1.00 H Absolute Eosinophils 0.08 Absolute Basophils 0.05 ESR VBG Lactate Sodium 138 Potassium 4.7 Chloride 100 Carbon Dioxide 29.5 Anion Gap 8.5 BUN 27 H Creatinine 2.5 H Est GFR (CKD-EPI 2020) 21.21 Glucose 118 H Calcium 9.9 Total Bilirubin 0.2 AST 74 H ALT 24 Alkaline Phosphatase 109 C-Reactive Protein 9.87 H Total Protein 6.9 Albumin 2.9 L Add-On Test Request 10/27/22 12:23 Blood Blood Culture - Pending 10/27/22 12:23 Blood Blood Culture - Pending Preliminary micro results at discharge 10/27/22 12:23 Blood Culture - Pending Blood 10/27/22 12:23 Blood Culture - Pending Blood [facility] All Active Problems Discharge planning issues (Acute) DVT prophylaxis (Acute) Epigastric pain (Acute) Hypokalemia (Acute) Methicillin susceptible Staphylococcus aureus infection (Acute) E. coli UTI (Acute) Gram-positive bacteremia (Acute) Abdominal pain (Acute) Type of kidney inflammation (Acute) Palliative care encounter (Acute) Decreased oral intake (Acute) Advance care planning (Acute) DNR (do not resuscitate) (Acute) Uncontrolled pain (Acute) Stomatitis (Acute) Myoclonic jerking (Acute) Candidal skin infection (Acute) No contraindication to deep vein thrombosis (DVT) prophylaxis (Acute) Hypertension (Chronic) Pancreas cancer (Acute) Atypical chest pain (Acute) Acute hypokalemia (Acute) Hypomagnesemia (Acute) Social History Smoking/Tobacco Use Status: Never Smoking risk assessment performed?: Yes Alcohol Intake: never Drug use: Never Substance use type: does not use Do you feel safe at home: Yes Do you feel safe in your relationship?: Yes
--- NOTE | 2022-10-27 13:15 | DI.CT_ITS ---
Exam(s) CT ABDOMEN PELVIS WO EXAM: CT ABDOMEN PELVIS WO CLINICAL HISTORY: Sepsis. TECHNIQUE: Imaging Protocol: Axial computed tomography images with coronal and sagittal reformatted images were created and reviewed CONTRAST MATERIAL: Intravenous: none Oral: None COMPARISON: CT CT ABDOMEN PELVIS W from 10/07/2022 CR XR PORTABLE CHEST AP from 10/15/[address] ABDOMEN PELVIS W from 10/15/2022 FINDINGS: VISUALIZED LUNG BASES: No nodules nor pleural effusions evident. ABDOMEN: There is no ascites. LIVER: There are no obvious focal hepatic lesions evident of this noninfused study. GALLBLADDER/BILIARY: Gallbladder contains dense bile which shows almost isodense with the liver CBD i s not dilated. PANCREAS: Pancreatic head is again noted be enlarged. Is difficult to appreciate the previously desc ribed hypodense mass in the pancreatic head without IV contrast. The main pancreatic duct is not dil ated. Mild peripancreatic streaking noted. No distinct fluid collection. SPLEEN: Spleen is not enlarged. No obvious intrasplenic lesions. ADRENALS: There are no significant adrenal masses. KIDNEYS:No cysts evident. No solid renal masses. No calculi nor hydronephrosis.. Stable bilateral mi ld perinephric streaking again noted. ABDOMINAL AORTA: Abdominal aorta is not enlarged. LYMPH NODES: There is no prominent retroperitoneal nor paraaortic adenopathy. ABDOMINAL WALL: Small fat containing umbilical hernia noted. Subcutaneous air seen over the anterior abdominal wall both sides probably related to injections. GI: The stomach is somewhat distended. Duodenum is not distended. Small bowel loops exhibit normal diameters. No free air. No abscess. PELVIS: LYMPH NODES: There is no intrapelvic nor inguinal adenopathy. GI: No evidence of appendicitis.No evidence of sigmoid diverticulitis. URINARY BLADDER: No calculi nor obvious masses evident REPRODUCTIVE: The uterus is surgically absent. No abnormal adnexal masses.zzz OSSEOUS: There is an intraosseous hemangioma in T12 vertebral body. Superior endplate level compression fracture L1 noted with approximately 15 percent height loss. Thi s does not appear acute and was evident on the prior CT scan of 10/07/2022. IMPRESSION: 1. On this noninfused study the pancreatic head is again noted be enlarged but the hypodense mass maico dent on the previous contrast infused CT study of 10/07/2022 is difficult to appreciate, most probabl y related to the lack of IV contrast on today's study. Pancreatic duct is not dilated. There is eliazar e mild peripancreatic streaking and correlation with blood work to rule out pancreatitis is recommend ed 2. L1 superior endplate compression fractures unchanged from the prior study listed above. RADIATION DOSE DELIVERED: 1,280.02mGy.cm Total DLP DATA REPOSITORY: All CT scans at this facility are submitted to the National Radiology Data Registry (NRDR) Dose Index Registry (DIR) with the [employer] (A[employer]). RADIATION OPTIMIZATION: All CT scans at this facility use at least one of these dose optimization te chniques: automated exposure control; mA and/or kV adjustment per patient size (includes targeted exa ms where dose is matched to clinical indication); or iterative reconstruction.
[2022-10-27 13:19] LABS: Lab Add On Test DONE
[2022-10-27 13:29] LABS: Lipase 130 U/L (73-393)
--- NOTE | 2022-10-27 13:51 | NUR.NOTE ---
Nursing Note: Pt. being discharged from swingbed status and is being admitted to acute status at this time per MD order. Pt. still in room 229.
== END 2022-10-27 13:16 | disposition short-term general hospital (02) | DRG 315 ==
PROVIDERS: Nurse Practitioner Acute Care; Nurse Practitioner Family; Admitting Provider Internal Medicine; PCP Nurse Practitioner Family; Visit Provider Internal Medicine
DX: T80.211A Bloodstream infection due to central venous catheter, initial encounter (principal); C25.0 Malignant neoplasm of head of pancreas; R78.81 Bacteremia; E87.6 Hypokalemia; Z66 Do not resuscitate; I10 Essential (primary) hypertension; E83.42 Hypomagnesemia; R10.13 Epigastric pain; B95.61 Methicillin susceptible Staphylococcus aureus infection as the cause of diseases classified elsewhere
CPT/HCPCS: 36415; 80048; 80053; 83690; 85652; 87040; 94640; 97162; 97530; 99306; 99316; J1650; 74176; 83605; 85025; 86140; J0690; J2270; J8540

== ENCOUNTER 2022-10-27 13:52 | Inpatient (IN) | payer MEDICARE, MEDICAID, SELFPAY ==
[2022-10-27] VITALS (34 sets, daily range): BP systolic 97–133; BP diastolic 62–86; PULSE 62–77; RESP 5–19; TEMP 36.5–36.8; O2SAT 92–100
--- NOTE | 2022-10-27 13:51 | NUR.NOTE ---
Nursing Note: Pt. being discharged from swingbed status and is being admitted to acute status at this time per MD order. Pt. still in room 229.
[2022-10-27] MEDS: Dexamethasone 1 MG TAB 2 MG PO (14:10)
[2022-10-27] MEDS: Acetaminophen 500 MG TAB 1000 MG PO ×2 (14:14→21:55)
--- NOTE | 2022-10-27 15:18 | NUR.NOTE ---
Nursing Note: At 1515 on 10/27/22, pt. was transferred from Med/Surg to ICU per MD order. Report was given to [employer] by Joselyn Carpenter RN.
[2022-10-27] MEDS: ceFAZolin 2 GM/50 ML BAG IV (16:41)
[2022-10-27 16:44] LABS: Lactate 1.5 mmol/L (0.6-1.4)
[2022-10-27 16:59] LABS: Anion Gap 7.3 mmol/L (3-11); BUN 30 mg/dL (7-18); CO2 30.7 mmol/L (21.0-32.0); CREATININE 1.9 mg/dL (0.55-1.02); Calcium 8.8 mg/dL (8.5-10.1); Chloride 97 mmol/L (98-107); Estimated GFR 29.49 (mL/min/1.73m2); Glucose 115 mg/dL (74-106); Sodium 135 mmol/L (136-145)
--- NOTE | 2022-10-27 17:15 | CHAPLAIN ---
Sonali was changed from swing bed status to acute today and moved from Med/Surg to the ICU. I visited her in the ICU. She spoke softly, kept her eyes closed. She seemed calm, although nursing staff said she was stressed earlier. Sonali said her sister, Jennifer, visited today. She called the ICU while I was there and Sonali's nurse said she would call her back shortly after caring for Sonali.
--- NOTE | 2022-10-27 17:16 | INDS_ITS ---
Date of service: 10/27/22 Time of Service: 17:16 PT Notes Visit Reasons: Sepsis Physical Therapy Inpatient Initial Evaluation Date: 10/27/2022 Dates of Service: 10/23/2022 through 10/26/2022 This is a clinical summary of care provided for the duration of dates listed above. No charge was made in the completion of this documentation. Referring Doctor:Rolando Morelos PT Orders: PT CONSULT: limited ability to ambulate Precautions: Fall. Standard. Activity as tolerated. Patient Profile/Admitting Diagnosis:? Sonali is a 61-year-old female who presented to the ED on 10/07/2022 due to nausea, vomiting, and inability to tolerate oral intake with report of severe abdominal pain.? Patient is diagnosed with pancreatic cancer, candidal skin infection, myoclonic jerking, acute hypokalemia, hypomagnesemia, hypertension, and stomatitis. Participated in skilled PT intervention during acute care stay, but was unable to continue due to pain levels. Now transitioning to Swing Bed level of care, with new orders received. PMHX: All Active Problems?(Updated 10/07/22 @ 20:07 by Monty Estevez MD) Pancreas cancer (Acute) Atypical chest pain (Acute) Acute hypokalemia (Acute) Hypomagnesemia (Acute) Vomiting (Acute) Social History/Home Situation: Lives with son and son's family in a private home with 13 step to enter.? Plans to return home with some limited family support once medically stable.? Independent with all mobility ADls prior to admission.? Sister Jennifer who lives half an hour away has been a good support. Equipment Owned/DME: None Subjective: NT. See most recent ACADEMIC SERVICES COORDINATOR notes. -year-old Objective: General Observation: NT. See most recent ACADEMIC SERVICES COORDINATOR notes. Mental Status: NT. See most recent ACADEMIC SERVICES COORDINATOR notes. Pain: NT. See most recent ACADEMIC SERVICES COORDINATOR notes. ROM: Right Upper Extremity: ? Shoulder Flexion WFL. Shoulder abduction WFL. Elbow flexion WFL. Wrist flexion WFL. Functional opening and closing of hand WFL. Left Upper Extremity:? Shoulder Flexion WFL. Shoulder abduction WFL. Elbow flexion WFL. Wrist flexion WFL. Functional opening and closing of hand WFL. Right Lower Extremity: Hip flexion WFL. Hip abduction WFL. Knee flexion WFL. Ankle dorsiflexion WFL. Ankle plantarflexion WFL. Left Lower Extremity: Hip flexion WFL. Hip abduction WFL. Knee flexion WFL. Ankle dorsiflexion WFL. Ankle plantarflexion WFL. Strength: Right Upper Extremity: Grossly 4-/5 Left Upper Extremity: Grossly 4-/5 Right Lower Extremity: 4/5 hip flexion; 4+/5 knee extension Left Lower Extremity: 4/5 hip flexion; 4+/5 knee extension BED MOBILITY/TRANSFERS? Supine-sit: I Sit-supine: I Sit-stand: SBA? Stand-sit: SBA? GAIT? Assistive Device: FWW? Weight bearing: Full Assist: SBA ? Distance:? 200' ? Deviation: Gait unremarkable Balance: Static Sitting: Normal Dynamic Sitting: Good Static Standing: Fair Dynamic Standing: Fair Assessment: Transferrred to ICU on 10/27/2022 for close monitoring of medical condition. Patient presents with clinical signs and symptoms consistent with current/admitting diagnoses that have resulted to mobility limitations, gait instability, generalized weakness, and overall ADL decline as demonstrated by the following impairment level findings: 1.? Decreased strength to B UE/LE major muscle groups 2.? Impaired sitting/standing balance 3.? Impaired activity tolerance 4.? poorly managed pain Impairments are contributing to the following functional limitations: 1. unable to ambulate community distances 2.? Decline in transfer skills 3.? Difficulty with ambulation without assistive device and physical assistance 4.? Increased completion time for mobility ADL performance 5.? Increased risk for falls 6.? Difficulty with managing steps alone safely Goals X1 week 1. Supine-Sit independent 2. Sit-Supine independent 3. Sit-Stand independent 4. Stand-Sit independent 5. Bed-Chair independent 6. Chair-Bed independent 7. Independent gait on level surface with use of least restrictive device for at least 300 feet without report of pain nor dyspnea 8. Independent stair negotiation while holding onto bilateral rails for at least 10 steps without report of pain nor dyspnea 9. Independent with home exercise program 10. Good static and dynamic standing balance/tolerance of care has been reviewed with the ACADEMIC SERVICES COORDINATOR providing the service under Physical Therapy direction. Initiate Physical Therapy intervention for pain management as needed, strengthening, bed mobility, transfers, gait, stairs, balance training, and use of assistive device. DISCHARGE RECOMMENDATIONS: [] ? Home with no services [] [] ? Home with services [] [] ? Home with outpatient PT [] [] ? SNF for continued rehabilitation [] [] ? Care Home Care [] [] ? SNF versus LTC based on ability to participate and progress [] [X] PT to re-evaluate with new referral under ICU level of care TREATMENT CODE/TIME: NC. Thank you for the opportunity to participate in the care of this patient. Chica Phipps PT, DPT, CLT [facility] [place], [place]
--- NOTE | 2022-10-27 17:24 | PCNE_ITS ---
Date of service: 10/27/22 Time of Service: 11:00 History of Present Illness Narrative: Ms. Lyon is a 61 y/o F currently inpatient at [facility] 2/2 uncontrolled pain, N/V w/pancreatic cancer; PMHx sig for fibromyalgia, PTSD, anxiety, HTN, GERD; per staff: Current is diaphoretic, cool and clammy. Vomiting. Blood pressures are soft. New onset fecal incontinence. She is uncomfortable. Yesterday she was within normal limits per her baseline per Sonali: She has been having increased pain overnight, and is requesting her morphine is scheduled. She is unable to participate further today d/t acute conditions as above Assessment and Plan Assessment and plan (1) Methicillin susceptible Staphylococcus aureus infection: Status: Acute Assessment and plan: Continue cefazolin. End date for abx is planned to be 11/13/21 (4 weeks from 1st negative blood culture). (2) Abdominal pain: Status: Acute Assessment and plan: continue fentanyl 75mcg morphine 15 mg PO q4h PRN, pt request scheduled for overnight pain recommend add morphine 15mg QHS (3) Decreased oral intake: Status: Acute Assessment and plan: had been improving, acutely ill today, continue to monitor (4) Uncontrolled pain: Status: Acute Assessment and plan: as above (5) Pancreas cancer: Status: Acute Assessment and plan: f/b Dr. [place] next chemo scheduled 11/16/21, pending infection cleared (6) Vomiting: Status: Resolved Assessment and plan: PRN antiemetics available, nurses provided (7) Palliative care encounter: Status: Acute Assessment and plan: PC to check in later this week as avaible and needed Review of Systems Narrative: as per HPI PFSH All Active Problems Discharge planning issues (Acute) DVT prophylaxis (Acute) Epigastric pain (Acute) Hypokalemia (Acute) Methicillin susceptible Staphylococcus aureus infection (Acute) E. coli UTI (Acute) Gram-positive bacteremia (Acute) Abdominal pain (Acute) Type of kidney inflammation (Acute) Palliative care encounter (Acute) Decreased oral intake (Acute) Advance care planning (Acute) DNR (do not resuscitate) (Acute) Uncontrolled pain (Acute) Stomatitis (Acute) Myoclonic jerking (Acute) Candidal skin infection (Acute) No contraindication to deep vein thrombosis (DVT) prophylaxis (Acute) Hypertension (Chronic) Pancreas cancer (Acute) Atypical chest pain (Acute) Acute hypokalemia (Acute) Hypomagnesemia (Acute) Social History Smoking/Tobacco Use Status: Never Smoking risk assessment performed?: Yes Alcohol Intake: never Drug use: Never Substance use type: does not use Do you feel safe at home: Yes Do you feel safe in your relationship?: Yes Exam Narrative Exam Narrative: sitting upright in bed, leaning forward, diaphoretic, pale, vomit bag in hand w/fluid fecal matter noted in clothes and on toilet normal respiratory effort; able to speak full sentences Results Last Vital Signs Temp 97.7 F 10/27/22 15:34 Pulse 75 10/27/22 15:34 Resp 13 10/27/22 15:34 BP 110/64 10/27/22 15:34 Labs Result diagrams: 10/27/22 16:30 Labs: Laboratory Results - last 24 hr 10/27/22 10/27/22 16:30 16:30 VBG Lactate 1.5 H Sodium 135 L Potassium 4.0 Chloride 97 L Carbon Dioxide 30.7 Anion Gap 7.3 BUN 30 H Creatinine 1.9 H Est GFR (CKD-EPI 2020) 29.49 Glucose 115 H Calcium 8.8
[2022-10-27] MEDS: Budesonide/Formoterol 160/4.5 6 GM 60 PUFF INH IH (19:56)
[2022-10-27] MEDS: Pantoprazole 40 MG TABCR PO (20:18)
[2022-10-27] MEDS: Magnesium Oxide 400 MG TAB 800 MG PO (20:18)
[2022-10-27] MEDS: Enoxaparin 40 MG/0.4 ML SYR SC (20:19)
[2022-10-28] VITALS (75 sets, daily range): BP systolic 127–196; BP diastolic 76–104; PULSE 66–108; RESP 7–24; TEMP 36.3–37; O2SAT 92–98
--- NOTE | 2022-10-28 | DI.RAD_ITS ---
Exam(s) XR PORTABLE CHEST AP EXAM: XR PORTABLE CHEST AP CLINICAL HISTORY: lactic acidosis. TECHNIQUE: 2D digital imaging was performed. COMPARISON: CR XR PORTABLE CHEST AP from 10/15/2022 FINDINGS: Single AP portable view. Heart size is upper normal. The mediastinum is not widened. Lungs are clear. No infiltrates nor obvious pleural effusions. Previously present right-sided Port-A-Cath has been removed. There is no pneumothorax. IMPRESSION: No acute pulmonary findings on this single AP portable view of the chest. Previously present right-sided Port-A-Cath has been removed. DATA REPOSITORY: RADIATION DOSE DELIVERED:
[2022-10-28] MEDS: ceFAZolin 2 GM/50 ML BAG IV ×3 (00:57→15:46)
[2022-10-28] MEDS: Losartan 50 MG TAB 100 MG PO ×2 (04:13→09:13)
[2022-10-28] MEDS: MORPHine 2 MG/ML SYR IVP ×3 (04:47→20:03)
[2022-10-28] MEDS: Normal Saline Flush 10 ML SYR IVP (04:48)
[2022-10-28] MEDS: Acetaminophen 500 MG TAB 1000 MG PO ×3 (06:17→21:35)
[2022-10-28 07:34] LABS: Abs Immature Grans 0.07 10^3/uL (0.0-0.06); Absolute Eosinophil Count 0.03 10^3/uL (0.0-0.7); Absolute Monocyte Count 1.07 10^3/uL (0.1-0.8); Absolute Neutrophil Count 10.67 10^3/uL (1.2-6.7); Basophils % 0.2; Eosinophils % 0.2; HCT 36.5 % (36.0-46.0); HGB 11.5 g/dL (11.2-15.7); Immature Grans % 0.5; MCH 29.9 pg (27.0-33.0); MCHC 31.5 % (32.0-36.0); MCV 95 fL (80-95); MPV 9.5 fL (8.0-11.0); Neutrophils % 80.1; Platelet Count 268 10^3/uL (130-400); RBC 3.85 10^6/uL (3.93-5.22); RDW 13.4 % (11.7-14.6); RDW-SD 46.3 fL; WBC 13.32 10^3/uL (4.4-10.8)
[2022-10-28 07:39] LABS: Absolute Basophil Count 0.03 10^3/uL (0.0-0.2); Absolute Lymphocyte Count 1.47 10^3/uL (1.2-3.4)
[2022-10-28 07:50] LABS: Anion Gap 8.7 mmol/L (3-11); BUN 31 mg/dL (7-18); CO2 28.3 mmol/L (21.0-32.0); CREATININE 1.2 mg/dL (0.55-1.02); Calcium 8.9 mg/dL (8.5-10.1); Chloride 97 mmol/L (98-107); Estimated GFR 51.18 (mL/min/1.73m2); Glucose 99 mg/dL (74-106); Potassium 3.5 mmol/L (3.5-5.1); Sodium 134 mmol/L (136-145)
[2022-10-28] MEDS: Budesonide/Formoterol 160/4.5 6 GM 60 PUFF INH IH ×2 (08:03→21:36)
[2022-10-28] MEDS: Venlafaxine 150 MG CAPCR PO (09:12)
[2022-10-28] MEDS: Magnesium Oxide 400 MG TAB 800 MG PO ×2 (09:12→20:03)
[2022-10-28] MEDS: Pantoprazole 40 MG TABCR PO ×2 (09:13→20:03)
[2022-10-28] MEDS: Dexamethasone 4 MG TAB PO (09:13)
--- NOTE | 2022-10-28 09:23 | CMPROGNOTE_ITS ---
- If Service Date Differs Date of service: 10/28/22 Time of Service: 09:23 Care Management Progress Note S/O: Sonali was transferred to the ICU 10/28/22 for close monitoring and treatment. She is sitting up in her chair when CM met with her, she is drowsy and closes her eyes during this interaction. Anticipate, Sonali may transition back to SWB1 status tomorrow if medically able. CM will follow. A: 61 year old female admitted to [facility] 10/07/22 for Hypokalemia, Vomiting P: Sonali currently requires close monitoring and treatment in the ICU. Anticipate, pt will transition back to SWB1 status when medically ready to complete course of IV ABX, through 11/13/22.
--- NOTE | 2022-10-28 11:35 | CHAPLAIN ---
Sonali appeared to be resting comfortably. I spoke quietly to her. She opened her eyes at one point. I will continue to visit.
[2022-10-28] MEDS: Dexamethasone 1 MG TAB 2 MG PO (12:19)
--- NOTE | 2022-10-28 17:54 | W.PM.PROGNOT ---
Date of Service Date of service: 10/28/22 Time of Service: 18:01 Assessment and Plan Assessment and plan (1) Methicillin susceptible Staphylococcus aureus infection: Status: Acute Assessment and plan: Bacteremia with source felt to be the infusaport, removed on 10/16/22. Repeat blood cultures negative; final Blood cultures on 10/27; negative x 24H. Continue cefazolin. End date for abx is planned to be 11/13/21 (4 weeks from 1st negative blood culture). Has a midline. The patient would like to complete her abx in the hospital (now in swing bed) (2) Pancreas cancer: Status: Acute Assessment and plan: Continue fentanyl patch increasing to 75 mcg based on prn usage, morphine IR prn. IS. Followed by palliative care. S/p removal of infusaport s/t bacteremia Chemotherapy on hold in light of acute infection. case discussed with her oncologist, DR Harrington, who has been updated on hospital course and plan for antibiotics til Nov 13. His plan is to infusion her chemo on Nov 13 through midline after we discharge her, then arrange for outpatient infusaport placement after. will notify him of any changes in patient condition or plan. She will be discharged from here with her midline intact. (3) Hypokalemia: Status: Acute Assessment and plan: Currently 3.5 Monitor.. (4) Epigastric pain: Status: Acute Assessment and plan: As above, Additionally, she had pain and emesis yesterday. Her lactate and creatinine were elevated. CXR and UA negative. Transferred to the ICU. No change made in antibiotic coverage. Doing well today. Lactate now nearly normal at 1.5. Creatinine much improved. CT abd/pelvis done w/o contrast d/t acute BARRY so not optimal study to assess for abscess/phlegmon. There was peripancreatic streaking so likely acute pancreatitis flare. (5) Advance care planning: Status: Acute Assessment and plan: Palliative care has been consulted and is following and having ongoing discussions regarding goals of care. (6) DVT prophylaxis: Status: Acute Assessment and plan: SC enoxaparin (7) Discharge planning issues: Status: Acute Assessment and plan: DNR/DNI Anticipate 4 week so fo IV cefazolin. End date 11/13/21. she will remain here on snf level of care for remainder of course. Subjective Subjective Patient reports: no new complaints, tolerating a regular diet (poor appetite.) and vomiting (one episode this am; gag reflex with drink of water. ); denies blood in stool or nausea Interval history since last seen: She stated today Exam Narrative Exam Narrative: Sitting up in bed. States she is feeling better than yesterday. Const General: cooperative Nutritional Appearance: obese Orientation: alert, oriented to person and oriented to place Eyes General: appearance normal, both eyes and all related structures Sclera: sclerae normal Resp Effort & Inspection: normal respiratory effort Auscultation: clear to auscultation bilaterally Cardio Rate: regular rate Rhythm: regular rhythm Heart Sounds: S1 normal and S2 normal GI Inspection: non-distended Palpation: soft and nontender Neuro General: no focal motor deficits Cranial Nerves: facial strength normal Speech: speech normal Extrem General: no calf tenderness Objective Last Vital Signs Temp 36.3 C L 10/28/22 10:48 Pulse 75 10/28/22 15:01 Resp 9 L 10/28/22 15:01 BP 162/94 H 10/28/22 15:01 Pulse Ox 95 10/28/22 15:01 Laboratory Results - last 24 hr 10/28/22 10/28/22 07:16 07:16 WBC 13.32 H RBC 3.85 L Hgb 11.5 Hct 36.5 MCV 95 D MCH 29.9 MCHC 31.5 L RDW 13.4 Plt Count 268 MPV 9.5 Immature Gran % 0.5 Neutrophils % 80.1 Lymphocytes % 11.0 Monocytes % 8.0 Eosinophils % 0.2 Basophils % 0.2 Nucleated RBC % 0.0 Absolute Neutrophils 10.67 H Absolute Lymphocytes 1.47 Absolute Monocytes 1.07 H Absolute Eosinophils 0.03 Absolute Basophils 0.03 Sodium 134 L Potassium 3.5 Chloride 97 L Carbon Dioxide 28.3 Anion Gap 8.7 BUN 31 H Creatinine 1.2 H Est GFR (CKD-EPI 2020) 51.18 Glucose 99 Calcium 8.9
[2022-10-28 18:30] LABS: Bilirubin Negative (Negative); Blood Moderate (Negative); Clarity Sl Cloudy (Clear); Glucose Negative (Negative); Ketones Negative (Negative); Leukocyte Esterase Negative (Negative); Nitrite Negative (Negative); Urobilinogen 0.2 EU/dL (Up TO 0.2)
[2022-10-28 18:45] LABS: Bacteria Moderate HPF (Negative); C & S Indicated? Yes; Crystals Few Amorphous HPF (Negative); Epithelial Cells Few HPF (Negative); Mucus Negative (Negative)
[2022-10-28] MEDS: Enoxaparin 40 MG/0.4 ML SYR SC (20:03)
[2022-10-28] MEDS: amLODIPine 2.5 MG TAB PO (21:36)
[2022-10-29] VITALS (14 sets, daily range): BP systolic 141–190; BP diastolic 90–117; PULSE 74–89; RESP 10–20; TEMP 35.6–37.1; O2SAT 94–100
[2022-10-29] MEDS: ceFAZolin 2 GM/50 ML BAG IV ×4 (00:30→23:28)
[2022-10-29] MEDS: Metoprolol 5 MG/5 ML VIAL 2.5 MG IVP (00:37)
[2022-10-29] MEDS: Normal Saline Flush 10 ML SYR IVP ×3 (01:03→15:36)
[2022-10-29] MEDS: MORPHine 2 MG/ML SYR IVP ×3 (01:03→11:20)
[2022-10-29] MEDS: Acetaminophen 500 MG TAB 1000 MG PO ×3 (04:31→21:34)
[2022-10-29 06:25] LABS: Abs Immature Grans 0.06 10^3/uL (0.0-0.06); Absolute Basophil Count 0.01 10^3/uL (0.0-0.2); Absolute Eosinophil Count 0.04 10^3/uL (0.0-0.7); Absolute Lymphocyte Count 0.85 10^3/uL (1.2-3.4); Absolute Monocyte Count 0.85 10^3/uL (0.1-0.8); Absolute Neutrophil Count 9.38 10^3/uL (1.2-6.7); Basophils % 0.1; Eosinophils % 0.4; HCT 33.6 % (36.0-46.0); HGB 11.1 g/dL (11.2-15.7); Immature Grans % 0.5; Lymphocytes % 7.6; MCH 30.7 pg (27.0-33.0); MCV 93 fL (80-95); MPV 9.6 fL (8.0-11.0); Monocytes % 7.6; Neutrophils % 83.8; Platelet Count 282 10^3/uL (130-400); RBC 3.61 10^6/uL (3.93-5.22); RDW 13.1 % (11.7-14.6); RDW-SD 44.7 fL; WBC 11.19 10^3/uL (4.4-10.8)
[2022-10-29 06:37] LABS: Anion Gap 9.5 mmol/L (3-11); BUN 20 mg/dL (7-18); CO2 27.5 mmol/L (21.0-32.0); CREATININE 0.8 mg/dL (0.55-1.02); Calcium 9.1 mg/dL (8.5-10.1); Chloride 97 mmol/L (98-107); Estimated GFR 83.26 (mL/min/1.73m2); Glucose 104 mg/dL (74-106); Potassium 3.3 mmol/L (3.5-5.1); Sodium 134 mmol/L (136-145)
[2022-10-29] MEDS: Budesonide/Formoterol 160/4.5 6 GM 60 PUFF INH IH (07:53)
[2022-10-29] MEDS: Pantoprazole 40 MG TABCR PO ×2 (07:59→21:35)
[2022-10-29] MEDS: Venlafaxine 150 MG CAPCR PO (07:59)
[2022-10-29] MEDS: Losartan 50 MG TAB 100 MG PO (07:59)
[2022-10-29] MEDS: buPROPion-CR 150 MG TABCR PO ×2 (07:59→21:35)
[2022-10-29] MEDS: Calcium Carbonate 1.25 GM TAB PO (08:00)
[2022-10-29] MEDS: Magnesium Oxide 400 MG TAB 800 MG PO ×2 (08:00→21:35)
[2022-10-29] MEDS: Dexamethasone 4 MG TAB PO (08:00)
--- NOTE | 2022-10-29 08:22 | PDOC.CMPRO ---
- If Service Date Differs Date of service: 10/29/22 Time of Service: 08:22 Care Management Progress Note S/O: Sonali was transferred out of the ICU today. Clinically she has improved. Her WBC has come down to 11.19 and her creatinine has returned to normal. She is receiving PRN as well as scheduled morphine for pain and appears comfortable. When CM came to see Sonali she was sound asleep. Her friend that was visiting asked that she not be woken. Sonali pulled out her midline catheter today and declined to have it reinserted today. She has a working peripheral IV so her antibiotic administration will not be interrupted.It is likely that she will transition back to SB-1 soon to complete her antibiotic therapy. A: 61 year old female admitted to [facility] 10/07/22 for Hypokalemia, Vomiting P: Sonali was transferred out of ICU back to Med-surg today. She will likely transition back to SB-1 soon to complete her course of IV antibiotics. CM will continue to offer support to Sonali and assess for discharge needs.
[2022-10-29] MEDS: POTASSIUM CHLORIDE 10 MEQ/100 ML BAG 100 MEQ IVPB (10:23)
[2022-10-29] MEDS: Montelukast 10 MG TAB PO (10:23)
[2022-10-29] MEDS: Loperamide 2 MG CAP PO (11:13)
[2022-10-29] MEDS: Dexamethasone 1 MG TAB 2 MG PO (12:13)
[2022-10-29] MEDS: fentaNYL 100 MCG PATCH TD (13:24)
--- NOTE | 2022-10-29 15:23 | PGE_ITS ---
Date of Service Date of service: 10/29/22 Time of Service: 15:23 Assessment and Plan Assessment and plan (1) Methicillin susceptible Staphylococcus aureus infection: Status: Acute Assessment and plan: Bacteremia with source felt to be the infusaport, removed on 10/16/22. Repeat blood cultures negative; final Blood cultures on 10/27; negative x 24H. Continue cefazolin. End date for abx is planned to be 11/13/21 (4 weeks from 1st negative blood culture). Has a midline. The patient would like to complete her abx in the hospital (now in swing bed) Note: pt pulled out midline today 10/29. Anesthesia consulted and planned to replace the midline but patient stated she did not feel up to it and would prefer to wait until tomorrow, 10/30, for it to be placed. She does have a peripheral IV that is adequate for administrating antibiotic temporarily. (2) Pancreas cancer: Status: Acute Assessment and plan: Continue fentanyl patch increasing to 100 mcg based on prn usage, morphine IR prn. IS. Followed by palliative care. S/p removal of infusaport s/t bacteremia Chemotherapy on hold in light of acute infection. Her oncologist, DR Harrington, who has been updated on hospital course and plan for antibiotics til Nov 13. His plan is to infusion her chemo on Nov 13 through midline after we discharge her, then arrange for outpatient infusaport placement after. will notify him of any changes in patient condition or plan. She will be discharged from here with her midline intact. (3) Hypokalemia: Status: Acute Assessment and plan: Currently 3.3 Replete with oral K Monitor.. (4) Epigastric pain: Status: Acute Assessment and plan: As above, Additionally, she had pain and emesis on 10/28. Her lactate and creatinine were elevated. CXR and UA negative. Transferred to the ICU. No change made in antibiotic coverage. Lactate now nearly normal at 1.5. Creatinine much improved CT abd/pelvis done w/o contrast d/t acute BARRY so not optimal study to assess for abscess/phlegmon. There was peripancreatic streaking so likely acute pancreatitis flare. Has now recovered and moved back to med-surg status. (5) Advance care planning: Status: Acute Assessment and plan: Palliative care has been consulted and is following and having ongoing discussions regarding goals of care. (6) DVT prophylaxis: Status: Acute Assessment and plan: SC enoxaparin (7) Discharge planning issues: Status: Acute Assessment and plan: DNR/DNI Anticipate 4 week so fo IV cefazolin. End date 11/13/21. Subjective Subjective Patient reports: no new complaints, feels better, tolerating a regular diet (Not eating each meal.) and afebrile; denies blood in stool, nausea, vomiting or shortness of breath Exam Narrative Exam Narrative: Lying in bed. States she is feeling OK. Const General: cooperative Nutritional Appearance: obese Orientation: alert, oriented to person and oriented to place Eyes General: appearance normal, both eyes and all related structures Sclera: sclerae normal Resp Effort & Inspection: normal respiratory effort Auscultation: clear to auscultation bilaterally Cardio Rate: regular rate Rhythm: regular rhythm Heart Sounds: S1 normal and S2 normal GI Inspection: non-distended Palpation: soft and nontender Neuro General: no focal motor deficits Cranial Nerves: facial strength normal Speech: speech normal Extrem General: no calf tenderness Psych Speech and Movement: speech clear Affect: normal affect Attitude: cooperative Objective Last Vital Signs Temp 37.1 C 10/29/22 08:10 Pulse 82 10/29/22 10:01 Resp 12 10/29/22 10:01 BP 164/94 H 10/29/22 10:01 Pulse Ox 95 10/29/22 10:01 Laboratory Results - last 24 hr 10/28/22 10/29/22 10/29/22 18:14 05:28 05:28 WBC 11.19 H RBC 3.61 L Hgb 11.1 L Hct 33.6 L MCV 93 MCH 30.7 MCHC 33.0 RDW 13.1 Plt Count 282 MPV 9.6 Immature Gran % 0.5 Neutrophils % 83.8 Lymphocytes % 7.6 Monocytes % 7.6 Eosinophils % 0.4 Basophils % 0.1 Nucleated RBC % 0.0 Absolute Neutrophils 9.38 H Absolute Lymphocytes 0.85 L Absolute Monocytes 0.85 H Absolute Eosinophils 0.04 Absolute Basophils 0.01 Sodium 134 L Potassium 3.3 L Chloride 97 L Carbon Dioxide 27.5 Anion Gap 9.5 BUN 20 H Creatinine 0.8 Est GFR (CKD-EPI 2020) 83.26 Glucose 104 Calcium 9.1 Urine Color Yellow Urine Clarity Sl Cloudy Urine pH 7.0 Ur Specific [place] 1.020 Urine Protein 100 H Urine Ketones Negative Urine Blood Moderate H Urine Nitrite Negative Urine Bilirubin Negative Urine Urobilinogen 0.2 Ur Leukocyte Esterase Negative Urine RBC 10-20 H Urine WBC 5-10 Ur Epithelial Cells Few Urine Crystals Few Amorphous Urine Bacteria Moderate Urine Mucus Negative Ur Culture Indicated? Yes Urine Glucose Negative
[2022-10-29] MEDS: Potassium Chloride 20 MEQ TABCR PO ×2 (16:33→21:35)
[2022-10-29] MEDS: Enoxaparin 40 MG/0.4 ML SYR SC (21:33)
[2022-10-29] MEDS: amLODIPine 5 MG TAB PO (21:35)
[2022-10-30 03:29] VITALS: BP 140/80; PULSE 80; RESP 20; TEMP 36.8; O2SAT 98
[2022-10-30] MEDS: Acetaminophen 500 MG TAB 1000 MG PO ×2 (06:12→13:26)
[2022-10-30 06:20] LABS: Abs Immature Grans 0.06 10^3/uL (0.0-0.06); Absolute Basophil Count 0.01 10^3/uL (0.0-0.2); Absolute Eosinophil Count 0.03 10^3/uL (0.0-0.7); Absolute Lymphocyte Count 0.73 10^3/uL (1.2-3.4); Absolute Monocyte Count 0.91 10^3/uL (0.1-0.8); Absolute Neutrophil Count 8.41 10^3/uL (1.2-6.7); Basophils % 0.1; Eosinophils % 0.3; HGB 11.5 g/dL (11.2-15.7); Immature Grans % 0.6; Lymphocytes % 7.2; MCH 29.8 pg (27.0-33.0); MCHC 31.1 % (32.0-36.0); MCV 96 fL (80-95); MPV 9.5 fL (8.0-11.0); Neutrophils % 82.8; Platelet Count 312 10^3/uL (130-400); RBC 3.86 10^6/uL (3.93-5.22); RDW 13.4 % (11.7-14.6); RDW-SD 46.6 fL; WBC 10.15 10^3/uL (4.4-10.8)
[2022-10-30 06:37] LABS: ALT 10 U/L (14-59); AST 18 U/L (15-37); Albumin 2.6 g/dL (3.4-5.0); Alkaline Phosphatase 110 U/L (46-116); Anion Gap 6.9 mmol/L (3-11); BUN 27 mg/dL (7-18); Bilirubin, Total 0.2 mg/dL (0.2-1.0); CO2 27.1 mmol/L (21.0-32.0); Calcium 9.8 mg/dL (8.5-10.1); Chloride 98 mmol/L (98-107); Glucose 120 mg/dL (74-106); Potassium 4.8 mmol/L (3.5-5.1); Sodium 132 mmol/L (136-145); Total Protein 6.8 g/dL (6.4-8.2)
[2022-10-30 06:46] VITALS: BP 128/84; PULSE 79; RESP 17; TEMP 36.3; O2SAT 96
[2022-10-30] MEDS: Budesonide/Formoterol 160/4.5 6 GM 60 PUFF INH IH (07:27)
[2022-10-30] MEDS: Potassium Chloride 20 MEQ TABCR PO (07:39)
[2022-10-30] MEDS: Dexamethasone 4 MG TAB PO (07:39)
[2022-10-30] MEDS: Magnesium Oxide 400 MG TAB 800 MG PO (07:39)
[2022-10-30] MEDS: Montelukast 10 MG TAB PO (07:39)
[2022-10-30] MEDS: Pantoprazole 40 MG TABCR PO (07:39)
[2022-10-30] MEDS: buPROPion-CR 150 MG TABCR PO (07:39)
[2022-10-30] MEDS: Venlafaxine 150 MG CAPCR PO (07:39)
[2022-10-30] MEDS: Calcium Carbonate 1.25 GM TAB PO (07:39)
[2022-10-30] MEDS: Losartan 50 MG TAB 100 MG PO (07:39)
[2022-10-30] MEDS: ceFAZolin 2 GM/50 ML BAG IV (07:40)
[2022-10-30] MEDS: Normal Saline Flush 10 ML SYR IVP (07:40)
--- NOTE | 2022-10-30 09:51 | PDOC.CMPRO ---
- If Service Date Differs Date of service: 10/30/22 Time of Service: 09:51 Care Management Progress Note S/O: Sonali transitioned to SWB1 today, while completing her course of IV abx course. A: 61 year old female admitted to [facility] 10/07/22 for Hypokalemia, Vomiting P: Sonali was transferred out of ICU back to Med-surg today. She will likely transition back to SB-1 soon to complete her course of IV antibiotics. will continue to offer support to Sonali and assess for discharge needs.
[2022-10-30 11:12] VITALS: BP 118/83; PULSE 83; RESP 18; TEMP 36.5; O2SAT 94
--- NOTE | 2022-10-30 12:07 | DSE_ITS ---
Date of service: 10/30/22 Time of Service: 12:08 DS: Diagnosis Discharge Diagnosis (1) Methicillin susceptible Staphylococcus aureus infection: Status: Acute (2) Pancreas cancer: Status: Acute (3) Hypokalemia: Status: Acute (4) Epigastric pain: Status: Acute (5) Advance care planning: Status: Acute Discharge Plan Disposition Patient Disposition: Swing Bed(Skilled,SB1) Condition: Stable Discharge Details Reason For Visit: Sepsis Admit Date/Time: 10/27/22 13:52 Admit Provider: Monty Godoy Attending Provider: Monty Godoy Primary Care Provider: Cely Soni Hospital Course Hospital Course: This is a 62-year-old female patient with a complex medical history including pancreatic cancer who is currently undergoing treatment through [facility] oncology clinic developed MSSA bacteremia had her Mediport removed. She has been on cefazolin which she is to receive through November 13 when plan is to discharge her to an oncology appointment where she is to receive her next round of chemotherapy. She will have completed her 6-week course of antibiotics to treat her bacteremia. She was here on swing bed status for her IV antibiotics when she developed a fever increased confusion and signs of sepsis. She was discharged from swing bed and admitted to the intensive care unit for further management. Her blood cultures have been negative there were no change in her antibiotics. She received IV fluids and septic work-up including chest x-ray UA CT of the abdomen and pelvis were done without contrast secondary to acute kidney injury. Her Noncon CT was suspicious for an acute pancreatitis flare. She remained n.p.o. and responded to fluid resuscitation. She is now stating that she feels much improved her lactic acid normalizing vital signs stable she has been afebrile safe for discharge back to swing bed status to complete her course of antibiotics as previously planned. Home Meds and New Rx's Prescriptions: No Action losartan 50 mg Tablet 50 mg PO DAILY bupropion HCl 150 mg Tablet Sustained-Release 12 Hr 150 mg PO BID diphenoxylate-atropine 2.5-0.025 mg Tablet 1 - 2 tab PO DAILY PRN ondansetron 8 mg Tablet,Disintegrating 8 mg PO Q8H PRN fluticasone propion-salmeterol [Advair Diskus] 500-50 mcg/dose Blister With Device 1 inh INHALATION BID montelukast [Singulair] 10 mg Tablet 10 mg PO DAILY hydrochlorothiazide 12.5 mg Tablet 12.5 mg PO DAILY omeprazole 20 mg Tablet,Delayed Release (Dr/Ec) 20 mg PO BID venlafaxine 150 mg Tablet Extended Release 24hr 150 mg PO DAILY potassium chloride 20 mEq Tablet Extended Release 20 meq PO BID hydromorphone 4 mg tablet 4 - 8 mg PO Q4H PRN PRN (Reason: Pain) fentanyl 25 mcg/hr patch 72 hour See Rx Instructions .ROUTE .COMPLEX Label Comments: Apply 1 patch to skin every three days apply to area of upper arm, change every 3 days, use dilauded for breakthru pain Rx Instructions: patient is now on 75mcg dexamethasone 2 mg tablet See Rx Instructions .ROUTE .COMPLEX Label Comments: TAKE 2 TABLETS BY MOUTH EVERY MORNING AND 1 TAB IN EARLY AFTERNOON, TAKE WITH FOOD Rx Instructions: TAKE 2 TABLETS (4mg) BY MOUTH EVERY MORNING AND 1 TAB (2mg) IN EARLY AFTERNOON, TAKE WITH FOOD nystatin 100,000 unit/gram powder 2 pwd TOPICAL TID PRN PRN calcium carbonate [Tums 500] 500 mg calcium (1,250 mg) Tablet,Chewable 500 mg PO DAILY Discharge Instructions Instructions: Sepsis (DC) Activity:: Activity as Tolerated Equipment/Supplies:: No Equipment Needed Diet:: As Tolerated Discharge Orders Discharge Orders: Discharge Order (Routine); Ordered 10/30/22 Ordered By: Yvonne Condon DS: Summary Time Spent with Patient providing and/or coordinating discharge services: Greater than 30 minutes Status at Discharge Functional status at discharge: independent ambulation Overall status at discharge: patient is progressing back to baseline Mental Status: mental status grossly normal Speech and Movement: speech clear Mood: congruent mood Affect: normal affect Exam Narrative Exam Narrative: Lying in bed. States she is feeling OK. Const General: cooperative Orientation: alert, oriented to person and oriented to place Eyes General: appearance normal, both eyes and all related structures Sclera: sclerae normal Resp Effort & Inspection: normal respiratory effort Auscultation: clear to auscultation bilaterally Cardio Rate: regular rate Rhythm: regular rhythm GI Inspection: non-distended Palpation: soft and nontender Neuro General: no focal motor deficits Cranial Nerves: facial strength normal Speech: speech normal Extrem General: no calf tenderness Psych Mental Status: mental status grossly normal Speech and Movement: speech clear Mood: congruent mood Affect: normal affect Attitude: cooperative DS: Data Vitals/I&O Vitals and I&O: Vital Signs Temperature 36.5 C 10/30/22 11:12 Temperature Source Tympanic 10/30/22 11:12 Pulse 83 10/30/22 11:12 Pulse Rhythm Regular 10/30/22 07:15 Pulse 81 10/29/22 10:01 Respiratory Rate 18 10/30/22 11:12 Respiratory Effort Non-Labored 10/30/22 07:15 Respiratory Depth Normal 10/30/22 07:15 Respiratory Pattern Normal 10/30/22 07:15 Blood Pressure 118/83 10/30/22 11:12 Blood Pressure Mean 113 10/29/22 10:01 Blood Pressure Position Supine 10/29/22 06:33 Pulse Oximetry 94 10/30/22 11:12 Oxygen Delivery Method Room Air 10/30/22 11:12 Oxygen Flow Rate 0 10/30/22 11:12 Pain Level 3 10/30/22 11:12 Intake & Output 10/29/22 10/30/22 10/30/22 23:59 11:59 23:59 Intake Total 330 / 630 10 / 10 Output Total 300 / 450 200 / 200 Balance 30 / 180 -190 / -190 Weight 77.8 kg Intake: IV 210 / 310 10 / 10 Oral 120 / 320 Output: Urine 300 / 450 200 / 200 Other: Urine Color Yellow Yellow Urine Appearance Clear Clear Voiding Methods Bedside Commode Bedside Commode Data Completed and Pending Labs on day of discharge: Labs from last 24 hours 10/30/22 10/30/22 06:02 06:02 WBC 10.15 RBC 3.86 L Hgb 11.5 Hct 37.0 MCV 96 H MCH 29.8 MCHC 31.1 L RDW 13.4 Plt Count 312 MPV 9.5 Immature Gran % 0.6 Neutrophils % 82.8 Lymphocytes % 7.2 Monocytes % 9.0 Eosinophils % 0.3 Basophils % 0.1 Nucleated RBC % 0.0 Absolute Neutrophils 8.41 H Absolute Lymphocytes 0.73 L Absolute Monocytes 0.91 H Absolute Eosinophils 0.03 Absolute Basophils 0.01 Sodium 132 L Potassium 4.8 D Chloride 98 Carbon Dioxide 27.1 Anion Gap 6.9 BUN 27 H Creatinine 1.0 Est GFR (CKD-EPI 2020) 63.70 Glucose 120 H Calcium 9.8 Total Bilirubin 0.2 AST 18 ALT 10 L Alkaline Phosphatase 110 Total Protein 6.8 Albumin 2.6 L PFSH All Active Problems Discharge planning issues (Acute) DVT prophylaxis (Acute) Epigastric pain (Acute) Hypokalemia (Acute) Methicillin susceptible Staphylococcus aureus infection (Acute) E. coli UTI (Acute) Gram-positive bacteremia (Acute) Abdominal pain (Acute) Type of kidney inflammation (Acute) Palliative care encounter (Acute) Decreased oral intake (Acute) Advance care planning (Acute) DNR (do not resuscitate) (Acute) Uncontrolled pain (Acute) Stomatitis (Acute) Myoclonic jerking (Acute) Candidal skin infection (Acute) No contraindication to deep vein thrombosis (DVT) prophylaxis (Acute) Hypertension (Chronic) Pancreas cancer (Acute) Atypical chest pain (Acute) Acute hypokalemia (Acute) Hypomagnesemia (Acute) Social History Smoking/Tobacco Use Status: Never Smoking risk assessment performed?: Yes Alcohol Intake: never Drug use: Never Substance use type: does not use Do you feel safe at home: Yes Do you feel safe in your relationship?: Yes
[2022-10-30] MEDS: Dexamethasone 1 MG TAB 2 MG PO (13:26)
--- NOTE | 2022-10-30 14:04 | PDOC.ANES ---
Date of service: 10/30/22 Time of Service: 14:04 Anesthesia Note Report Anesthesia Note: Was requested to do a midline for Sonali. On discussion with her she is currently not interested in having a midline. Discussed risks, benefits, and alternatives (keeping her PIV). She is still not interested in having a midline placed today. She was encouraged to reach out to us if she changes her mind.
--- NOTE | 2022-10-30 14:08 | CHAPLAIN ---
Sonali was resting in bed when I visited. She said she's needing to make a decision about having a midline put in and wants to wait and talk with her sister, Jennifer. Sonali said she's feeling better and is very appreciative of the care she is receiving. I will continue to visit.
== END 2022-10-30 14:07 | disposition swing bed (61) | DRG 439 ==
LOC: MS 14:04 → ICU 16:14 → MS 10-29 11:48
PROVIDERS: Family Medicine; Admitting Provider Family Medicine; Visit Provider Family Medicine
DX: K85.90 Acute pancreatitis without necrosis or infection, unspecified (principal); C25.9 Malignant neoplasm of pancreas, unspecified; N17.9 Acute kidney failure, unspecified; R50.9 Fever, unspecified; E87.6 Hypokalemia; F43.10 Post-traumatic stress disorder, unspecified; F41.9 Anxiety disorder, unspecified; I10 Essential (primary) hypertension; K21.9 Gastro-esophageal reflux disease without esophagitis; Z66 Do not resuscitate; E83.42 Hypomagnesemia; G89.3 Neoplasm related pain (acute) (chronic); B95.61 Methicillin susceptible Staphylococcus aureus infection as the cause of diseases classified elsewhere
CPT/HCPCS: 36415; 80048; 80053; 94640; 99232; J1650; 71045; 81003; 81015; 83605; 85025; 87086; 99239; J0690; J2270; J3480; J8540

== ENCOUNTER 2022-10-30 12:19 | Inpatient (IN) | payer MEDICARE, MEDICAID, SELFPAY ==
--- NOTE | 2022-10-30 12:00 | CMSA_ITS ---
- If Service Date Differs Date of service: 10/30/22 Time of Service: 12:00 SB Psychosocial/Act.Assessment - Hospital Admission Admission Date: 10/30/22 Admission From:: [facility] Inpatient Diagnosis:: MSSA Bacteremia - Swing Bed Admission Swing Bed Admit Date:: 10/30/22 Swing Bed Level of Care: Level 1/SNF - Social Supports PREVIOUS FUNCTIONAL STATUS/SOCIAL/FAMILY SUPPORTS:: Sonali resides with her daughter, son-in-law and grandson. Her sister Jennifer Bartlett ([phone]) is a primary support as well. Jennifer was diagnosed with a pancreatic cancer about 2 months ago and started her first round of chemotherapy 9 days ago. - Prior to Admission Living Arrangements/Environment Prior to Admission:: Sonali resides with her daughter, son-in-law and grandson in [place], her family is very supportive. Her sister Jennifer Bartlett ([phone]) is a primary support as well. Jennifer was diagnosed with a pancreatic cancer about 2 months ago and started her first round of chemotherapy 9 days ago. - Medical History PAST MEDICAL HISTORY/PAST SURGICAL HISTORY:: Pancreas cancer (Acute). Atypical chest pain (Acute). Acute hypokalemia (Acute). Hypomagnesemia (Acute). Vomiting (Acute). This 61-year-old female is here because of nausea and vomiting and abdominal pain. She was diagnosed with a pancreatic cancer about 2 months ago. She states that the current plan is to have chemotherapy and if the tumor responds and she may have surgery if it appears resectable at that time. She had her first round of chemotherapy 9 days ago. She says that she has been having nausea and vomiting abdominal pain since then. Other:: Sonali struggles with processing information and reports struggling with anxiety. She requests her sister, Jennifer to be informed of all treatment planning and involved in all decision-making. - Admission Data Reason for Swing Bed Admission:: IV ABX, PT Discharge Plan:: Home to Jennifer sandoval's with new home health and oncology follow up. Assessment: SB1 for IV ABX, PT Supply Chain Business Analyst: QUINTIN Date Assessment was completed:: 10/30/22
--- NOTE | 2022-10-30 12:00 | CM.SWINGPC ---
- If Service Date Differs Date of service: 10/30/22 Time of Service: 12:00 Swingbed Plan of Care Plan of care: SWING BED PROGRAM ACTIVITIES/DISCHARGE PLAN OF CARE ACTIVITIES PLAN Date: 10/30/22 Identified Need: Life enrichment during extended hospitalization Intervention/Plan: Activity Cart, visitors, patient tablet, etc. Initials DL DISCHARGE PLAN Date: 10/30/22 Identified Need: Methicillin susceptible Staphylococcus aureus infection, pain management, increased mobility. Intervention/Plan: IV ABX, PT: SWB1 until 11/13/21 anticipated at this time Initials DL
--- NOTE | 2022-10-30 12:28 | W.PM.HP.N ---
Date of service: 10/30/22 Time of Service: 12:28 Assessment and Plan Assessment and plan (1) Yeast UTI: Status: Acute Assessment and plan: based on history will treat with diflucan. (2) Methicillin susceptible Staphylococcus aureus infection: Status: Acute Assessment and plan: Bacteremia with source felt to be the infusaport, removed on 10/16/22. Repeat blood cultures negative; final Blood cultures on 10/27; negative x 24H. Continue cefazolin. End date for abx is planned to be 11/13/21 (4 weeks from 1st negative blood culture). Has a midline. The patient would like to complete her abx in the hospital (now in swing bed) Note: pt pulled out midline on 10/29. Anesthesia consulted and planned to replace the midline but patient stated she did not feel up to it and would prefer to wait until 10/30, for it to be placed. She does have a peripheral IV that is adequate for administrating antibiotic temporarily. (3) Pancreas cancer: Status: Acute Assessment and plan: Continue fentanyl patch increasing to 100 mcg based on prn usage, morphine IR prn. IS. Followed by palliative care. S/p removal of infusaport s/t bacteremia Chemotherapy on hold in light of acute infection. Her oncologist, DR Harrington, who has been updated on hospital course and plan for antibiotics til Nov 13. His plan is to infusion her chemo on Nov 13 through midline after we discharge her, then arrange for outpatient infusaport placement after. will notify him of any changes in patient condition or plan. She will be discharged from here with her midline intact. (4) Hypokalemia: Status: Acute Assessment and plan: Currently 4.8 Replete with oral K Monitor.. (5) Epigastric pain: Status: Acute Assessment and plan: peripancreatic streaking seen on CT likely acute pancreatitis flare. improved now. continue to monitor (6) Advance care planning: Status: Deleted Assessment and plan: Palliative care has been consulted and is following and having ongoing discussions regarding goals of care. (7) DVT prophylaxis: Status: Deleted Assessment and plan: SC enoxaparin (8) Discharge planning issues: Status: Deleted Assessment and plan: DNR/DNI Anticipate 4 week so fo IV cefazolin. End date 11/13/21. History of Present Illness Narrative: This is a 62-year-old female patient with a complex medical history including pancreatic cancer who is currently undergoing treatment through [facility] oncology clinic developed MSSA bacteremia had her Mediport removed.? She has been on cefazolin which she is to receive through November 13 when plan is to discharge her to an oncology appointment where she is to receive her next round of chemotherapy.? She will have completed her 6-week course of antibiotics to treat her bacteremia.? She was here on swing bed status for her IV antibiotics when she developed a fever increased confusion and signs of sepsis.? She was discharged from swing bed and admitted to the intensive care unit for further management.? Her blood cultures have been negative there were no change in her antibiotics.? She received IV fluids and septic work-up including chest x-ray UA CT of the abdomen and pelvis were done without contrast secondary to acute kidney injury.? Her Noncon CT was suspicious for an acute pancreatitis flare.? She remained n.p.o. and responded to fluid resuscitation.? She is now stating that she feels much improved her lactic acid normalizing vital signs stable she has been afebrile safe for discharge back to swing bed status to complete her course of antibiotics as previously planned. [facility] All Active Problems (Updated 11/02/22 @ 19:19 by Sunshien Morelos NP) Yeast UTI (Acute) Epigastric pain (Acute) Hypokalemia (Acute) Methicillin susceptible Staphylococcus aureus infection (Acute) E. coli UTI (Acute) Gram-positive bacteremia (Acute) Abdominal pain (Acute) Type of kidney inflammation (Acute) Palliative care encounter (Acute) Decreased oral intake (Acute) DNR (do not resuscitate) (Acute) Uncontrolled pain (Acute) Stomatitis (Acute) Candidal skin infection (Acute) No contraindication to deep vein thrombosis (DVT) prophylaxis (Acute) Hypertension (Chronic) Pancreas cancer (Acute) Acute hypokalemia (Acute) Hypomagnesemia (Acute) Social History Smoking/Tobacco Use Status: Never Smoking risk assessment performed?: Yes Alcohol Intake: never Drug use: Never Substance use type: does not use Do you feel safe at home: Yes Do you feel safe in your relationship?: Yes Meds Allergies and Home Medications Allergies Allergy/AdvReac Type Severity Reaction Status Date / Time aspirin Allergy Unverified 10/07/22 15:04 erythromycin base Allergy Unverified 10/07/22 15:04 Latex, Natural Rubber Allergy Unverified 10/07/22 15:04 meperidine [From Demerol] Allergy Unverified 10/07/22 15:04 Home Medications Medication Instructions Recorded Confirmed Type bupropion HCl 150 mg tablet,12 hr 150 mg PO BID 10/07/22 10/30/22 History sustained-release diphenoxylate-atropine 2.5 1 - 2 tab PO DAILY PRN 10/07/22 10/23/22 History mg-0.025 mg tablet fluticasone 500 mcg-salmeterol 50 1 inh inhalation BID 10/07/22 10/23/22 History mcg/dose blistr powdr for inhalation (Advair Diskus) hydrochlorothiazide 12.5 mg tablet 12.5 mg PO DAILY 10/07/22 10/23/22 History losartan 50 mg tablet 50 mg PO DAILY 10/07/22 10/30/22 History montelukast 10 mg tablet 10 mg PO DAILY 10/07/22 10/30/22 History (Singulair) omeprazole 20 mg tablet,delayed 20 mg PO BID 10/07/22 10/30/22 History release ondansetron 8 mg disintegrating 8 mg PO Q8H PRN 10/07/22 10/30/22 History tablet potassium chloride 20 mEq 20 meq PO BID 10/07/22 10/30/22 History tablet,extended release venlafaxine 150 mg tablet,extended 150 mg PO DAILY 10/07/22 10/30/22 History release 24 hr calcium carbonate 500 mg calcium 500 mg PO DAILY 10/08/22 10/30/22 History (1,250 mg) chewable tablet dexamethasone 2 mg tablet See Rx Instructions .Route .COMPLEX 10/08/22 10/30/22 History fentanyl 25 mcg/hr transdermal 100 patch transdermal Q3-4D 10/08/22 10/30/22 History patch hydromorphone 4 mg tablet 4 - 8 mg PO Q4H PRN PRN Pain 10/08/22 10/23/22 History nystatin 100,000 unit/gram topical 2 pwd topical TID PRN PRN 10/08/22 10/30/22 History powder Exam Narrative Exam Narrative: Lying in bed. States she is feeling OK. Const General: cooperative Orientation: alert, oriented to person and oriented to place Eyes General: appearance normal, both eyes and all related structures Sclera: sclerae normal Resp Effort & Inspection: normal respiratory effort Auscultation: clear to auscultation bilaterally Cardio Rate: regular rate Rhythm: regular rhythm GI Inspection: non-distended Palpation: soft and nontender Neuro General: no focal motor deficits Cranial Nerves: facial strength normal Speech: speech normal Extrem General: no calf tenderness Psych Mental Status: mental status grossly normal Speech and Movement: speech clear Mood: congruent mood Affect: normal affect Attitude: cooperative Results Labs Result diagrams: 11/04/22 08:08 11/04/22 08:08
[2022-10-30 15:16] VITALS: BP 133/84; PULSE 70; RESP 16; TEMP 36; O2SAT 95
[2022-10-30] MEDS: Fluconazole 100 MG TAB 400 MG PO (15:49)
[2022-10-30] MEDS: ceFAZolin 2 GM/50 ML BAG IV ×2 (15:49→23:58)
[2022-10-30] MEDS: Budesonide/Formoterol 160/4.5 6 GM 60 PUFF INH IH (19:56)
[2022-10-30] MEDS: buPROPion-CR 150 MG TABCR PO (19:56)
[2022-10-30] MEDS: Magnesium Oxide 400 MG TAB 800 MG PO (19:57)
[2022-10-30] MEDS: Enoxaparin 40 MG/0.4 ML SYR SC (19:57)
[2022-10-30] MEDS: Potassium Chloride 20 MEQ TABCR PO (19:58)
[2022-10-30] MEDS: Pantoprazole 40 MG TABCR PO (19:58)
[2022-10-30] MEDS: Acetaminophen 500 MG TAB 1000 MG PO (21:20)
[2022-10-30] MEDS: amLODIPine 5 MG TAB PO (21:20)
[2022-10-30] MEDS: Normal Saline 500 ML 30 ML IV (23:59)
[2022-10-31 06:43] LABS: Abs Immature Grans 0.09 10^3/uL (0.0-0.06); Absolute Basophil Count 0.02 10^3/uL (0.0-0.2); Absolute Eosinophil Count 0.01 10^3/uL (0.0-0.7); Absolute Monocyte Count 1.13 10^3/uL (0.1-0.8); Absolute Neutrophil Count 10.23 10^3/uL (1.2-6.7); Basophils % 0.2; Eosinophils % 0.1; HCT 37.5 % (36.0-46.0); HGB 11.5 g/dL (11.2-15.7); Immature Grans % 0.7; Lymphocytes % 6.5; MCH 29.9 pg (27.0-33.0); MCHC 30.7 % (32.0-36.0); MCV 97 fL (80-95); Monocytes % 9.2; Neutrophils % 83.3; Platelet Count 354 10^3/uL (130-400); RBC 3.85 10^6/uL (3.93-5.22); RDW 13.7 % (11.7-14.6); RDW-SD 48.9 fL; WBC 12.28 10^3/uL (4.4-10.8)
[2022-10-31 06:46] VITALS: BP 134/89; PULSE 76; RESP 15; TEMP 36.6; O2SAT 96
[2022-10-31] MEDS: Acetaminophen 500 MG TAB 1000 MG PO ×3 (06:56→21:35)
[2022-10-31] MEDS: Pantoprazole 40 MG TABCR PO ×2 (06:56→20:12)
[2022-10-31 07:05] LABS: ALT 11 U/L (14-59); AST 18 U/L (15-37); Albumin 2.9 g/dL (3.4-5.0); Alkaline Phosphatase 118 U/L (46-116); Anion Gap 8.5 mmol/L (3-11); BUN 39 mg/dL (7-18); Bilirubin, Total 0.2 mg/dL (0.2-1.0); C-Reactive Protein 8.53 mg/dL (0.0-0.3); CO2 25.5 mmol/L (21.0-32.0); CREATININE 1.4 mg/dL (0.55-1.02); Calcium 10.1 mg/dL (8.5-10.1); Chloride 98 mmol/L (98-107); ESR 84 mm/hr (0-30); Estimated GFR 42.54 (mL/min/1.73m2); Glucose 109 mg/dL (74-106); Potassium 5.1 mmol/L (3.5-5.1); Sodium 132 mmol/L (136-145); Total Protein 7.1 g/dL (6.4-8.2)
[2022-10-31] MEDS: Budesonide/Formoterol 160/4.5 6 GM 60 PUFF INH IH ×2 (07:27→20:12)
[2022-10-31] MEDS: ceFAZolin 2 GM/50 ML BAG IV ×3 (08:35→23:30)
[2022-10-31] MEDS: Magnesium Oxide 400 MG TAB 800 MG PO ×2 (08:36→20:12)
[2022-10-31] MEDS: Fluconazole 100 MG TAB 400 MG PO (08:36)
[2022-10-31] MEDS: Calcium Carbonate 1.25 GM TAB PO (08:36)
[2022-10-31] MEDS: buPROPion-CR 150 MG TABCR PO ×2 (08:36→20:12)
[2022-10-31] MEDS: Montelukast 10 MG TAB PO (08:37)
[2022-10-31] MEDS: Dexamethasone 4 MG TAB PO (08:37)
[2022-10-31] MEDS: Losartan 50 MG TAB 100 MG PO (08:37)
[2022-10-31] MEDS: Normal Saline Flush 10 ML SYR IVP ×2 (08:37→15:43)
[2022-10-31] MEDS: Venlafaxine 150 MG CAPCR PO (08:37)
[2022-10-31 10:19] LABS: Bilirubin Small (Negative); Blood Large (Negative); Clarity Cloudy (Clear); Glucose Negative (Negative); Ketones 15 mg/dL (Negative); Leukocyte Esterase Negative (Negative); Nitrite Negative (Negative); Urobilinogen 0.2 EU/dL (Up TO 0.2); pH 6.5 (5-8)
--- NOTE | 2022-10-31 10:20 | NUR.NOTE ---
Nursing Note: 1015: attempt to do st. cath on pt unsuccessful. pt allowed RN to attempt x 2 but demands stop, that's enough when attempting the second cath. pt's pubic bone difficult to maneuver around. pt states I throw up with this, it's embarassing. pt did have an episode of emesis with first attempt. pt able to produce a clean catch for nursing. sample sent to lab.
[2022-10-31 10:33] LABS: C & S Indicated? C&S Done As Ordered; RBC >50 HPF (0-2)
[2022-10-31] MEDS: Dexamethasone 1 MG TAB 2 MG PO (13:03)
[2022-10-31 21:34] VITALS: BP 130/86
[2022-10-31] MEDS: amLODIPine 5 MG TAB PO (21:35)
[2022-11-01] MEDS: Acetaminophen 500 MG TAB 1000 MG PO ×3 (06:09→22:03)
[2022-11-01 07:22] LABS: Abs Immature Grans 0.09 10^3/uL (0.0-0.06); Absolute Basophil Count 0.01 10^3/uL (0.0-0.2); Absolute Lymphocyte Count 0.64 10^3/uL (1.2-3.4); Absolute Neutrophil Count 9.63 10^3/uL (1.2-6.7); Basophils % 0.1; HCT 35.8 % (36.0-46.0); HGB 11.3 g/dL (11.2-15.7); Immature Grans % 0.8; Lymphocytes % 5.7; MCH 30.5 pg (27.0-33.0); MCHC 31.6 % (32.0-36.0); MCV 97 fL (80-95); MPV 10.2 fL (8.0-11.0); Monocytes % 7.2; Neutrophils % 86.2; Platelet Count 333 10^3/uL (130-400); RBC 3.71 10^6/uL (3.93-5.22); RDW 13.5 % (11.7-14.6); RDW-SD 48.7 fL; WBC 11.17 10^3/uL (4.4-10.8)
[2022-11-01] MEDS: Budesonide/Formoterol 160/4.5 6 GM 60 PUFF INH IH ×2 (07:49→19:39)
[2022-11-01] MEDS: buPROPion-CR 150 MG TABCR PO ×2 (08:18→19:38)
[2022-11-01] MEDS: Fluconazole 100 MG TAB 400 MG PO (08:18)
[2022-11-01] MEDS: Magnesium Oxide 400 MG TAB 800 MG PO ×2 (08:18→19:37)
[2022-11-01] MEDS: Dexamethasone 4 MG TAB PO (08:18)
[2022-11-01] MEDS: ceFAZolin 2 GM/50 ML BAG IV ×3 (08:19→23:36)
[2022-11-01] MEDS: Losartan 50 MG TAB 100 MG PO (08:19)
[2022-11-01] MEDS: Calcium Carbonate 1.25 GM TAB PO (08:19)
[2022-11-01] MEDS: Montelukast 10 MG TAB PO (08:19)
[2022-11-01] MEDS: Normal Saline Flush 10 ML SYR IVP ×4 (08:19→23:36)
[2022-11-01] MEDS: Pantoprazole 40 MG TABCR PO ×2 (08:19→19:38)
[2022-11-01] MEDS: Venlafaxine 150 MG CAPCR PO (08:19)
[2022-11-01 08:23] VITALS: BP 126/76; PULSE 76; RESP 18; TEMP 35.9; O2SAT 97
[2022-11-01] MEDS: Dexamethasone 1 MG TAB 2 MG PO (12:54)
[2022-11-01] MEDS: fentaNYL 100 MCG PATCH TD (14:28)
[2022-11-01] MEDS: amLODIPine 5 MG TAB PO (22:03)
[2022-11-02] MEDS: Acetaminophen 500 MG TAB 1000 MG PO (06:00)
[2022-11-02 07:31] VITALS: BP 119/77; PULSE 86; RESP 18; TEMP 37; O2SAT 96
[2022-11-02] MEDS: Normal Saline Flush 10 ML SYR IVP ×2 (09:23→10:07)
[2022-11-02] MEDS: ceFAZolin 2 GM/50 ML BAG IV ×2 (09:24→15:45)
[2022-11-02 10:00] VITALS: BP 124/70; PULSE 74; RESP 8; O2SAT 84
[2022-11-02] MEDS: Lactated Ringers 500 ML 1000 ML IV (10:00)
[2022-11-02] MEDS: Naloxone 0.4 MG/ML VIAL IVP (10:06)
[2022-11-02 10:20] LABS: BE 0 mmol/L (-2-3); HCO3 24 mmol/L (22-26); pCO2 37 mmHg (35-45); pH 7.43 (7.35-7.45); pO2 68 mmHg (80-105); sO2 95 % (95-98); tCO2 23 mmol/L (23-27)
[2022-11-02 10:23] LABS: FIO2 ROOM AIR %; FIO2L ROOM AIR L; Site Right Radial
[2022-11-02] MEDS: fentaNYL 50 MCG PATCH TD (12:52)
--- NOTE | 2022-11-02 18:47 | W.PM.PROGNOT ---
Date of Service Date of service: 11/02/22 Time of Service: 11:00 Assessment and Plan Assessment and plan (1) Yeast UTI: Status: Acute Assessment and plan: She was treated with diflucan. (2) Methicillin susceptible Staphylococcus aureus infection: Status: Acute Assessment and plan: Bacteremia with source felt to be the infusaport, removed on 10/16/22. Repeat blood cultures negative; final Blood cultures on 10/27; negative x 24H. Continue cefazolin. End date for abx is planned to be 11/13/21 (4 weeks from 1st negative blood culture). Has a peripheral line, she refused a midline. She is swing bed status, she would like to complete her abx in the hospital She needs a Midline or Picc line for continued chemotherapy on discharge (3) Pancreas cancer: Status: Acute Assessment and plan: Continue fentanyl patch decreased to 50 mcg based on somnolence, decreased RR - morphine IR decreased to 7.5 mg prn. IS. Followed by palliative care. S/P removal of infusaport s/t bacteremia Chemotherapy on hold in light of acute infection. Her oncologist, Dr. Harrington, who has been updated on hospital course and plan for antibiotics til Nov 13. His plan is to infusion her chemo on Nov 13 through midline after we discharge her, then arrange for outpatient infusaport placement after. We will notify him of any changes in patient condition or plan. She will be discharged from here with a midline or PICC line if she agrees to one being placed, she currently has declined. (4) Hypokalemia: Status: Acute Assessment and plan: Will check 11/03 (5) Epigastric pain: Status: Acute Assessment and plan: peripancreatic streaking seen on early CT likely acute pancreatitis flare. improved now. continue to monitor (6) Advance care planning: Status: Deleted Assessment and plan: Palliative care has been consulted and is following and having ongoing discussions regarding goals of care. (7) Myoclonic jerking: Status: Resolved Assessment and plan: During period of hypersomnolence, decreased RR, low SPO2 - resolved after intervention of narcan Suspect dose of fentanyl was too high, decreased to 50 mcg from 100 mcg, also decreased PRN Morphine IR to 7.5 mg from 15 mg - she did receive a dose yesterday and was super sleepy since. (8) DVT prophylaxis: Status: Deleted Assessment and plan: SC enoxaparin (9) Vomiting: Status: Resolved Assessment and plan: Vomiting post narcan - withdrawal - lorazepam given and she stopped vomiting, concern for aspiration, will check labs tomorrow and assess resp status, potential CXR (10) Discharge planning issues: Status: Deleted Assessment and plan: DNR/DNI Anticipate 4 week so fo IV cefazolin. End date 11/13/21. Discussed with Dr Wadsworth Subjective Subjective Patient reports: no new complaints Interval history since last seen: Decreased oral intake; RR decreased this morning, very somnolent and difficult to arouse- she had fentanyl patch 100 mcg on. It was removed. Naloxone 0.4 mg IVP was given, she did wake up and was alert. She then began to be agitated and vomiting s/t wd from pain meds. She was given lorazepam to help calm her and decrease vomiting. A fentanyl patch of 50 mcg was applied. She was much better after the lorazepam, vomiting stopped,. Her pain was well managed, she slept, but was easily arousable, she did have some oral fluids and a popsicle today. Exam Narrative Exam Narrative: Supine, quite somnolent, pupils bilat ~ 2 mm, reactive Const General: cooperative Orientation: alert, oriented to person and oriented to place Eyes General: appearance normal, both eyes and all related structures Sclera: sclerae normal Resp Effort & Inspection: normal respiratory effort Auscultation: clear to auscultation bilaterally Cardio Rate: regular rate Rhythm: regular rhythm GI Inspection: non-distended Palpation: soft and nontender Neuro General: no focal motor deficits Cranial Nerves: facial strength normal Speech: speech normal Extrem General: no calf tenderness Psych Mental Status: mental status grossly normal Speech and Movement: speech clear Mood: congruent mood Affect: normal affect Attitude: cooperative Objective Last Vital Signs Temp 37.0 C 11/02/22 07:31 Pulse 74 11/02/22 10:00 Resp 8 L 11/02/22 10:00 BP 124/70 11/02/22 10:00 Pulse Ox 84 L 11/02/22 10:00 Laboratory Results - last 24 hr 11/02/22 11/02/22 10:15 Unknown ABG Sample Site Right Radial ABG pH 7.43 ABG pCO2 37 ABG pO2 68 L ABG HCO3 24 ABG Total CO2 23 ABG O2 Saturation 95 ABG Base Excess 0 VBG pH Cancelled VBG pCO2 Cancelled VBG pO2 Cancelled VBG HCO3 Cancelled VBG Total CO2 Cancelled VBG O2 Saturation Cancelled VBG Base Excess Cancelled Oxygen Liter Flow ROOM AIR FiO2 ROOM AIR
[2022-11-02 19:01] VITALS: BP 110/77; PULSE 76; RESP 12; TEMP 36.3; O2SAT 96
[2022-11-02] MEDS: Budesonide/Formoterol 160/4.5 6 GM 60 PUFF INH IH (19:32)
[2022-11-02] MEDS: Pantoprazole 40 MG TABCR PO (21:38)
[2022-11-02 21:54] VITALS: BP 111/75; PULSE 75; RESP 14; TEMP 36.8; O2SAT 96
[2022-11-02] MEDS: Patch Removal 1 EACH TD (22:00)
--- NOTE | 2022-11-02 22:22 | NUR.NOTE ---
Nursing Note: Pt noted to be lethargic. Unable to wake up enough to take PO medication. Fentynal patch removed due to increased lethargy- Witnessed by Dilia Wells RN. VSS. SPo2 remains in the 90s on RA. Charge nurse made aware and at bedside. Charge nurse asked patient numerous questions without any answer from patient. Charge nurse asked patient if she was just ignoring her or just could not hear her. Pt responded that she was just ignoring her. Pt states that she is in the hospital but still unable to tell us the time.
[2022-11-02 23:13] VITALS: BP 120/77; PULSE 80; RESP 18; TEMP 36.9; O2SAT 96
[2022-11-03] MEDS: ceFAZolin 2 GM/50 ML BAG IV ×4 (01:19→23:28)
[2022-11-03 07:22] VITALS: BP 138/87; PULSE 76; RESP 17; TEMP 36.9; O2SAT 98
[2022-11-03 07:58] LABS: Abs Immature Grans 0.09 10^3/uL (0.0-0.06); Absolute Basophil Count 0.01 10^3/uL (0.0-0.2); Absolute Eosinophil Count 0.05 10^3/uL (0.0-0.7); Absolute Lymphocyte Count 0.87 10^3/uL (1.2-3.4); Absolute Monocyte Count 0.93 10^3/uL (0.1-0.8); Basophils % 0.1; Eosinophils % 0.5; HCT 32.4 % (36.0-46.0); HGB 10.2 g/dL (11.2-15.7); Immature Grans % 0.9; Lymphocytes % 8.6; MCH 30.1 pg (27.0-33.0); MCHC 31.5 % (32.0-36.0); MCV 96 fL (80-95); MPV 9.5 fL (8.0-11.0); Monocytes % 9.2; Neutrophils % 80.7; Platelet Count 314 10^3/uL (130-400); RBC 3.39 10^6/uL (3.93-5.22); WBC 10.15 10^3/uL (4.4-10.8)
[2022-11-03 08:15] LABS: Anion Gap 7.8 mmol/L (3-11); BUN 65 mg/dL (7-18); CO2 28.2 mmol/L (21.0-32.0); CREATININE 2.1 mg/dL (0.55-1.02); Calcium 9.5 mg/dL (8.5-10.1); Chloride 96 mmol/L (98-107); Estimated GFR 26.15 (mL/min/1.73m2); Glucose 91 mg/dL (74-106); Magnesium 2.9 mg/dL (1.8-2.4); Potassium 4.2 mmol/L (3.5-5.1); Sodium 132 mmol/L (136-145)
[2022-11-03] MEDS: Budesonide/Formoterol 160/4.5 6 GM 60 PUFF INH IH ×2 (08:48→19:39)
--- NOTE | 2022-11-03 10:29 | W.NUTCONSULT ---
Date of service: 11/03/22 Time of Service: 10:29 Nutritional Consult ASSESSMENT: Sonali has been admitted to [facility] 4 times in last 30 days. PMH: pancreatic cancer, UTI, abdominal pain receiving cancer care to [facility]. Has lost a total of 17 lbs in last 30 days, considered significant and of concern. PO intake continues to be very poor with frequent meal refusals. BMI indicates obesity, however extensive weight loss due to poor po intake and disease process puts Sonali in high nutritional risk. Ordered regular meal plan with banatrol 1 packet TID Estimated Needs: [id number] kcal, 60-65 g protein NUTRITIONAL DIAGNOSIS: Malnutrition in view of 10% weight loss in last 30 days secondary to inadequate macronutrient intake INTERVENTION: Consider Marinol as appetite stimulant May benefit from Creon to reduce abdominal pain with eating as with pancreatic cancer MONITORING AND EVALUATION: weight, po intake, labs. Time Spent in Nutritional Counseling and Treatment: 0
[2022-11-03] MEDS: Normal Saline Flush 10 ML SYR IVP (15:27)
[2022-11-03] MEDS: Normal Saline 500 ML 30 ML IV (15:27)
[2022-11-03 15:34] VITALS: BP 129/79; PULSE 78; RESP 16; TEMP 36.6; O2SAT 100
--- NOTE | 2022-11-03 17:00 | W.PM.PROGNOT ---
Date of Service Date of service: 11/03/22 Time of Service: 17:00 Subjective Subjective Patient reports: no new complaints, feels better and still having pain Interval history since last seen: Nursing reports she is not eating very much - discussion with library supervisor suggested Creon and Marinol; discussion with Dr Wadsworth, both were ordered. She has improved today, is more awake and alert, decreased pain levels. Creatinine up to 2.1. IVF continued LR 125/h Afebrile, normotensive, no tachycardia, easily arousable. Objective Last Vital Signs Temp 36.6 C 11/03/22 15:34 Pulse 78 11/03/22 15:34 Resp 16 11/03/22 15:34 BP 129/79 11/03/22 15:34 Pulse Ox 100 11/03/22 15:34 Laboratory Results - last 24 hr 11/03/22 11/03/22 07:40 07:40 WBC 10.15 RBC 3.39 L Hgb 10.2 L Hct 32.4 L MCV 96 H MCH 30.1 MCHC 31.5 L RDW 14.0 Plt Count 314 MPV 9.5 Immature Gran % 0.9 Neutrophils % 80.7 Lymphocytes % 8.6 Monocytes % 9.2 Eosinophils % 0.5 Basophils % 0.1 Nucleated RBC % 0.0 Absolute Neutrophils 8.20 H Absolute Lymphocytes 0.87 L Absolute Monocytes 0.93 H Absolute Eosinophils 0.05 Absolute Basophils 0.01 Sodium 132 L Potassium 4.2 Chloride 96 L Carbon Dioxide 28.2 Anion Gap 7.8 BUN 65 H Creatinine 2.1 H Est GFR (CKD-EPI 2020) 26.15 Glucose 91 Calcium 9.5 Magnesium 2.9 H
[2022-11-03] MEDS: Lactated Ringers 1,000 ML 125 ML IV (17:25)
[2022-11-03] MEDS: buPROPion-CR 150 MG TABCR PO (19:39)
[2022-11-03] MEDS: Pantoprazole 40 MG TABCR PO (19:39)
[2022-11-03] MEDS: Magnesium Oxide 400 MG TAB 800 MG PO (19:39)
[2022-11-03] MEDS: Dronabinol 2.5 MG CAP PO (19:39)
[2022-11-03] MEDS: Acetaminophen 500 MG TAB 1000 MG PO (21:35)
[2022-11-03] MEDS: amLODIPine 5 MG TAB PO (21:36)
[2022-11-04] MEDS: Lactated Ringers 1,000 ML 125 ML IV ×3 (01:42→19:15)
[2022-11-04] MEDS: Budesonide/Formoterol 160/4.5 6 GM 60 PUFF INH IH ×2 (07:30→20:08)
[2022-11-04 07:35] VITALS: BP 120/63; PULSE 68; RESP 17; TEMP 36.7; O2SAT 92
[2022-11-04] MEDS: ceFAZolin 2 GM/50 ML BAG IV ×3 (08:05→23:50)
[2022-11-04] MEDS: Pantoprazole 40 MG TABCR PO ×2 (08:06→20:50)
[2022-11-04] MEDS: Fluconazole 100 MG TAB 200 MG PO (08:06)
[2022-11-04] MEDS: buPROPion-CR 150 MG TABCR PO (08:06)
[2022-11-04] MEDS: Losartan 50 MG TAB 100 MG PO (08:06)
[2022-11-04] MEDS: Creon, Lipase 6,000 CAPCR 1 CAP PO ×2 (08:06→16:58)
[2022-11-04] MEDS: Dexamethasone 4 MG TAB PO (08:06)
[2022-11-04] MEDS: Dronabinol 2.5 MG CAP PO ×2 (08:07→15:43)
[2022-11-04] MEDS: Montelukast 10 MG TAB PO (08:07)
[2022-11-04] MEDS: Venlafaxine 150 MG CAPCR PO (08:07)
[2022-11-04 08:23] LABS: Abs Immature Grans 0.14 10^3/uL (0.0-0.06); Absolute Basophil Count 0.01 10^3/uL (0.0-0.2); Absolute Eosinophil Count 0.33 10^3/uL (0.0-0.7); Absolute Lymphocyte Count 0.93 10^3/uL (1.2-3.4); Absolute Monocyte Count 0.77 10^3/uL (0.1-0.8); Absolute Neutrophil Count 6.38 10^3/uL (1.2-6.7); Basophils % 0.1; Eosinophils % 3.9; HCT 30.3 % (36.0-46.0); HGB 9.5 g/dL (11.2-15.7); Immature Grans % 1.6; Lymphocytes % 10.9; MCH 30.4 pg (27.0-33.0); MCHC 31.4 % (32.0-36.0); MCV 97 fL (80-95); MPV 9.5 fL (8.0-11.0); Neutrophils % 74.5; Platelet Count 245 10^3/uL (130-400); RBC 3.12 10^6/uL (3.93-5.22); RDW 13.8 % (11.7-14.6); RDW-SD 48.8 fL; WBC 8.56 10^3/uL (4.4-10.8)
[2022-11-04 08:28] LABS: Anion Gap 6.6 mmol/L (3-11); BUN 40 mg/dL (7-18); C-Reactive Protein 17.16 mg/dL (0.0-0.3); CO2 29.4 mmol/L (21.0-32.0); CREATININE 1.1 mg/dL (0.55-1.02); Calcium 8.7 mg/dL (8.5-10.1); Chloride 97 mmol/L (98-107); Estimated GFR 56.81 (mL/min/1.73m2); Glucose 88 mg/dL (74-106); Magnesium 1.9 mg/dL (1.8-2.4); Potassium 4.2 mmol/L (3.5-5.1); Sodium 133 mmol/L (136-145)
[2022-11-04 12:40] LABS: Source Nasal/Nares
--- NOTE | 2022-11-04 13:03 | DI.RAD_ITS ---
Exam(s) XR PORTABLE CHEST AP EXAM: XR PORTABLE CHEST AP CLINICAL HISTORY: concern for aspiration TECHNIQUE: 2D digital imaging was performed of the chest. One image was obtained. An AP view was ob tained. COMPARISON: CR XR PORTABLE CHEST AP from 10/28/2022 FINDINGS: MEDIASTINUM: Normal. HEART: Normal. PULMONARY VASCULATURE: Normal. LUNGS: Clear. PLEURAL SPACE: No pleural effusion or pneumothorax. BONE:Within normal limits for the patient's age. OTHER FINDINGS:Normal. IMPRESSION: No acute pulmonary findings. DATA REPOSITORY: RADIATION DOSE DELIVERED:
[2022-11-04 13:53] LABS: COVID-19 PCR Negative (Negative)
[2022-11-04] MEDS: Dexamethasone 1 MG TAB 2 MG PO (14:03)
--- NOTE | 2022-11-04 14:50 | PT.INIE ---
Date of service: 11/04/22 Time of Service: 14:52 PT Notes Visit Reasons: MSSA bactermia Physical Therapy Swing Bed Level I Initial Evaluation Date: 10/14/2022 Referring Doctor:Rolando Morelos PT Orders: PT CONSULT: D/C Non-PT Dependent Precautions: Fall. Standard. Activity as tolerated. Patient Profile/Admitting Diagnosis:? Sonali is a 61-year-old female diagnosed with pancreatic cancer 2 months ago who presented to the ED on 10/07/2022 due to nausea, vomiting, and inability to tolerate oral intake with report of severe abdominal pain.? Patient is diagnosed with yeast UTI, MRSA, epigastric pain, and myoclonic jerking. She continues with medical management and inpatient rehabilitation under swing bed 1 level of care as of 10/30/2022. PMHX: All Active Problems?(Updated 11/02/22 @ 19:19 by Sunshine Morelos, IMPORT AND EXPORT CLERK) Yeast UTI (Acute) Epigastric pain (Acute) Hypokalemia (Acute) Methicillin susceptible Staphylococcus aureus infection (Acute) E. coli UTI (Acute) Gram-positive bacteremia (Acute) Abdominal pain (Acute) Type of kidney inflammation (Acute) Palliative care encounter (Acute) Decreased oral intake (Acute) DNR (do not resuscitate) (Acute) Uncontrolled pain (Acute) Stomatitis (Acute) Candidal skin infection (Acute) No contraindication to deep vein thrombosis (DVT) prophylaxis (Acute) Hypertension (Chronic) Pancreas cancer (Acute) Acute hypokalemia (Acute) Hypomagnesemia (Acute) Social History/Home Situation: Lives with son and son's family in a private home with 13 step to enter.? Unknown at this time if patient will return to her home or her sister's home.? Independent with all mobility ADLs prior to admission.? Sister Jennifer who lives half an hour away has been a good support. Equipment Owned/DME: None Subjective: Complained about being tired from sitting up and watching TV all morning. Denies chest pain, headache, and dizziness throughout session. Objective: General Observation: Supine in bed.? Has trouble keeping eyes open,? able to open them on command.? No myoclonic movements observed. Telemetry monitoring in place.? Blackmon catheter on. Mental Status: Alert and able to opne eyes when requested to, oriented as to person, place, time, and purpose. Able to pay attention, focus, and respond appropriately. Pain: Denies Vital Signs: WNL as cloelsy mnitored via tele ROM: Right Upper Extremity: ? Shoulder Flexion WFL. Shoulder abduction WFL. Elbow flexion WFL. Wrist flexion WFL. Functional opening and closing of hand WFL. Left Upper Extremity:? Shoulder Flexion WFL. Shoulder abduction WFL. Elbow flexion WFL. Wrist flexion WFL. Functional opening and closing of hand WFL. Right Lower Extremity: Hip flexion WFL. Hip abduction WFL. Knee flexion WFL. Ankle dorsiflexion WFL. Ankle plantarflexion WFL. Left Lower Extremity: Hip flexion WFL. Hip abduction WFL. Knee flexion WFL. Ankle dorsiflexion WFL. Ankle plantarflexion WFL. Strength: Right Upper Extremity: Grossly 4-/5 Left Upper Extremity: Grossly 4-/5 Right Lower Extremity: Grossly 4-/5 Left Lower Extremity: Grossly 4-/5 Bed Mobility/Transfers: Sit to stand with minimal assist Stand to sit with stand by assist Gait: Instructed patient with level surface ambulation of 20 feet + 20 feet requiring contact guard assist and IV pole maangement of PT. Elke decreased. Step height decreased. Step length decreased. Balance: Static Sitting: Normal Dynamic Sitting: Good Static Standing: Fair Dynamic Standing: Fair Special Tests: Mobility Limitations Standardized Measure [facility] 6 clicks Basic Mobility Inpatient Short Form: Raw Score: 18? CMS Score: 47% deficit? ? ? Informed Consent/Education:? Patient was instructed in purpose of PT consult and plan of care. Agreeable to proceed with established PT POC to achieve personal goals. Assessment: Patient presents with clinical signs and symptoms consistent with current/admitting diagnoses that have resulted to mobility limitations, gait instability, generalized weakness, and overall ADL decline as demonstrated by the following impairment level findings: 1.? Decreased strength to B UE/LE major muscle groups 2.? Impaired sitting/standing balance 3.? Impaired activity tolerance 4.? Lethargic Impairments are contributing to the following functional limitations: 1.? Decline in bed mobility skills 2.? Decline in transfer skills 3.? Difficulty with ambulation without assistive device and physical assistance 4.? Increased completion time for mobility ADL performance 5.? Increased risk for falls 6.? Difficulty with managing steps alone safely Patient is assessed as a 38805 moderate complexity based on the following: History: 61-year-old female with past medical history as indicated above Examination: Demonstrable impairment in strength, balance, and mobility level with underlying impairments and functional limitations as exhibited above as well as deficit score of 47% utilizing the [facility] Mobility Inpatient Short Form Presentation: Evolving Decision Makin moderate complexity Goals: Goals X1 week 1. Supine-Sit independent 2. Sit-Supine independent 3. Sit-Stand independent 4. Stand-Sit independent with no AD 5. Bed-Chair independent with no AD 6. Chair-Bed independent with no AD 7. Independent gait on level surface with use of SPC for at least 300 feet without report of pain nor dyspnea 8. Independent stair negotiation while holding onto B rails for at least 13 steps without report of pain nor dyspnea 9. Independent with home exercise program 10. Good static and dynamic standing balance/tolerance Plan of Care/Treatment Plan: 1-2x/day, 7 days/week x 1 week. Plan of care has been reviewed with the PRIMARY TEACHING ASSISTANT providing the service under Physical Therapy direction. Initiate Physical Therapy intervention for pain management as needed, strengthening, bed mobility, transfers, gait, stairs, balance training, and use of assistive device. DISCHARGE RECOMMENDATIONS: [] ? Home with no services [] [X] ? Home with services.? Home when medically cleared by hospitalist.? Patient will benefit from home health PT services in order to progress mobility level using least restrictive assistive ambulatory device, assess home safety, identify additional equipment needs, and establish a functional maintenance program that will increase ability of patient to remain at home. [] ? Home with outpatient PT [] [] ? SNF for continued rehabilitation [] [] ? [facility] [] [] ? SNF versus LTC based on ability to participate and progress [] TREATMENT CODE/TIME: 15165 x 20 minutes beginning at 14:50 PM. Thank you for the opportunity to participate in the care of this patient. Chica Phipps PT, DPT, CLT [facility] [place], [place]
[2022-11-04] MEDS: Normal Saline Flush 10 ML SYR IVP (15:43)
[2022-11-04] MEDS: Magnesium Oxide 400 MG TAB 800 MG PO (20:49)
[2022-11-05] MEDS: MORPHine 2 MG/ML SYR IVP ×2 (04:27→10:11)
[2022-11-05] MEDS: Normal Saline Flush 10 ML SYR IVP ×3 (04:30→20:13)
[2022-11-05 07:25] VITALS: BP 168/93; PULSE 71; RESP 17; TEMP 36.8; O2SAT 99
[2022-11-05] MEDS: ceFAZolin 2 GM/50 ML BAG IV ×2 (07:34→20:12)
[2022-11-05] MEDS: Creon, Lipase 6,000 CAPCR 1 CAP PO ×2 (07:34→17:19)
[2022-11-05] MEDS: Pantoprazole 40 MG TABCR PO ×2 (07:34→20:15)
[2022-11-05] MEDS: Budesonide/Formoterol 160/4.5 6 GM 60 PUFF INH IH ×2 (07:54→19:33)
[2022-11-05] MEDS: Dexamethasone 4 MG TAB PO (08:18)
[2022-11-05] MEDS: Losartan 50 MG TAB 100 MG PO (08:18)
[2022-11-05] MEDS: Fluconazole 100 MG TAB 200 MG PO (08:21)
[2022-11-05 10:44] VITALS: O2SAT 99
[2022-11-05] MEDS: Lactated Ringers 1,000 ML 125 ML IV (11:10)
[2022-11-05 11:16] VITALS: BP 144/78
--- NOTE | 2022-11-05 11:25 | PTTR_ITS ---
Date of service: 11/05/22 Time of Service: 11:20 PT Notes Visit Reasons: MSSA bactermia Physical Therapy Swing Bed Level I Tretament Note Date: 11/05/2022 Precautions: Fall. Standard. Activity as tolerated. Subjective: Agreeable to session. Complained of fatigue after walking to and from the bathroom. Objective: General Observation: Supine in bed.? Has trouble keeping eyes open,? able to open them on command.? No myoclonic movements observed.? Telemetry monitoring in place.? Blackmon catheter on. Mental Status: Alert and able to open eyes when requested to,? oriented as to person, place, time, and purpose. Able to pay attention, focus, and respond appropriately. Pain: Denies Vital Signs: WNL as cloelsy mnitored via tele Bed Mobility/Transfers: Supine to sit hand held assist Sit to stand from bed with stand by assist Sit to stand from toilet seat hand held assist Stand to sit with stand by assist Gait: Instructed patient with level surface ambulation of 20 feet + 20 feet requiring stand by assist and IV pole management of PT.? Elke decreased. Step height decreased. Step length decreased. Balance: Static Sitting: Normal Dynamic Sitting: Good Static Standing: Fair Dynamic Standing: Fair Assessment: Patient only requires hand-held assist to sit up from bed and get up from toilet. Needs to be encouraged to walk to the bathroom for all toileting activities to promote increased mobility. Needs pre-medication for pain. Very low activity tolerance, needs frequent rests. PLAN: Break PT sessions into 2 for walking and exercises as patient can only tolerate only up to 15 minutes of activity due to fatigue level. Continue to encourage participation in order to prepare patient for upcoming chemotherapy sessions. Coordinate sessions nursinf fro pre-medication for pain. DISCHARGE RECOMMENDATIONS: [] ? Home with no services [] [X] ? Home with services.? Home when medically cleared by hospitalist.? Patient will benefit from home health PT services in order to progress mobility level using least restrictive assistive ambulatory device, assess home safety, identify additional equipment needs, and establish a functional maintenance program that will increase ability of patient to remain at home. [] ? Home with outpatient PT [] [] ? SNF for continued rehabilitation [] [] ? [facility] [] [] ? SNF versus LTC based on ability to participate and progress [] TREATMENT CODE/TIME: 45918 x 20 minutes beginning at 11:25 AM.
[2022-11-05 11:28] LABS: Bilirubin Negative (Negative); Blood Moderate (Negative); Clarity Clear (Clear); Glucose Negative (Negative); Ketones 15 mg/dL (Negative); Leukocyte Esterase Negative (Negative); Nitrite Negative (Negative); Urobilinogen 0.2 EU/dL (Up TO 0.2); pH 7.5 (5-8)
[2022-11-05 11:42] LABS: Bacteria Few HPF (Negative); C & S Indicated? No; Casts Negative LPF (Negative); Crystals Negative HPF (Negative); Epithelial Cells Negative HPF (Negative); Mucus Trace (Negative); Other Cells Few Renal (Negative); WBC 0-2 HPF (0-5)
[2022-11-05] MEDS: fentaNYL 50 MCG PATCH TD (11:55)
--- NOTE | 2022-11-05 13:07 | W.PALLCONSUL ---
Date of service: 11/05/22 Time of Service: 11:45 History of Present Illness Narrative: Ms. Lyon is a 61 y/o F currently on swing bed at [facility] 2/2 [facility], on IV abx, completion date 11/13/22;PMHx sig for pancreatic cancer w/uncontrolled pain, N/V, fibromyalgia, PTSD, anxiety, HTN, GERD; Sonali is lying on side in hospital bed at time of visit, eyes closed. Pain has continued to be a limiting factor for her. She is aware that her fentanyl patch was just replaced. She is agreeable to care plan for pain management, and will continue to ask for pain medications when she feels pain, pain continues to be worse overnight. She is not sleeping well. Her appetite and desire for any oral intake is at this time limited d/t gagging sensation when food/liquid to be swallowed, a similar sensation she had prior to her pain being controlled. She continues w/plan for resuming chemotherapy treatments at [facility] status post this admission. She is aware that she will need a midline placed, and is agreeable to the per inpatient staff: fentanyl patch was removed on Wednesday d/t concerns for sedation/confusion c/b increased opioid doses. Pharmacy review that med interaction with fluconazole could be contributing to change in mental status, decision to stop this today, and resume fentanyl patch at reduced dose of 50 mcg/h. Last doses of morphine IV 2 mg at 1015, p.o. 7.5mg 730, IV 2 mg 450a. Prior to the she had been groaning, grimacing in pain, she has relaxed a bit since then. she has been refusing medications intermittently, will take morphine. Refused PT this morning related to pain. Nutrition consult recommend Creon and Marinol Assessment and Plan Assessment and plan (1) Pancreas cancer: Status: Acute Assessment and plan: [facility] consistent w/preference to continue oncology treatments, w/infusion scheduled for 11/16/21 w/Dr. Harrington Midline to be replaced during this admission prior to discharge continue to review POC (2) Uncontrolled pain: Status: Acute Assessment and plan: to restart fentanyl 50mcg/hr patch, review efficacy after 48h, consider uptitration pending PRN morphine use if no improvement in pain, to consider d/c all opioids and do 24h MME w/short acting opioid for appropriate titration may consider alternative LA, like Oxycontin plan for all pain mx meds to be appropriate for discharge home (3) Methicillin susceptible Staphylococcus aureus infection: Status: Acute Assessment and plan: Bacteremia with source felt to be the infusaport, removed on 10/16/22. Repeat blood cultures negative; final Blood cultures on 10/27; negative x 24H. Continue cefazolin. End date for abx is planned to be 11/13/21 (4 weeks from 1st negative blood culture). (4) Yeast UTI: Status: Acute Assessment and plan: cleared, d/c fluconazole (5) Abdominal pain: Status: Acute Assessment and plan: as above PRN ani-emesis avail (6) Decreased oral intake: Status: Acute Assessment and plan: suspect r/t pain, improved previously w/pain control continue to follow (7) Vomiting: Status: Resolved Assessment and plan: none currently, PRNs available (8) Palliative care encounter: Status: Acute Assessment and plan: PC to continue to follow during admission, will check in next week (9) DNR (do not resuscitate): Status: Acute Assessment and plan: latest COLST not updated in system DNR/I, no FT, trial IVF/abx will review as needed Review of Systems Narrative: see HPI PFSH All Active Problems (Updated 11/05/22 @ 13:26 by Danna Lopez NP) Decreased oral intake (Acute) Yeast UTI (Acute) Epigastric pain (Acute) Hypokalemia (Acute) Methicillin susceptible Staphylococcus aureus infection (Acute) E. coli UTI (Acute) Gram-positive bacteremia (Acute) Abdominal pain (Acute) Type of kidney inflammation (Acute) Palliative care encounter (Acute) Decreased oral intake (Acute) DNR (do not resuscitate) (Acute) Uncontrolled pain (Acute) Stomatitis (Acute) Candidal skin infection (Acute) No contraindication to deep vein thrombosis (DVT) prophylaxis (Acute) Hypertension (Chronic) Pancreas cancer (Acute) Acute hypokalemia (Acute) Hypomagnesemia (Acute) Social History Smoking/Tobacco Use Status: Never Smoking risk assessment performed?: Yes Alcohol Intake: never Drug use: Never Substance use type: does not use Do you feel safe at home: Yes Do you feel safe in your relationship?: Yes Exam Narrative Exam Narrative: lying on side in hospital bed, eyes closed bu noa intermittent to make eye contact w/conversation; answers questions appropriate; slight grimace noted 2x Const General: cooperative, no acute distress and ill appearing Orientation: alert, awake and oriented x3 Resp Effort & Inspection: normal respiratory effort, able to speak in complete sentences, no cough and not labored Skin Other: warm to touch Psych Speech and Movement: speech clear Mood: congruent mood and dysthymic mood Affect: indifferent Attitude: cooperative and guarded (opens up w/time) Results Last Vital Signs Temp 98.2 F 11/05/22 07:25 Pulse 71 11/05/22 07:25 Resp 17 11/05/22 07:25 BP 144/78 H 11/05/22 11:16 Pulse Ox 99 11/05/22 10:44 Labs Result diagrams: 11/04/22 08:08 11/04/22 08:08 Labs: Laboratory Results - last 24 hr 11/04/22 11/05/22 12:40 10:08 Urine Color Yellow Urine Clarity Clear Urine pH 7.5 Ur Specific [place] 1.020 Urine Protein 30 H Urine Ketones 15 H Urine Blood Moderate H Urine Nitrite Negative Urine Bilirubin Negative Urine Urobilinogen 0.2 Ur Leukocyte Esterase Negative Urine RBC 10-20 H Urine WBC 0-2 Ur Epithelial Cells Negative Urine Crystals Negative Urine Bacteria Few Urine Casts Negative Urine Mucus Trace Urine Other Few Renal Ur Culture Indicated? No Urine Glucose Negative SARS-CoV-2 (PCR) Negative
--- NOTE | 2022-11-05 15:01 | PT.INNT ---
Date of service: 11/05/22 Time of Service: 15:01 PT Notes Visit Reasons: MSSA bactermia 11/05/2022 Patient refuses to participate in afternoon PT session. She states that she does not feel well and just wants to be left alone. Will attempt to resume PT services tomorrow morning.
[2022-11-05 17:02] VITALS: BP 140/96; BP 178/94; BP 90/45; PULSE 78; PULSE 95; RESP 12; TEMP 36.1; O2SAT 98
[2022-11-05] MEDS: Dronabinol 2.5 MG CAP PO (17:19)
--- NOTE | 2022-11-05 18:57 | W.ANESVAS ---
Midline Placement Date Performed: 11/05/22 Procedure Time: 18:45 Requesting Provider: Pj Urban Procedure Location: Med/Surg Sedation Given (Indicate Dose Given): No Sedation given Patient Mental Status: Awake Sterility: Hand Hygiene, Surgical Cap, Surgical Mask, Sterile Gloves, Sterile Drape/Sheet and Chlorhexidine Laterality: Right Insertion Site: Brachial Midline Device: PowerGlide Pro 20G Catheter Length: 10 cm Midline Procedure Procedure: 1% Lidocaine to skin and subcutaneous tissue with 25g needle and Catheter placed without resistance Dressing: Tegaderm Applied Blood Return: Present Flushes: Easily Ultrasound: Sterile probe cover and gel used Ultrasound Image Saved?: Yes Number of Attempts (See previous attempts in note section): 1 Procedure Tolerated: No Complications Procedure Outcome: Successful Procedure Comment:: very close to artery: slow dark nonpulsitile blood from cath, catheter not seen in artery after placed. Performed By: Edison Javier
[2022-11-05] MEDS: Magnesium Oxide 400 MG TAB 800 MG PO (20:14)
[2022-11-05] MEDS: Acetaminophen 500 MG TAB 1000 MG PO (20:14)
[2022-11-05] MEDS: buPROPion-CR 150 MG TABCR PO (20:15)
[2022-11-05] MEDS: amLODIPine 5 MG TAB PO (20:15)
[2022-11-06] MEDS: ceFAZolin 2 GM/50 ML BAG IV ×3 (05:30→22:56)
[2022-11-06] MEDS: Acetaminophen 500 MG TAB 1000 MG PO ×2 (05:34→21:33)
[2022-11-06 07:42] VITALS: BP 160/94; PULSE 78; RESP 18; TEMP 36.5; O2SAT 95
[2022-11-06] MEDS: Pantoprazole 40 MG TABCR PO ×2 (07:53→21:35)
[2022-11-06] MEDS: Creon, Lipase 6,000 CAPCR 1 CAP PO ×2 (07:54→16:35)
[2022-11-06] MEDS: Montelukast 10 MG TAB PO (07:54)
[2022-11-06] MEDS: Dexamethasone 4 MG TAB PO (07:54)
[2022-11-06] MEDS: Normal Saline Flush 10 ML SYR IVP (07:55)
[2022-11-06] MEDS: Budesonide/Formoterol 160/4.5 6 GM 60 PUFF INH IH ×2 (08:39→19:34)
--- NOTE | 2022-11-06 10:17 | PT.INTREAT ---
Date of service: 11/06/22 Time of Service: 09:56 PT Notes Visit Reasons: MSSA bactermia Inpatient Physical Therapy Treatment Note [facility] Date: 11/06/2022 PRECAUTIONS: Fall, activity as tolerated SUBJECTIVE: Sonali eventually agrees to participate in PT. She reports that she did get some rest yesterday, but is still very tired. OBJECTIVE: PAIN: Patient c/o abdominal pain at all times BED MOBILITY/TRANSFERS Supine-sit: I Sit-supine: I Sit-stand: S Stand-sit: S GAIT Assistive Device: FWW Weight bearing: Full Assist: SBA Distance: 12' x2 Deviation: Refused further gait training, increased pain and fatigue TOILETING: Patient toileted with supervision with transfers for safety ASSESSMENT: Patient tolerated session with complaint of abdominal pain at all times. She c/o nausea with transfers and continues to demonstrate limited activity tolerance. PLAN: Continue with global strengthening and general conditioning for improved activity tolerance. TREATMENT CODE/TIME: 20 minutes; 99297 (09:56)
[2022-11-06] MEDS: buPROPion-CR 150 MG TABCR PO ×2 (11:42→21:35)
[2022-11-06] MEDS: Losartan 50 MG TAB 100 MG PO (11:43)
--- NOTE | 2022-11-06 12:59 | PDOC.ANES ---
Date of service: 11/06/22 Time of Service: 12:55 Anesthesia Note Report Anesthesia Note: Patients midline assessed at bedside at the request of RN. Midline dressing removed along with stat lock. Unable to flush or draw blood--IV was covered with tegaderm and discussed findings with RN. Patient has a planned phone meeting with oncologist at 1330 today and will further discuss IV access. Plan to reevaluate patient's needs following meeting.
--- NOTE | 2022-11-06 14:04 | W.NUTRFU ---
Date of service: 11/06/22 Time of Service: 14:04 Nutrition Note NOTE: Sonali has had poor to no po intake since admission on 10/07/22 with 5% weight loss in last 30 days indicating malnutrition. Per pallative note, Sonali wishes to continue with aggressive cancer treatment. Expect poor efficacy of chemo/radiation with accompanying malnutrition. Recommend TPN to support lean body mass and immune function as unable to take food/ beverages by mouth secondary to gag reflex associated with pain/pain meds. At high risk for refeeding syndrome in view malnutrition in last 30 days, recommend Clinix (4.25/10)initially start at 42 cc/hour (TV 1000 ml) with 125 ml of 20% lipid providing total of 760 kcal, 42 g protein, 27 g g fat for first 3 days. If electrolytes wnl, increase day 4 to 83 cc/hour with 250 ml 20% lipid providing total of 1520 kcal, 84 g protien, 55 g fat. Standard MVI and trace elements. Check CBC, CMP, Mg, Phos daily until normalized, check blood sugars BID and correct Time Spent in Nutritional Counseling and Treatment: 20
--- NOTE | 2022-11-06 15:16 | W.PM.PROGNOT ---
Date of Service Date of service: 11/06/22 Time of Service: 15:16 Assessment and Plan Assessment and plan (1) Pancreas cancer: Status: Acute Assessment and plan: f/b [facility], Dr. Harrington, whom I spoke with today. He then called and spoke w/ Sonali and her sister., Sonali consistent w/preference to continue oncology treatments, w/infusion scheduled for 11/16/21 w/Dr. Harrington, however Dr Harrington will delay until Mediport is placed. I will consult [facility] for placement after completion of her Ancef on 11/13/22 Professional time spent interviewing and examining patient, discussion of goals of care with hospital team (care management, nursing and consulting professionals) was 30 minutes. (2) Methicillin susceptible Staphylococcus aureus infection: Status: Acute Assessment and plan: Bacteremia with source felt to be the infusaport, removed on 10/16/22. Repeat blood cultures negative; final Blood cultures on 10/27; negative x 24H. Continue cefazolin. End date for abx is planned to be 11/13/21 (4 weeks from 1st negative blood culture). (3) Uncontrolled pain: Status: Acute Assessment and plan: improving pain control on fentanyl 50 mcg/hr along w/ prn oral morphine IR and prn iv morphine (4) Abdominal pain: Status: Acute Assessment and plan: as above PRN ani-emesis avail (5) Decreased oral intake: Status: Acute Assessment and plan: suspect r/t pain, improved previously w/pain control continue to follow (6) Palliative care encounter: Status: Acute Assessment and plan: PC to continue to follow during admission, will check in next week (7) DNR (do not resuscitate): Status: Acute Subjective Subjective Interval history since last seen: Patient has no acute complaints. Nursing was able to place a peripheral iv in her left hand. Patient has had problems w/ midline's failing. Anesthesia was reluctant to try another midline until a plan has been decided regarding her chemotherapy. I spoke w/ Dr. Harrington. He will delay her chemotherapy for another week until she has completed her Ancef (projected completion is 11/13/22) at which point she will be referrred to surgery for placement of another mediport or she can go to another institution for a PICC line. I think as long as she has no further bacteremia then she ought to be able to have a mediport placed. Exam Narrative Exam Narrative: Sonali is lying in bed, no discomfort, she states that her pain is controlled Lungs: clear Heart: RRR Abdomen: obese, soft, nondistended, nontender to light palpation Legs: no edema or cyanosis Objective Last Vital Signs Temp 36.5 C 11/06/22 07:42 Pulse 78 11/06/22 07:42 Resp 18 11/06/22 07:42 BP 160/94 H 11/06/22 07:42 Pulse Ox 95 11/06/22 07:42
[2022-11-06] MEDS: Dronabinol 2.5 MG CAP PO (16:35)
[2022-11-06] MEDS: Lactated Ringers 1,000 ML 85 ML IV (16:40)
[2022-11-06] MEDS: Magnesium Oxide 400 MG TAB 800 MG PO (21:34)
[2022-11-06] MEDS: amLODIPine 5 MG TAB PO (21:34)
[2022-11-07] MEDS: Lactated Ringers 1,000 ML 85 ML IV ×2 (02:41→15:45)
[2022-11-07] MEDS: ceFAZolin 2 GM/50 ML BAG IV ×3 (05:45→21:00)
[2022-11-07] MEDS: Budesonide/Formoterol 160/4.5 6 GM 60 PUFF INH IH ×2 (08:26→21:19)
[2022-11-07 09:06] VITALS: BP 160/90; PULSE 88; RESP 20; TEMP 36.5; O2SAT 94
[2022-11-07] MEDS: Dexamethasone 4 MG TAB PO (09:09)
[2022-11-07] MEDS: Losartan 50 MG TAB 100 MG PO (09:09)
[2022-11-07] MEDS: Venlafaxine 150 MG CAPCR PO (09:09)
[2022-11-07] MEDS: buPROPion-CR 150 MG TABCR PO ×2 (09:09→20:56)
[2022-11-07] MEDS: Montelukast 10 MG TAB PO (09:10)
[2022-11-07] MEDS: Ondansetron O.D.T. 4 MG TABEF 8 MG PO (09:19)
[2022-11-07] MEDS: MORPHine 2 MG/ML SYR IVP ×2 (09:20→10:55)
[2022-11-07] MEDS: Dronabinol 2.5 MG CAP PO ×2 (10:55→15:49)
--- NOTE | 2022-11-07 11:17 | PT.INNT ---
Date of service: 11/07/22 Time of Service: 11:17 PT Notes Visit Reasons: MSSA bactermia 11/07/2022 Attempted to see patient x 2 today, but was sleeping. Nursing staff indicated she indicated her pain level was 8 out of 10 today prior to sleeping. Will hold on PT services today and try again tomorrow. Proceed as patient is able to tolerate.
[2022-11-07] MEDS: Acetaminophen 500 MG TAB 1000 MG PO ×2 (13:56→20:56)
[2022-11-07] MEDS: Dexamethasone 1 MG TAB 2 MG PO (13:56)
[2022-11-07] MEDS: Creon, Lipase 6,000 CAPCR 1 CAP PO (16:14)
[2022-11-07] MEDS: Magnesium Oxide 400 MG TAB 800 MG PO (20:55)
[2022-11-07] MEDS: amLODIPine 5 MG TAB PO (20:55)
[2022-11-07] MEDS: Pantoprazole 40 MG TABCR PO (20:56)
[2022-11-07] MEDS: Enoxaparin 40 MG/0.4 ML SYR SC (20:59)
[2022-11-08] MEDS: Lactated Ringers 1,000 ML 85 ML IV ×2 (04:04→16:53)
[2022-11-08 04:35] VITALS: BP 141/73; PULSE 77; RESP 18; TEMP 36.9; O2SAT 95
[2022-11-08] MEDS: ceFAZolin 2 GM/50 ML BAG IV ×3 (05:10→21:01)
[2022-11-08] MEDS: MORPHine 2 MG/ML SYR IVP (07:28)
[2022-11-08 08:28] VITALS: BP 162/92; PULSE 80; RESP 18
[2022-11-08 08:40] VITALS: BP 162/82; PULSE 80; RESP 18; TEMP 36.9; O2SAT 95
[2022-11-08] MEDS: Budesonide/Formoterol 160/4.5 6 GM 60 PUFF INH IH ×2 (08:44→21:00)
[2022-11-08] MEDS: Pantoprazole 40 MG TABCR PO (09:27)
[2022-11-08] MEDS: Dexamethasone 4 MG TAB PO (09:27)
[2022-11-08] MEDS: Montelukast 10 MG TAB PO (09:28)
[2022-11-08] MEDS: Losartan 50 MG TAB 100 MG PO (09:28)
[2022-11-08] MEDS: Creon, Lipase 6,000 CAPCR 1 CAP PO (09:29)
[2022-11-08] MEDS: Ondansetron O.D.T. 4 MG TABEF 8 MG PO (09:59)
[2022-11-08] MEDS: Dronabinol 2.5 MG CAP PO (11:31)
[2022-11-08] MEDS: fentaNYL 50 MCG PATCH TD (11:32)
[2022-11-08] MEDS: LORazepam 0.5 MG TAB PO (11:41)
--- NOTE | 2022-11-08 12:47 | PT.INNT ---
Date of service: 11/08/22 Time of Service: 12:45 PT Notes Visit Reasons: MSSA bactermia 11/08/2022 Attempted to work with patient x 2 this morning but she refused. Indicated she has been getting up with nursing staff as needed and was not interested in doing PT. Would not open eyes while speaking with me and remained lying in supine.
[2022-11-08] MEDS: Dexamethasone 1 MG TAB 2 MG PO (13:14)
[2022-11-08 14:45] VITALS: BP 132/90; PULSE 92; RESP 19; TEMP 36.4; O2SAT 93
[2022-11-08 15:24] LABS: Abs Immature Grans 0.21 10^3/uL (0.0-0.06); Absolute Basophil Count 0.02 10^3/uL (0.0-0.2); Absolute Eosinophil Count 0.01 10^3/uL (0.0-0.7); Absolute Monocyte Count 0.86 10^3/uL (0.1-0.8); Absolute Neutrophil Count 9.98 10^3/uL (1.2-6.7); Basophils % 0.2; Eosinophils % 0.1; HCT 30.5 % (36.0-46.0); HGB 9.6 g/dL (11.2-15.7); Immature Grans % 1.8; Lymphocytes % 4.3; MCH 29.8 pg (27.0-33.0); MCHC 31.5 % (32.0-36.0); MCV 95 fL (80-95); MPV 9.6 fL (8.0-11.0); Monocytes % 7.4; Neutrophils % 86.2; Platelet Count 270 10^3/uL (130-400); RBC 3.22 10^6/uL (3.93-5.22); RDW 13.4 % (11.7-14.6); RDW-SD 46.4 fL; WBC 11.58 10^3/uL (4.4-10.8)
[2022-11-08 16:31] LABS: Prothrombin Time > 83.4 sec (9.3-11.0)
[2022-11-08 16:57] LABS: INR > 8.8 (0.9-1.1)
[2022-11-08 18:04] LABS: Prothrombin Time > 83.4 sec (9.3-11.0)
[2022-11-08 18:05] LABS: INR > 8.8 (0.9-1.1)
[2022-11-08] MEDS: PHYTONADIONE 10 MG in Normal Saline 50 ML 200 MG IVPB (18:23)
[2022-11-08 22:46] VITALS: BP 178/100; PULSE 82; RESP 18; TEMP 36.9; O2SAT 94
[2022-11-08] MEDS: amLODIPine 5 MG TAB PO (22:53)
[2022-11-08 23:48] VITALS: BP 180/100; PULSE 77; RESP 18; TEMP 36.9; O2SAT 93
[2022-11-09] MEDS: LORazepam 0.5 MG TAB PO (01:55)
[2022-11-09 04:15] VITALS: BP 180/100; PULSE 80; RESP 18; TEMP 36.3; O2SAT 97
[2022-11-09] MEDS: ceFAZolin 2 GM/50 ML BAG IV ×3 (05:41→21:34)
[2022-11-09] MEDS: Lactated Ringers 1,000 ML 85 ML IV ×2 (05:46→19:38)
[2022-11-09 06:24] LABS: Abs Immature Grans 0.26 10^3/uL (0.0-0.06); Absolute Basophil Count 0.04 10^3/uL (0.0-0.2); Absolute Eosinophil Count 0.01 10^3/uL (0.0-0.7); Absolute Lymphocyte Count 0.99 10^3/uL (1.2-3.4); Absolute Monocyte Count 1.19 10^3/uL (0.1-0.8); Absolute Neutrophil Count 9.91 10^3/uL (1.2-6.7); Basophils % 0.3; Eosinophils % 0.1; HCT 28.5 % (36.0-46.0); HGB 9.3 g/dL (11.2-15.7); Immature Grans % 2.1; MCH 30.4 pg (27.0-33.0); MCHC 32.6 % (32.0-36.0); MCV 93 fL (80-95); MPV 9.8 fL (8.0-11.0); Monocytes % 9.6; Neutrophils % 79.9; Platelet Count 224 10^3/uL (130-400); RBC 3.06 10^6/uL (3.93-5.22); RDW 13.1 % (11.7-14.6); RDW-SD 45.1 fL
[2022-11-09 06:34] LABS: INR 1.2 (0.9-1.1); Prothrombin Time 12.2 sec (9.3-11.0)
[2022-11-09 06:57] LABS: ALT 14 U/L (14-59); AST 17 U/L (15-37); Albumin 2.5 g/dL (3.4-5.0); Alkaline Phosphatase 89 U/L (46-116); Anion Gap 7.6 mmol/L (3-11); BUN 12 mg/dL (7-18); Bilirubin, Total 0.6 mg/dL (0.2-1.0); C-Reactive Protein 9.78 mg/dL (0.0-0.3); CO2 31.4 mmol/L (21.0-32.0); CREATININE 0.6 mg/dL (0.55-1.02); Calcium 8.4 mg/dL (8.5-10.1); Chloride 94 mmol/L (98-107); Estimated GFR 101.42 (mL/min/1.73m2); Glucose 100 mg/dL (74-106); Sodium 133 mmol/L (136-145); Total Protein 5.8 g/dL (6.4-8.2)
[2022-11-09 07:02] LABS: Potassium 2.5 mmol/L (3.5-5.1)
[2022-11-09] MEDS: Budesonide/Formoterol 160/4.5 6 GM 60 PUFF INH IH ×2 (07:33→19:32)
[2022-11-09 07:39] VITALS: BP 153/88; PULSE 84; RESP 19; TEMP 36.7; O2SAT 95
[2022-11-09] MEDS: Dexamethasone 4 MG TAB PO (08:19)
[2022-11-09] MEDS: buPROPion-CR 150 MG TABCR PO (08:19)
[2022-11-09] MEDS: Magnesium Oxide 400 MG TAB 800 MG PO (08:19)
[2022-11-09] MEDS: Pantoprazole 40 MG TABCR PO (08:19)
[2022-11-09] MEDS: Venlafaxine 150 MG CAPCR PO (08:19)
[2022-11-09] MEDS: Montelukast 10 MG TAB PO (08:19)
[2022-11-09] MEDS: Losartan 50 MG TAB 100 MG PO (08:19)
[2022-11-09 10:11] LABS: Lab Add On Test DONE
[2022-11-09 10:22] LABS: Magnesium 1.2 mg/dL (1.8-2.4)
[2022-11-09] MEDS: POTASSIUM CHLORIDE 10 MEQ/100 ML BAG 50 MEQ IVPB ×4 (10:41→17:17)
[2022-11-09] MEDS: MORPHine 2 MG/ML SYR IVP (10:41)
[2022-11-09] MEDS: Potassium Chloride 10 MEQ CAPCR 40 MEQ PO (11:36)
--- NOTE | 2022-11-09 11:58 | PT.INTREAT ---
PT Notes Visit Reasons: MSSA bactermia Inpatient Physical Therapy Treatment Note [facility] Date: 11/09/22 PRECAUTIONS:MRSA SUBJECTIVE: OBJECTIVE: Supine-sit: CGA Sit-supine: CGA Sit-stand: SBA Stand-sit: SBA GAIT Assistive Device: FWW Weight bearing: Full Assist: CGA Distance: Approx 100ft THEREX: Ref too tired ASSESSMENT: Pt was aggitated today and did not feel very well. PLAN: Cont as per PT POC. TREATMENT CODE/TIME: [11:35-11:55 (20) TA
[2022-11-09] MEDS: Potassium Chloride 10 MEQ CAPCR 20 MEQ PO (13:53)
[2022-11-09] MEDS: Dexamethasone 1 MG TAB 2 MG PO (13:53)
[2022-11-09 17:25] LABS: Potassium 3.8 mmol/L (3.5-5.1)
[2022-11-09] MEDS: MAGNESIUM SULFATE 4 GM/100 ML BAG IVPB (18:04)
[2022-11-09] MEDS: Ondansetron O.D.T. 4 MG TABEF 8 MG PO (19:50)
[2022-11-09 21:40] VITALS: BP 135/82; PULSE 85; RESP 19; TEMP 35.3; O2SAT 99
[2022-11-09] MEDS: amLODIPine 5 MG TAB PO (21:43)
--- NOTE | 2022-11-09 22:06 | NUR.NOTE ---
received pt at 1900, pt was drowsy and sleeping. made rounds at 1930, assessment done, patient felt nauseous, given Zofran ODT 8mg, but pt refused all PO meds because of her nausea and sore throat. Offered pain meds/to ask MD for sore throat meds but pt ignored and declined afterwards. Started giving education that her electrolytes specifically potassium and magnesium are low and needs to be replaced which are very essential to muscles kiran to the heart which helps to keep the heart chelsea in a sinus/normal way, pt just answered that she has received some IV potassium and magnesium and she has sore throat right now and if we force her to take meds she will just vomit and she just wants to be asleep. Given some time for pt to recover and rest. Patient called again Assisted to go to bathroom at 2029, reinstated her need to take some of her PO meds when she is able to take it, pt replied yes later, was able to give her norvasc with some sips of water at 2140:
[2022-11-10] MEDS: MORPHine 2 MG/ML SYR IVP ×4 (00:26→19:32)
[2022-11-10] MEDS: Normal Saline Flush 10 ML SYR IVP ×3 (00:26→19:33)
[2022-11-10] MEDS: ceFAZolin 2 GM/50 ML BAG IV ×3 (05:49→22:54)
[2022-11-10 07:31] VITALS: BP 161/100; PULSE 83; RESP 18; TEMP 36.6; O2SAT 98
[2022-11-10 07:38] LABS: Anion Gap 5.5 mmol/L (3-11); BUN 11 mg/dL (7-18); CO2 29.5 mmol/L (21.0-32.0); CREATININE 0.7 mg/dL (0.55-1.02); Calcium 8.3 mg/dL (8.5-10.1); Chloride 95 mmol/L (98-107); Estimated GFR 97.72 (mL/min/1.73m2); Glucose 111 mg/dL (74-106); Magnesium 1.9 mg/dL (1.8-2.4); Potassium 3.2 mmol/L (3.5-5.1); Sodium 130 mmol/L (136-145)
[2022-11-10] MEDS: Budesonide/Formoterol 160/4.5 6 GM 60 PUFF INH IH ×2 (08:13→19:39)
[2022-11-10] MEDS: Ondansetron O.D.T. 4 MG TABEF 8 MG PO (08:15)
[2022-11-10] MEDS: Magnesium Oxide 400 MG TAB 800 MG PO (08:38)
[2022-11-10] MEDS: Pantoprazole 40 MG TABCR PO (08:39)
[2022-11-10] MEDS: buPROPion-CR 150 MG TABCR PO ×2 (08:39→20:47)
[2022-11-10] MEDS: Dexamethasone 4 MG TAB PO (08:39)
[2022-11-10] MEDS: Losartan 50 MG TAB 100 MG PO (08:40)
[2022-11-10] MEDS: Lactated Ringers 1,000 ML 85 ML IV ×2 (08:40→20:47)
[2022-11-10] MEDS: Montelukast 10 MG TAB PO (08:40)
--- NOTE | 2022-11-10 15:52 | PT.INTREAT ---
Date of service: 11/10/22 Time of Service: 09:26 PT Notes Visit Reasons: MSSA bactermia Inpatient Physical Therapy Treatment Note [facility] Date: 11/10/2022 PRECAUTIONS: Fall, activity as tolerated SUBJECTIVE: Sonali is agreeable to participating in PT. She states that she feels tired. OBJECTIVE: PAIN: Patient reports back pain at conclusion of session. Reported to nursing. BED MOBILITY/TRANSFERS Supine-sit: I Sit-supine: I Sit-stand: I Stand-sit: I GAIT Assistive Device: FWW Weight bearing: Full Assist: S Distance: 25' + 5' Deviation: Slow pacing, increased fatigue STAIRS: Up 3x4 and down 2x6 using B rail and a step-to pattern with supervision. While descending last step, patient's R knee buckled and patient demonstrates uncontrolled sit on bottom step. Patient required Mod A x2 to resume standing position. TOILETING: Patient toileted independently. ASSESSMENT: Patient tolerated session with complaint of increased fatigue. She continues to tolerate limited activity and gait distance with FWW support. She requires encouragement to engage and participate and to progress. Recommend lift assist into home, as patient has 19 TANIKA, and does not appear to have the strength nor the stamina to complete this task. PLAN: Continue with general conditioning for improved activity tolerance. TREATMENT CODE/TIME: 19 minutes; 42873 (09:26)
[2022-11-10] MEDS: Lidocaine 1% Pres-Free 5 ML VIAL (18:10)
[2022-11-10] MEDS: Creon, Lipase 6,000 CAPCR 1 CAP PO (20:46)
[2022-11-10] MEDS: amLODIPine 5 MG TAB PO (22:56)
[2022-11-11] MEDS: MORPHine 2 MG/ML SYR IVP ×5 (00:32→22:19)
[2022-11-11] MEDS: ceFAZolin 2 GM/50 ML BAG IV ×3 (05:31→22:20)
[2022-11-11] MEDS: Budesonide/Formoterol 160/4.5 6 GM 60 PUFF INH IH ×2 (07:35→20:07)
[2022-11-11 07:41] LABS: Anion Gap 9.3 mmol/L (3-11); BUN 11 mg/dL (7-18); CO2 25.7 mmol/L (21.0-32.0); CREATININE 0.7 mg/dL (0.55-1.02); Calcium 8.5 mg/dL (8.5-10.1); Chloride 94 mmol/L (98-107); Estimated GFR 97.72 (mL/min/1.73m2); Glucose 100 mg/dL (74-106); Sodium 129 mmol/L (136-145)
[2022-11-11 07:45] LABS: Potassium 2.7 mmol/L (3.5-5.1)
[2022-11-11 07:46] VITALS: BP 148/99; PULSE 99; RESP 18; TEMP 36.7; O2SAT 99
[2022-11-11] MEDS: Normal Saline Flush 10 ML SYR IVP ×2 (08:35→13:37)
[2022-11-11] MEDS: Lactated Ringers 1,000 ML 85 ML IV ×2 (09:57→22:20)
--- NOTE | 2022-11-11 10:44 | CMPROGNOTE_ITS ---
- If Service Date Differs Date of service: 11/11/22 Time of Service: 10:44 Care Management Progress Note S/O: Sonali is lying in bed, on her side when CM met with her. She appears more tired and weak today. Sonali is still planning to discharge to her sisters home with New VNA RN/PT/OT/NEW VEHICLE SALES CONSULTANT and follow up with Oncology on 11/16/22. Per provider, Sonali has a Palliative consult tomorrow to review goals of care. CM will follow. A: 62 year old female admitted to [place] [address] on 10/30/22 for IV ABX therapy (last dose 11/13/22). P: Sonali is admitted to [facility] while receiving IV ABX and working with PT. Anticipate, Sonali will discharge to her sister's home in [place] with new orders for VNA RN/PT/OT/NEW VEHIC[employer] SALES CONSULTANT and family support when ready. Sonali will follow up with community providers including Oncology, PCP and Palliative Care. She will transport via private vehicle with family and require a lift assist. CM continues to follow.
[2022-11-11] MEDS: fentaNYL 50 MCG PATCH TD (13:03)
[2022-11-11 15:35] VITALS: BP 142/93; PULSE 86; RESP 16; TEMP 36.3; O2SAT 97
--- NOTE | 2022-11-11 17:37 | PT.INNT ---
Date of service: 11/11/22 Time of Service: 17:37 PT Notes Visit Reasons: MSSA bactermia Refused offer of services three times today. Reports 10/10 pain in epigastric area despite clarification from Nurse Olga that patient has had her pain pill. Unrelenting to encouragement about the benefits of activity on pain, stiffness, and functional level. JOÃO Ventura was notified of patient's refusal and requested to hold off on discharge until after a review of goals through a palliative meeting is done tomorrow morning.
[2022-11-11] MEDS: amLODIPine 5 MG TAB PO (22:19)
[2022-11-12] MEDS: ceFAZolin 2 GM/50 ML BAG IV ×3 (05:13→23:29)
[2022-11-12 06:44] VITALS: BP 123/81; PULSE 88; RESP 16; TEMP 36.4; O2SAT 99
[2022-11-12] MEDS: Budesonide/Formoterol 160/4.5 6 GM 60 PUFF INH IH (07:34)
--- NOTE | 2022-11-12 09:58 | PCPN_ITS ---
Date of service: 11/12/22 Time of Service: 14:30 Assessment and Plan Assessment and plan (1) Palliative care encounter: Status: Acute Assessment and plan: PC to continue to follow inpatient as appropriate, outpatient pending discharge plan may transition to hospice at any time need to review discharge options: swing bed for additional 30 days, return to her home w/HH services NH referrals placed, however concern over payer source (2) Pancreas cancer: Status: Acute Assessment and plan: Dr. Harrington appointment tomorrow, he will present to hospital for appointment will review options for care concerns over not eating/drinking/engaging not congruent w/tolerating oncology care no caregivers available at this time (3) Decreased oral intake: Status: Acute Assessment and plan: r/t abd pain? depression? reviewed COLST preferences, no FT, continue IVF (4) Epigastric pain: Status: Acute Assessment and plan: morphine administered immediately post visit encouraged pt request pain medicine PRN continue fentanyl 50mcg continue morphine 4mg IV PRN (5) Abdominal pain: Status: Acute (6) Uncontrolled pain: Status: Acute Assessment and plan: 11/11/21 24h MME: 140 (fentanyl 50mcg/hr, morphine 4mg IV x5) consider increase fentanyl to 75mcg w/MMEs at 160-180, need for more frequent pain assessment consider 2mg doses if concern over sedation consider pump if decision for hospice made (7) DNR (do not resuscitate): Status: Acute Assessment and plan: COLST reviewed and UTD DNR/I, no FT, trial IVF/abx (8) Methicillin susceptible Staphylococcus aureus infection: Status: Acute Assessment and plan: abx complete tomorrow (9) Depression: Status: Chronic Assessment and plan: currently on Effexor 150mg, Wellbutrin 150mg BID started on Marinol 2.5mg BID last week lorazepam 0.5mg PRN available Subjective Subjective Interval history since last seen: Sonali feels abandoned and lonely. Her sister is no longer willing to take her into her home on discharge. Her children have not been in to visit. She feels sad and depressed by this, unsure of what to do. She would not want to continue pursuing oncology treatments w/curative intent if she does not have a support network. She is aware she has an apt tomorrow w/oncology Dr Ripple and would like to see how this appointment goes before making a decision. She is aware that hospice is an option if she does not wish to pursue oncology treatments. She has not been eating, drinking or accepting medications for a few days, per staff this has been on/off since her stay here. She has been up walking independently w/PT, however has declined in recent days. Her pain is uncontrolled at this time, she has not received any morphine today, pain c onsistent in epigastric/abdominal area. She will complete her course of antibiotics tomorrow. She is consistent w/previous COLST form preferences: DNR/I, no feed tube, trial IVF/abx Exam Narrative Exam Narrative: lying on side in hospital bed, sleeping on arrival, initially does not engage, does open w/time, eyes open, makes appropriate eye contact grimace w/holding of abdomen noted 4x Const General: cooperative, no acute distress and ill appearing Orientation: alert, awake and oriented x3 HENMT Head: normal to inspection, normocephalic and atraumatic Ears: hearing grossly normal bilaterally Mouth: moist mucous membranes abnormal (dry, lips peeling) Resp Effort & Inspection: normal respiratory effort, able to speak in complete sentences, no cough and not labored Skin Other: warm to touch Psych Speech and Movement: speech clear Mood: congruent mood and dysthymic mood Affect: indifferent Attitude: cooperative and guarded (opens up w/time) Objective Last Vital Signs Temp 97.5 F L 11/12/22 06:44 Pulse 88 11/12/22 06:44 Resp 16 11/12/22 06:44 BP 123/81 11/12/22 06:44 Pulse Ox 99 11/12/22 06:44
--- NOTE | 2022-11-12 10:23 | PT.INPN ---
Date of service: 11/12/22 Time of Service: 10:23 PT Notes Visit Reasons: MSSA bactermia Physical Therapy Swing Bed Level I Progress Note Date: 11/12/2022 Dates of Service: 11/04/2022 through 11/12/2022 Referring Doctor:Rolando Morelos NP PT Orders: PT CONSULT: D/C Non-PT Dependent Precautions: Fall. Standard. Activity as tolerated. Patient Profile/Admitting Diagnosis:? Sonali is a 61-year-old female diagnosed with pancreatic cancer 2 months ago who presented to the ED on 10/07/2022 due to nausea, vomiting, and inability to tolerate oral intake with report of severe abdominal pain.? Patient is diagnosed with yeast UTI,? MRSA,? epigastric pain, and? myoclonic jerking.? She continues with medical management and inpatient rehabilitation under swing bed 1 level of care as of 10/30/2022.? ? PMHX: All Active Problems?(Updated 11/02/22 @ 19:19 by Sunshine Morelos NP) Yeast UTI (Acute) Epigastric pain (Acute) Hypokalemia (Acute) Methicillin susceptible Staphylococcus aureus infection (Acute) E. coli UTI (Acute) Gram-positive bacteremia (Acute) Abdominal pain (Acute) Type of kidney inflammation (Acute) Palliative care encounter (Acute) Decreased oral intake (Acute) DNR (do not resuscitate) (Acute) Uncontrolled pain (Acute) Stomatitis (Acute) Candidal skin infection (Acute) No contraindication to deep vein thrombosis (DVT) prophylaxis (Acute) Hypertension (Chronic) Pancreas cancer (Acute) Acute hypokalemia (Acute) Hypomagnesemia (Acute) Social History/Home Situation: Lives with son and son's family in a private home with 13 step to enter.? Unknown at this time if patient will return to her home or her sister's home.? Independent with all mobility ADLs prior to admission.? Sister Jennifer who lives half an hour away has been a good support. Equipment Owned/DME: None Subjective: Continues to complain of fatigue and abdominal pain. Continues to require encouragement to participate in therapy. Objective: General Observation: Supine in bed.? Has trouble keeping eyes open,? able to open them on command.? No myoclonic movements observed.? Telemetry monitoring in place.? Blackmon catheter on. Mental Status: Alert and able to open eyes when requested to,? oriented as to person, place, time, and purpose. Able to pay attention, focus, and respond appropriately. Pain: Denies Vital Signs: WNL as closely monitored via tele ROM: Right Upper Extremity: ? Shoulder Flexion WFL. Shoulder abduction WFL. Elbow flexion WFL. Wrist flexion WFL. Functional opening and closing of hand WFL. Left Upper Extremity:? Shoulder Flexion WFL. Shoulder abduction WFL. Elbow flexion WFL. Wrist flexion WFL. Functional opening and closing of hand WFL. Right Lower Extremity: Hip flexion WFL. Hip abduction WFL. Knee flexion WFL. Ankle dorsiflexion WFL. Ankle plantarflexion WFL. Left Lower Extremity: Hip flexion WFL. Hip abduction WFL. Knee flexion WFL. Ankle dorsiflexion WFL. Ankle plantarflexion WFL. Strength: Right Upper Extremity: Grossly 4-/5 Left Upper Extremity: Grossly 4-/5 Right Lower Extremity: Grossly 4-/5 Left Lower Extremity: Grossly 4-/5 Bed Mobility/Transfers: Sit to stand with independent Stand to sit with independent Gait: Instructed patient with level surface ambulation of 20 feet + 20 feet requiring stand by assist and wheelchair follow.? Elke decreased. Step height decreased. Step length decreased. Balance: Static Sitting: Normal Dynamic Sitting: Good Static Standing: Fair Dynamic Standing: Fair Special Tests: Mobility Limitations Standardized Measure [facility] 6 clicks Basic Mobility Inpatient Short Form: Raw Score: 22? CMS Score: 21% deficit? ? ? Informed Consent/Education:? Patient was instructed in purpose of PT consult and plan of care. Agreeable to proceed with established PT POC to achieve personal goals. Assessment: Continues to require extensive encouragement to participate in therapy. Signs of depression, abdominal pain, and fatigue all limit patient's ability to achieve current goals. Will plan to await palliative care consult notes to see what patient decides to do prior to scheduled discharge on 11/13/2022. Patient presents with clinical signs and symptoms consistent with current/admitting diagnoses that have resulted to mobility limitations, gait instability, generalized weakness, and overall ADL decline as demonstrated by the following impairment level findings: 1.? Decreased strength to B UE/LE major muscle groups 2.? Impaired sitting/standing balance 3.? Impaired activity tolerance 4.? Lethargic Impairments are contributing to the following functional limitations: 1.? Decline in bed mobility skills 2.? Decline in transfer skills 3.? Difficulty with ambulation without assistive device and physical assistance 4.? Increased completion time for mobility ADL performance 5.? Increased risk for falls 6.? Difficulty with managing steps alone safely Patient is assessed as a 36748 moderate complexity based on the following: History: 61-year-old female with past medical history as indicated above Examination: Demonstrable impairment in strength, balance, and mobility level with underlying impairments and functional limitations as exhibited above as well as deficit score of 47% utilizing the [facility] Mobility Inpatient Short Form Presentation: Evolving Decision Makin moderate complexity Goals: Goals X1 week 1. Supine-Sit independent 2. Sit-Supine independent 3. Sit-Stand independent 4. Stand-Sit independent with no AD 5. Bed-Chair independent with no AD 6. Chair-Bed independent with no AD 7. Independent gait on level surface with use of SPC for at least 300 feet without report of pain nor dyspnea 8. Independent stair negotiation while holding onto B rails for at least 13 steps without report of pain nor dyspnea 9. Independent with home exercise program 10. Good static and dynamic standing balance/tolerance Plan of Care/Treatment Plan: 1-2x/day, 7 days/week x 1 week. Plan of care has been reviewed with the SWEEP MOLDER providing the service under Physical Therapy direction. Initiate Physical Therapy intervention for pain management as needed, strengthening, bed mobility, transfers, gait, stairs, balance training, and use of assistive device. DISCHARGE RECOMMENDATIONS: [] ? Home with no services [] [X] ? Home with services.? Home when medically cleared by hospitalist.? Patient will benefit from home health PT services in order to progress mobility level using least restrictive assistive ambulatory device, assess home safety, identify additional equipment needs, and establish a functional maintenance program that will increase ability of patient to remain at home. [] ? Home with outpatient PT [] [] ? SNF for continued rehabilitation [] [] ? [employer] Se[employer] Cover Installer Care [] [] ? SNF versus LTC based on ability to participate and progress [] TREATMENT CODE/TIME: 46606 x 17 minutes beginning at 10:23 AM. Thank you for the opportunity to participate in the care of this patient. Chica Phipps PT, DPT, CLT [facility] [place], [place]
--- NOTE | 2022-11-12 14:32 | CMPROGNOTE_ITS ---
- If Service Date Differs Date of service: 11/12/22 Time of Service: 14:32 Care Management Progress Note S/O: Sonali is lying in bed when CM met with her. She is awake, alert and able to engage in conversation. Danna from Palliative met with Sonali this afternoon to discuss goals of care moving forward, as her IV ABX course is nearing completion and her [facility] stay is slated to end on 11/13/22. Per Palliative, Sonali wants cancer treatment, if possible. She has an appointment with Dr. Harrington from [facility] here tomorrow to discuss treatment. CM will continue to support discharge planning considerations. The discharge plan up until this point, had been for Sonali to discharge to her sister Jennifer's home in [place] with New full VNA services. Then, Sonali would follow up with Dr. Harrington and Jennifer was agreeable to assist Sonali with making and getting to her Oncology appointments. Today, Jennifer informed CM that she is unwilling to have Sonali discharge to her home, and will also not provide caregiver support due to a conversation between the two which took place on Wednesday. SNF referrals are faxed. A: 62 year old female admitted to [place] [address] on 10/30/22 for IV ABX therapy (last dose 11/13/22). P: Sonali is admitted to [facility] while receiving IV ABX through 11/13/22. Anticipate, Sonali will discharge home with [facility] RN/PT/OT/HORSER UP. vs. SNF for STR. She will likely transport via [facility] W/C van and require a lift assist and follow up with community providers including Oncology, PCP and Palliative Care if returning home. SNF referrals are pending. CM continues to follow.
[2022-11-12] MEDS: Lactated Ringers 1,000 ML 85 ML IV (14:54)
[2022-11-12] MEDS: MORPHine 2 MG/ML SYR IVP ×2 (15:04→23:24)
--- NOTE | 2022-11-13 | DI.CT_ITS ---
Exam(s) CT CHEST/ABD/PEL W EXAM: CT CHEST/ABD/PEL W CLINICAL HISTORY: Pancreatic CA - staging. TECHNIQUE: Imaging Protocol: Axial computed tomography images with coronal and sagittal reformatted images were created and reviewed CONTRAST MATERIAL: Intravenous: Omnipaque 350 Contrast volume:100 ml Oral: yes / no COMPARISON: CT CT ABDOMEN PELVIS W from 10/07/[address] ABDOMEN PELVIS W from 10/15/[address] ABDOMEN PELVIS WO from 10/27/2022 FINDINGS: CHEST: Tracheobronchial tree: Patent where visualized. Mediastinum and Johnna: No dominant adenopathy or fluid collection. Pulmonary parenchyma: Faint ground-glass opacities in the left lower lobe common flexor fractures or inflammatory. No pulmonary nodules. No consolidation or dominant measurable mass. Pleura: No effusion or pneumothorax. Lymph nodes: Within normal limits. Aorta: Thoracic portion non-dilated. Heart: Normal size. No pericardial effusion. Bones: Unremarkable for age. No lytic or blastic lesions. ABDOMEN: Liver: Normal density. No measurable mass. Gallbladder and biliary tract: No radiodense calculus or dilation. Pancreas: Interval increase in size of mass in the pancreatic head now measuring 5.6 x 5.5 cm. The b luis and tail the pancreas appears somewhat thickened when compared with the prior exam. There are no w several small cystic areas not previously noted. Minimal dilatation of the pancreatic duct. Quest ion of mild surrounding inflammation. 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 Mi ld amount of thrombus in the splenic vein distally. Spleen: Normal. Kidneys: Normal size, contour and axis. No radiodense stones or obstructive uropathy. No masses seen. Adrenal glands: No masses seen. Aorta: Abdominal portion non-dilated. Lymph nodes: Within normal limits. Soft tissues: Unremarkable. Stomach and small bowel: Small hiatal hernia. Asymmetric wall thickening at the distal esophagus. U nchanged from 07 October 2022 exam. Mass not excluded. No small bowel dilatation. PELVIS: Bladder: Symmetric distention, no gross wall thickening. Bowel: No obstruction or bowel wall thickening. Peritoneal cavity: No ascites, collection or mesenteric inflammatory response. Bones: Stable L1 compression fracture and T12 hemangioma. Degenerative disc changes L4-5 and L5-S1. Facet degenerative changes lower lumbar spine. Reproductive organs: Status post hysterectomy. IMPRESSION: Chest: Evidence of metastatic disease. Pain ground-glass infiltrate left lower lobe. Abdomen pelvis: Interval increase in size of mass in the pancreatic head. Small amount of thrombus i s now seen at the portal splenic confluence. Question of new surrounding inflammation. RADIATION DOSE DELIVERED: 2,034.34mGy.cm Total DLP DATA REPOSITORY: All CT scans at this facility are submitted to the National Radiology Data Registry (NRDR) Dose Index Registry (DIR) with the [employer] (ACR). RADIATION OPTIMIZATION: All CT scans at this facility use at least one of these dose optimization te chniques: automated exposure control; mA and/or kV adjustment per patient size (includes targeted exa ms where dose is matched to clinical indication); or iterative reconstruction.
[2022-11-13 00:08] VITALS: O2SAT 99
[2022-11-13] MEDS: Lactated Ringers 1,000 ML 85 ML IV ×2 (03:09→15:55)
[2022-11-13] MEDS: ceFAZolin 2 GM/50 ML BAG IV ×3 (05:48→21:46)
[2022-11-13 06:30] VITALS: BP 152/93; PULSE 82; RESP 16; TEMP 36.3; O2SAT 96
[2022-11-13] MEDS: Budesonide/Formoterol 160/4.5 6 GM 60 PUFF INH IH ×2 (08:29→21:46)
[2022-11-13] MEDS: MORPHine 2 MG/ML SYR IVP ×2 (09:43→14:49)
[2022-11-13] MEDS: Normal Saline Flush 10 ML SYR IVP ×2 (10:01→19:13)
[2022-11-13] MEDS: Ondansetron O.D.T. 4 MG TABEF 8 MG PO (10:31)
[2022-11-13 10:34] LABS: Abs Immature Grans 0.24 10^3/uL (0.0-0.06); Absolute Basophil Count 0.04 10^3/uL (0.0-0.2); Absolute Eosinophil Count 0.16 10^3/uL (0.0-0.7); Absolute Monocyte Count 0.65 10^3/uL (0.1-0.8); Absolute Neutrophil Count 7.31 10^3/uL (1.2-6.7); Basophils % 0.4; Eosinophils % 1.7; HGB 10.7 g/dL (11.2-15.7); Immature Grans % 2.5; Lymphocytes % 11.6; MCH 30.1 pg (27.0-33.0); MCHC 32.4 % (32.0-36.0); MCV 93 fL (80-95); MPV 9.8 fL (8.0-11.0); Monocytes % 6.8; Platelet Count 154 10^3/uL (130-400); RBC 3.56 10^6/uL (3.93-5.22); RDW 13.2 % (11.7-14.6); RDW-SD 44.9 fL
[2022-11-13 11:01] LABS: ALT 14 U/L (14-59); AST 24 U/L (15-37); Albumin 2.4 g/dL (3.4-5.0); Alkaline Phosphatase 96 U/L (46-116); Anion Gap 7.2 mmol/L (3-11); BUN 10 mg/dL (7-18); Bilirubin, Total 0.7 mg/dL (0.2-1.0); CO2 29.8 mmol/L (21.0-32.0); CREATININE 0.5 mg/dL (0.55-1.02); Calcium 8.3 mg/dL (8.5-10.1); Chloride 94 mmol/L (98-107); Estimated GFR 105.98 (mL/min/1.73m2); Glucose 105 mg/dL (74-106); Sodium 131 mmol/L (136-145); Total Protein 5.8 g/dL (6.4-8.2)
[2022-11-13 11:08] LABS: Potassium 2.7 mmol/L (3.5-5.1)
[2022-11-13] MEDS: POTASSIUM CHLORIDE 20 MEQ/100 ML BAG 50 MEQ IVPB ×2 (11:43→14:01)
--- NOTE | 2022-11-13 14:24 | CHAPLAIN ---
Today was the first time I caught Sonali awake a in few days. She told me that her family has abandoned her so she will need to go to a correction. According to Care Management notes, Sonali's sister Jennifer, let the know that Sonali can not come to Jennifer's home when is discharged. Jennifer lives in [place]. Sonali has a home in [place]. Her daughter and son in law live there. Neither have visited Sonali and according to Sonali they are not interested in caring for her. Sonali has an appointment with Dr. Harrington, her oncologist, today. Dr. Harrington will come to [facility] to see Sonali. Sonali said she is looking forward to talking about a plan with Dr. Harrington. Sonali had one chemo treatment, for pancreatic cancer, before being admitted to [facility] and being treated for an infection. She has been in the ICU and Med/Surg since being admitted.
[2022-11-13 16:44] VITALS: BP 134/98; PULSE 91; RESP 16; TEMP 36.1; O2SAT 98
[2022-11-13] MEDS: Breeza Beverage 473 ML BTL PO ×2 (17:38→17:39)
[2022-11-13] MEDS: Omnipaque 350 MG/ML 50 ML BTL PO (17:39)
[2022-11-13] MEDS: Normal Saline - Diluent 50 ML VIAL IJ (19:09)
[2022-11-13] MEDS: Omnipaque 350 MG/ML 100 ML BTL IJ (19:10)
[2022-11-13] MEDS: LORazepam 0.5 MG TAB PO (19:44)
--- NOTE | 2022-11-13 20:35 | DI.VRAD_ITS ---
PROCEDURE INFORMATION: Exam: CT Chest With Contrast; Diagnostic Exam date and time: 11/13/2022 7:08 PM Age: 62 years old Clinical indication: Condition or disease; Other: Pancreatic CA staging; Initial oncological staging assessment TECHNIQUE: Imaging protocol: Diagnostic computed tomography of the chest with contrast. 3D rendering (Not supervised by radiologist): MIP and/or 3D reconstructed images were created by the technologist. Radiation optimization: All CT scans at this facility use at least one of these dose optimization techniques: automated exposure control; mA and/or kV adjustment per patient size (includes targeted exams where dose is matched to clinical indication); or iterative reconstruction. Contrast material: OMNIPAQUE 350; Contrast volume: 100 ml; Contrast route: INTRAVENOUS (IV); COMPARISON: CT ABDOMEN PELVIS WO 10/27/2022 1:11 PM FINDINGS: Lungs: Mild ground-glass opacities in the left upper lobe and superior segment of the left lower lobe may represent mild atelectasis or pneumonia.. Pleural spaces: Unremarkable. No pneumothorax. No pleural effusion. Heart: Unremarkable. No cardiomegaly. No pericardial effusion. Lymph nodes: Unremarkable. No enlarged lymph nodes. Vasculature: No evidence of pulmonary embolus to the segmental level. No aneurysm of the aorta. No dissection of the aorta. Diaphragm: Asymmetric soft tissue density in the a mild hiatal hernia measures 3 x 1.4 cm series 5, image 395. Recommend further evaluation for mass if clinically indicated. Bones/joints: Unremarkable. No acute fracture. Soft tissues: Unremarkable. IMPRESSION: 1. No evidence of pulmonary embolus to the segmental level. 2. No aneurysm of the aorta. 3. No dissection of the aorta. 4. Mild ground-glass opacities in the left upper lobe and superior segment of the left lower lobe may represent mild atelectasis or pneumonia.. 5. Asymmetric soft tissue density in the a mild hiatal hernia measures 3 x 1.4 cm series 5, image 395. Recommend further evaluation for mass if clinically indicated. PROCEDURE INFORMATION: Exam: CT Abdomen And Pelvis With Contrast Exam date and time: 11/13/2022 7:08 PM Age: 62 years old Clinical indication: Condition or disease; Other: Pancreatic CA staging; Initial oncological staging assessment TECHNIQUE: Imaging protocol: Computed tomography of the abdomen and pelvis with contrast. 3D rendering (Not supervised by radiologist): MIP and/or 3D reconstructed images were created by the technologist. Radiation optimization: All CT scans at this facility use at least one of these dose optimization techniques: automated exposure control; mA and/or kV adjustment per patient size (includes targeted exams where dose is matched to clinical indication); or iterative reconstruction. Contrast material: OMNIPAQUE 350; Contrast volume: 100 ml; Contrast route: INTRAVENOUS (IV); COMPARISON: CT ABDOMEN PELVIS WO 10/27/2022 1:11 PM FINDINGS: Liver: No liver mass is identified. Gallbladder and bile ducts: Normal. No calcified stones. No ductal dilation. Pancreas: Heterogeneous mass in the head of the pancreas measures 5 by 5 cm consistent with the history of pancreatic malignancy. 14 mm simple cyst in the body and tail of the pancreas series 11, image 25. . Series 13, image 49 14 mm simple cyst in the tail of the pancreas series 11, image 26.. Mild dilatation of pancreatic duct. Differential includes pancreatic cyst, pancreatic pseudocyst, pancreatic cystic neoplasm 7 mm cystic structure in the body of the pancreas series 11, image 25 is too small to characterize Spleen: Normal. No splenomegaly. Adrenal glands: Normal. No mass. Kidneys and ureters: 10 mm simple cyst in the right kidney. . No follow-up imaging recommended . Stomach and bowel: Unremarkable. No obstruction. No mucosal thickening. Appendix: No evidence of appendicitis. Intraperitoneal space: Unremarkable. No free air. No significant fluid collection. Vasculature: Unremarkable. No abdominal aortic aneurysm. Lymph nodes: Unremarkable. No enlarged lymph nodes. Urinary bladder: Unremarkable as visualized. Reproductive: Surgical resection of the uterus Bones/joints: Compression fracture of unknown age T12. Hemangioma in T11 and T7 Soft tissues: Umbilical hernia contains fat. Soft tissue densities in the subcutaneous fat anterior pelvis. Unknown etiology IMPRESSION: 1. Heterogeneous mass in the head of the pancreas measures 5 by 5 cm consistent with the history of pancreatic malignancy. 2. No liver mass is identified. 3. 14 mm simple cyst in the body and tail of the pancreas series 11, image 25. . Series 13, image 49 14 mm simple cyst in the tail of the pancreas series 11, image 26.. Mild dilatation of pancreatic duct. Differential includes pancreatic cyst, pancreatic pseudocyst, pancreatic cystic neoplasm Dictated and Authenticated by: Suad Jung MD. Ordering:LEIF Gonsalez MD
[2022-11-14] MEDS: Normal Saline Flush 10 ML SYR IVP ×2 (00:13→06:18)
[2022-11-14] MEDS: MORPHine 2 MG/ML SYR IVP ×2 (00:13→06:19)
[2022-11-14] MEDS: Lactated Ringers 1,000 ML 85 ML IV ×2 (04:48→17:49)
[2022-11-14] MEDS: Acetaminophen 500 MG TAB 1000 MG PO ×2 (06:20→14:00)
[2022-11-14] MEDS: LORazepam 0.5 MG TAB PO (06:20)
[2022-11-14] MEDS: ceFAZolin 2 GM/50 ML BAG IV (06:20)
[2022-11-14 06:40] VITALS: BP 142/92; PULSE 83; RESP 16; TEMP 36.7; O2SAT 99
[2022-11-14] MEDS: Metoclopramide 10 MG TAB PO ×2 (08:29→11:59)
[2022-11-14] MEDS: Dexamethasone 4 MG TAB PO (08:29)
[2022-11-14] MEDS: Venlafaxine 150 MG CAPCR PO (08:29)
[2022-11-14] MEDS: Montelukast 10 MG TAB PO (08:29)
[2022-11-14] MEDS: Pantoprazole 40 MG TABCR PO (08:29)
[2022-11-14] MEDS: Losartan 50 MG TAB 100 MG PO (08:30)
[2022-11-14] MEDS: buPROPion-CR 150 MG TABCR PO (08:31)
--- NOTE | 2022-11-14 10:43 | PGE_ITS ---
Date of Service Date of service: 11/14/22 Time of Service: 10:43 Assessment and Plan Assessment and plan (1) Pancreas cancer: Status: Acute Assessment and plan: Dr. Harrington saw her yesterday and reviewed options for care concerns over not eating/drinking/engaging not congruent w/tolerating oncology care no caregivers available at this time (2) Decreased oral intake: Status: Acute Assessment and plan: r/t abd pain? depression? reviewed COLST preferences, continue IVF (3) Epigastric pain: Status: Acute Assessment and plan: Reglan Marinol - help with appetite Dexamethasone - help with appetite Mirtazapine continue fentanyl 50mcg continue morphine 4mg IV PRN (4) Abdominal pain: Status: Acute Assessment and plan: See above (5) Uncontrolled pain: Status: Acute Assessment and plan: 11/11/21 24h MME: 140 (fentanyl 50mcg/hr, morphine 4mg IV x5) consider increase fentanyl to 75mcg w/MMEs at 160-180, need for more frequent pain assessment consider 2mg doses if concern over sedation consider pump if decision for hospice made (6) DNR (do not resuscitate): Status: Acute Assessment and plan: COLST reviewed and UTD DNR/I, no FT, trial IVF/abx (7) Methicillin susceptible Staphylococcus aureus infection: Status: Acute Assessment and plan: ABX completed today (8) Depression: Status: Chronic Assessment and plan: currently on Effexor 150mg, Wellbutrin 150mg BID started on Marinol 2.5mg BID last week for appetite Start Mirtazapine lorazepam 0.5mg PRN available Discussed with Dr Crocker - also recommendations from Dr Harrington incorporated into plan of care Subjective Subjective Patient reports: no new complaints; denies diarrhea, nausea or vomiting Interval history since last seen: Continues to not want to eat or drink, takes meds some of the time, mostly refuses. Encouraged to take medications if she wants to improve and go home, start chemo. Encouraged to participate with PT. She states she is too tired. We have discussed many times she has to take medication, eat and drink, participate with PT in order for her to get well enough for her to be discharged and be able to take chemo. Dr Harrington saw her here yesterday afternoon, no plan for chemo at this time. CT for staging done and pushed to [facility] for Dr Harrington to see. Exam Narrative Exam Narrative: lying on side in hospital bed, sleeping on arrival, she did wake up, conversant, pleasant, flat affect - not interested in conversation, just answering questions, appropriately Const General: cooperative, no acute distress and ill appearing Orientation: alert, awake and oriented x3 HENMT Head: normal to inspection, normocephalic and atraumatic Ears: hearing grossly normal bilaterally Mouth: moist mucous membranes abnormal (dry, lips peeling) Resp Effort & Inspection: normal respiratory effort, able to speak in complete sentences, no cough and not labored Skin Other: warm to touch Psych Speech and Movement: speech clear Mood: congruent mood and dysthymic mood Affect: indifferent Attitude: cooperative and guarded (opens up w/time) Objective Last Vital Signs Temp 36.7 C 11/14/22 06:40 Pulse 83 11/14/22 06:40 Resp 16 11/14/22 06:40 BP 142/92 H 11/14/22 06:40 Pulse Ox 99 11/14/22 06:40 Laboratory Results - last 24 hr 11/13/22 10:20 Sodium 131 L Potassium 2.7 L* Chloride 94 L Carbon Dioxide 29.8 Anion Gap 7.2 BUN 10 Creatinine 0.5 L Est GFR (CKD-EPI 2020) 105.98 Glucose 105 Calcium 8.3 L Total Bilirubin 0.7 AST 24 ALT 14 Alkaline Phosphatase 96 Total Protein 5.8 L Albumin 2.4 L Time Spent with Patient Time Spent with Patient: 25-34 minutes Time was spent: preparing to see the patient(eg.review tests), obtaining and/or reviewing separately otained hiistory, ordering medications,tests, procedures, referring, communicating with other health career development specialist, indepentently interpreting results, counseling the patient and care coordination
[2022-11-14] MEDS: Dronabinol 2.5 MG CAP PO (11:59)
[2022-11-14] MEDS: fentaNYL 50 MCG PATCH TD (11:59)
[2022-11-14] MEDS: Dexamethasone 1 MG TAB 2 MG PO (14:01)
[2022-11-15] MEDS: LORazepam 0.5 MG TAB PO ×3 (02:23→13:12)
[2022-11-15] MEDS: Lactated Ringers 1,000 ML 85 ML IV ×2 (05:53→18:37)
[2022-11-15 06:25] VITALS: BP 151/89; PULSE 95; RESP 16; TEMP 37.2; O2SAT 97
[2022-11-15 06:42] LABS: Abs Immature Grans 0.17 10^3/uL (0.0-0.06); Absolute Basophil Count 0.02 10^3/uL (0.0-0.2); Absolute Eosinophil Count 0.01 10^3/uL (0.0-0.7); Absolute Lymphocyte Count 0.76 10^3/uL (1.2-3.4); Absolute Monocyte Count 0.61 10^3/uL (0.1-0.8); Absolute Neutrophil Count 7.96 10^3/uL (1.2-6.7); Basophils % 0.2; Eosinophils % 0.1; HCT 28.9 % (36.0-46.0); HGB 9.4 g/dL (11.2-15.7); Immature Grans % 1.8; MCH 30.1 pg (27.0-33.0); MCHC 32.5 % (32.0-36.0); MCV 93 fL (80-95); Monocytes % 6.4; Neutrophils % 83.5; Nucleated RBC 0.2 % (0.0-0.3); Platelet Count 167 10^3/uL (130-400); RBC 3.12 10^6/uL (3.93-5.22); RDW 13.1 % (11.7-14.6); RDW-SD 44.3 fL; WBC 9.53 10^3/uL (4.4-10.8)
[2022-11-15 07:10] LABS: Anion Gap 11.7 mmol/L (3-11); BUN 12 mg/dL (7-18); CO2 25.3 mmol/L (21.0-32.0); CREATININE 0.6 mg/dL (0.55-1.02); Calcium 8.1 mg/dL (8.5-10.1); Chloride 96 mmol/L (98-107); Estimated GFR 101.42 (mL/min/1.73m2); Glucose 105 mg/dL (74-106); Magnesium 1.1 mg/dL (1.8-2.4); Sodium 133 mmol/L (136-145)
[2022-11-15 07:11] LABS: Potassium 2.9 mmol/L (3.5-5.1)
[2022-11-15] MEDS: Metoclopramide 10 MG TAB PO ×3 (08:48→16:39)
[2022-11-15] MEDS: Pantoprazole 40 MG TABCR PO (08:49)
[2022-11-15] MEDS: Dexamethasone 4 MG TAB PO (08:49)
[2022-11-15] MEDS: Losartan 50 MG TAB 100 MG PO (08:49)
[2022-11-15] MEDS: Montelukast 10 MG TAB PO (08:50)
[2022-11-15] MEDS: buPROPion-CR 150 MG TABCR PO (08:51)
[2022-11-15] MEDS: Venlafaxine 150 MG CAPCR PO (08:51)
[2022-11-15] MEDS: MORPHine 2 MG/ML SYR IVP ×2 (09:00→19:38)
[2022-11-15] MEDS: MAGNESIUM SULFATE 4 GM/100 ML BAG IVPB (09:39)
--- NOTE | 2022-11-15 10:29 | W.PM.PROGNOT ---
Date of Service Date of service: 11/15/22 Time of Service: 10:29 Assessment and Plan Assessment and plan (1) Pancreas cancer: Status: Acute Assessment and plan: Dr. Harrington saw her this past Wednesday11/13/22 and reviewed options for care concerns over not eating/drinking/engaging not congruent w/tolerating oncology care Today Jennifer, sister, her visiting - agrees to take her home on hospice care, Sonali also agrees this is the best option (2) Decreased oral intake: Status: Acute Assessment and plan: r/t abd pain? depression? reviewed COLST preferences, continue IVF Constipated - Relistor given with good results. (3) Epigastric pain: Status: Acute Assessment and plan: Reglan Marinol - help with appetite Dexamethasone - help with appetite Mirtazapine continue fentanyl 50mcg continue morphine 4mg IV PRN (4) Abdominal pain: Status: Acute Assessment and plan: See above (5) Uncontrolled pain: Status: Acute Assessment and plan: Fentanyl remains at 50 mcg with good results. (6) DNR (do not resuscitate): Status: Acute Assessment and plan: COLST reviewed and UTD DNR/I, no FT, trial IVF (7) Depression: Status: Chronic Assessment and plan: currently on Effexor 150mg, Wellbutrin 150mg BID started on Marinol 2.5mg BID last week for appetite Started Mirtazapine 11/14/22 lorazepam 0.5mg PRN available Discussed with Dr Crocker - also recommendations from Dr Harrington incorporated into plan of care Subjective Subjective Patient reports: still having pain and no bowel movement; denies shortness of breath Interval history since last seen: Sonali and her sister Jennifer spoke today regarding her going home to Jennifer's house in [place] on Hospice. Sonali is not eating, not drinking and rarely taking her pills. She is not participating in PT. Sonali knows that she can not have chemotherapy if she does not improve. She states she would rather go home on hospice to be with her sister and not have chemotherapy. She has had many conversations with Palliative Care and the hospitalist team regarding home hospice and what that consists of. Her sister Jennifer is willing to care for her in her home in [place] with [facility]. Sonali does not want to pursue chemotherapy, she states she knows she will not get better here in the hospital and would like to spend what time she has with her sister. Her sister agrees Sonali will be less depressed and enjoy being at home with her sister and her sister's dog. Discussion with Sonali, her sister Jennifer and senior caregiver's regarding hospice referral took place and they are contacting [facility] . C/O no BM - relistor 12 mg with good results. Discussed with Dr Crocker Exam Narrative Exam Narrative: Semi fowlers, alert to voice, conversant. Continues to have flat affect. Const General: cooperative and no acute distress Nutritional Appearance: obese Orientation: alert, awake and oriented x3 Eyes General: appearance normal, both eyes and all related structures Other: Dark circles, pale, appears tired Psych Appearance: disheveled Mental Status: mental status grossly normal Speech and Movement: speech and movement normal and delayed speech Mood: irritable mood Affect: blunted Attitude: cooperative Thought Process: normal Thought Content: normal Objective Last Vital Signs Temp 37.2 C 11/15/22 06:25 Pulse 95 H 11/15/22 06:25 Resp 16 11/15/22 06:25 BP 151/89 H 11/15/22 06:25 Pulse Ox 97 11/15/22 06:25 Laboratory Results - last 24 hr 11/15/22 11/15/22 06:20 06:20 WBC 9.53 RBC 3.12 L Hgb 9.4 L Hct 28.9 L MCV 93 MCH 30.1 MCHC 32.5 RDW 13.1 Plt Count 167 MPV 10.0 Immature Gran % 1.8 Neutrophils % 83.5 Lymphocytes % 8.0 Monocytes % 6.4 Eosinophils % 0.1 Basophils % 0.2 Nucleated RBC % 0.2 Absolute Neutrophils 7.96 H Absolute Lymphocytes 0.76 L Absolute Monocytes 0.61 Absolute Eosinophils 0.01 Absolute Basophils 0.02 Sodium 133 L Potassium 2.9 L Chloride 96 L Carbon Dioxide 25.3 Anion Gap 11.7 H BUN 12 Creatinine 0.6 Est GFR (CKD-EPI 2020) 101.42 Glucose 105 Calcium 8.1 L Magnesium 1.1 L Time Spent with Patient Time Spent with Patient: >50 minutes Time was spent: preparing to see the patient(eg.review tests), obtaining and/or reviewing separately otained hiistory, ordering medications,tests, procedures, referring, communicating with other health point of care specialist, indepentently interpreting results, counseling the patient and care coordination
[2022-11-15] MEDS: Methylnaltrexone 12 MG/0.6 ML VIAL SC (12:10)
[2022-11-15] MEDS: Dexamethasone 1 MG TAB 2 MG PO (12:12)
[2022-11-15] MEDS: Dronabinol 2.5 MG CAP PO ×2 (12:12→16:37)
[2022-11-15] MEDS: POTASSIUM CHLORIDE 20 MEQ/100 ML BAG 50 MEQ IVPB ×2 (14:31→16:40)
[2022-11-15] MEDS: Creon, Lipase 6,000 CAPCR 1 CAP PO (16:37)
--- NOTE | 2022-11-15 17:32 | PDOC.CMPRO ---
- If Service Date Differs Date of service: 11/15/22 Time of Service: 17:32 Care Management Progress Note CM met with Sonali Jennifer and MONIQUE Gonsalez to discuss discharge plans. Sonali has decided that she wants to go home to [place]'s house in [place], [place] on hospice. She is no longer eating , drinking or taking routine medications. Furthermore, Sonali is still having a lot of pain which is difficult to manage at times. CM contacted [facility] and notified them of the impending admission. They requested a discharge summary which will be sent when completed and clinical information from current stay. CM faxed last H&P, demographic and insurance information as well as contact information for Jennifer. It is anticipated that equipment, including a hospital bed, commode, walker and shower chair will be ordered and, hopefully, delivered tomorrow and Sonali will discharge on Wednesday.
[2022-11-15] MEDS: Magnesium Oxide 400 MG TAB 800 MG PO (19:19)
[2022-11-15] MEDS: Normal Saline Flush 10 ML SYR IVP (19:19)
[2022-11-15] MEDS: Ondansetron O.D.T. 4 MG TABEF 8 MG PO (19:38)
[2022-11-15 22:20] VITALS: BP 148/98; PULSE 90; RESP 16; TEMP 36.8
[2022-11-16] MEDS: MORPHine 2 MG/ML SYR IVP ×4 (02:42→20:21)
[2022-11-16] MEDS: Normal Saline Flush 10 ML SYR IVP ×3 (02:48→20:21)
[2022-11-16] MEDS: Acetaminophen 500 MG TAB 1000 MG PO ×2 (05:53→13:12)
[2022-11-16] MEDS: Lactated Ringers 1,000 ML 85 ML IV ×2 (05:56→15:54)
[2022-11-16 06:32] LABS: Abs Immature Grans 0.19 10^3/uL (0.0-0.06); Absolute Basophil Count 0.03 10^3/uL (0.0-0.2); Absolute Lymphocyte Count 1.17 10^3/uL (1.2-3.4); Absolute Monocyte Count 0.78 10^3/uL (0.1-0.8); Absolute Neutrophil Count 8.54 10^3/uL (1.2-6.7); Basophils % 0.3; HCT 29.6 % (36.0-46.0); HGB 9.6 g/dL (11.2-15.7); Immature Grans % 1.8; Lymphocytes % 10.9; MCH 29.6 pg (27.0-33.0); MCHC 32.4 % (32.0-36.0); MCV 91 fL (80-95); MPV 9.9 fL (8.0-11.0); Monocytes % 7.3; Neutrophils % 79.7; Nucleated RBC 0.3 % (0.0-0.3); Platelet Count 195 10^3/uL (130-400); RBC 3.24 10^6/uL (3.93-5.22); RDW 13.1 % (11.7-14.6); RDW-SD 43.2 fL; WBC 10.71 10^3/uL (4.4-10.8)
[2022-11-16 06:47] LABS: Anion Gap 11.2 mmol/L (3-11); BUN 10 mg/dL (7-18); CO2 25.8 mmol/L (21.0-32.0); CREATININE 0.5 mg/dL (0.55-1.02); Calcium 8.5 mg/dL (8.5-10.1); Chloride 96 mmol/L (98-107); Estimated GFR 105.98 (mL/min/1.73m2); Glucose 103 mg/dL (74-106); Magnesium 1.6 mg/dL (1.8-2.4); Potassium 3.1 mmol/L (3.5-5.1); Sodium 133 mmol/L (136-145)
[2022-11-16] MEDS: Budesonide/Formoterol 160/4.5 6 GM 60 PUFF INH IH (07:26)
[2022-11-16 07:59] VITALS: BP 158/88; PULSE 92; RESP 16; TEMP 36.7; O2SAT 97
[2022-11-16] MEDS: Pantoprazole 40 MG TABCR PO ×2 (08:07→19:42)
[2022-11-16] MEDS: buPROPion-CR 150 MG TABCR PO ×2 (08:07→19:42)
[2022-11-16] MEDS: Dexamethasone 4 MG TAB PO (08:07)
[2022-11-16] MEDS: Metoclopramide 10 MG TAB PO ×3 (08:07→21:08)
[2022-11-16] MEDS: Montelukast 10 MG TAB PO (08:08)
[2022-11-16] MEDS: Losartan 50 MG TAB 100 MG PO (08:08)
[2022-11-16] MEDS: MAGNESIUM SULFATE 2 GM/50 ML BAG IVPB (09:06)
[2022-11-16 09:57] LABS: CA 19-9 189 U/mL (<35)
[2022-11-16] MEDS: Dronabinol 2.5 MG CAP PO (11:24)
[2022-11-16] MEDS: POTASSIUM CHLORIDE 20 MEQ/100 ML BAG 50 MEQ IVPB ×2 (11:37→13:30)
[2022-11-16] MEDS: Dexamethasone 1 MG TAB 2 MG PO (13:12)
--- NOTE | 2022-11-16 13:57 | PT.INTREAT ---
PT Notes Visit Reasons: MSSA bactermia Date: 11/16/2022 PRECAUTIONS: Fall, activity as tolerated SUBJECTIVE: Pt sleeping in recliner when approached for therapy this morning. Pt agreed to participating with therapy after pt awoke. OBJECTIVE:? BED MOBILITY/TRANSFERS? Sit-stand: SBA? Stand-sit: SBA ? Supine-sit: I ? Sit-supine: I ? GAIT? Assistive Device: FWW ? Weight bearing: Full Assist: SBA ? Distance: 20'x2 ? Deviation: Slow pacing, increased fatigue ? Therapeutic Procedures?[id number]: Seated UE exercise shoulder ab/ad [id number], shoulder flexion [id number], elbow flexion [id number], forearm pronation supination [id number], wrist flexion/extension [id number], Activity incorporated with DBE, seated LE marching until fatigue, knee flexion extension [id number], ankle dorsiplantar flexion [id number] for warm up prior to gait training. ? ASSESSMENT: Pt tolerated activity well with SOB requiring rest break in between activity. pt situated back in supine post session per pt request. PLAN: Continue with general conditioning for improved activity tolerance. TREATMENT CODE/TIME: 25 minutes; [id number] (09:00-9:25am)
[2022-11-16] MEDS: LORazepam 0.5 MG TAB PO ×2 (14:11→21:09)
--- NOTE | 2022-11-16 14:12 | PTTR_ITS ---
PT Notes Visit Reasons: MSSA bactermia
--- NOTE | 2022-11-16 14:12 | PT.INTREAT ---
PT Notes Visit Reasons: MSSA bactermia
[2022-11-16] MEDS: Mirtazapine 15 MG TAB 7.5 MG PO (21:07)
[2022-11-16] MEDS: amLODIPine 5 MG TAB PO (21:08)
[2022-11-17] MEDS: MORPHine 2 MG/ML SYR IVP ×3 (00:35→10:28)
[2022-11-17] MEDS: Normal Saline Flush 10 ML SYR IVP ×2 (00:36→04:33)
[2022-11-17] MEDS: LORazepam 0.5 MG TAB PO (01:38)
[2022-11-17] MEDS: Lactated Ringers 1,000 ML 85 ML IV (03:20)
[2022-11-17] MEDS: Acetaminophen 500 MG TAB 1000 MG PO (06:03)
[2022-11-17] MEDS: Budesonide/Formoterol 160/4.5 6 GM 60 PUFF INH IH (08:22)
--- NOTE | 2022-11-17 09:24 | PT.INTREAT ---
PT Notes Visit Reasons: MSSA bactermia Date: 11/17/2022 PRECAUTIONS: Fall, activity as tolerated SUBJECTIVE: Pt in bed when approached for therapy. pt reports abdominal pain, requested to go to the commode. OBJECTIVE:? BED MOBILITY/TRANSFERS? Supine-sit: Min A Sit-stand: CGA? Stand-sit: SBA ? Sit-supine: Min A ? GAIT? Assistive Device: FWW ? Weight bearing: Full Assist: CGA ? Distance: 10'x2 ? 5' side stepping L/R? Deviation: Slow pacing, increased fatigue ? ASSESSMENT: Pt reported having pain during BM, transfers and gait training, pt gait training restricted to pt room per pt request since pt did not want to go far from her bed. pt requested to go back in bed after session. Nurse aware of pt condition. PLAN: Continue with general conditioning for improved activity tolerance. TREATMENT CODE/TIME: 18 minutes; [id number] (09:00-9:18am)
--- NOTE | 2022-11-17 09:34 | CMDISCH_ITS ---
- If Service Date Differs Date of service: 11/17/22 Time of Service: 09:34 LACE Index Scoring Tool - Questions: Length of Stay (in days): 14 or more Acuity (Admit via E.D.?): No Comorbidities: Metastatic Solid Tumor (Pancreatic CA) E.D. Visits: 2 - Answers: Total Score: 14 Risk of Readmission: High Risk Care Management Discharge Reason for Hospitalization: MSSA Bacteremia Discharge Plan: Sonali is discharged to her sister Jennifer's home in [place], [place] with same day admission to [facility]. Sonali will follow up with community providers and discharge plan of care as prescribed. Sonali is transported via EMS. RX's are transmitted to [facility], DME is delivered by [facility]. Jennifer is in support of this discharge plan and is agreeable to provide 24/ caregiver support. Patient/Family Education Needs: Review discharge instructions, limitations, medications and plan to follow up with Hospice and community supports. Discuss ask me three and goals of self care. Services Needed at Discharge: DME Agency ([facility], Hospital bed, nikia [facility]), Home Health Care Services ([facility], Coordinated by CM), Transportation ([facility], coordinated by CM.)
[2022-11-17] MEDS: fentaNYL 50 MCG PATCH TD (11:54)
--- NOTE | 2022-11-17 12:35 | DSE_ITS ---
Date of service: 11/17/22 Time of Service: 12:35 DS: Diagnosis Discharge Diagnosis (1) Pancreas cancer: Status: Acute (2) Decreased oral intake: Status: Acute (3) Epigastric pain: Status: Acute (4) Abdominal pain: Status: Acute (5) Uncontrolled pain: Status: Acute (6) DNR (do not resuscitate): Status: Acute (7) Depression: Status: Chronic Discharge Plan Disposition Patient Disposition: Hospice Home Condition: Deteriorating Discharge Details Reason For Visit: MSSA bactermia Admit Date/Time: 10/30/22 12:19 Admit Provider: Cathy Wadsworth Attending Provider: Cathy Wadsworth Primary Care Provider: Cely Soni Hospital Course Hospital Course: This is a 61-year-old female with a past medical history of pancreatic cancer, fibromyalgia, PTSD, anxiety, hypertension, reflux, who had just received her first chemotherapy treatment six days prior to admission and was a full code, presented to the [facility] ED on 10/06/2022 for evaluation of nausea, vomiting and intolerance of liquids. Patient stated she had persistent nausea and vomiting.? She had been gagging every time she tried to drink something.? She also complained of continued severe epigastric pain, described as achy and gnawing in sensation.? She denied any hemoptysis, hematemesis, or diarrhea or blood in her stool.? She denied any fever or chills.? She denied chest pain or shortness of breath.? She was admitted to the hospital for IV fluids, antiemetics and pain management. Pain control was difficulty, she was either in 10/10 pain and not controlled with 25 mcg fentanyl patch with dilaudid or morphine for breakthrough pain, or lethargic with 50 mcg fentanyl patch.? She was started on a dilaudid drip to help control her pain.? She developed hypotensive and was transferred to the ICU. The dilaudid drip was stopped and she received IV fluids and responded well. ?On 10/15/2022 she developed a fever of 39.5c, elevated lactate and procalcitonin, became confused, and had decreased urine output, she again was transferred to the ICU. She was found to have gram- positive bacteremia of unknown source, but assumed to be her infusaport. She was brought to the OR and her infusaport was removed on 10/16/2022.? She was treated with multiple antibiotics for MSSA bacteremia. She was changed to swing status for a four week course of IV antibiotics. She had hypomagnesemia and hypokalemia most of her hospitalization, despite being repleted almost daily, they continued to be low.? She developed a wei skin infection under her pannus that was treated and it dissipated. ?She received lorazepam quite regularly for anxiety. She was seen by Palliative Care and she asked to have her code status changed to DNR/DNI.? During her stay, in attempts to help her get strong enough to have chemotherapy, physical therapy was consulted.? She did participate minimally with PT and eventually refused to participate at all.? She began to refuse oral medications, food and beverages around the last week of October. She has lost 15 kg since she was hospitalized. She has been sleeping generally for around 20 hours a day and has no interest in books, television, or conversation.? She was seen by Dr Harrington, oncology, here on 11/13/2022 and he and she agreed she was too ill to receive chemotherapy.? The options included acute rehabilitation for her to gain strength and be able to tolerate chemotherapy, alf placement or home with her sister Jennifer.? After long discussion with she and her sister Jennifer, Sonali voiced her wishes to go home with home hospice and not pursue chemotherapy or any other testing or any kind of intervention, including antibiotics, she would like to be kept comfortable.? Jennifer is willing and happily will take Sonali to her home in [place] and be her medicare coordinator.? We contacted [facility] and they will admit her to their services today.? She is being discharge to her sister?s home in [place] via EMS, stable, however deteriorating condition that is expected.? I sent prescriptions electronically for lorazepam, morphine and fentanyl patch to her pharmacy in [place].? With her condition and refusing all oral medications, the remainder of her oral medications I printed and signed prescriptions to go with her and hospice can decide what she and they would like to have filled. Discussed with Dr Wadsworth. Home Meds and New Rx's Prescriptions: New amlodipine 5 mg Tablet 5 mg PO HS Qty: 30 0RF Creon 6,000-19,000 -30,000 unit Capsule,Delayed Release(Dr/Ec) 1 cap PO QMEALS Qty: 90 0RF docusate sodium [Colace] 100 mg Capsule 100 mg PO TID PRN PRNQty: 0 0RF dronabinol 2.5 mg Capsule 2.5 mg PO BID@1130,1630 Qty: 60 0RF fentanyl 50 mcg/hr Patch 72 Hour 50 mcg transdermal Q72H Qty: 5 0RF losartan 50 mg Tablet 100 mg PO DAILY Qty: 60 0RF magnesium oxide 400 mg (241.3 mg magnesium) Tablet 800 mg PO BID Qty: 60 0RF metoclopramide HCl 10 mg Tablet 10 mg PO AC & HS Qty: 90 0RF mirtazapine 15 mg Tablet 15 mg PO HS Qty: 30 0RF lorazepam 2 mg/mL concentrate 1 mg PO Q4H PRNQty: 30 0RF morphine concentrate 100 mg/5 mL (20 mg/mL) solution See Rx Instructions .ROUTE .COMPLEX PRNQty: 30 0RF Rx Instructions: 5mg -20mg every 3 hours as needed for pain/shortness of breath Continued losartan 50 mg Tablet 50 mg PO DAILY bupropion HCl 150 mg Tablet Sustained-Release 12 Hr 150 mg PO BID diphenoxylate-atropine 2.5-0.025 mg Tablet 1 - 2 tab PO DAILY PRN ondansetron 8 mg Tablet,Disintegrating 8 mg PO Q8H PRN fluticasone propion-salmeterol [Advair Diskus] 500-50 mcg/dose Blister With Device 1 inh INHALATION BID montelukast [Singulair] 10 mg Tablet 10 mg PO DAILY hydrochlorothiazide 12.5 mg Tablet 12.5 mg PO DAILY omeprazole 20 mg Tablet,Delayed Release (Dr/Ec) 20 mg PO BID venlafaxine 150 mg Tablet Extended Release 24hr 150 mg PO DAILY hydromorphone 4 mg tablet 4 - 8 mg PO Q4H PRN PRN (Reason: Pain) dexamethasone 2 mg tablet See Rx Instructions .ROUTE .COMPLEX Label Comments: TAKE 2 TABLETS BY MOUTH EVERY MORNING AND 1 TAB IN EARLY AFTERNOON, TAKE WITH FOOD Rx Instructions: TAKE 2 TABLETS (4mg) BY MOUTH EVERY MORNING AND 1 TAB (2mg) IN EARLY AFTERNOON, TAKE WITH FOOD nystatin 100,000 unit/gram powder 2 pwd TOPICAL TID PRN PRN calcium carbonate 500 mg calcium (1,250 mg) Tablet,Chewable 500 mg PO DAILY Changed potassium chloride 20 mEq Tablet Extended Release 40 meq PO BID Qty: 0 0RF Discontinued fentanyl 25 mcg/hr patch 72 hour 100 patch transdermal Q3-4D Label Comments: Apply 1 patch to skin every three days apply to area of upper arm, change every 3 days, use dilauded for breakthru pain Discharge Instructions Instructions: Lorazepam (By mouth), Morphine, Rapid Release (By mouth), Fentanyl (Absorbed through the skin), Hospice Care (GEN), Pancreatic Cancer (DC) Additional Instructions: [facility] will call and come to your home to do the admission to their services. Stand Alone Forms: Nursing Discharge Form Referrals: Hospice, [facility] [Other] (Follow up per Hospice) Activity:: Activity as Tolerated Equipment/Supplies:: No Equipment Needed Diet:: As Tolerated Discharge Orders Discharge Orders: Discharge Order (Routine); Ordered 11/17/22 Ordered By: Sunshine Morelos Discharge Data Discharge Date/Time-TO BE ENTERED AT DEPARTURE: 11/17/22 15:15 DS: Summary Time Spent with Patient providing and/or coordinating discharge services: Greater than 30 minutes Status at Discharge Functional status at discharge: bed bound Overall status at discharge: patient is not back to baseline Mental Status: mental status grossly normal Speech and Movement: speech and movement normal and delayed speech Mood: irritable mood Affect: blunted Exam Narrative Exam Narrative: Semi fowlers, alert to voice, conversant. Continues to have flat affect. Const General: cooperative and no acute distress Nutritional Appearance: obese Orientation: alert, awake and oriented x3 Eyes General: appearance normal, both eyes and all related structures Other: Dark circles, pale, appears tired Psych Appearance: disheveled Mental Status: mental status grossly normal Speech and Movement: speech and movement normal and delayed speech Mood: irritable mood Affect: blunted Attitude: cooperative Thought Process: normal Thought Content: normal DS: Data Vitals/I&O Vitals and I&O: Vital Signs Temperature 36.7 C 11/16/22 07:59 Temperature Source Tympanic 11/16/22 07:59 Pulse 92 H 11/16/22 07:59 Pulse Rhythm Regular 11/17/22 08:17 Respiratory Rate 16 11/16/22 07:59 Respiratory Effort Non-Labored 11/17/22 08:17 Respiratory Depth Normal 11/17/22 08:17 Respiratory Pattern Normal 11/17/22 08:17 Blood Pressure 158/88 H 11/16/22 07:59 Pulse Oximetry 97 11/16/22 07:59 Oxygen Delivery Method Room Air 11/16/22 07:59 Oxygen Flow Rate 0 11/16/22 07:59 Pain Level 10 11/16/22 23:02 Comment 11/10/22 07:31 Intake & Output 11/16/22 11/17/22 11/17/22 23:59 11:59 23:59 Intake Total 1001.334 / 2133.251 971.833 / 971.833 Output Total 1800 / 3000 2450 / 2450 Balance -798.666 / -866.749 -1478.167 / -1478.167 Intake: IV 941.334 / 1953.251 971.833 / 971.833 Oral 60 / 180 Output: Urine 1800 / 3000 2450 / 2450 Other: Urine Color Pale Light Kiersten Urine Appearance Clear Clear Urine Odor Normal Stool Size Small Stool Characteristics Soft Formed Brown Voiding Methods Bedside Commode Bedside Commode Data Completed and Pending Labs on day of discharge: Labs from last 24 hours 11/17/22 09:06 Sodium Pending Potassium Pending Chloride Pending Carbon Dioxide Pending Anion Gap Pending BUN Pending Creatinine Pending Est GFR (CKD-EPI 2020) Pending Glucose Pending Calcium Pending PFSH All Active Problems (Updated 11/12/22 @ 15:54 by Danna Lopez NP) Depression (Chronic) Decreased oral intake (Acute) Yeast UTI (Acute) Epigastric pain (Acute) Hypokalemia (Acute) Methicillin susceptible Staphylococcus aureus infection (Acute) E. coli UTI (Acute) Gram-positive bacteremia (Acute) Abdominal pain (Acute) Type of kidney inflammation (Acute) Palliative care encounter (Acute) Decreased oral intake (Acute) DNR (do not resuscitate) (Acute) Uncontrolled pain (Acute) Stomatitis (Acute) Candidal skin infection (Acute) No contraindication to deep vein thrombosis (DVT) prophylaxis (Acute) Hypertension (Chronic) Pancreas cancer (Acute) Acute hypokalemia (Acute) Hypomagnesemia (Acute) Social History Smoking/Tobacco Use Status: Never Smoking risk assessment performed?: Yes Alcohol Intake: never Drug use: Never Substance use type: does not use Do you feel safe at home: Yes Do you feel safe in your relationship?: Yes Time Spent with Patient Time Spent with Patient: 45-69 minutes Time was spent: preparing to see the patient(eg.review tests), obtaining and/or reviewing separately otained hiistory, ordering medications,tests, procedures, referring, communicating with other health managed care liaison, indepentently interpreting results, counseling the patient and care coordination
--- NOTE | 2022-11-17 18:20 | INDS_ITS ---
PT Notes Visit Reasons: MSSA bactermia Physical Therapy Inpatient Discharge Summary Date: 11/17/2022 Dates of Service:? 11/04/2022 through 11/17/2022 This is a clinical summary of care provided for the duration of dates listed above. No charge was made in the completion of this documentation. Referring Doctor:? Sunshine Morelos NP PT Orders: PT CONSULT: D/C Non-PT Dependent Precautions: Fall. Standard. Activity as tolerated. Patient Profile/Admitting Diagnosis:? Sonali is a 61-year-old female diagnosed with pancreatic cancer 2 months ago who presented to the ED on 10/07/2022 due to nausea, vomiting, and inability to tolerate oral intake with report of severe abdominal pain.? Patient is diagnosed with yeast UTI,? MRSA,? epigastric pain, and? myoclonic jerking.? She continues with medical management and inpatient rehabilitation under swing bed 1 level of care as of 10/30/2022.? ? PMHX: All Active Problems?(Updated 11/02/22 @ 19:19 by Sunshine Morelos NP) Yeast UTI (Acute) Epigastric pain (Acute) Hypokalemia (Acute) Methicillin susceptible Staphylococcus aureus infection (Acute) E. coli UTI (Acute) Gram-positive bacteremia (Acute) Abdominal pain (Acute) Type of kidney inflammation (Acute) Palliative care encounter (Acute) Decreased oral intake (Acute) DNR (do not resuscitate) (Acute) Uncontrolled pain (Acute) Stomatitis (Acute) Candidal skin infection (Acute) No contraindication to deep vein thrombosis (DVT) prophylaxis (Acute) Hypertension (Chronic) Pancreas cancer (Acute) Acute hypokalemia (Acute) Hypomagnesemia (Acute) Social History/Home Situation: Lives with son and son's family in a private home with 13 step to enter.? Unknown at this time if patient will return to her home or her sister's home.? Independent with all mobility ADLs prior to admission.? Sister Jennifer who lives half an hour away has been a good support. Equipment Owned/DME: None Subjective: NT. See most recent TWO NEEDLE MACHINE OPERATOR notes. Objective: General Observation: NT. See most recent TWO NEEDLE MACHINE OPERATOR notes. Mental Status: NT. See most recent TWO NEEDLE MACHINE OPERATOR notes. Pain: NT. See most recent TWO NEEDLE MACHINE OPERATOR notes. Vital Signs: NT. See most recent TWO NEEDLE MACHINE OPERATOR notes. ROM: Right Upper Extremity: ? Shoulder Flexion WFL. Shoulder abduction WFL. Elbow flexion WFL. Wrist flexion WFL. Functional opening and closing of hand WFL. Left Upper Extremity:? Shoulder Flexion WFL. Shoulder abduction WFL. Elbow flexion WFL. Wrist flexion WFL. Functional opening and closing of hand WFL. Right Lower Extremity: Hip flexion WFL. Hip abduction WFL. Knee flexion WFL. Ankle dorsiflexion WFL. Ankle plantarflexion WFL. Left Lower Extremity: Hip flexion WFL. Hip abduction WFL. Knee flexion WFL. Ankle dorsiflexion WFL. Ankle plantarflexion WFL. Strength: Right Upper Extremity: Grossly 4-/5 Left Upper Extremity: Grossly 4-/5 Right Lower Extremity: Grossly 4-/5 Left Lower Extremity: Grossly 4-/5 BED MOBILITY/TRANSFERS? Supine-sit: Min A Sit-stand: CGA? Stand-sit: SBA ? Sit-supine: Min A ? GAIT? Assistive Device: FWW ? Weight bearing: Full Assist: CGA ? Distance: 10'x2 ? 5' side stepping L/R? Deviation: Slow pacing, increased fatigue ? Balance: Static Sitting: Normal Dynamic Sitting: Good Static Standing: Fair Dynamic Standing: Fair Assessment: Continues to require extensive encouragement to participate in therapy.? Signs of depression,? abdominal pain,? and fatigue all limit patient's ability to achieve current goals.? Will plan to await palliative care consult notes to see what patient decides to do prior to scheduled discharge on 11/13/2022. Patient presents with clinical signs and symptoms consistent with current/admitting diagnoses that have resulted to mobility limitations, gait instability, generalized weakness, and overall ADL decline as demonstrated by the following impairment level findings: 1.? Decreased strength to B UE/LE major muscle groups 2.? Impaired sitting/standing balance 3.? Impaired activity tolerance 4.? Lethargic Impairments are contributing to the following functional limitations: 1.? Decline in bed mobility skills 2.? Decline in transfer skills 3.? Difficulty with ambulation without assistive device and physical assistance 4.? Increased completion time for mobility ADL performance 5.? Increased risk for falls 6.? Difficulty with managing steps alone safely Goals: Goals X1 week 1. Supine-Sit independent NOT MET 2. Sit-Supine independent NOT MET 3. Sit-Stand independent NOT MET 4. Stand-Sit independent with no AD NOT MET 5. Bed-Chair independent with no AD NOT MET 6. Chair-Bed independent with no AD NOT MET 7. Independent gait on level surface with use of SPC for at least 300 feet without report of pain nor dyspnea NOT MET 8. Independent stair negotiation while holding onto B rails for at least 13 steps without report of pain nor dyspnea NOT MET 9. Independent with home exercise program NOT MET 10. Good static and dynamic standing balance/tolerance NOT MET DISCHARGE RECOMMENDATIONS: [] ? Home with no services [] [X] ? Home with services.? Home when medically cleared by hospitalist.? Patient will benefit from home health PT services in order to progress mobility level using least restrictive assistive ambulatory device, assess home safety, identify additional equipment needs, and establish a functional maintenance program that will increase ability of patient to remain at home. [] ? Home with outpatient PT [] [] ? SNF for continued rehabilitation [] [] ? [facility] [] [] ? SNF versus LTC based on ability to participate and progress [] TREATMENT CODE/TIME: MA Thank you for the opportunity to participate in the care of this patient. Chica Phipps PT, DPT, CLT [facility] [place], [place]
== END 2022-11-17 15:15 | disposition hospice, inpatient (51) | DRG 949 ==
PROVIDERS: Family Medicine; Internal Medicine; Nurse Practitioner Acute Care; Nurse Practitioner Family; Admitting Provider Internal Medicine; PCP Nurse Practitioner Family; Visit Provider Internal Medicine
DX: Z79.2 Long term (current) use of antibiotics (principal); B37.49 Other urogenital candidiasis; C25.9 Malignant neoplasm of pancreas, unspecified; E87.6 Hypokalemia; G89.3 Neoplasm related pain (acute) (chronic); Z66 Do not resuscitate; B95.61 Methicillin susceptible Staphylococcus aureus infection as the cause of diseases classified elsewhere; I10 Essential (primary) hypertension; E83.42 Hypomagnesemia; R10.13 Epigastric pain; F43.10 Post-traumatic stress disorder, unspecified; M79.7 Fibromyalgia; F41.9 Anxiety disorder, unspecified; K21.9 Gastro-esophageal reflux disease without esophagitis; F32.A Depression, unspecified; R63.0 Anorexia
CPT/HCPCS: 36410; 36415; 74177; 76942; 80048; 80053; 82805; 85652; 86850; 86900; 86901; 87635; 94640; 97110; 97116; 97162; 97530; 99306; 99316; J1650; 36600; 71045; 71260; 81003; 81015; 83735; 84132; 85025; 85610; 85730; 86140; 86301; 87086; 99308; J0690; J2270; J2310; J3430; J3475; J3480; J3490; J8540; Q9967